=== PATIENT | female | born 1945 | race Hispanic/Latino ===

== ENCOUNTER 2018-02-13 05:07 | Emergency (ER) | payer OTHER ==
[2018-02-13] MEDS ORDERED: MAGNE/ALUM HYDROXD 30 ML UCUP ONE (05:58)
[2018-02-13] MEDS ORDERED: NA CHLORIDE 0.9% 1,000 ML ONE (05:59)
[2018-02-13] MEDS ORDERED: ONDANSETRON 4 MG/2 ML VIAL ONE ×2 (05:59→07:45)
[2018-02-13] MEDS ORDERED: MORPHINE 4 MG/ML SYR ONE (05:59)
[2018-02-13] MEDS ORDERED: LIDOCAINE VISCOUS 2% SOLN 15 ML UDC ONE (05:59)
[2018-02-13] MEDS ORDERED: FAMOTIDINE 20 MG/2 ML VIAL IV ONE (06:00)
[2018-02-13 06:13] LABS: Absolute Lymphocytes (CBC) 0.6 K/uL (0.7-4.9); Absolute Neutrophil 8.3 K/uL (1.8-8.0); Basophils % 0.3 % (0-1.3); Eosinophils % 0.7 % (0-4.4); Hematocrit 35.7 % (36.0-45.0); Lymphocytes % 6.7 % (15.3-44.8); MCH 29.2 pg (27.0-35.0); MCV 84.4 fL (80-100); Monocytes % 0.4 % (3.3-12.3); RBC Red Blood Cell Count 4.23 M/uL (3.86-4.86)
[2018-02-13 06:18] LABS: Albumin 3.6 g/dL (3.4-5.0); Bilirubin Direct 0.1 mg/dL (0-0.2); Bilirubin Total 0.3 mg/dL (0.2-1.0); Potassium 3.6 mmol/L (3.5-5.1); Protein, Total 7.2 g/dL (6.4-8.2)
[2018-02-13] MEDS ORDERED: NA CHLORIDE 0.9% 50 ML IV ONE (06:22)
[2018-02-13] MEDS ORDERED: METRONIDAZOLE 500mg IVPB 500 MG/100 ML BAG IV ONE (06:22)
[2018-02-13] MEDS ORDERED: CEFTRIAXONE 1000 MG/VIAL ONE (06:22)
[2018-02-13 07:38] LABS: Blood Morphology Comment NOT SEEN (NOT SEEN); Platelet Estimate ADEQ
--- NOTE | 2018-02-13 08:40 | EDPHYS ---
Physician Documentation [facility] Name: Herlinda Benitez Age: 72 yrs Sex: Female : 1945 Arrival Date: 02/13/2018 Time: 05:10 Bed 16 Private MD: Rita García R ED Physician Jeanmarie Oakes HPI: 02/13 05:54 This 72 yrs old Female presents to ER via Unassigned with complaints of ma2 Vomiting/Diarrhea. 05:54 The patient presents to the emergency department with vomiting, diarrhea, abdominal ma2 pain. Onset: The symptoms/episode began/occurred suddenly, 3 hour(s) ago. The symptoms are alleviated by. Associated signs and symptoms: Pertinent positives: abdominal pain. Severity of symptoms: At their worst the symptoms were moderate in the emergency department the symptoms are unchanged. The patient has not experienced similar symptoms in the past. Historical: - Allergies: 05:13 PENICILLINS; cc3 - Home Meds: 05:13 oxybutin 5mg once a day [Active]; losartan 50 mg oral tab 1 tab once daily [Active]; cc3 pravastatin 40 mg oral tab 1 tab once daily [Active]; amlodipine 5 mg tab 1 tab once daily [Active]; metformin 500 mg Oral tab 1 tab 2 times per day [Active]; citalopram 20 mg tab 1 tab once daily [Active]; Insulin: Novolin 70/30 18 units AM and 15 units PM Sub-Q [Active]; - PMHx: 05:13 Diabetes - IDDM; Hyperlipidemia; Hypertension; cc3 - PSHx: 05:13 Cholecystectomy; Ear Tubes; cc3 - Immunization history:: Adult Immunizations not up to date. - Social history:: Patient uses Patient/guardian denies using alcohol, street drugs, The patient lives with family, Smoking status: Patient/guardian denies using tobacco, the patient reports quitting approximately 15 years ago. - Family history:: not pertinent. - Ebola Screening: : No symptoms or risks identified at this time. - Hospitalizations: : No recent hospitalization is reported. ROS: 05:54 Constitutional: Negative for fever, chills, and weight loss, Cardiovascular: Negative ma2 for chest pain, palpitations, and edema, Respiratory: Negative for shortness of breath, cough, wheezing, and pleuritic chest pain. 05:54 Abdomen/GI: Positive for nausea, vomiting, and diarrhea, Negative for constipation, abdominal distension, black/tarry stool, bowel incontinence. 05:54 All other systems are negative. Exam: 05:54 Constitutional: This is a well developed, well nourished patient who is awake, alert, ma2 and in no acute distress. Chest/axilla: Normal chest wall appearance and motion. Nontender with no deformity. No lesions are appreciated. Cardiovascular: Regular rate and rhythm with a normal S1 and S2. No gallops, murmurs, or rubs. Normal PMI, no JVD. No pulse deficits. Respiratory: Lungs have equal breath sounds bilaterally, clear to auscultation and percussion. No rales, rhonchi or wheezes noted. No increased work of breathing, no retractions or nasal flaring. MS/ Extremity: Pulses equal, no cyanosis. Neurovascular intact. Full, normal range of motion. Neuro: Awake and alert, GCS 15, oriented to person, place, time, and situation. Cranial nerves II-XII grossly intact. Motor strength 5/5 in all extremities. Sensory grossly intact. Cerebellar exam normal. Normal gait. 05:54 Abdomen/GI: Palpation: moderate abdominal tenderness, in the epigastric area and right upper quadrant, rebound tenderness, voluntary guarding, is not appreciated, involuntary guarding, is not appreciated. 08:52 Abdomen/GI: Inspection: distension, Bowel sounds: normal, Rectal exam: is unremarkable, renetta rectal tone normal, Stool: guaiac negative, hemorrhoid(s), are not appreciated, mass, is not appreciated, swelling, is not appreciated, tenderness, is not appreciated. Vital Signs: 05:13 BP 138 / 62; Pulse 68; Resp 19 S; Temp 97.9(O); Pulse Ox 97% on R/A; Weight 84.82 kg cc3 (R); Height 5 ft. 4 in. (162.56 cm) (R); 06:15 BP 171 / 80; Pulse 103; Resp 20 S; Pulse Ox 95% on R/A; cc3 07:31 BP 176 / 61; Pulse 97; Resp 16; Pulse Ox 92% on 3 lpm NC; Pain 0/10; em 08:50 BP 168 / 79; Pulse 90; Resp 16; Pulse Ox 99% on R/A; Pain 0/10; em 14:55 BP 124 / 59; Pulse 76; Resp 18; Temp 97.9(O); Pulse Ox 99% on R/A; Pain 1/10; em 05:13 Body Mass Index 32.10 (84.82 kg, 162.56 cm) cc3 MDM: 05:47 Patient medically screened. mi2 05:54 Differential diagnosis: gastritis, cholecystitis, pancreatitis, appendicitis, ma2 diverticulitis, viral gastroenteritis. 08:31 Data reviewed: vital signs, nurses notes, lab test result(s), EKG, radiologic studies, [facility] CT scan, plain films. 02/13 05:39 Order name: Basic Metabolic Panel; Complete Time: 06:33 ms 02/13 05:39 Order name: CBC with Diff; Complete Time: 08:29 ms 02/13 05:39 Order name: Creatinine for Radiology; Complete Time: 06:33 ms 02/13 05:39 Order name: Hepatic Function; Complete Time: 06:33 ms 02/13 05:39 Order name: Lipase; Complete Time: 06:33 ms 02/13 06:16 Order name: Manual Differential; Complete Time: 08:29 EDMS 02/13 05:47 Order name: CT Abd/Pelvis - W/Contrast; Complete Time: 13:38 ma2 02/13 11:10 Order name: Urine Culture [facility] 02/13 11:12 Order name: Urine Dipstick--Ancillary (enter results) 02/13 11:22 Order name: Urine Dipstick-Ancillary; Complete Time: 13:35 EDMS 02/13 14:49 Order name: Glucose, Ancillary Testing [facility] 02/13 14:49 Order name: Glucose, Ancillary Testing [facility] 02/13 05:39 Order name: IV Saline Lock; Complete Time: 05:52 ms 02/13 05:39 Order name: Labs collected and sent; Complete Time: 05:52 ms 02/13 05:39 Order name: Urine Dipstick-Ancillary (obtain specimen); Complete Time: 11:29 ms 02/13 08:52 Order name: Arellano; Complete Time: 09:34 [facility] Administered Medications: 05:45 Drug: NS 0.9% 1000 ml Route: IV; Rate: 1 bolus; Site: right antecubital; cc3 06:30 Follow up: Response: No adverse reaction; IV Status: Completed infusion; IV Intake: cc3 1000ml 05:46 Drug: Zofran 4 mg Route: IVP; Site: right antecubital; cc3 06:15 Follow up: Response: No adverse reaction; Nausea is decreased cc3 05:50 Drug: Pepcid 20 mg Route: IVP; Site: right antecubital; cc3 06:15 Follow up: Response: No adverse reaction; Pain is decreased cc3 05:54 Drug: morphine 4 mg Route: IVP; Site: right antecubital; cc3 06:15 Follow up: Response: No adverse reaction; Pain is decreased cc3 06:05 Drug: GI Cocktail without - (Maalox Suspension 30 ml, Lidocaine Liquid 2 % 15 cc3 ml) Route: PO; 06:15 Follow up: Response: No adverse reaction cc3 06:15 Drug: Flagyl 500 mg Volume: 100 ml; Route: IVPB; Rate: 200 ml/hr; Infused Over: 30 cc3 mins; Site: right antecubital; 08:13 Follow up: Response: No adverse reaction; IV Status: Completed infusion; IV Intake: em 200ml 07:32 Drug: Rocephin 1 grams Route: IV; Rate: calculated rate; Site: right antecubital; iw 08:14 Follow up: Response: No adverse reaction; IV Status: Completed infusion; IV Intake: 10mlem 07:59 Drug: Zofran 4 mg Route: IVP; Site: right antecubital; em 08:13 Follow up: Response: No adverse reaction; Nausea is decreased em 11:28 Drug: levofloxacin 500 mg Volume: 100 ml; Route: IVPB; Infused Over: 60 mins; Site: em right antecubital; 13:04 Follow up: IV Status: Completed infusion; IV Intake: 100ml em Point of Care Testing: Blood Glucose: 05:34 Blood Glucose: 226 mg/dL; cc3 14:49 Blood Glucose: 170 mg/dL; mt Ranges: Critical Glucose Levels:Adult <50 mg/dl or >400 mg/dl <40 mg/dl or >180 mg/dl Disposition: 02/13/18 15:12 Transfer ordered to [facility]. Diagnosis are Vomiting, Diarrhea, unspecified, Type 1 diabetes mellitus, Hydronephrosis with ureteral stricture, not elsewhere classified, Abdominal tenderness. - Reason for transfer: Higher level of care. - Accepting physician is dr anuj copeland. - Condition is Fair. - Problem is new. - Symptoms have improved. Signatures: Dispatcher [employer] Jeanmarie Wu MD MD cha Munoz, Edgar, SERVICE DELIVERY MANAGER SERVICE DELIVERY MANAGER Jennifer Ruiz, Adelaida Bruce RN, [email or web address], MD DAKOTA Marshall ma2 Corinna Garzon Charlene 3 Corrections: (The following items were deleted from the chart) 08:40 08:39 Hospitalization Ordered by Rebeca Sotelo MD for Observation. Preliminary renetta diagnosis is Vomiting; Diarrhea, unspecified; Abdominal tenderness; Hydronephrosis with ureteral stricture, not elsewhere classified. Bed requested for Telemetry/MedSurg (observation). Status is Observation. Condition is Fair. Problem is new. Symptoms have improved. UTI on Admission? No. renetta 08:41 08:40 02/13/2018 08:39 Hospitalization Ordered by Rebeca Sotelo MD for Observation. renetta Preliminary diagnosis is Vomiting; Diarrhea, unspecified; Abdominal tenderness; Hydronephrosis with ureteral stricture, not elsewhere classified; Bandemia. Bed requested for Telemetry/MedSurg (observation). Status is Observation. Condition is Fair. Problem is new. Symptoms have improved. UTI on Admission? No. renetta 10:20 08:41 02/13/2018 08:39 Hospitalization Ordered by Rebeca Sotelo MD for Observation. eb Preliminary diagnosis is Vomiting; Diarrhea, unspecified; Abdominal tenderness; Hydronephrosis with ureteral stricture, not elsewhere classified; Bandemia; Type 1 diabetes mellitus; Obesity, unspecified. Bed requested for Telemetry/MedSurg (observation). Status is Observation. Condition is Fair. Problem is new. Symptoms have improved. UTI on Admission? No. renetta 11:08 10:20 02/13/2018 08:39 Hospitalization Ordered by Rebeca Sotelo MD for Observation. renetta Preliminary diagnosis is Vomiting; Diarrhea, unspecified; Abdominal tenderness; Hydronephrosis with ureteral stricture, not elsewhere classified; Bandemia; Type 1 diabetes mellitus; Obesity, unspecified. Bed requested for [facility] ER HOLD. Status is Observation. Condition is Fair. Problem is new. Symptoms have improved. UTI on Admission? No. eb 15:09 11:08 02/13/2018 08:39 Hospitalization Ordered by Rebeca Sotelo MD for Observation. [facility] Preliminary diagnosis is Vomiting; Diarrhea, unspecified; Abdominal tenderness; Hydronephrosis with ureteral stricture, not elsewhere classified; Bandemia; Type 1 diabetes mellitus; Obesity, unspecified; Cystitis. Bed requested for [facility] ER HOLD. Status is Observation. Condition is Fair. Problem is new. Symptoms have improved. UTI on Admission? Yes. [facility] 15:46 15:12 02/13/2018 15:12 Transfer ordered to [facility]. Diagnosis is em Vomiting; Diarrhea, unspecified; Type 1 diabetes mellitus; Hydronephrosis with ureteral stricture, not elsewhere classified; Abdominal tenderness. Reason for transfer: Higher level of care. Accepting physician is dr anuj copeland. Condition is Fair. Problem is new. Symptoms have improved. [facility]
--- NOTE | 2018-02-13 08:40 | ER ---
Nurse's Notes [facility] Name: Herlinda Benitez Age: 72 yrs Sex: Female : 1945 Arrival Date: 02/13/2018 Time: 05:10 Bed 16 Private MD: Rita García R Diagnosis: Vomiting;Diarrhea, unspecified;Type 1 diabetes mellitus;Hydronephrosis with ureteral stricture, not elsewhere classified;Abdominal tenderness Presentation: 02/13 05:13 Presenting complaint: Patient states: diarrhea 3-4 times and vomiting since last night. cc3 05:13 Method Of Arrival: Wheelchair cc3 05:13 Transition of care: patient was not received from another setting of care. Onset of cc3 symptoms was February 12, 2018. Risk Assessment: Do you want to hurt yourself or someone else? Patient reports no desire to harm self or others. Initial Sepsis Screen: Does the patient meet any 2 criteria? No. Patient's initial sepsis screen is negative. Does the patient have a suspected source of infection? No. Patient's initial sepsis screen is negative. Care prior to arrival: None. 05:13 Acuity: LOLIS 3 cc3 Triage Assessment: 05:13 General: Appears distressed, uncomfortable, Behavior is cooperative, appropriate for cc3 age, anxious. Pain: Complains of pain in right upper quadrant and epigastric area. EENT: No signs and/or symptoms were reported regarding the EENT system. Neuro: Level of Consciousness is awake, alert, obeys commands, Oriented to person, place, time, situation, Appropriate for age. Cardiovascular: Denies chest pain. Respiratory: Airway is patent Respiratory effort is even, unlabored, Respiratory pattern is regular, symmetrical. GI: Reports upper abdominal pain, diarrhea, epigastric pain, nausea, vomiting, since last night. : No signs and/or symptoms were reported regarding the genitourinary system. Derm: No signs and/or symptoms reported regarding the dermatologic system. Musculoskeletal: Circulation, motion, and sensation intact. Range of motion: intact in all extremities. Historical: - Allergies: 05:13 PENICILLINS; cc3 - Home Meds: 05:13 oxybutin 5mg once a day [Active]; losartan 50 mg oral tab 1 tab once daily [Active]; cc3 pravastatin 40 mg oral tab 1 tab once daily [Active]; amlodipine 5 mg tab 1 tab once daily [Active]; metformin 500 mg Oral tab 1 tab 2 times per day [Active]; citalopram 20 mg tab 1 tab once daily [Active]; Insulin: Novolin 70/30 18 units AM and 15 units PM Sub-Q [Active]; - PMHx: 05:13 Diabetes - IDDM; Hyperlipidemia; Hypertension; cc3 - PSHx: 05:13 Cholecystectomy; Ear Tubes; cc3 - Immunization history:: Adult Immunizations not up to date. - Social history:: Patient uses Patient/guardian denies using alcohol, street drugs, The patient lives with family, Smoking status: Patient/guardian denies using tobacco, the patient reports quitting approximately 15 years ago. - Family history:: not pertinent. - Ebola Screening: : No symptoms or risks identified at this time. - Hospitalizations: : No recent hospitalization is reported. Screenin:13 Abuse screen: Denies threats or abuse. Denies injuries from another. Nutritional cc3 screening: No deficits noted. Tuberculosis screening: No symptoms or risk factors identified. Fall Risk Ambulatory Aid- None/Bed Rest/Nurse Assist (0 pts). Gait- Normal/Bed Rest/Wheelchair (0 pts) Mental Status- Oriented to own ability (0 pts). Assessment: 07:00 Reassessment: Patient still in CT scan department, handed over to morning shift for cc3 continuity of care. 07:04 General: Appears in no apparent distress. comfortable, Behavior is calm, cooperative. em Pain: Denies pain. Cardiovascular: Capillary refill < 3 seconds Patient's skin is warm and dry. Respiratory: Airway is patent Respiratory effort is even, unlabored, Respiratory pattern is regular, symmetrical. GI: Abdomen is round non-distended, Abd is soft and non tender X 4 quads. Reports diarrhea, nausea, Patient currently denies nausea, vomiting. Derm: Skin is intact, Skin is pink, warm \T\ dry. Musculoskeletal: Range of motion: intact in all extremities. 07:30 Reassessment: Patient appears in no apparent distress at this time. Patient and/or em family updated on plan of care and expected duration. Pain level reassessed. Patient is alert, oriented x 3, equal unlabored respirations, skin warm/dry/pink. resting comfortably with family at bedside Patient denies pain at this time. Patient states symptoms have improved. 07:55 Reassessment: reports nausea and belching, provider notified, new medication orders em received. 08:50 Reassessment: Patient appears in no apparent distress at this time. Patient and/or em family updated on plan of care and expected duration. Pain level reassessed. Patient is alert, oriented x 3, equal unlabored respirations, skin warm/dry/pink. Patient denies pain at this time. Patient states feeling better. 09:15 Reassessment: see [facility] for further charting. em 14:55 Reassessment: report given to HEIDY Kapoor at [facility], pending EMS transportation. em 15:45 Reassessment: Patient appears in no apparent distress at this time. Patient and/or em family updated on plan of care and expected duration. Pain level reassessed. Patient is alert, oriented x 3, equal unlabored respirations, skin warm/dry/pink. report given to EMS. 16:00 Reassessment: Patient appears in no apparent distress at this time. I agree with above iw assessment by Carrillo Tovar LVN. Vital Signs: 05:13 BP 138 / 62; Pulse 68; Resp 19 S; Temp 97.9(O); Pulse Ox 97% on R/A; Weight 84.82 kg cc3 (R); Height 5 ft. 4 in. (162.56 cm) (R); 06:15 BP 171 / 80; Pulse 103; Resp 20 S; Pulse Ox 95% on R/A; cc3 07:31 BP 176 / 61; Pulse 97; Resp 16; Pulse Ox 92% on 3 lpm NC; Pain 0/10; em 08:50 BP 168 / 79; Pulse 90; Resp 16; Pulse Ox 99% on R/A; Pain 0/10; em 14:55 BP 124 / 59; Pulse 76; Resp 18; Temp 97.9(O); Pulse Ox 99% on R/A; Pain 1/10; em 05:13 Body Mass Index 32.10 (84.82 kg, 162.56 cm) [facility] ED Course: 05:10 Patient arrived in ED. am2 05:11 Paradise Beckwith is Primary Nurse. cc3 05:11 Rita García MD is Private Physician. am2 05:13 Arm band placed on left wrist. cc3 05:13 Patient has correct armband on for positive identification. Bed in low position. Call cc3 light in reach. Side rails up X 1. industrial locomotive operator on. Pulse ox on. NIBP on. 05:40 Inserted saline lock: 20 gauge in right antecubital area, using aseptic technique. cc3 Blood collected. 05:45 Joanna Pinto MD is Attending Physician. ma2 06:25 Triage completed. cc3 06:[address] via stretcher. kw1 06:55 CT completed. Patient tolerated procedure well. Patient moved back from CT. kw1 06:55 CT Abd/Pelvis - W/Contrast In Process Unspecified. EDMS 07:00 Report given to GEOFF Vizcaino. cc3 07:15 Carrillo Tovar LVN is Primary Nurse. em 07:18 Attending Physician role handed off by Joanna Pinto MD renetta 07:18 Jeanmarie Oakes MD is Attending Physician. renetta 08:34 Rebeca Sotelo MD is Hospitalizing Provider. renetta 09:22 Arellano cath inserted, using sterile technique, 16 Fr., by al, balloon inflated, to iw gravity drainage, returned cloudy urine. Patient tolerated well. 15:44 No provider procedures requiring assistance completed. Patient transferred, IV remains em in place. Administered Medications: 05:45 Drug: NS 0.9% 1000 ml Route: IV; Rate: 1 bolus; Site: right antecubital; cc3 06:30 Follow up: Response: No adverse reaction; IV Status: Completed infusion; IV Intake: cc3 1000ml 05:46 Drug: Zofran 4 mg Route: IVP; Site: right antecubital; cc3 06:15 Follow up: Response: No adverse reaction; Nausea is decreased cc3 05:50 Drug: Pepcid 20 mg Route: IVP; Site: right antecubital; cc3 06:15 Follow up: Response: No adverse reaction; Pain is decreased cc3 05:54 Drug: morphine 4 mg Route: IVP; Site: right antecubital; cc3 06:15 Follow up: Response: No adverse reaction; Pain is decreased cc3 06:05 Drug: GI Cocktail without - (Maalox Suspension 30 ml, Lidocaine Liquid 2 % 15 cc3 ml) Route: PO; 06:15 Follow up: Response: No adverse reaction cc3 06:15 Drug: Flagyl 500 mg Volume: 100 ml; Route: IVPB; Rate: 200 ml/hr; Infused Over: 30 cc3 mins; Site: right antecubital; 08:13 Follow up: Response: No adverse reaction; IV Status: Completed infusion; IV Intake: em 200ml 07:32 Drug: Rocephin 1 grams Route: IV; Rate: calculated rate; Site: right antecubital; iw 08:14 Follow up: Response: No adverse reaction; IV Status: Completed infusion; IV Intake: 10mlem 07:59 Drug: Zofran 4 mg Route: IVP; Site: right antecubital; em 08:13 Follow up: Response: No adverse reaction; Nausea is decreased em 11:28 Drug: levofloxacin 500 mg Volume: 100 ml; Route: IVPB; Infused Over: 60 mins; Site: em right antecubital; 13:04 Follow up: IV Status: Completed infusion; IV Intake: 100ml em Point of Care Testing: Blood Glucose: 05:34 Blood Glucose: 226 mg/dL; cc3 14:49 Blood Glucose: 170 mg/dL; mt Ranges: Intake: 06:30 IV: 1000ml; Total: 1000ml. cc3 08:13 IV: 200ml; Total: 1200ml. em 08:14 IV: 10ml; Total: 1210ml. em 13:04 IV: 100ml; Total: 1310ml. em Outcome: 08:39 Decision to Hospitalize by Provider. renetta 15:12 ER care complete, transfer ordered by . [facility] 15:44 Transferred by ground EMS to [facility], Transfer form completed. em X-rays sent w/ patient. 15:44 Condition: good 15:44 Instructed on the need for transfer, Demonstrated understanding of instructions. 15:46 Patient left the ED. em Signatures: Dispatcher [employer] Jeanmarie Wu MD MD cha Munoz, Edgar, COMMUNITY ASSISTANT COMMUNITY ASSISTANT em Jennifer Junior, HEIDY RN Jessa Plata Moriah tn Narda Dawn kw1 Joanna Pinto MD MD ma2 Cordel, Charlene cc3
[2018-02-13 11:22] LABS: Urine Blood 3+ (NEG); Urine Glucose NEGATIVE (NEG); Urine Protein 2+ (NEG)
[2018-02-13] MEDS ORDERED: Levofloxacin500mg IV 500 MG/100 ML BAG IV ONE (11:24)
[2018-02-13] MEDS ORDERED: PNEUMOCOCCAL VACCINE 0.5 ML IMVAC ONE (13:00)
--- NOTE | 2018-02-13 13:20 | P.CNS ---
Date of Consult: 02/13/18 Reason for Consult: Admission to the medical-surgical floor Primary Care Provider: Dr vivar Chief Complaint: Abdominal pain History of Present Illness: This is a 72-year-old female with significant past medical history presented to the ED complaining of having some abdominal pain diarrhea nausea and vomiting. Abdominal pain diarrhea has been going on for about 2-3 days. Patient's nausea vomiting started last night and has gotten progressively worse. Patient thus decided to come to the ER for further workup. Patient stated she also had low- grade fever of 100.6 at the house last night. It is also noted having some chills. Patient did not have any similar symptoms in the past. In the ER patient had lab work and imaging done which was consistent with dehydration along with abdominal CT scan that was consistent with mild right- sided hydronephrosis with right nephrolithiasis and right perinephric fluid. Medicine team was thus consulted for admission for further care. Allergies Penicillins Allergy (Unknown, Verified 02/13/18 10:24) Hives - Social History Alcohol use: No CD- Drugs: No Place of Residence: Home Review of Systems 10-point ROS is otherwise unremarkable Physical Examination Temp Pulse Resp BP Pulse Ox 98.7 F 78 18 120/56 L 95 02/13/18 12:00 02/13/18 12:00 02/13/18 12:00 02/13/18 12:00 02/13/18 12:00 General: Alert, In no apparent distress HEENT: Atraumatic, PERRLA, Mucous membr. moist/pink, EOMI, Sclerae nonicteric Neck: Supple, 2+ carotid pulse no bruit, No LAD, Without JVD or thyroid abnormality Respiratory: Clear to auscultation bilaterally, Normal air movement Cardiovascular: Regular rate/rhythm, Normal S1 S2 Gastrointestinal: Normal bowel sounds, Tenderness Musculoskeletal: No tenderness Integumentary: No rashes Neurological: Normal gait, Normal speech, Normal tone, Normal affect Lymphatics: No axilla or inguinal lymphadenopathy Laboratory Data (last 24 hrs) 02/13/18 05:40: Creatinine 1.30 02/13/18 05:40: WBC 9.0, Hgb 12.3, Hct 35.7 L, Plt Count 310 02/13/18 05:40: Sodium 136, Potassium 3.6, BUN 22 H, Creatinine 1.30, Glucose 216 H, Total Bilirubin 0.3, AST 10 L, ALT 16, Alkaline Phosphatase 122 H, Lipase 59 L - Problems (1) Abdominal pain Current Visit: Yes Status: Acute Qualifiers: Abdominal location: generalized Qualified Code(s): R10.84 - Generalized abdominal pain (2) Hydronephrosis Current Visit: Yes Status: Acute Qualifiers: Hydronephrosis type: with renal calculous obstruction Qualified Code(s): N13.2 - Hydronephrosis with renal and ureteral calculous obstruction (3) Nephrolithiasis Current Visit: Yes Status: Acute (4) Perinephric fluid collection Current Visit: Yes Status: Acute Conclusions/Impression: 72-year-old female significant past medical history with abdominal pain nausea and vomiting most likely secondary to right-sided moderate hydronephrosis with right nephrolithiasis and right perinephric fluid. Patient's PCP was contacted from the ER 0 noted that patient's abdominal CT has been changes with hydronephrosis this is not a chronic condition for the patient. Patient at that time was educated about the abdominal CT findings and the need for urology the patient was to have another fever here in the hospital. Overall was consulted by the medicine team here who agreed with the plan of transfer the patient to the medical center due to the extensive nature of her abdominal CT scan imaging results. Due to lack of urology coverage here in the hospital it was decided that patient to be transferred to Medical Center. The ER physician was notified of the decision and patient is to be transferred from the ER to the [facility] for urology coverage.
--- NOTE | 2018-02-13 13:34 | RAD REPORT ---
EXAM DESCRIPTION: CTAbdomen Pelvis W Contrast - 02/13/2018 6:55 am CLINICAL HISTORY: Abdominal pain. ABD PAIN COMPARISON: CT ABD PELVIS W CONTRAST dated 03/15/2008 TECHNIQUE: Biphasic CT imaging of the abdomen and pelvis was performed with 100 ml non-ionic IV cont rast. All CT scans are performed using dose optimization technique as appropriate and may include automated exposure control or mA/KV adjustment according to patient size. FINDINGS: The lung bases are clear.Small hiatal hernia is present. Fatty liver is present with cholecystectomy clips. Moderate intrahepatic biliary dilatation is seen a nd dilatation of the common bile duct. There is irregular dilatation of the pancreatic duct seen with multiple dystrophic calcifications. The spleen, adrenal glands and left kidney are normal. Small cys ts are present cortex left kidney. Moderate right-sided hydronephrosis is present several right-sided renal calculi are present. Distention of the urinary bladder is seen with a large amount of air pres ent. Subtle increased density seen in the distal right ureter. No bowel obstruction, free air, free fluid or abscess. The appendix is normal. No evidence of signi ficant lymphadenopathy. No suspicious bony findings. IMPRESSION: Urinary bladder is distended and contains air. Cystitis is a possibility. Soft tissue density is seen in the distal right ureter with mild right hydronephrosis present, which may be related to debris or mass. Cystoscopy is suggested for further evaluation. Several right renal stones are present with perinephric fat stranding on the right noted, moderate. Moderate intrahepatic and extrahepatic biliary tree dilatation is seen. Dilatation irregularity of th e pancreatic duct is seen dystrophic calcifications present throughout the pancreas. This is felt to likely be related to chronic pancreatitis, however MRCP followup assessment would be useful.
== END 2018-02-13 15:46 | disposition short-term general hospital (02) ==
LOC: ER 05:07 → UNDOADMOB 08:47 → ERHOLD 08:47
DX: N13.1 Hydronephrosis with ureteral stricture, not elsewhere classified (principal); R19.7 Diarrhea, unspecified; R10.819 Abdominal tenderness, unspecified site; E10.9 Type 1 diabetes mellitus without complications; I10 Essential (primary) hypertension; E78.5 Hyperlipidemia, unspecified; Z79.4 Long term (current) use of insulin; Z88.0 Allergy status to penicillin
CPT/HCPCS: 36415; 51702; 74177; 80048; 80076; 81003; 82962 ×2; 83690; 85025; 87077; 87086; 87088; 87186; 96365; 96366; 96367; 96375; 99285; J2405 ×2; J7030; Q9967

== ENCOUNTER 2018-10-07 21:35 | Emergency (ER) | payer OTHER ==
--- OUTSIDE RECORDS SUMMARY | 2018-10-07 21:39 | XMS REPORT | Clinical Summary ---
:1945 Author Organization [facility] Address [address] [place] [address] Care Team Providers Name Role Phone Pcp, No Primary Care Provider Unavailable Allergies Active Allergy Reactions Severity Noted Date Comments Penicillins Hives 02/13/2018 Medications Medication Sig Dispensed Refills Start Date End Date Status oxybutynin Take 5 mg by mouth 0 Active (DITROPAN) 5 MG daily. tablet losartan (COZAAR) Take 50 mg by mouth 0 Active 50 MG tablet daily. pravastatin Take 40 mg by mouth 0 Active (PRAVACHOL) 40 MG daily. tablet amLODIPine Take 5 mg by mouth 0 Active (NORVASC) 10 MG daily. tablet metFORMIN Take 500 mg by 0 Active (GLUCOPHAGE) 500 mouth 2 (two) times MG tablet daily with breakfast and dinner. insulin 70/30, Inject 18 Units 0 Active insulin subcutaneously NPH-insulin every morning. regular, (HUMULIN 70/30) 100 unit/mL (70-30) injection insulin 70/30, Inject 15 Units 0 Active insulin subcutaneously NPH-insulin daily with dinner. regular, (HUMULIN 70/30) 100 unit/mL (70-30) injection citalopram Take 20 mg by mouth 0 Active (CELEXA) 20 MG daily. tablet levoFLOXacin Take 1 tablet (750 3 tablet 0 02/18/2018 02/19/20 Discontinued (LEVAQUIN) 750 MG mg total) by mouth 18 tablet daily for 10 days. levoFLOXacin Take 1 tablet (500 3 tablet 0 02/18/2018 02/22/20 (LEVAQUIN) 500 MG mg total) by mouth 18 tablet daily for 3 days. Active Problems Problem Noted Date Pyelonephritis 02/13/2018 Hydronephrosis of right kidney 02/13/2018 Dilation of biliary tract 02/13/2018 Encounters Date Type Specialty Care Team Description 02/18/2018 Anesthesia Event Sofie Cardenas MD 02/18/2018 Surgery Link, Yunior CYSTOSCOPY,INSERTION MD Osvaldo URETERAL STENTS 02/13/2018 - Hospital Encounter General Internal Steven, Dilation of biliary tract (Primary Dx); 02/19/2018 Medicine MD Juan Carlos Hydronephrosis of right kidney; Changela, Pyelonephritis; Blanka Pérez MD Urinary tract infection without hematuria, site unspecified; Ani Hutchinson MD Idiopathic chronic pancreatitis (HCC); Pancreatic calcification; Pancreatic duct stones; Pancreatic cyst after 10/06/2017 Social History Tobacco Use Types Packs/Day Years Used Date Former Smoker Smokeless Tobacco: Never Used Comments: quit 2002 Alcohol Use Drinks/Week oz/Week Comments No Alcohol Habits Answer Date Recorded How often do you have a drink containing alcohol? Never 02/13/2018 How many drinks containing alcohol do you have on a typical Not asked day when you are drinking? How often do you have six or more drinks on one occasion? Not asked Sex Assigned at Date Recorded Not on file Job Start Date Occupation Industry Not on file Not on file Not on file Travel History Travel Start Travel End No recent travel history available. Last Filed Vital Signs Vital Sign Reading Time Taken Blood Pressure 152/63 02/19/2018 7:41 AM SENIOR MECHANICAL DEVELOPMENT ENGINEER Pulse 71 02/19/2018 7:41 AM SENIOR MECHANICAL DEVELOPMENT ENGINEER Temperature 36.1 C (97 F) 02/19/2018 7:41 AM SENIOR MECHANICAL DEVELOPMENT ENGINEER Respiratory Rate 17 02/19/2018 7:41 AM SENIOR MECHANICAL DEVELOPMENT ENGINEER Oxygen Saturation 96% 02/19/2018 7:41 AM SENIOR MECHANICAL DEVELOPMENT ENGINEER Inhaled Oxygen Concentration - - Weight 87.6 kg (193 lb 3.2 oz) 02/13/2018 5:07 PM SENIOR MECHANICAL DEVELOPMENT ENGINEER Height 164.6 cm (5' 4.8") 02/13/2018 5:07 PM SENIOR MECHANICAL DEVELOPMENT ENGINEER Body Mass Index 32.35 02/13/2018 5:07 PM SENIOR MECHANICAL DEVELOPMENT ENGINEER Plan of Treatment Not on file Procedures Procedure Name Priority Date/Time Associated Comments Diagnosis POCT-GLUCOSE METER Routine 02/19/2018 9:41 Results for this AM SENIOR MECHANICAL DEVELOPMENT ENGINEER procedure are in the results section. POCT-GLUCOSE METER Routine 02/19/2018 7:41 Results for this AM SENIOR MECHANICAL DEVELOPMENT ENGINEER procedure are in the results section. POCT-GLUCOSE METER Routine 02/18/2018 8:58 Results for this PM SENIOR MECHANICAL DEVELOPMENT ENGINEER procedure are in the results section. POCT-GLUCOSE METER Routine 02/18/2018 4:40 Results for this PM SENIOR MECHANICAL DEVELOPMENT ENGINEER procedure are in the results section. POCT-GLUCOSE METER Routine 02/18/2018 2:50 Results for this PM SENIOR MECHANICAL DEVELOPMENT ENGINEER procedure are in the results section. FL SHINGLE SHEARING MACHINE OPERATOR IN OR Routine 02/18/2018 2:23 Results for this 30 MINUTE PM SENIOR MECHANICAL DEVELOPMENT ENGINEER procedure are in INCREMENTS the results section. CYTOLOGY REQUEST Routine 02/18/2018 2:09 Results for this PM SENIOR MECHANICAL DEVELOPMENT ENGINEER procedure are in the results section. CYTOLOGY AP Routine 02/18/2018 2:09 Results for this PM SENIOR MECHANICAL DEVELOPMENT ENGINEER procedure are in the results section. CYSTOSCOPY 02/18/2018 12:30 Ureteral mass PM SENIOR MECHANICAL DEVELOPMENT ENGINEER Case Notes 1 HR CYSTOSCOPY,RETROGRADES 02/18/2018 12:30 PM SENIOR MECHANICAL DEVELOPMENT ENGINEER Ureteral mass Case Notes 1 HR CYSTOSCOPY,INSERTION URETERAL STENTS 02/18/2018 12:30 PM SENIOR MECHANICAL DEVELOPMENT ENGINEER Ureteral mass Case Notes 1 HR POCT-GLUCOSE METER Routine 02/18/2018 12:18 PM SENIOR MECHANICAL DEVELOPMENT ENGINEER IGG SUBCLASS-4 ONLY Routine 02/18/2018 6:00 AM SENIOR MECHANICAL DEVELOPMENT ENGINEER POCT-GLUCOSE METER Routine 02/17/2018 9:33 PM SENIOR MECHANICAL DEVELOPMENT ENGINEER PANCREATIC ELASTASE, FECAL Routine 02/17/2018 9:24 PM SENIOR MECHANICAL DEVELOPMENT ENGINEER POCT-GLUCOSE METER Routine 02/17/2018 4:21 PM SENIOR MECHANICAL DEVELOPMENT ENGINEER POCT-GLUCOSE METER Routine 02/17/2018 11:37 AM SENIOR MECHANICAL DEVELOPMENT ENGINEER POCT-GLUCOSE METER Routine 02/17/2018 8:12 AM SENIOR MECHANICAL DEVELOPMENT ENGINEER POCT-GLUCOSE METER Routine 02/16/2018 9:05 PM SENIOR MECHANICAL DEVELOPMENT ENGINEER POCT-GLUCOSE METER Routine 02/16/2018 5:15 PM SENIOR MECHANICAL DEVELOPMENT ENGINEER POCT-GLUCOSE METER Routine 02/16/2018 12:31 PM SENIOR MECHANICAL DEVELOPMENT ENGINEER POCT-GLUCOSE METER Routine 02/16/2018 9:48 AM SENIOR MECHANICAL DEVELOPMENT ENGINEER CT ABDOMEN & PELVIS - Routine 02/16/2018 6:36 AM SENIOR MECHANICAL DEVELOPMENT ENGINEER Results for this HEMATURIA EVALUATION procedure are in the WITHOUT/WITH IV CONTRAST results section. CBC W/PLT COUNT & AUTO Routine 02/16/2018 3:14 AM SENIOR MECHANICAL DEVELOPMENT ENGINEER Results for this DIFFERENTIAL procedure are in the results section. CBC W/PLT COUNT & AUTO Routine 02/16/2018 3:14 AM SENIOR MECHANICAL DEVELOPMENT ENGINEER Results for this DIFFERENTIAL procedure are in the results section. HEPATIC FUNCTION PANEL Routine 02/16/2018 3:14 AM SENIOR MECHANICAL DEVELOPMENT ENGINEER BASIC METABOLIC PANEL (7) Routine 02/16/2018 3:14 AM SENIOR MECHANICAL DEVELOPMENT ENGINEER POCT-GLUCOSE METER Routine 02/15/2018 9:05 PM SENIOR MECHANICAL DEVELOPMENT ENGINEER POCT-GLUCOSE METER Routine 02/15/2018 4:43 PM SENIOR MECHANICAL DEVELOPMENT ENGINEER POCT-GLUCOSE METER Routine 02/15/2018 12:49 PM SENIOR MECHANICAL DEVELOPMENT ENGINEER POCT-GLUCOSE METER Routine 02/15/2018 10:30 AM SENIOR MECHANICAL DEVELOPMENT ENGINEER POCT-GLUCOSE METER Routine 02/15/2018 6:01 AM SENIOR MECHANICAL DEVELOPMENT ENGINEER CBC W/PLT COUNT & AUTO Routine 02/15/2018 4:49 AM SENIOR MECHANICAL DEVELOPMENT ENGINEER Results for this DIFFERENTIAL procedure are in the results section. CBC W/PLT COUNT & AUTO Routine 02/15/2018 4:49 AM SENIOR MECHANICAL DEVELOPMENT ENGINEER Results for this DIFFERENTIAL procedure are in the results section. HEPATIC FUNCTION PANEL Routine 02/15/2018 4:49 AM SENIOR MECHANICAL DEVELOPMENT ENGINEER BASIC METABOLIC PANEL (7) Routine 02/15/2018 4:49 AM SENIOR MECHANICAL DEVELOPMENT ENGINEER URINALYSIS W/ REFLEX URINE Routine 02/14/2018 9:20 PM SENIOR MECHANICAL DEVELOPMENT ENGINEER Results for this CULTURE procedure are in the results section. URINE CULTURE Routine 02/14/2018 9:20 PM SENIOR MECHANICAL DEVELOPMENT ENGINEER POCT-GLUCOSE METER Routine 02/14/2018 9:01 PM SENIOR MECHANICAL DEVELOPMENT ENGINEER POCT-GLUCOSE METER Routine 02/14/2018 5:24 PM SENIOR MECHANICAL DEVELOPMENT ENGINEER POCT-GLUCOSE METER Routine 02/14/2018 12:29 PM SENIOR MECHANICAL DEVELOPMENT ENGINEER MR ABDOMEN WO CONTRAST MRCP Routine 02/14/2018 11:50 AM SENIOR MECHANICAL DEVELOPMENT ENGINEER US ABDOMEN LIMITED Routine 02/14/2018 8:36 AM SENIOR MECHANICAL DEVELOPMENT ENGINEER CBC W/PLT COUNT & AUTO Routine 02/14/2018 5:44 AM SENIOR MECHANICAL DEVELOPMENT ENGINEER Results for this DIFFERENTIAL procedure are in the results section. CBC W/PLT COUNT & AUTO Routine 02/14/2018 5:44 AM SENIOR MECHANICAL DEVELOPMENT ENGINEER Results for this DIFFERENTIAL procedure are in the results section. HEPATIC FUNCTION PANEL Routine 02/14/2018 5:44 AM SENIOR MECHANICAL DEVELOPMENT ENGINEER BASIC METABOLIC PANEL (7) Routine 02/14/2018 5:44 AM SENIOR MECHANICAL DEVELOPMENT ENGINEER POCT-GLUCOSE METER Routine 02/13/2018 9:10 PM SENIOR MECHANICAL DEVELOPMENT ENGINEER POCT-GLUCOSE METER Routine 02/13/2018 6:09 PM SENIOR MECHANICAL DEVELOPMENT ENGINEER URINE CULTURE Routine 02/13/2018 6:07 PM SENIOR MECHANICAL DEVELOPMENT ENGINEER (CELLAVISION MANUAL DIFF) STAT 02/13/2018 6:06 PM SENIOR MECHANICAL DEVELOPMENT ENGINEER CBC W/PLT COUNT & AUTO STAT 02/13/2018 6:06 PM SENIOR MECHANICAL DEVELOPMENT ENGINEER Results for this DIFFERENTIAL procedure are in the results section. COMPREHENSIVE METABOLIC STAT 02/13/2018 6:06 PM SENIOR MECHANICAL DEVELOPMENT ENGINEER Results for this PANEL procedure are in the results section. PROTHROMBIN TIME/INR STAT 02/13/2018 6:06 PM SENIOR MECHANICAL DEVELOPMENT ENGINEER CBC W/PLT COUNT & AUTO STAT 02/13/2018 6:06 PM SENIOR MECHANICAL DEVELOPMENT ENGINEER Results for this DIFFERENTIAL procedure are in the results section. after 10/06/2017 Results POC-Glucose meter (02/19/2018 9:41 AM SENIOR MECHANICAL DEVELOPMENT ENGINEER)Only the most recent of24 resultswithin the time period is included. POC-Glucose Meter 185 (H)Comment: TESTED AT 70 - 110 mg/dL [facility] [address] [facility] [id number] Specimen Blood Performing Organization Address City/State/Zipcode Phone Number [address] [address] CENTER FL grading machine feeder in or 30 minute increments (02/18/2018 2:23 PM SENIOR MECHANICAL DEVELOPMENT ENGINEER) Specimen Narrative Performed At FINAL REPORT [facility] Fluoroscopy 22 views intraoperative 02/18/2018 2:08 PM CLINICAL HISTORY: Instrument localization COMPARISON: None available IMPRESSION: Please correlate imaging report findings with the procedure note prepared by Dr. Pressley, as an intra-procedure imaging consultation was not requested. Reported fluoroscopy time: 0.42 minutes. Signed: Cecilio Franco MD Report Verified Date/Time:02/18/2018 14:37:24 Reading Location: [facility] Radiology Reading Room Procedure Note Interface, External Ris In - 02/18/2018 2:39 PM SENIOR MECHANICAL DEVELOPMENT ENGINEER FINAL REPORT Fluoroscopy 22 views intraoperative 02/18/2018 2:08 PM CLINICAL HISTORY: Instrument localization COMPARISON: None available IMPRESSION: Please correlate imaging report findings with the procedure note prepared by Dr. Pressley, as an intra-procedure imaging consultation was not requested. Reported fluoroscopy time: 0.42 minutes. Signed: Cecilio Franco MD Report Verified Date/Time: 02/18/2018 14:37:24 Reading Location: [facility] Radiology Reading Room Performing Organization Address City/[facility]/Zipcode Phone Number GE RIS CYTOLOGY REQUEST (02/18/2018 2:09 PM SENIOR MECHANICAL DEVELOPMENT ENGINEER) Cytology See Separate Report [facility] Specimen Washings Performing Organization Address City/[facility]/Zipcode Phone Number [facility] [address] [place] [id number] CENTER Cytology (02/18/2018 2:09 PM SENIOR MECHANICAL DEVELOPMENT ENGINEER) Case Report Medical Cytology Report Case: [id number] [facility] Authorizing Provider:Yunior Pressley MD Collected: 02/18/2018 1409 [facility] Ordering Location: [address] Received: 02/21/2018 0916 Service Pathologist: Merced Mancilla MD Specimen:Urinary Bladder DIAGNOSIS URINARY BLADDER WASHING (CYTOSPINS): [facility] - NEGATIVE FOR HIGH GRADE UROTHELIAL DYSPLASIA OR MALIGNANCY [facility] Signing Pathologist Direct Phone Line: [phone] CPT Code(s) 31811 [facility] CLINICAL DATA Ureteral mass [facility] SPECIMEN SOURCE URINARY BLADDER WASHING [facility] GROSS DESCRIPTION 100 mls yellow; 4 cytospins [facility] Collected: [id number] [facility] Received: [id number] STATEMENT OF ADEQUACY Satisfactory [facility] Gross assessment was [facility] performed at [place], Department of [facility] Pathology, [address] [place] [address], Technical component was [facility] performed at [place], Department of [facility] Pathology, [address] [place] [address], Professional component was [facility] performed at [place], Department of [facility] Pathology, [address] [place] [address], Specimen Washings Narrative Performed At Performing Organization Address City/[facility] Phone Number [address] [phone] CENTER IGG SUBCLASS-4 ONLY (02/18/2018 6:00 AM SENIOR MECHANICAL DEVELOPMENT ENGINEER) Igg 4 51.9 4 - 86 mg/dL [facility] Specimen Blood Narrative Performed At Performing Lab [facility] [employer] [address] [address] Randi Ying MD, PhD, NOREEN Performing Organization Address City/State/Zipcode Phone Number [facility] [place] [address] INCORPORATED [facility] Pancreatic elastase, fecal (02/17/2018 9:24 PM SENIOR MECHANICAL DEVELOPMENT ENGINEER) Pancreatic Elastase-1 <15 (L) mcg/g [facility] Comment: INCORPORATED Adult and Pediatric Reference Ranges for Pancreatic Elastase-1: Normal:>200 mcg/g Moderate Pancreatic Insufficiency: 100-200 mcg/g Severe Pancreatic Insufficiency:<100 mcg/g Elastase-1 (E-1) assay results are expressed in mcg/g, which represent mcg E1/g feces. It is not necessary to interrupt enzyme substitution therapy. Specimen Stool Narrative Performed At Performing Lab [facility] [place] [address] [place] [address] Randi Ying MD, PhD, NOREEN Performing Organization Address City/State/Zipcode Phone Number [facility] [place] [address] [id number] [facility] CT abdomen & pelvis - hematuria evaluation without/with iv contrast (2017 6:36 AM SENIOR MECHANICAL DEVELOPMENT ENGINEER) Specimen Narrative Performed At FINAL REPORT [employer] HISTORY : hematuria, question of ureteral mass on outside single phase CT without delayed cuts. Need urogram reconstructions please. Technique: Initially, noncontrast images of the abdomen and pelvis were obtained. This was followed by multiple axial images of the abdomen and pelvis with the administration of IV contrast only from the lung bases to the pubic symphysis. Delayed images were also obtained. This exam was performed according to our departmental dose optimization program which includes automated exposure control, adjustment of the mA and/or kV according to patient size and/or use of iterative reconstructive technique. COMPARISON : No prior CT is available for comparison. However, an MRI dated 02/14/2018 is available for comparison. COMMENT : There is a trace right-sided pleural effusion. There is atherosclerotic vascular disease. The patient is status post cholecystectomy. There is some biliary tract prominence with the common bile duct measuring up to 1.4 cm in diameter. The biliary tract prominence could be secondary to the patient's age as well as history of cholecystectomy. However, there are some calcifications identified along the course of the distal common bile duct. While these calcifications could be a component of calcifications from chronic pancreatitis, distal common bile duct stones cannot be excluded. Please refer to the MRCP of 02/14/2018 for further information. There is some hypodensity identified along the falciform ligament that most likely represents some focal fatty infiltration. In addition, in the inferior aspect of the right hepatic lobe, there is an indeterminate 1.7 cm hypodense focus of unclear etiology/significance. Further evaluation with an MRI, liver mass protocol, is advised. The visualized spleen, adrenal glands, pancreas, stomach and duodenum are within normal limits. There are several right renal stones. The largest renal stone is seen in the lower pole measuring up to 0.4 cm. There are some areas of bilateral renal cortical atrophy. There is limited opacification of the ureters on the delayed images, particularly of the distal most portion of the right ureter as well as the left proximal ureter. While no definitive ureteral lesions are seen, if there continues be a clinical concern for a ureteral process/lesion, findings can be best assessed with a retrograde ureterogram. There is some pancreatic ductal dilatation with extensive pancreatic calcifications. The findings are most likely a sequela of chronic pancreatitis. There is no abdominal, retroperitoneal or pelvic lymphadenopathy. Multilevel degenerative disc changes of the visualized thoracolumbar spine are seen. There is no free fluid or free air in the abdomen or pelvis. No findings of any bowel obstruction. The small bowel is within normal limits. There is colonic diverticulosis. There are no CT findings to suggest diverticulitis, however. The appendix is visualized. There are no CT findings to suggest appendicitis. The uterus is atrophic. There are several bilateral ovarian cysts/cystic lesions. The largest is seen in the right ovary measuring up to 2.5 x 2.9 cm. In a postmenopausal female, these should be further assessed and followed up with a pelvic ultrasound. There is some nonspecific mild diffuse wall thickening of the bladder that could be related to underdistention. A degree of cystitis or other infiltrative process, however, cannot be excluded. Impression: 1. Diffuse intrahepatic and extrahepatic biliary ductal dilatation. Please refer to the MRCP of 02/14/2018 for further information. The patient is status post cholecystectomy. 2. Atrophic pancreas with several pancreatic calcifications. The findings are likely a sequela of chronic pancreatitis. Please refer to the MRCP for description of a suspected pancreatic intraductal calcifications/calculus. 3. Several right-sided renal stones. No ureteral stones are seen. There is no hydronephrosis/hydroureter. 4. Indeterminate hypodense/hypoenhancing focus in the inferior right hepatic lobe. Findings can be best assessed with an MRI, liver mass protocol. 5. Colonic diverticulosis without CT findings of diverticulitis. 6. Bilateral ovarian cysts/cystic lesions. In a postmenopausal female, correlation with a pelvic ultrasound is advised. 7. Nonspecific mild diffuse bladder wall thickening. Signed: Chad Malagon MD Report Verified Date/Time:02/16/2018 08:19:51 Reading Location: [facility] Diagnostic Imaging Reading Room - [place] [id number] Procedure Note Interface, External Ris In - 02/16/2018 8:22 AM SENIOR MECHANICAL DEVELOPMENT ENGINEER FINAL REPORT HISTORY : hematuria, question of ureteral mass on outside single phase CT without delayed cuts. Need urogram reconstructions please. Technique: Initially, noncontrast images of the abdomen and pelvis were obtained. This was followed by multiple axial images of the abdomen and pelvis with the administration of IV contrast only from the lung bases to the pubic symphysis. Delayed images were also obtained. This exam was performed according to our departmental dose optimization program which includes automated exposure control, adjustment of the mA and/or kV according to patient size and/or use of iterative reconstructive technique. COMPARISON : No prior CT is available for comparison. However, an MRI dated 02/14/2018 is available for comparison. COMMENT : There is a trace right-sided pleural effusion. There is atherosclerotic vascular disease. The patient is status post cholecystectomy. There is some biliary tract prominence with the common bile duct measuring up to 1.4 cm in diameter. The biliary tract prominence could be secondary to the patient's age as well as history of cholecystectomy. However, there are some calcifications identified along the course of the distal common bile duct. While these calcifications could be a component of calcifications from chronic pancreatitis, distal common bile duct stones cannot be excluded. Please refer to the MRCP of 02/14/2018 for further information. There is some hypodensity identified along the falciform ligament that most likely represents some focal fatty infiltration. In addition, in the inferior aspect of the right hepatic lobe, there is an indeterminate 1.7 cm hypodense focus of unclear etiology/significance. Further evaluation with an MRI, liver mass protocol, is advised. The visualized spleen, adrenal glands, pancreas, stomach and duodenum are within normal limits. There are several right renal stones. The largest renal stone is seen in the lower pole measuring up to 0.4 cm. There are some areas of bilateral renal cortical atrophy. There is limited opacification of the ureters on the delayed images, particularly of the distal most portion of the right ureter as well as the left proximal ureter. While no definitive ureteral lesions are seen, if there continues be a clinical concern for a ureteral process/lesion, findings can be best assessed with a retrograde ureterogram. There is some pancreatic ductal dilatation with extensive pancreatic calcifications. The findings are most likely a sequela of chronic pancreatitis. There is no abdominal, retroperitoneal or pelvic lymphadenopathy. Multilevel degenerative disc changes of the visualized thoracolumbar spine are seen. There is no free fluid or free air in the abdomen or pelvis. No findings of any bowel obstruction. The small bowel is within normal limits. There is colonic diverticulosis. There are no CT findings to suggest diverticulitis, however. The appendix is visualized. There are no CT findings to suggest appendicitis. The uterus is atrophic. There are several bilateral ovarian cysts/cystic lesions. The largest is seen in the right ovary measuring up to 2.5 x 2.9 cm. In a postmenopausal female, these should be further assessed and followed up with a pelvic ultrasound. There is some nonspecific mild diffuse wall thickening of the bladder that could be related to underdistention. A degree of cystitis or other infiltrative process, however, cannot be excluded. Impression: 1. Diffuse intrahepatic and extrahepatic biliary ductal dilatation. Please refer to the MRCP of 02/14/2018 for further information. The patient is status post cholecystectomy. 2. Atrophic pancreas with several pancreatic calcifications. The findings are likely a sequela of chronic pancreatitis. Please refer to the MRCP for description of a suspected pancreatic intraductal calcifications/calculus. 3. Several right-sided renal stones. No ureteral stones are seen. There is no hydronephrosis/hydroureter. 4. Indeterminate hypodense/hypoenhancing focus in the inferior right hepatic lobe. Findings can be best assessed with an MRI, liver mass protocol. 5. Colonic diverticulosis without CT findings of diverticulitis. 6. Bilateral ovarian cysts/cystic lesions. In a postmenopausal female, correlation with a pelvic ultrasound is advised. 7. Nonspecific mild diffuse bladder wall thickening. Signed: Chad Malagon MD Report Verified Date/Time: 02/16/2018 08:19:51 Reading Location: [facility] Diagnostic Imaging Reading Room - [place] [address] Performing Organization Address City/State/Zipcode Phone Number GE RIS CBC with platelet count + automated diff (02/16/2018 3:14 AM SENIOR MECHANICAL DEVELOPMENT ENGINEER)Only the most recent of4 resultswithin the time period is included. WBC 7.2 3.5 - 10.5 K/L [facility] RBC 3.65 (L) 3.93 - 5.22 M/L [facility] Hemoglobin 10.0 (L) 11.2 - 15.7 GM/DL [facility] Hematocrit 32.4 (L) 34.1 - 44.9 % [facility] MCV 88.8 79.4 - 94.8 fL [facility] MCH 27.4 25.6 - 32.2 pg [facility] MCHC 30.9 (L) 32.2 - 35.5 GM/DL [facility] RDW 13.0 11.7 - 14.4 % [facility] Platelets 266 150 - 450 K/CU MM [facility] MPV 9.5 9.4 - 12.3 fL [facility] nRBC 0 0 - 0 /100 WBC [facility] % Neutros 66 % [facility] % Lymphs 21 % [facility] % Monos 9 % [facility] % Eos 4 % [facility] % Baso 0 % [facility] # Neutros 4.75 1.56 - 6.13 K/L [facility] # Lymphs 1.54 1.18 - 3.74 K/L [facility] # Monos 0.62 (H) 0.24 - 0.36 K/L [facility] # Eos 0.27 0.04 - 0.36 K/L [facility] # Baso 0.03 0.01 - 0.08 K/L [facility] Immature Granulocytes-Relative 0 0 - 1 % [facility] Specimen Blood Performing Organization Address City/[facility]/Zipcode Phone Number [facility] [address] [place] [address] CENTER Hepatic function panel (02/16/2018 3:14 AM SENIOR MECHANICAL DEVELOPMENT ENGINEER)Only the most recent of3 resultswithin the time period is included. Protein, Total 6.7 6.0 - 8.3 gm/dL [facility] Albumin 3.5 3.5 - 5.0 g/dL [facility] Total Bilirubin 0.3 0.2 - 1.2 mg/dL [facility] Bilirubin, Direct 0.1 0.1 - 0.5 mg/dL [facility] Alkaline Phosphatase 70 40 - 150 U/L [facility] AST 16 5 - 34 U/L [facility] ALT 10 6 - 55 U/L [facility] Specimen Blood Performing Organization Address City/State/Zipcode Phone Number [address] [address] [phone] CENTER Basic metabolic panel (02/16/2018 3:14 AM SENIOR MECHANICAL DEVELOPMENT ENGINEER)Only the most recent of3 resultswithin the time period is included. Sodium 140 136 - 145 meq/L [facility] Potassium 3.9 3.5 - 5.1 meq/L [facility] Chloride 108 (H) 98 - 107 meq/L [facility] CO2 25 22 - 29 meq/L [facility] BUN 14 7 - 21 mg/dL [facility] Creatinine 0.98 0.57 - 1.25 mg/dL [facility] Glucose 121 (H) 70 - 105 mg/dL [facility] Calcium 8.8 8.4 - 10.2 mg/dL [facility] EGFR 56Comment: ESTIMATED GFR IS mL/min/1.73 sq m [facility] NOT ACCURATE [facility] CLEARANCE IN PREDICTING GLOMERULAR FILTRATION RATE. ESTIMATED GFR IS NOT APPLICABLE FOR DIALYSIS PATIENTS. Specimen Blood Performing Organization Address [facility] Centercode Phone Number [address] [address] CENTER Urinalysis w/Microscopic + Reflex to Culture (02/14/2018 9:20 PM SENIOR MECHANICAL DEVELOPMENT ENGINEER) Color, UA Light Yellow [facility] Clarity, UA Clear [facility] Specific Amberson, UA 1.005 1.001 - 1.035 [facility] pH, UA 6.0 5.0 - 8.0 [facility] Protein, UA 20 mg/dL (A) Negative [facility] Glucose, UA Negative Negative [facility] Ketones, UA Negative Negative [facility] Bilirubin, UA Negative Negative [facility] Blood, UA Trace (A) Negative [facility] Nitrite, UA Negative Negative [facility] Leukocytes, UA Large (A) Negative [facility] Urobilinogen, UA 0.2 0.2 - 1.0 mg/dL [facility] RBC, UA <1 /HPF [facility] WBC, UA 22 /HPF [facility] Squam Epithel, UA 2 /HPF [facility] Specimen Source [facility] Specimen Urine Performing Organization Address City/[facility]/Zipcode Phone Number [facility] [address] [place] [id number] JUANA DIAZ Urine culture (02/14/2018 9:20 PM SENIOR MECHANICAL DEVELOPMENT ENGINEER)Only the most recent of2 resultswithin the time period is included. Result <10,000 col/mL skin dominic [facility] Specimen Urine Performing Organization Address City/State/Zipcode Phone Number [facility] [address] [place] [address] JUANA DIAZ MR abdomen without IV contrast MRCP (02/14/2018 11:50 AM SENIOR MECHANICAL DEVELOPMENT ENGINEER) Specimen Narrative Performed At FINAL REPORT [facility] TECHNIQUE: MRI of the abdomen and MRCP WITHOUT intravenous contrast. 3-D volume reconstructions were obtained to evaluate the biliary ductal system. INDICATION: 32-year-old woman with biliary ductal dilatation. COMPARISON: Abdomen ultrasound from earlier same date. FINDINGS: ABSENCE OF INTRAVENOUS CONTRAST DECREASES SENSITIVITY FOR DETECTION OF FOCAL LESIONS AND VASCULAR PATHOLOGY. EVALUATION IS SUBOPTIMAL SECONDARY TO MOTION ARTIFACT ON THIN SLICE MRCP IMAGES. LOWER THORAX: Trace bilateral pleural effusions. Otherwise, unremarkable. LIVER: No hepatic signal abnormality. 1.6 x 1.6 cm T2 hyperintense lesion in the left hepatic lobe. BILIARY: Prior cholecystectomy. The common bile duct is prominent up to 1.6 cm in diameter with mild-moderate bilateral intrahepatic biliary ductal prominence. The common bile duct tapers to normal caliber distally without definite filling defect. SPLEEN: No splenomegaly. PANCREAS: The pancreatic duct is dilated up to 0.8 cm in diameter with a suspected 0.8 x 0.9 cm T2 hypointense filling defect in the region of the pancreatic head. 1 x 1.6 cm T2 hyperintensity in the region of the pancreatic head adjacent to the distal common bile duct and duodenum with internal linear septations/debris. Pancreatic parenchyma is atrophied. ADRENALS: No adrenal nodules. KIDNEYS/URETERS: No hydronephrosis or solid mass lesions. Bilateral perinephric stranding, right greater than left. PERITONEUM/RETROPERITONEUM: No free fluid. LYMPH NODES: No lymphadenopathy. VESSELS: Unremarkable. GI TRACT: No distention or wall thickening. BONES AND SOFT TISSUES: Unremarkable. IMPRESSION: Diffuse intrahepatic and extrahepatic biliary ductal prominence without definite filling defect, probable postcholecystectomy reservoir effect. Pancreatic ductal dilatation with suspected intraductal calcification/calculus in the pancreatic head. 1.6 cm complex cystic structure in the region of the pancreatic head adjacent to the distal common bile duct and duodenum. Differential considerations include cystic pancreatic lesion and duodenal diverticulum. Lesion in the left hepatic lobe, incompletely characterized on this noncontrast MRI. Bilateral perinephric stranding, right greater than left. RECOMMENDATIONS: If indicated, ERCP may be obtained for further evaluation of pancreatic and biliary findings. The medical record indicates that there was a recent CT performed; the complex cystic lesion in the pancreatic head as well as the left liver lesion may be correlated with this recent CT. If indicated, these lesions may be further evaluated with abdomen MRI or CT with and without intravenous contrast. Signed: Glo Figueroa MD Report Verified Date/Time:02/14/2018 13:24:48 Reading Location: [address] Radiology Reading Room Procedure Note Interface, External Ris In - 02/14/2018 1:27 PM SENIOR MECHANICAL DEVELOPMENT ENGINEER FINAL REPORT TECHNIQUE: MRI of the abdomen and MRCP WITHOUT intravenous contrast. 3-D volume reconstructions were obtained to evaluate the biliary ductal system. INDICATION: 32-year-old woman with biliary ductal dilatation. COMPARISON: Abdomen ultrasound from earlier same date. FINDINGS: ABSENCE OF INTRAVENOUS CONTRAST DECREASES SENSITIVITY FOR DETECTION OF FOCAL LESIONS AND VASCULAR PATHOLOGY. EVALUATION IS SUBOPTIMAL SECONDARY TO MOTION ARTIFACT ON THIN SLICE MRCP IMAGES. LOWER THORAX: Trace bilateral pleural effusions. Otherwise, unremarkable. LIVER: No hepatic signal abnormality. 1.6 x 1.6 cm T2 hyperintense lesion in the left hepatic lobe. BILIARY: Prior cholecystectomy. The common bile duct is prominent up to 1.6 cm in diameter with mild-moderate bilateral intrahepatic biliary ductal prominence. The common bile duct tapers to normal caliber distally without definite filling defect. SPLEEN: No splenomegaly. PANCREAS: The pancreatic duct is dilated up to 0.8 cm in diameter with a suspected 0.8 x 0.9 cm T2 hypointense filling defect in the region of the pancreatic head. 1 x 1.6 cm T2 hyperintensity in the region of the pancreatic head adjacent to the distal common bile duct and duodenum with internal linear septations/debris. Pancreatic parenchyma is atrophied. ADRENALS: No adrenal nodules. KIDNEYS/URETERS: No hydronephrosis or solid mass lesions. Bilateral perinephric stranding, right greater than left. PERITONEUM/RETROPERITONEUM: No free fluid. LYMPH NODES: No lymphadenopathy. VESSELS: Unremarkable. GI TRACT: No distention or wall thickening. BONES AND SOFT TISSUES: Unremarkable. IMPRESSION: Diffuse intrahepatic and extrahepatic biliary ductal prominence without definite filling defect, probable postcholecystectomy reservoir effect. Pancreatic ductal dilatation with suspected intraductal calcification/calculus in the pancreatic head. 1.6 cm complex cystic structure in the region of the pancreatic head adjacent to the distal common bile duct and duodenum. Differential considerations include cystic pancreatic lesion and duodenal diverticulum. Lesion in the left hepatic lobe, incompletely characterized on this noncontrast MRI. Bilateral perinephric stranding, right greater than left. RECOMMENDATIONS: If indicated, ERCP may be obtained for further evaluation of pancreatic and biliary findings. The medical record indicates that there was a recent CT performed; the complex cystic lesion in the pancreatic head as well as the left liver lesion may be correlated with this recent CT. If indicated, these lesions may be further evaluated with abdomen MRI or CT with and without intravenous contrast. Signed: Glo Figueroa MD Report Verified Date/Time: 02/14/2018 13:24:48 Reading Location: [address] Radiology Reading Room Performing Organization Address City/State/Zipcode Phone Number [facility] US abdomen limited (02/14/2018 8:36 AM SENIOR MECHANICAL DEVELOPMENT ENGINEER) Specimen Narrative Performed At FINAL REPORT [facility] History: Biliary ductal dilatation. Patient reportedly has a history of cholecystectomy. FINDINGS: No comparisons are available. Real-time sonographic examination of the right upper quadrant of the abdomen reveals a very mildly enlarged liver measuring up to 16.7 cm in length. Hepatic echotexture is moderately and diffusely increased, likely representing diffuse fatty infiltration. There are no sonographically detectable masses or other focal intrahepatic abdomen about is identified. A small part of the liver, however, is partially obscured by overlying bowel gas. The gallbladder is absent, consistent with patient's history of cholecystectomy. The common bile duct measures up to 10 mm in diameter. There are no visible intraductal stones or evidence for intrahepatic biliary ductal dilatation. The portal vein measures 11 mm in diameter and appears patent by Limited color Doppler examination. The right kidney is relatively small measuring up to 8.0 cm in length by 6.3 cm in greatest transverse diameter. There are no sonographically detectable masses, cysts, stones or evidence for obstruction. Renal cortical thickness measures 13 mm. The pancreas is unremarkable where visible but partially obscured by overlying bowel gas. Aorta and IVC are unremarkable. No ascites or abdominal fluid collections. IMPRESSION: 1. Mild hepatomegaly and probable diffuse fatty infiltration of the liver. No focal masses or abnormalities are identified. 2. Moderately dilated common bile duct for the patient's stated age, likely related to the patient's history of cholecystectomy. No intraductal stones or evidence for intrahepatic biliary ductal dilatation. 3. Incomplete evaluation of the pancreas secondary to bowel gas. Signed: Chavo Guerrier MD Report Verified Date/Time:02/14/2018 09:18:08 Reading Location: [address] Ultrasound Reading Room Procedure Note Interface, External Ris In - 02/14/2018 9:20 AM SENIOR MECHANICAL DEVELOPMENT ENGINEER FINAL REPORT History: Biliary ductal dilatation. Patient reportedly has a history of cholecystectomy. FINDINGS: No comparisons are available. Real-time sonographic examination of the right upper quadrant of the abdomen reveals a very mildly enlarged liver measuring up to 16.7 cm in length. Hepatic echotexture is moderately and diffusely increased, likely representing diffuse fatty infiltration. There are no sonographically detectable masses or other focal intrahepatic abdomen about is identified. A small part of the liver, however, is partially obscured by overlying bowel gas. The gallbladder is absent, consistent with patient's history of cholecystectomy. The common bile duct measures up to 10 mm in diameter. There are no visible intraductal stones or evidence for intrahepatic biliary ductal dilatation. The portal vein measures 11 mm in diameter and appears patent by Limited color Doppler examination. The right kidney is relatively small measuring up to 8.0 cm in length by 6.3 cm in greatest transverse diameter. There are no sonographically detectable masses, cysts, stones or evidence for obstruction. Renal cortical thickness measures 13 mm. The pancreas is unremarkable where visible but partially obscured by overlying bowel gas. Aorta and IVC are unremarkable. No ascites or abdominal fluid collections. IMPRESSION: 1. Mild hepatomegaly and probable diffuse fatty infiltration of the liver. No focal masses or abnormalities are identified. 2. Moderately dilated common bile duct for the patient's stated age, likely related to the patient's history of cholecystectomy. No intraductal stones or evidence for intrahepatic biliary ductal dilatation. 3. Incomplete evaluation of the pancreas secondary to bowel gas. Signed: Chavo Guerrier MD Report Verified Date/Time: 02/14/2018 09:18:08 Reading Location: [facility] B1 [id number] Ultrasound Reading Room Performing Organization Address City/State/Zipcode Phone Number GE RIS Manual Differential (02/13/2018 6:06 PM SENIOR MECHANICAL DEVELOPMENT ENGINEER) % Neutros 79 % [facility] % Lymphs 2 % [facility] % Monos 6 % [facility] % Metamyelo 1 (H) 0 - 0 % [facility] % Bands 12 (H) 0 - 10 % [facility] # Neutros 18.96 (H) 1.56 - 6.13 K/ul [facility] # Lymphs 0.48 (L) 1.18 - 3.74 K/ul [facility] # Monos 1.44 (H) 0.24 - 0.36 K/uL [facility] # Metamyelo 0.24 (H) 0.00 - 0.00 K/uL [facility] # Bands 2.88 (H) 0.00 - 0.80 K/uL [facility] Total Counted 100 [facility] WBC Morphology Normal [facility] Platelet Morphology Normal [facility] Anisocytosis 1+ few [facility] Microcytes 1+ few [facility] Artifact Present [facility] Platelet Conc Adequate [facility] Specimen Blood Narrative Performed At Received comment: [facility] User comments: Slide comments: Performing Organization Address City/[facility] Cent[facility]ode Phone Number [facility] [address], [place] [phone] JUANA DIAZ Prothrombin time/INR (02/13/2018 6:06 PM SENIOR MECHANICAL DEVELOPMENT ENGINEER) Protime 15.1 (H) 11.7 - 14.7 seconds [facility] INR 1.2 <=5.9 [facility] Specimen Blood Narrative Performed At RECOMMENDED COUMADIN/WARFARIN INR THERAPY [facility] RANGES STANDARD DOSE: 2.0 - 3.0 Includes: PROPHYLAXIS for venous thrombosis, systemic embolization; TREATMENT for venous thrombosis and/or pulmonary embolus. HIGH RISK: Target INR is 2.5-3.5 for patients with mechanical heart valves. Performing Organization Address City/State/Zipcode Phone Number [address] [address] [phone] JUANA DIAZ Comprehensive metabolic panel (02/13/2018 6:06 PM SENIOR MECHANICAL DEVELOPMENT ENGINEER) Protein, Total 6.4 6.0 - 8.3 gm/dL [facility] Albumin 3.6 3.5 - 5.0 g/dL [facility] Alkaline Phosphatase 73 40 - 150 U/L [facility] Total Bilirubin 0.4 0.2 - 1.2 mg/dL [facility] Sodium 138 136 - 145 meq/L [facility] Potassium 4.1 3.5 - 5.1 meq/L [facility] Chloride 102 98 - 107 meq/L [facility] CO2 25 22 - 29 meq/L [facility] BUN 21 7 - 21 mg/dL [facility] Creatinine 1.31 (H) 0.57 - 1.25 mg/dL [facility] Glucose 190 (H) 70 - 105 mg/dL [facility] Calcium 9.1 8.4 - 10.2 mg/dL [facility] AST 19 5 - 34 U/L [facility] ALT 14 6 - 55 U/L [facility] EGFR 40Comment: ESTIMATED GFR mL/min/1.73 sq m [facility] IS NOT ACCURATE [facility] CREATININE CLEARANCE IN PREDICTING GLOMERULAR FILTRATION RATE. ESTIMATED GFR IS NOT APPLICABLE FOR DIALYSIS PATIENTS. Specimen Blood Performing Organization Address City/State/Zipcode Phone Number [facility] [address] [place] [address] [phone] CENTER after 10/06/2017 Insurance Payer Benefit Plan / Subscriber ID Type Phone Address Group [employer] - MEDICARE [employer] MEDICARE HMO xxxxxxxx [phone] [address] [place] [address] (Home) [place] [address] Advance Directives For more information, please contact:[address] [phone] Code Status Date Activated Date Inactivated Comments Full Code 02/13/2018 7:59 PM This code status was determined by: Patient
--- OUTSIDE RECORDS SUMMARY | 2018-10-07 21:40 | XMS REPORT ---
:1945 [facility] Address [facility] Tao [address] [place] [address] Care Team Providers Name Role Phone FELICIANO VALENCIA Unavailable Unavailable Problems This patient has no known problems. Allergies, Adverse Reactions, Alerts This patient has no known allergies or adverse reactions. Medications This patient has no known medications. Results Test Description Test Time Test Comments Text Results Atomic Results Result Comments CYTOLOGY 2018-02-21 13:43:00 Medical Cytology Report Case: [id number] Authorizing Provider: Yunior Pressley MD Collected: 02/18/2018 1409 Ordering Location: [address] Received: 02/21/2018 0916 Service Pathologist: Merced Mancilla MD Specimen: Urinary Bladder URINARY BLADDER WASHING (CYTOSPINS): - NEGATIVE FOR HIGH GRADE UROTHELIAL DYSPLASIA OR MALIGNANCY Signing Pathologist Direct Phone Line: [phone] signed by Merced Mancilla MD on 02/21/2018 at 1:43 [id number] massURINARY BLADDER BLAMZOU165 mls yellow; 4 cytospinsCollected: [id number]: [id number], [facility] of [facility]ology, [address] [place] [address], [facility], [address] [place] [address], [facility], Department of [facility]ology, [address] [place] [address], CYTOLOGY REQUEST 2018-02-21 11:01:00 Test Item Value Reference Range Comments CYTOLOGY RESULT POINTER (MAUREEN) (test tjmw=6020) See Separate Report POCT-GLUCOSE [id number] 11:24:00 Test Item Value Reference Range Comments POC-GLUCOSE METER (BEAKER) 185 mg/dL 70-110 TESTED AT [address] (test dfzl=0169) [facility] [address] POCT-GLUCOSE [id number] 09:43:00 Test Item Value Reference Range Comments POC-GLUCOSE METER (BEAKER) 185 mg/dL 70-110 TESTED AT [address] (test obxu=7259) [facility] [address] POCT-GLUCOSE [id number] 21:15:00 Test Item Value Reference Range Comments POC-GLUCOSE METER (BEAKER) 291 mg/dL 70-110 TESTED AT [address] (test nuok=6011) [place] [id number] POCT-GLUCOSE [id number] 16:53:00 Test Item Value Reference Range Comments POC-GLUCOSE METER (BEAKER) 178 mg/dL 70-110 TESTED AT [address] (test ibih=0045) [place] [id number] POCT-GLUCOSE [id number] 14:52:00 Test Item Value Reference Range Comments POC-GLUCOSE METER (BEAKER) 183 mg/dL 70-110 TESTED AT [address] (test rfsh=5854) [facility] [address] [place], [employer]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 Pressley, as an intra- procedure imaging consultation was not requested. Reported fluoroscopy time: 0.42 minutes. Signed: Cecilio Ordoñez VerifiedDate/Time: 02/18/2018 14 :37:24 Reading Location: [facility] Radiology Reading Room POCT-GLUCOSE [id number] 12:21:00 Test Item Value Reference Range Comments POC-GLUCOSE METER (BEAKER) 222 mg/dL 70-110 TESTED AT [address] (test vuxt=5096) [facility] [address] POCT-GLUCOSE [id number] 21:40:00 Test Item Value Reference Range Comments POC-GLUCOSE METER (BEAKER) 299 mg/dL 70-110 TESTED AT [address] (test kdsd=9383) [facility] [address] POCT-GLUCOSE [id number] 16:24:00 Test Item Value Reference Range Comments POC-GLUCOSE METER (BEAKER) 132 mg/dL 70-110 TESTED AT [address] (test mjnh=3686) [facility] [address] POCT-GLUCOSE [id number] 12:25:00 Test Item Value Reference Range Comments POC-GLUCOSE METER (BEAKER) 298 mg/dL 70-110 TESTED AT [address] (test yfwm=1790) [facility] [address] POCT-GLUCOSE [id number] 08:32:00 Test Item Value Reference Range Comments POC-GLUCOSE METER (BEAKER) 190 mg/dL 70-110 TESTED AT [address] (test idpa=7348) [place] [id number] POCT-GLUCOSE [id number] 21:08:00 Test Item Value Reference Range Comments POC-GLUCOSE METER (BEAKER) 230 mg/dL 70-110 TESTED AT [address] (test smpw=8096) [place] [id number] POCT-GLUCOSE [id number] 17:30:00 Test Item Value Reference Range Comments POC-GLUCOSE METER (BEAKER) 126 mg/dL 70-110 TESTED AT [address] (test xsig=5109) [facility] [address] POCT-GLUCOSE [id number] 12:43:00 Test Item Value Reference Range Comments POC-GLUCOSE METER (BEAKER) 138 mg/dL 70-110 TESTED AT [address] (test kxub=1706) [facility] [address] POCT-GLUCOSE [id number] 09:50:00 Test Item Value Reference Range Comments POC-GLUCOSE METER (BEAKER) 227 mg/dL 70-110 TESTED AT [address] (test oajg=3398) [place] [id number] CT, ABDOMEN - PELVIS, HEMATURIA EVAL, WITHOUT / WITH IV [id number] 08:19 :00Reason for exam:->hematuria, question of ureteral mass on outside single phase CT without delayedcuts.Reason for exam:->Need urogram reconstructions please.FINAL REPORT HISTORY : hematuria, question of ureteral mass on outside single phase CT without delayed cuts.Need urogram reconstructions please. Technique: Initially, noncontrast images [...] is available for comparison. COMMENT : There amy trace right-sided pleural effusion. There is atherosclerotic vascular disease. The patient is status post cholecystectomy. There is some biliary tract prominence with the common bile duct measuring up to 1.4 cm in diameter. The biliary tract prominence could be secondary to the patient's age as wellas history of cholecystectomy. However, there are some calcifications identified along the course ofthe distal common bile duct. While these calcifications could be a component of calcifications from chronic pancreatitis, distal common bile duct stones cannot be excluded. Please refer to the MRCP of 02/14/2018 for further information. There is some hypodensity identified along the falciform ligamentthat most likely represents some focal fatty infiltration. In addition, in the inferior aspect of the right hepatic lobe, there is an indeterminate 1.7 cm hypodense focus of unclear etiology/significance. Further evaluation with an MRI, liver mass protocol, is advised. The visualized spleen, adrenal glands, pancreas, stomach and duodenum are within normal limits. There are several right renal stones.The largest renal stone is seen in the [...] with several pancreatic calcifications. The findings are likelya sequela of chronic pancreatitis. Please refer to the MRCP for description of a suspected pancreatic intraductal calcifications/calculus. 3. Several right-sided renal stones. No ureteral stones are seen. There is no hydronephrosis/hydroureter. 4. Indeterminate hypodense/hypoenhancing focus in the inferior right hepatic lobe. Findings can be best assessed with an MRI, liver mass protocol. 5. Colonic diverticulosis without CT findings of diverticulitis. 6. Bilateral ovarian cysts /cystic lesions. In apostmenopausal female, correlation with a pelvic ultrasound is advised. 7. Nonspecific mild diffuse bladder wall thickening. Signed: Chad Malagon MDReport Verified Date/Time: 02/16/2018 08:19:51 Reading Location: [facility] Diagnostic Imaging Reading Room - [place] [address] HEPATIC FUNCTION [id number] 04:01:00 Test Item Value Reference Range Comments TOTAL PROTEIN (BEAKER) (test jxgx=399) 6.7 gm/dL 6.0-8.3 ALBUMIN (BEAKER) (test zrgs=3612) 3.5 g/dL 3.5-5.0 BILIRUBIN TOTAL (BEAKER) (test znxh=964) 0.3 mg/dL 0.2-1.2 BILIRUBIN DIRECT (BEAKER) (test obwl=083) 0.1 mg/dL 0.1-0.5 ALKALINE PHOSPHATASE (BEAKER) (test phhn=533) 70 U/L 40-150 AST (SGOT) (BEAKER) (test dsgg=333) 16 U/L 5-34 ALT (SGPT) (BEAKER) (test rdho=205) 10 U/L 6-55 BASIC METABOLIC [id number] 04:01:00 Test Item Value Reference Range Comments SODIUM (BEAKER) (test 140 meq/L 136-145 phzf=378) POTASSIUM (BEAKER) (test 3.9 meq/L 3.5-5.1 yevy=923) CHLORIDE (BEAKER) (test 108 meq/L 98-107 orct=011) CO2 (BEAKER) (test 25 meq/L 22-29 lqos=453) BLOOD UREA NITROGEN 14 mg/dL 7-21 (BEAKER) (test kxtu=084) CREATININE (BEAKER) (test 0.98 mg/dL 0.57-1.25 dkfb=989) GLUCOSE RANDOM (BEAKER) 121 mg/dL 70-105 (test arwv=492) CALCIUM (BEAKER) (test 8.8 mg/dL 8.4-10.2 xjkw=103) EGFR (BEAKER) (test 56 mL/min/1.73 sq m ESTIMATED GFR IS NOT xkhe=5587) ACCURATE CREATININE CLEARANCE IN PREDICTING GLOMERULAR FILTRATION RATE. ESTIMATED GFR IS NOT APPLICABLE FOR DIALYSIS PATIENTS. CBC W/PLT COUNT & AUTO [id number] 03:33:00 Test Item Value Reference Range Comments WHITE BLOOD CELL COUNT (BEAKER) (test wjiu=572) 7.2 K/ L 3.5-10.5 RED BLOOD CELL COUNT (BEAKER) (test vnkn=790) 3.65 M/ L 3.93-5.22 HEMOGLOBIN (BEAKER) (test iicm=778) 10.0 GM/DL 11.2-15.7 HEMATOCRIT (BEAKER) (test zjve=993) 32.4 % 34.1-44.9 MEAN CORPUSCULAR VOLUME (BEAKER) (test zdne=822) 88.8 fL 79.4-94.8 MEAN CORPUSCULAR HEMOGLOBIN (BEAKER) (test 27.4 pg 25.6-32.2 crjb=481) MEAN CORPUSCULAR HEMOGLOBIN CONC (BEAKER) (test 30.9 GM/DL 32.2-35.5 sigh=368) RED CELL DISTRIBUTION WIDTH (BEAKER) (test 13.0 % 11.7-14.4 jwkx=484) PLATELET COUNT (BEAKER) (test twpi=214) 266 K/CU MM 150-450 MEAN PLATELET VOLUME (BEAKER) (test cggf=674) 9.5 fL 9.4-12.3 NUCLEATED RED BLOOD CELLS (BEAKER) (test 0 /100 WBC 0-0 qjnr=957) NEUTROPHILS RELATIVE PERCENT (BEAKER) (test 66 % gzms=712) LYMPHOCYTES RELATIVE PERCENT (BEAKER) (test 21 % thbm=192) MONOCYTES RELATIVE PERCENT (BEAKER) (test 9 % jysg=142) EOSINOPHILS RELATIVE PERCENT (BEAKER) (test 4 % gmke=946) BASOPHILS RELATIVE PERCENT (BEAKER) (test 0 % zyef=406) NEUTROPHILS ABSOLUTE COUNT (BEAKER) (test 4.75 K/ L 1.56-6.13 mpcu=735) LYMPHOCYTES ABSOLUTE COUNT (BEAKER) (test 1.54 K/ L 1.18-3.74 rgat=810) MONOCYTES ABSOLUTE COUNT (BEAKER) (test 0.62 K/ L 0.24-0.36 xgqp=648) EOSINOPHILS ABSOLUTE COUNT (BEAKER) (test 0.27 K/ L 0.04-0.36 axhd=802) BASOPHILS ABSOLUTE COUNT (BEAKER) (test 0.03 K/ L 0.01-0.08 jniq=735) IMMATURE GRANULOCYTES-RELATIVE PERCENT (BEAKER) 0 % 0-1 (test mbvx=7646) POCT-GLUCOSE [id number] 21:19:00 Test Item Value Reference Range Comments POC-GLUCOSE METER (BEAKER) 199 mg/dL 70-110 TESTED AT [address] (test vmjw=1549) [facility] [address] POCT-GLUCOSE [id number] 16:50:00 Test Item Value Reference Range Comments POC-GLUCOSE METER (BEAKER) 215 mg/dL 70-110 TESTED AT [address] (test kacp=8617) [place] [id number] POCT-GLUCOSE [id number] 12:56:00 Test Item Value Reference Range Comments POC-GLUCOSE METER (BEAKER) 265 mg/dL 70-110 TESTED AT [address] (test gfcs=2754) [place] [id number] POCT-GLUCOSE [id number] 10:32:00 Test Item Value Reference Range Comments POC-GLUCOSE METER (BEAKER) 210 mg/dL 70-110 TESTED AT [address] (test arhs=9763) [place] [address] URINE [id number] 09:42:00 Test Item Value Reference Range Comments CULTURE (BEAKER) (test jpnu=7410) No growth POCT-GLUCOSE [id number] 06:04:00 Test Item Value Reference Range Comments POC-GLUCOSE METER (BEAKER) 189 mg/dL 70-110 TESTED AT [address] (test ibir=1548) [place] [id number] HEPATIC FUNCTION [id number] 05:34:00 Test Item Value Reference Range Comments TOTAL PROTEIN (BEAKER) (test koed=812) 6.2 gm/dL 6.0-8.3 ALBUMIN (BEAKER) (test hxop=4229) 3.3 g/dL 3.5-5.0 BILIRUBIN TOTAL (BEAKER) (test jhpe=683) 0.3 mg/dL 0.2-1.2 BILIRUBIN DIRECT (BEAKER) (test uqzm=150) 0.2 mg/dL 0.1-0.5 ALKALINE PHOSPHATASE (BEAKER) (test elio=151) 74 U/L 40-150 AST (SGOT) (BEAKER) (test hafj=514) 15 U/L 5-34 ALT (SGPT) (BEAKER) (test wyrn=842) 11 U/L 6-55 BASIC METABOLIC [id number] 05:34:00 Test Item Value Reference Range Comments SODIUM (BEAKER) (test 137 meq/L 136-145 saph=347) POTASSIUM (BEAKER) (test 4.1 meq/L 3.5-5.1 ifav=093) CHLORIDE (BEAKER) (test 107 meq/L 98-107 oigh=081) CO2 (BEAKER) (test 23 meq/L 22-29 bnke=009) BLOOD UREA NITROGEN 20 mg/dL 7-21 (BEAKER) (test raid=294) CREATININE (BEAKER) (test 1.05 mg/dL 0.57-1.25 htme=471) GLUCOSE RANDOM (BEAKER) 183 mg/dL 70-105 (test gssx=737) CALCIUM (BEAKER) (test 8.7 mg/dL 8.4-10.2 pshg=287) EGFR (BEAKER) (test 51 mL/min/1.73 sq m ESTIMATED GFR IS NOT jksu=2311) ACCURATE CREATININE CLEARANCE IN PREDICTING GLOMERULAR FILTRATION RATE. ESTIMATED GFR IS NOT APPLICABLE FOR DIALYSIS PATIENTS. CBC W/PLT COUNT & AUTO [id number] 05:24:00 Test Item Value Reference Range Comments WHITE BLOOD CELL COUNT (BEAKER) (test lrvx=828) 11.3 K/ L 3.5-10.5 RED BLOOD CELL COUNT (BEAKER) (test noxp=940) 3.58 M/ L 3.93-5.22 HEMOGLOBIN (BEAKER) (test qrjp=635) 10.0 GM/DL 11.2-15.7 HEMATOCRIT (BEAKER) (test hlef=638) 32.1 % 34.1-44.9 MEAN CORPUSCULAR VOLUME (BEAKER) (test bpxw=942) 89.7 fL 79.4-94.8 MEAN CORPUSCULAR HEMOGLOBIN (BEAKER) (test 27.9 pg 25.6-32.2 mahp=318) MEAN CORPUSCULAR HEMOGLOBIN CONC (BEAKER) (test 31.2 GM/DL 32.2-35.5 ozkb=627) RED CELL DISTRIBUTION WIDTH (BEAKER) (test 13.0 % 11.7-14.4 facs=664) PLATELET COUNT (BEAKER) (test ovey=978) 235 K/CU MM 150-450 MEAN PLATELET VOLUME (BEAKER) (test jxvt=488) 9.7 fL 9.4-12.3 NUCLEATED RED BLOOD CELLS (BEAKER) (test 0 /100 WBC 0-0 frex=728) NEUTROPHILS RELATIVE PERCENT (BEAKER) (test 81 % qyje=692) LYMPHOCYTES RELATIVE PERCENT (BEAKER) (test 10 % army=656) MONOCYTES RELATIVE PERCENT (BEAKER) (test 6 % unpe=219) EOSINOPHILS RELATIVE PERCENT (BEAKER) (test 2 % hmzm=079) BASOPHILS RELATIVE PERCENT (BEAKER) (test 0 % rpou=832) NEUTROPHILS ABSOLUTE COUNT (BEAKER) (test 9.15 K/ L 1.56-6.13 zdtm=744) LYMPHOCYTES ABSOLUTE COUNT (BEAKER) (test 1.18 K/ L 1.18-3.74 pqbh=212) MONOCYTES ABSOLUTE COUNT (BEAKER) (test 0.67 K/ L 0.24-0.36 vkis=039) EOSINOPHILS ABSOLUTE COUNT (BEAKER) (test 0.24 K/ L 0.04-0.36 pjru=846) BASOPHILS ABSOLUTE COUNT (BEAKER) (test 0.03 K/ L 0.01-0.08 elyp=240) IMMATURE GRANULOCYTES-RELATIVE PERCENT (BEAKER) 1 % 0-1 (test yyze=6571) URINALYSIS W/ REFLEX URINE [id number] 21:41:00 Test Item Value Reference Range Comments COLOR (BEAKER) (test eiol=548) Light Yellow CLARITY (BEAKER) (test debs=020) Clear SPECIFIC GRAVITY UA (BEAKER) (test zwdm=511) 1.005 1.001-1.035 PH UA (BEAKER) (test lgax=568) 6.0 5.0-8.0 PROTEIN UA (BEAKER) (test dmpn=772) 20 mg/dL Negative GLUCOSE UA (BEAKER) (test yikl=720) Negative Negative KETONES UA (BEAKER) (test haaf=782) Negative Negative BILIRUBIN UA (BEAKER) (test agbt=646) Negative Negative BLOOD UA (BEAKER) (test ohjl=211) Trace Negative NITRITE UA (BEAKER) (test rrtx=859) Negative Negative LEUKOCYTE ESTERASE UA (BEAKER) (test hjkt=007) Large Negative UROBILINOGEN UA (BEAKER) (test efvo=719) 0.2 mg/dL 0.2-1.0 RBC UA (BEAKER) (test ucvo=600) < /HPF WBC UA (BEAKER) (test evrs=895) 22 /HPF SQUAMOUS EPITHELIAL (BEAKER) (test vtih=883) 2 /HPF SOURCE(BEAKER) (test qxlg=7237) POCT-GLUCOSE [id number] 21:07:00 Test Item Value Reference Range Comments POC-GLUCOSE METER (BEAKER) 213 mg/dL 70-110 TESTED AT [facility] [address] [facility] (test clfn=5189) [facility] [address] POCT-GLUCOSE [id number] 17:39:00 Test Item Value Reference Range Comments POC-GLUCOSE METER (MAUREEN) 267 mg/dL 70-110 TESTED AT [facility] [address] (test qkkb=0771) [facility] [address] MR, ABDOMEN, [id number] 13:24:00FINAL REPORT TECHNIQUE: MRI of the abdomen and MRCP WITHOUT intravenous contrast. 3-D volume reconstructions were obtained to evaluate the biliary ductal system. INDICATION : 32-year-old woman with biliary ductal dilatation. COMPARISON: Abdomen ultrasound from earlier same date.FINDINGS: ABSENCE OF INTRAVENOUS CONTRAST DECREASES SENSITIVITY FOR [...] duct tapers to normal caliber distally without definitefilling defect.SPLEEN: No splenomegaly.PANCREAS: The pancreatic duct is dilated up to 0.8 cm in diameter with a suspected 0.8 x 0.9 cm T2 hypointense filling defect in the region of the pancreatic head. 1 x 1.6 cm T2 hyperintensity in the region of the pancreatic head adjacent to the distal common bile duct and duodenum with internal linear septations/debris. Pancreatic parenchyma is atrophied. ADRENALS : No adrenal nodules.KIDNEYS/URETERS: No hydronephrosis or solid mass lesions. Bilateral perinephric stranding, right greater than left. PERITONEUM/ RETROPERITONEUM: No free fluid.LYMPH NODES: No lymphadenopathy.VESSELS: Unremarkable. GI TRACT: No distention or wall thickening. BONES AND SOFT TISSUES : Unremarkable. IMPRESSION:Diffuse intrahepatic and extrahepatic biliary ductal prominence without [...] Bilateral perinephric stranding, right greater than left. RECOMMENDATIONS:If indicated, ERCP may be obtained for further [...] and without intravenous contrast. Signed: Glo Figueroa MDReport Verified Date/Time: 02/14/2018 13:24:48 Reading Location: [address] Radiology Reading Room POCT-GLUCOSE [id number] 12:38:00 Test Item Value Reference Range Comments POC-GLUCOSE METER (BEAKER) 198 mg/dL 70-110 TESTED AT [address] (test dhfm=8648) [facility] [address] U/S, ABDOMINAL, [id number] 09:18:00Abdomen limited area? Add comment if clarification is needed.->Right upper quadrantReason for exam:->evalaute intra and extra hepatic biliary ductal dilationFINAL REPORT History: Biliary ductal dilatation. Patient reportedly has a history of cholecystectomy. FINDINGS: No comparisons are available. Real-time sonographic examination ofthe right upper quadrant of the abdomen reveals a very mildly enlarged liver measuring up to 16.7 cmin length. Hepatic echotexture is moderately and diffusely increased, likely representing diffuse fatty infiltration. There are no sonographically detectable masses or other focal intrahepatic abdomen about is identified. A small part of the liver, however, is partially obscured by overlying bowel gas. The gallbladder is absent , consistent with patient's history of cholecystectomy. The [...] for intrahepatic biliary ductal dilatation. 3. Incomplete evaluationof the pancreas secondary to bowel gas. Signed: Chavo Bell MDReport Verified Date/Time: 02/14/2018 09:18:08 Reading Location: [address] Ultrasound Reading Room HEPATIC FUNCTION [id number] 06:23:00 Test Item Value Reference Range Comments TOTAL PROTEIN (BEAKER) (test kjcm=771) 5.9 gm/dL 6.0-8.3 ALBUMIN (BEAKER) (test zogf=6619) 3.3 g/dL 3.5-5.0 BILIRUBIN TOTAL (BEAKER) (test rjax=836) 0.4 mg/dL 0.2-1.2 BILIRUBIN DIRECT (BEAKER) (test yrba=267) 0.2 mg/dL 0.1-0.5 ALKALINE PHOSPHATASE (BEAKER) (test yrqx=633) 67 U/L 40-150 AST (SGOT) (BEAKER) (test kozf=351) 17 U/L 5-34 ALT (SGPT) (BEAKER) (test cmmt=396) 14 U/L 6-55 BASIC METABOLIC [id number] 06:23:00 Test Item Value Reference Range Comments SODIUM (BEAKER) (test 138 meq/L 136-145 ffgj=115) POTASSIUM (BEAKER) (test 3.5 meq/L 3.5-5.1 lgmc=084) CHLORIDE (BEAKER) (test 105 meq/L 98-107 zeoe=978) CO2 (BEAKER) (test 27 meq/L 22-29 xboc=731) BLOOD UREA NITROGEN 22 mg/dL 7-21 (BEAKER) (test fmmb=289) CREATININE (BEAKER) (test 1.15 mg/dL 0.57-1.25 qjcd=912) GLUCOSE RANDOM (BEAKER) 139 mg/dL 70-105 (test xrtu=882) CALCIUM (BEAKER) (test 8.7 mg/dL 8.4-10.2 jhqj=348) EGFR (BEAKER) (test 46 mL/min/1.73 sq m ESTIMATED GFR IS NOT sung=1057) ACCURATE CREATININE CLEARANCE IN PREDICTING GLOMERULAR FILTRATION RATE. ESTIMATED GFR IS NOT APPLICABLE FOR DIALYSIS PATIENTS. CBC W/PLT COUNT & AUTO [id number] 06:04:00 Test Item Value Reference Range Comments WHITE BLOOD CELL COUNT (BEAKER) (test siig=689) 15.8 K/ L 3.5-10.5 RED BLOOD CELL COUNT (BEAKER) (test laip=778) 3.72 M/ L 3.93-5.22 HEMOGLOBIN (BEAKER) (test ikfi=330) 10.5 GM/DL 11.2-15.7 HEMATOCRIT (BEAKER) (test rlil=475) 32.7 % 34.1-44.9 MEAN CORPUSCULAR VOLUME (BEAKER) (test ysda=893) 87.9 fL 79.4-94.8 MEAN CORPUSCULAR HEMOGLOBIN (BEAKER) (test 28.2 pg 25.6-32.2 ijda=329) MEAN CORPUSCULAR HEMOGLOBIN CONC (BEAKER) (test 32.1 GM/DL 32.2-35.5 afqc=640) RED CELL DISTRIBUTION WIDTH (BEAKER) (test 13.2 % 11.7-14.4 mylg=817) PLATELET COUNT (BEAKER) (test gyhp=696) 245 K/CU MM 150-450 MEAN PLATELET VOLUME (BEAKER) (test wxwb=076) 9.6 fL 9.4-12.3 NUCLEATED RED BLOOD CELLS (BEAKER) (test 0 /100 WBC 0-0 lzyj=074) NEUTROPHILS RELATIVE PERCENT (BEAKER) (test 85 % ojod=940) LYMPHOCYTES RELATIVE PERCENT (BEAKER) (test 8 % pbao=851) MONOCYTES RELATIVE PERCENT (BEAKER) (test 6 % cmpu=523) EOSINOPHILS RELATIVE PERCENT (BEAKER) (test 1 % thpb=650) BASOPHILS RELATIVE PERCENT (BEAKER) (test 0 % gjrd=851) NEUTROPHILS ABSOLUTE COUNT (BEAKER) (test 13.38 K/ L 1.56-6.13 yywr=658) LYMPHOCYTES ABSOLUTE COUNT (BEAKER) (test 1.20 K/ L 1.18-3.74 hjjg=017) MONOCYTES ABSOLUTE COUNT (BEAKER) (test 0.94 K/ L 0.24-0.36 mbzh=154) EOSINOPHILS ABSOLUTE COUNT (BEAKER) (test 0.15 K/ L 0.04-0.36 ofxc=081) BASOPHILS ABSOLUTE COUNT (BEAKER) (test 0.04 K/ L 0.01-0.08 nqsx=920) IMMATURE GRANULOCYTES-RELATIVE PERCENT (BEAKER) 1 % 0-1 (test ocog=4802) POCT-GLUCOSE [id number] 21:16:00 Test Item Value Reference Range Comments POC-GLUCOSE METER (BEAKER) 224 mg/dL 70-110 TESTED AT [facility] [address] [facility] (test nstm=0999) [facility] [address] COMPREHENSIVE METABOLIC [id number] 18:56:00 Test Item Value Reference Range Comments TOTAL PROTEIN (BEAKER) 6.4 gm/dL 6.0-8.3 (test cype=254) ALBUMIN (BEAKER) (test 3.6 g/dL 3.5-5.0 wiml=4263) ALKALINE PHOSPHATASE 73 U/L 40-150 (BEAKER) (test skgq=231) BILIRUBIN TOTAL (BEAKER) 0.4 mg/dL 0.2-1.2 (test cjpn=192) SODIUM (BEAKER) (test 138 meq/L 136-145 fmxw=964) POTASSIUM (BEAKER) (test 4.1 meq/L 3.5-5.1 fjoc=889) CHLORIDE (BEAKER) (test 102 meq/L 98-107 ivgl=315) CO2 (BEAKER) (test 25 meq/L 22-29 nmfq=068) BLOOD UREA NITROGEN 21 mg/dL 7-21 (BEAKER) (test jxzf=946) CREATININE (BEAKER) (test 1.31 mg/dL 0.57-1.25 uowp=174) GLUCOSE RANDOM (BEAKER) 190 mg/dL 70-105 (test jtat=379) CALCIUM (BEAKER) (test 9.1 mg/dL 8.4-10.2 llyj=491) AST (SGOT) (BEAKER) (test 19 U/L 5-34 wuhd=926) ALT (SGPT) (BEAKER) (test 14 U/L 6-55 pgxl=927) EGFR (BEAKER) (test 40 mL/min/1.73 sq m ESTIMATED GFR IS NOT jnte=7467) ACCURATE CREATININE CLEARANCE IN PREDICTING GLOMERULAR FILTRATION RATE. ESTIMATED GFR IS NOT APPLICABLE FOR DIALYSIS PATIENTS. CBC W/PLT COUNT & AUTO [id number] 18:48:00 Test Item Value Reference Range Comments WHITE BLOOD CELL COUNT (BEAKER) (test kfew=106) 24.0 K/ L 3.5-10.5 RED BLOOD CELL COUNT (BEAKER) (test eyib=217) 3.89 M/ L 3.93-5.22 HEMOGLOBIN (BEAKER) (test rqvy=583) 10.9 GM/DL 11.2-15.7 HEMATOCRIT (BEAKER) (test tsxw=499) 33.7 % 34.1-44.9 MEAN CORPUSCULAR VOLUME (BEAKER) (test uiii=971) 86.6 fL 79.4-94.8 MEAN CORPUSCULAR HEMOGLOBIN (BEAKER) (test 28.0 pg 25.6-32.2 eaum=508) MEAN CORPUSCULAR HEMOGLOBIN CONC (BEAKER) (test 32.3 GM/DL 32.2-35.5 txjq=854) RED CELL DISTRIBUTION WIDTH (BEAKER) (test 13.2 % 11.7-14.4 fiwz=383) PLATELET COUNT (BEAKER) (test gxxx=589) 265 K/CU MM 150-450 MEAN PLATELET VOLUME (BEAKER) (test uani=724) 9.4 fL 9.4-12.3 NUCLEATED RED BLOOD CELLS (BEAKER) (test 0 /100 WBC 0-0 xocn=674) (CELLAVISION MANUAL DIFF)[id number] 18:48:00 Test Item Value Reference Range Comments NEUTROPHILS - REL (CELLAVISION)(BEAKER) (test 79 % knpf=0445) LYMPHOCYTES - REL (CELLAVISION)(BEAKER) (test 2 % qeny=5856) MONOCYTES - REL (CELLAVISION)(BEAKER) (test 6 % ocnk=5209) METAMYELOCYTES - REL (CELLAVISION)(BEAKER) (test 1 % 0-0 fjbk=9494) BANDS - REL (CELLAVISION)(BEAKER) (test 12 % 0-10 vcla=9232) NEUTROPHILS - ABS (CELLAVISION)(BEAKER) (test 18.96 K/ul 1.56-6.13 otnx=9280) LYMPHOCYTES - ABS (CELLAVISION)(BEAKER) (test 0.48 K/ul 1.18-3.74 yjdh=6458) MONOCYTES - ABS (CELLAVISION)(BEAKER) (test 1.44 K/uL 0.24-0.36 pnms=0655) METAMYELOCYTES - ABS (CELLAVISION)(BEAKER) (test 0.24 K/uL 0.00-0.00 npdx=9704) BANDS - ABS (CELLAVISION)(BEAKER) (test 2.88 K/uL 0.00-0.80 ctov=6706) TOTAL COUNTED (BEAKER) (test vhpj=7073) 100 WBC MORPHOLOGY (BEAKER) (test xzrm=960) Normal PLT MORPHOLOGY (BEAKER) (test zzme=149) Normal ANISOCYTOSIS (BEAKER) (test aokw=664) 1+ few MICROCYTES (BEAKER) (test jztu=107) 1+ few ARTIFACT (CELLAVISION)(BEAKER) (test gzby=7586) Present PLATELET CONCENTRATION (CELLAVISION)(BEAKER) Adequate (test zncb=0662) Received comment: User comments: Slide comments:POCT-GLUCOSE [id number] 18: 32:00 Test Item Value Reference Range Comments POC-GLUCOSE METER (BEAKER) 205 mg/dL 70-110 TESTED AT [facility] [address] [facility] (test guua=[id number]) [facility] [id number] PROTHROMBIN TIME/[id number] 18:26:00 Test Item Value Reference Range Comments PROTIME (BEAKER) (test uweq=488) 15.1 seconds 11.7-14.7 INR (BEAKER) (test xdkm=688) 1.2 <=5.9 RECOMMENDED COUMADIN/WARFARIN INR THERAPY RANGESSTANDARD DOSE: 2.0 - 3.0 Includes: PROPHYLAXIS forvenous thrombosis, systemic embolization; TREATMENT for venous thrombosis and/or pulmonary embolus.HIGH RISK: Target INR is 2.5-3.5 for patients with mechanical heart valves.
--- NOTE | 2018-10-07 23:45 | EDPHYS ---
Physician Documentation [facility] Name: Herlinda Benitez Age: 72 yrs Sex: Female : 1945 Arrival Date: 10/07/2018 Time: 21:36 Bed 13 Private MD: ED Physician Lobito Huynh HPI: 10/08 02:28 This 72 yrs old Female presents to ER via Ambulatory with complaints of kdr Vaginal Pain. 02:28 The patient presents with The patient had a Fuller placed earlier today and states that kdr as soon as she had the Fuller inserted, she began to have discomfort. The discomfort has persisted and is particularly severe when sitting. She has no other associated s/s. It is draining what appears to be normal urine. Onset: The symptoms/episode began/occurred suddenly, this morning, today. Modifying factors: The symptoms are alleviated by remaining still, the symptoms are aggravated by Sitting up. Associated signs and symptoms: The patient has no apparent associated signs or symptoms. Severity of symptoms: At their worst the symptoms were moderate, severe, just prior to arrival, in the emergency department the symptoms are unchanged. The patient has not experienced similar symptoms in the past. The patient has been recently seen by a physician: Dr. Garcia. 02:32 The patient has been recently seen by a physician: Dr. epsinosa Historical: - Allergies: 10/07 22:11 PENICILLINS; aj1 - Home Meds: 22:11 Tresiba FlexTouch U-100 100 unit/mL (3 mL) subcutaneous inpn 28 units every evening aj1 [Active]; Levofloxacin Oral once daily [Active]; citalopram 20 mg tab 1 tab once daily [Active]; metformin 500 mg Oral tab 1 tab 2 times per day [Active]; oxybutin 5mg once a day [Active]; pravastatin 40 mg Oral tab 1 tab once daily [Active]; amlodipine 5 mg tab 1 tab once daily [Active]; Vitamin D3 oral oral [Active]; losartan 50 mg Oral tab 1 tab once daily [Active]; - PMHx: 22:11 Diabetes - IDDM; Hyperlipidemia; Hypertension; GERD; aj1 - Immunization history:: Flu vaccine is not up to date. - Social history:: Smoking status: Patient/guardian denies using tobacco. - Ebola Screening: : Patient denies travel to an Ebola-affected area in the 21 days before illness onset. ROS: 10/08 02:32 Positive for pelvic pain, Negative for flank pain, burning with urination, kdr difficulty urinating, bladder incontinence, foul smelling urine, vaginal bleeding, vaginal discharge, vaginal itching, menstrual abnormality, missed period. Constitutional: Negative for fever, chills, and weight loss, Eyes: Negative for injury, pain, redness, and discharge, Neck: Negative for injury, pain, and swelling, Cardiovascular: Negative for chest pain, palpitations, and edema, Respiratory: Negative for shortness of breath, cough, wheezing, and pleuritic chest pain, Abdomen/GI: Negative for abdominal pain, nausea, vomiting, diarrhea, and constipation, Back: Negative for injury and pain, MS/Extremity: Negative for injury and deformity, Skin: Negative for injury, rash, and discoloration. Exam: 02:33 Constitutional: This is a well developed, well nourished patient who is awake, alert, kdr and in no acute distress. Head/Face: Normocephalic, atraumatic. 02:33 Abdomen/GI: Inspection: Bowel sounds: Palpation: Vital Signs: 10/07 22:11 BP 174 / 67; Pulse 72; Resp 18; Temp 97.2; Pulse Ox 98% on R/A; Weight 85.73 kg (R); aj1 Height 5 ft. 4 in. (162.56 cm) (R); Pain 8/10; 23:55 BP 153 / 71; Pulse 75; Resp 18; Temp 97.5; Pulse Ox 97% on R/A; Pain 2/10; aa1 22:11 Body Mass Index 32.44 (85.73 kg, 162.56 cm) aj1 MDM: 23:44 Patient medically screened. kdr 10/08 02:33 Data reviewed: vital signs, nurses notes. ED course: The patient felt much better when kdr the Fuller had been exchanged. She flet she needed no further evaluation and treatement. 10/07 22:50 Order name: Dian. Order: Change fuller; Complete Time: 23:16 kdr Administered Medications: 10/07 23:55 Drug: Tylenol #3 (300 mg-30 mg) 1 tablet Route: PO; aa1 10/08 00:02 Follow up: Response: No adverse reaction; Medication administered at discharge. aa1 Disposition: 10/07/18 23:44 Discharged to Home. Impression: Fuller insertion discomfort . - Condition is Stable. - Discharge Instructions: Fuller Catheter Care, Adult, [id number]. - Prescriptions for Tylenol- Codeine #3 300-30 mg Oral Tablet - take 1 tablet by ORAL route every 6 hours As needed; 15 tablet. - Medication Reconciliation Form, Thank You Letter, Prescription Opioid Use form. - Follow up: Private Physician; When: 2 - 3 days; Reason: If symptoms return, Further diagnostic work-up, Recheck today's complaints, Continuance of care, Re-evaluation by your physician. Follow up: Alisha Garcia MD; When: 2 - 3 days; Reason: If symptoms return, Further diagnostic work-up, Recheck today's complaints, Continuance of care, Re-evaluation by your physician. - Problem is new. - Symptoms have improved. Signatures: Crissy Padron RN RN aj1 Xenia Russo RN RN aa1 Lobito Huynh MD MD kdr Corrections: (The following items were deleted from the chart) 00:18 10/07 23:44 10/07/2018 23:44 Discharged to Home. Impression: Fuller insertion discomfort aa1 . Condition is Stable. Forms are Medication Reconciliation Form, Thank You Letter, Antibiotic Education, Prescription Opioid Use. Follow up: Private Physician; When: 2 - 3 days; Reason: If symptoms return, Further diagnostic work-up, Recheck today's complaints, Continuance of care, Re-evaluation by your physician. Follow up: Alisha Garcia; When: 2 - 3 days; Reason: If symptoms return, Further diagnostic work-up, Recheck today's complaints, Continuance of care, Re-evaluation by your physician. Problem is new. Symptoms have improved. kdr 10/08 02:33 02:28 The patient has been recently seen by a physician: Dr. augustine kdr kdr
--- NOTE | 2018-10-07 23:45 | ER ---
Nurse's Notes [facility] Name: Herlinda Benitez Age: 72 yrs Sex: Female : 1945 Arrival Date: 10/07/2018 Time: 21:36 Bed 13 Private MD: Diagnosis: Fuller insertion discomfort Presentation: 10/07 22:06 Presenting complaint: Child states: "She went to Dr. Garcia because she has a aj1 prolapsed bladder so they put in a catheter that they were going to leave in until Wednesday, she can't sit down or get comfortable because of the pain we called Dr. Garcia and she told us to take here to make sure its in place". Transition of care: patient was not received from another setting of care. Onset of symptoms was October 07, 2018. Risk Assessment: Do you want to hurt yourself or someone else? Patient reports no desire to harm self or others. Initial Sepsis Screen: Does the patient meet any 2 criteria? No. Patient's initial sepsis screen is negative. Does the patient have a suspected source of infection? Yes: Dysuria/Frequency/Urgency/UTI. Care prior to arrival: None. 22:06 Method Of Arrival: Ambulatory aj1 22:06 Acuity: LOLIS 3 aj1 Triage Assessment: 22:11 General: Appears in no apparent distress. uncomfortable, Behavior is calm, cooperative, aj1 appropriate for age. Pain: Complains of pain in meatus Pain currently is 8 out of 10 on a pain scale. Neuro: Level of Consciousness is awake, alert, obeys commands. Cardiovascular: Patient's skin is warm and dry. Respiratory: Airway is patent Respiratory effort is even, unlabored, Respiratory pattern is regular, symmetrical. Historical: - Allergies: 22:11 PENICILLINS; aj1 - Home Meds: 22:11 Tresiba FlexTouch U-100 100 unit/mL (3 mL) subcutaneous inpn 28 units every evening aj1 [Active]; Levofloxacin Oral once daily [Active]; citalopram 20 mg tab 1 tab once daily [Active]; metformin 500 mg Oral tab 1 tab 2 times per day [Active]; oxybutin 5mg once a day [Active]; pravastatin 40 mg Oral tab 1 tab once daily [Active]; amlodipine 5 mg tab 1 tab once daily [Active]; Vitamin D3 oral oral [Active]; losartan 50 mg Oral tab 1 tab once daily [Active]; - PMHx: 22:11 Diabetes - IDDM; Hyperlipidemia; Hypertension; GERD; aj1 - Immunization history:: Flu vaccine is not up to date. - Social history:: Smoking status: Patient/guardian denies using tobacco. - Ebola Screening: : Patient denies travel to an Ebola-affected area in the 21 days before illness onset. Assessment: 22:30 General: Appears uncomfortable, Behavior is calm, cooperative. Pain: Complains of pain tr5 in groin. Neuro: Level of Consciousness is awake, alert, obeys commands, Oriented to person, place, time, Survey And Mapping Technician are equal bilaterally Moves all extremities. Cardiovascular: Heart tones present Bruits absent Capillary refill < 3 seconds Pulses are all present. Edema is absent. Respiratory: Airway is patent Trachea midline Respiratory effort is even, unlabored, Respiratory pattern is regular, symmetrical, Breath sounds are clear. GI: No signs and/or symptoms were reported involving the gastrointestinal system. : Fuller in place Urine is clear, Parent/caregiver report the patient having pain since after leaving Dr. veliz's office today. 23:55 Reassessment: Patient appears in no apparent distress at this time. Patient is alert, aa1 oriented x 3, equal unlabored respirations, skin warm/dry/pink. Discussed d/c \\T\\ f/u instructions with pt; denies questions or concerns at this time. Ambulatory to lobby with steady gait. Patient states feeling better. Vital Signs: 22:11 BP 174 / 67; Pulse 72; Resp 18; Temp 97.2; Pulse Ox 98% on R/A; Weight 85.73 kg (R); aj1 Height 5 ft. 4 in. (162.56 cm) (R); Pain 8/10; 23:55 BP 153 / 71; Pulse 75; Resp 18; Temp 97.5; Pulse Ox 97% on R/A; Pain 2/10; aa1 22:11 Body Mass Index 32.44 (85.73 kg, 162.56 cm) aj1 ED Course: 21:36 Patient arrived in ED. rg4 22:08 Triage completed. aj1 22:11 Arm band placed on Patient placed in waiting room, Patient notified of wait time. aj1 22:25 Himanshu Resendiz, RN is Primary Nurse. tr5 22:27 Lobito Huynh MD is Attending Physician. kdr 23:10 Fuller cath inserted, using sterile technique, 16 Fr., by me, balloon inflated, to aa1 gravity drainage, other Existing fuller catheter removed and new catheter inserted at this time. 23:43 Alisha Garcia MD is Referral Physician. kdr 23:55 No provider procedures requiring assistance completed. Patient did not have IV access aa1 during this emergency room visit. Administered Medications: 23:55 Drug: Tylenol #3 (300 mg-30 mg) 1 tablet Route: PO; aa1 10/08 00:02 Follow up: Response: No adverse reaction; Medication administered at discharge. aa1 Outcome: 10/07 23:44 Discharge ordered by . kdr 10/08 00:05 Discharged to home ambulatory, with family. aa1 Condition: good Discharge instructions given to patient, family, Instructed on discharge instructions, follow up and referral plans. medication usage, Demonstrated understanding of instructions, follow-up care, medications, Prescriptions given X 1. 00:10 Patient left the ED. aa1 Signatures: Crissy Padron RN RN aj1 Xenia Russo RN RN aa1 Lobito Huynh MD MD kdr Garcia, Rubi 4 Himanshu Resendiz, RN RN tr5 Corrections: (The following items were deleted from the chart) 00:23 00:18 Patient left the ED. aa1 aa1
[2018-10-08] MEDS ORDERED: CODEINE 30MG/APAP 300MG TAB ONE (00:03)
== END 2018-10-08 00:18 | disposition home or self-care (01) ==
LOC: ER 21:35
DX: T83.84XA Pain due to genitourinary prosthetic devices, implants and grafts, initial encounter (principal); I10 Essential (primary) hypertension; E78.5 Hyperlipidemia, unspecified; E11.9 Type 2 diabetes mellitus without complications; Z79.4 Long term (current) use of insulin
CPT/HCPCS: 51702; 99284

== ENCOUNTER 2022-05-13 17:54 | Inpatient (IN) | payer OTHER ==
--- OUTSIDE RECORDS SUMMARY | 2022-05-13 17:58 | XMS REPORT | Continuity of Care Document ---
:1945 Author Organization [facility] t Address [address] [place] [address] Care Team Providers Name Role Phone No, Pcp [facility] Primary Care Physician Unavailable FELICIANO VALENCIA Attending Clinician Unavailable FELICIANO VALENCIA Admitting Clinician Unavailable Problems Condition Condition Condition Status Onset Resolution Last Treating Co mments Source Name Details Category Date Date Treatment Clinician Date Pyelonephr Pyelonephr Disease Active 2017-[address] [facility] Hydronephr Hydronephr Disease Active 2017-[address] osis of osis of 1[facility]25 [facility] right right 00:00[facility] Medical kidney kidney 00 Center Dilation Dilation Disease [facility] 2017[facility]25 [facility] tract tract 00:00: Medical 00 Center Allergies, Adverse Reactions, Alerts Allergy Allergy Status Severity Reaction(s) Onset Inactive Treating Comm ents Source Name Type Date Date Clinician Penicill Propensi Active Hives 2017-[address] [facility] [facility] ty to 1-25 [facility] adverse 00:00: Medical reaction 00 Center s Social History Social Habit Start Date Stop Date Quantity Comments Source History SDOH [facility] Alcohol Std Drinks Medica l Center History SDOH [facility] Alcohol Binge Medical Di ter History SDOH [facility] Alcohol Comment Medical C enter Alcohol intake 2018-02-18 2018-02-[address] Dil[facility] es 00:00:00 00:00:00 non-drinker of Medical Ce nter alcohol (finding) History SDOH 2018-02-14 2018-02-[address] [facility] Alcohol Frequency 00:00:00 00:00:00 [facility] Tobacco Comment 2018-02-13 2018-02-[address] [facility] 00:00:00 00:00:00 [facility] Tobacco use and 2018-02-13 2018-02-[address] [facility] [address] [facility] exposure 00:00:00 00:00:00 [facility] Sex Assigned At [address] [facility] [place] 00:00:00 00:00:00 [facility] Smoking Status Start Date Stop Date Source Former smoker 2018-02-13 00:00:00 2018-02-13 00:00:00 [facility] Medications Ordered Filled Start Stop Current Ordering Indication Dosage Frequency Signature Comments Components Source Medication Medication Date Date Medication? Clinician (SIG) Name Name oxybutynin 2017-03 Yes 5mg QD Take [address] (DITROPAN) 2-01 by mouth [facility] 5 MG tablet 15:01: daily. Medi мария 54 Center losartan 2017-03 Yes 50mg QD Take [address] (COZAAR) 50 2-01 by mouth Luke s MG tablet 15:01: daily. Medica l [address] [place] [address] pravastatin 2017-03 Yes 40mg QD Take [address] (PRAVACHOL) 2-01 by mouth Luke s 40 MG 15:01: daily. Medical tablet [address] [place] [address] amLODIPine 2017-03 Yes 5mg QD Take [address] (NORVASC) 2-01 by mouth [facility] 10 MG 15:01: daily. Medical tablet [address] [place] [address] metFORMIN 2017-03 Yes 500mg Take [address] [facility] (GLUCOPHAGE 2-01 mg by [facility] ) 500 MG 15:01: mouth 2 Medica l tablet 54 (two) Center times daily with breakfast and dinner. insulin 2017-03 Yes 18U QD Inject 18 [facility] 70/30, 2-01 Units [facility] usly every Ce nter regular, morning. (HUMULIN 70/30) 100 unit/mL (70-30) injection insulin 2017-03 Yes 15U Inject 15 [facility] 70/30, 2-01 [facility] Ce nter regular, with (HUMULIN dinner. 70/30) 100 unit/mL (70-30) injection citalopram 2017-03 Yes 20mg QD Take [address] (CELEXA) 20 2-01 by mouth Luke s MG tablet 15:01: daily. Medica [address] Procedures This patient has no known procedures. Results Test Description Test Time Test Comments Results Result Comments Source CYTOLOGY 2018-02-21 Medical Cytology 13:43:00 Report Case: [id number] Authorizing Provider: Yunior Pressley MD Collected: 02/18/2018 1409 Ordering Location: [address] Received: 02/21/2018 0916 Service Pathologist: Merced Mancilla MD Specimen: Urinary Bladder URINARY BLADDER WASHING (CYTOSPINS): - NEGATIVE FOR HIGH GRADE UROTHELIAL DYSPLASIA OR MALIGNANCY Signing Pathologist Direct Phone Line: [phone] nically signed by Merced Mancilla MD on 02/21/2018 at 1:43 [id number] massURINARY BLADDER PLIFSVU152 mls yellow; 4 cytospinsCollected: [id number]: [id number] [facility], Department of Pathology, [address] [place] [phone], [facility] of [facility], [address] [place] [phone], [facility], [facility] of [facility]ology, [address] [place] [address], CYTOLOGY REQUEST 2018-02-21 11:01:00 Test Item Value Reference Range Interpretation Comme nts CYTOLOGY RESULT POINTER (BEAKER) (test code = 2629) See Separate Re port POCT-GLUCOSE [id number] 11:24:00 Test Item Value Reference Range Interpretation Comments POC-GLUCOSE METER 185 mg/dL 70-110 H TESTED AT [place] [address] ([facility]) (test code = [facility] 1538) [id number] POCT-GLUCOSE [id number] 09:43:00 Test Item Value Reference Range Interpretation Comments POC-GLUCOSE METER 185 mg/dL 70-110 H TESTED AT [place] [address] ([facility]) (test code = [place] 1538) [id number] POCT-GLUCOSE [id number] 21:15:00 Test Item Value Reference Range Interpretation Comments POC-GLUCOSE METER 291 mg/dL 70-110 H TESTED AT [place] [address] ([facility]) (test code = [place] 1538) [address] POCT-GLUCOSE [id number] 16:53:00 Test Item Value Reference Range Interpretation Comments POC-GLUCOSE METER 178 mg/dL 70-110 H TESTED AT [place] [address] ([facility]) (test code = [place] 1538) [address] POCT-GLUCOSE [id number] 14:52:00 Test Item Value Reference Range Interpretation Comments POC-GLUCOSE METER 183 mg/dL 70-110 H TESTED AT [place] [address] ([facility]) (test code = [place] 1538) [address] [place], TRIMMER SORTER IN OR/30 MINUTE [id number] 14:37:00Reason for exam:- >CYSTO WITH STENT PLACEMENTFINAL REPORT Fluoroscopy 22 views intraoperative 02/18/2018 2:08 PM CLINICAL HISTORY: Instrument localization COMPARISON: None available IMPRESSION: Please correlate imaging reportfindings with the procedure note prepared by Dr. Pressley, as an intra- procedure imaging consultation was not requested. Reported fluoroscopy time: 0.42 minutes. Signed: Cecilio Franco Verified Date/Time: 02/18/2018 14:37:24 Reading Location: [facility] Radiology Reading Room POCT-GLUCOSE METER 2018-02-18 12:21:00 Test Item Value Reference Range Interpretation Comments POC-GLUCOSE METER 222 mg/dL 70-110 H TESTED AT [place] [address] ([facility]) (test code = [place] 1538) [id number] POCT-GLUCOSE [id number] 21:40:00 Test Item Value Reference Range Interpretation Comments POC-GLUCOSE METER 299 mg/dL 70-110 H TESTED AT [place] [address] ([facility]) (test code = [place] 1538) [id number] POCT-GLUCOSE [id number] 16:24:00 Test Item Value Reference Range Interpretation Comments POC-GLUCOSE METER 132 mg/dL 70-110 H TESTED AT [place] [address] ([facility]) (test code = [place] 1538) [id number] POCT-GLUCOSE [id number] 12:25:00 Test Item Value Reference Range Interpretation Comments POC-GLUCOSE METER 298 mg/dL 70-110 H TESTED AT [place] [address] ([facility]) (test code = [place] 1538) [id number] POCT-GLUCOSE [id number] 08:32:00 Test Item Value Reference Range Interpretation Comments POC-GLUCOSE METER 190 mg/dL 70-110 H TESTED AT [place] [address] ([facility]) (test code = [facility] 1538) [id number] POCT-GLUCOSE [id number] 21:08:00 Test Item Value Reference Range Interpretation Comments POC-GLUCOSE METER 230 mg/dL 70-110 H TESTED AT [place] [address] ([facility]) (test code = [facility] 1538) [address] POCT-GLUCOSE [id number] 17:30:00 Test Item Value Reference Range Interpretation Comments POC-GLUCOSE METER 126 mg/dL 70-110 H TESTED AT [place] [address] ([facility]) (test code = [facility] 1538) [address] POCT-GLUCOSE [id number] 12:43:00 Test Item Value Reference Range Interpretation Comments POC-GLUCOSE METER 138 mg/dL 70-110 H TESTED AT [place] [address] ([facility]) (test code = [facility] 1538) [address] POCT-GLUCOSE [id number] 09:50:00 Test Item Value Reference Range Interpretation Comments POC-GLUCOSE METER 227 mg/dL 70-110 H TESTED AT [place] [address] ([facility]) (test code = [facility] 1538) [address] CT, ABDOMEN - PELVIS, HEMATURIA EVAL, WITHOUT / WITH IV [id number] 08:19:00Reason for exam:->hematuria, question of ureteral mass on [...] secondary to the patient's age as well ashistory of cholecystectomy. However, there are some calcifications [...] indeterminate 1.7 cm hypodense focus of unclear etiology/significance.Further evaluation with an MRI, liver mass protocol, [...] be a clinical concern for a ureteral proces s/lesion, findings can be best assessed with a [...] findings to suggest appendicitis. The uterus is atrophic.There are several bilateral ovarian cysts/cystic lesions. The [...] 4. Indeterminate hypodense/hypoenhancing focus in the inferior righthepatic lobe. Findings can be best assessed with an MRI, liver mass protocol. 5. Colonic diverticulosis without CT findings of diverticulitis. 6. Bilateral ovarian cysts/cystic lesions. In a postmenopausal female, correlation with a pelvic ultrasound is advised. 7. Nonspecific mild diffuse bladder wall thickening. Signed: Chad Malagon MDReport Verified Date/Time: 02/16/2018 08:19:51 Reading Location:[facility] Diagnostic Imaging Reading Room - [place] [address] HEPATIC FUNCTION [id number] 04:01:00 Test Item Value Reference Range Interpretation Comments TOTAL PROTEIN (BEAKER) (test code = 6.7 gm/dL 6.0-8.3 770) ALBUMIN (BEAKER) (test code = 1145) 3.5 g/dL 3.5-5.0 BILIRUBIN TOTAL (BEAKER) (test code 0.3 mg/dL 0.2-1.2 = 377) BILIRUBIN DIRECT (BEAKER) (test 0.1 mg/dL 0.1-0.5 code = 706) ALKALINE PHOSPHATASE (BEAKER) (test 70 U/L 40-150 code = 346) AST (SGOT) (BEAKER) (test code = 16 U/L 5-34 353) ALT (SGPT) (BEAKER) (test code = 10 U/L 6-55 347) BASIC METABOLIC [id number] 04:01:00 Test Item Value Reference Range Interpretation Comments SODIUM (BEAKER) 140 meq/L 136-145 (test code = 381) POTASSIUM (BEAKER) 3.9 meq/L 3.5-5.1 (test code = 379) CHLORIDE (BEAKER) 108 meq/L 98-107 H (test code = 382) CO2 (BEAKER) (test 25 meq/L 22-29 code = 355) BLOOD UREA NITROGEN 14 mg/dL 7-21 (BEAKER) (test code = 354) CREATININE (BEAKER) 0.98 mg/dL 0.57-1.25 (test code = 358) GLUCOSE RANDOM 121 mg/dL 70-105 H (BEAKER) (test code = 652) CALCIUM (BEAKER) 8.8 mg/dL 8.4-10.2 (test code = 697) EGFR (BEAKER) (test 56 mL/min/1.73 ESTIMA SERENITY GFR IS code = 1092) sq m NOT ACCURATE CREATININE CLEARANCE IN PREDICTING GLOMERULAR FILTRATION RATE . ESTIMATED GFR I S NOT APPLICABLE FOR DIALYSIS PATIEN TS. CBC W/PLT COUNT & AUTO [id number] 03:33:00 Test Item Value Reference Range Interpretation Comments WHITE BLOOD CELL COUNT (BEAKER) 7.2 K/ L 3.5-10.5 (test code = 775) RED BLOOD CELL COUNT (BEAKER) 3.65 M/ L 3.93-5.22 L (test code = 761) HEMOGLOBIN (BEAKER) (test code = 10.0 GM/DL 11.2-15.7 L 410) HEMATOCRIT (BEAKER) (test code = 32.4 % 34.1-44.9 L 411) MEAN CORPUSCULAR VOLUME (BEAKER) 88.8 fL 79.4-94.8 (test code = 753) MEAN CORPUSCULAR HEMOGLOBIN 27.4 pg 25.6-32.2 (BEAKER) (test code = 751) MEAN CORPUSCULAR HEMOGLOBIN CONC 30.9 GM/DL 32.2-35.5 L (BEAKER) (test code = 752) RED CELL DISTRIBUTION WIDTH 13.0 % 11.7-14.4 (BEAKER) (test code = 412) PLATELET COUNT (BEAKER) (test 266 K/CU MM 150-450 code = 756) MEAN PLATELET VOLUME (BEAKER) 9.5 fL 9.4-12.3 (test code = 754) NUCLEATED RED BLOOD CELLS 0 /100 WBC 0-0 (BEAKER) (test code = 413) NEUTROPHILS RELATIVE PERCENT 66 % (BEAKER) (test code = 429) LYMPHOCYTES RELATIVE PERCENT 21 % (BEAKER) (test code = 430) MONOCYTES RELATIVE PERCENT 9 % (BEAKER) (test code = 431) EOSINOPHILS RELATIVE PERCENT 4 % (BEAKER) (test code = 432) BASOPHILS RELATIVE PERCENT 0 % (BEAKER) (test code = 437) NEUTROPHILS ABSOLUTE COUNT 4.75 K/ L 1.56-6.13 (BEAKER) (test code = 670) LYMPHOCYTES ABSOLUTE COUNT 1.54 K/ L 1.18-3.74 (BEAKER) (test code = 414) MONOCYTES ABSOLUTE COUNT (BEAKER) 0.62 K/ L 0.24-0.36 H (test code = 415) EOSINOPHILS ABSOLUTE COUNT 0.27 K/ L 0.04-0.36 (BEAKER) (test code = 416) BASOPHILS ABSOLUTE COUNT (BEAKER) 0.03 K/ L 0.01-0.08 (test code = 417) IMMATURE GRANULOCYTES-RELATIVE 0 % 0-1 PERCENT (BEAKER) (test code = 2801) POCT-GLUCOSE [id number] 21:19:00 Test Item Value Reference Range Interpretation Comments POC-GLUCOSE METER 199 mg/dL 70-110 H TESTED AT [place] [address] ([facility]) (test code = [facility] 1538) [id number] POCT-GLUCOSE [id number] 16:50:00 Test Item Value Reference Range Interpretation Comments POC-GLUCOSE METER 215 mg/dL 70-110 H TESTED AT [place] [address] ([facility]) (test code = [facility] 1538) [address] POCT-GLUCOSE [id number] 12:56:00 Test Item Value Reference Range Interpretation Comments POC-GLUCOSE METER 265 mg/dL 70-110 H TESTED AT [place] [address] (BEAKER) (test code = [place] 1538) [address] POCT-GLUCOSE [id number] 10:32:00 Test Item Value Reference Range Interpretation Comments POC-GLUCOSE METER 210 mg/dL 70-110 H TESTED AT [place] [address] (BEAKER) (test code = [place] 1538) [id number] URINE [id number] 09:42:00 Test Item Value Reference Range Interpretation Comments CULTURE (BEAKER) (test code = 1095) No growth POCT-GLUCOSE [id number] 06:04:00 Test Item Value Reference Range Interpretation Comments POC-GLUCOSE METER 189 mg/dL 70-110 H TESTED AT [place] [address] (BEAKER) (test code = [facility] 1538) [id number] HEPATIC FUNCTION [id number] 05:34:00 Test Item Value Reference Range Interpretation Comments TOTAL PROTEIN (BEAKER) (test code = 6.2 gm/dL 6.0-8.3 770) ALBUMIN (BEAKER) (test code = 1145) 3.3 g/dL 3.5-5.0 L BILIRUBIN TOTAL (BEAKER) (test code 0.3 mg/dL 0.2-1.2 = 377) BILIRUBIN DIRECT (BEAKER) (test 0.2 mg/dL 0.1-0.5 code = 706) ALKALINE PHOSPHATASE (BEAKER) (test 74 U/L 40-150 code = 346) AST (SGOT) (BEAKER) (test code = 15 U/L 5-34 353) ALT (SGPT) (BEAKER) (test code = 11 U/L 6-55 347) BASIC METABOLIC [id number] 05:34:00 Test Item Value Reference Range Interpretation Comments SODIUM (BEAKER) 137 meq/L 136-145 (test code = 381) POTASSIUM (BEAKER) 4.1 meq/L 3.5-5.1 (test code = 379) CHLORIDE (BEAKER) 107 meq/L 98-107 (test code = 382) CO2 (BEAKER) (test 23 meq/L 22-29 code = 355) BLOOD UREA NITROGEN 20 mg/dL 7-21 (BEAKER) (test code = 354) CREATININE (BEAKER) 1.05 mg/dL 0.57-1.25 (test code = 358) GLUCOSE RANDOM 183 mg/dL 70-105 H (BEAKER) (test code = 652) CALCIUM (BEAKER) 8.7 mg/dL 8.4-10.2 (test code = 697) EGFR (BEAKER) (test 51 mL/min/1.73 ESTIMA SERENITY GFR IS code = 1092) sq m NOT ACCURATE CREATININE CLEARANCE IN PREDICTING GLOMERULAR FILTRATION RATE . ESTIMATED GFR I S NOT APPLICABLE FOR DIALYSIS PATIEN TS. CBC W/PLT COUNT & AUTO [id number] 05:24:00 Test Item Value Reference Range Interpretation Comments WHITE BLOOD CELL COUNT (BEAKER) 11.3 K/ L 3.5-10.5 H (test code = 775) RED BLOOD CELL COUNT (BEAKER) 3.58 M/ L 3.93-5.22 L (test code = 761) HEMOGLOBIN (BEAKER) (test code = 10.0 GM/DL 11.2-15.7 L 410) HEMATOCRIT (BEAKER) (test code = 32.1 % 34.1-44.9 L 411) MEAN CORPUSCULAR VOLUME (BEAKER) 89.7 fL 79.4-94.8 (test code = 753) MEAN CORPUSCULAR HEMOGLOBIN 27.9 pg 25.6-32.2 (BEAKER) (test code = 751) MEAN CORPUSCULAR HEMOGLOBIN CONC 31.2 GM/DL 32.2-35.5 L (BEAKER) (test code = 752) RED CELL DISTRIBUTION WIDTH 13.0 % 11.7-14.4 (BEAKER) (test code = 412) PLATELET COUNT (BEAKER) (test 235 K/CU MM 150-450 code = 756) MEAN PLATELET VOLUME (BEAKER) 9.7 fL 9.4-12.3 (test code = 754) NUCLEATED RED BLOOD CELLS 0 /100 WBC 0-0 (BEAKER) (test code = 413) NEUTROPHILS RELATIVE PERCENT 81 % (BEAKER) (test code = 429) LYMPHOCYTES RELATIVE PERCENT 10 % (BEAKER) (test code = 430) MONOCYTES RELATIVE PERCENT 6 % (BEAKER) (test code = 431) EOSINOPHILS RELATIVE PERCENT 2 % (BEAKER) (test code = 432) BASOPHILS RELATIVE PERCENT 0 % (BEAKER) (test code = 437) NEUTROPHILS ABSOLUTE COUNT 9.15 K/ L 1.56-6.13 H (BEAKER) (test code = 670) LYMPHOCYTES ABSOLUTE COUNT 1.18 K/ L 1.18-3.74 (BEAKER) (test code = 414) MONOCYTES ABSOLUTE COUNT (BEAKER) 0.67 K/ L 0.24-0.36 H (test code = 415) EOSINOPHILS ABSOLUTE COUNT 0.24 K/ L 0.04-0.36 (BEAKER) (test code = 416) BASOPHILS ABSOLUTE COUNT (BEAKER) 0.03 K/ L 0.01-0.08 (test code = 417) IMMATURE GRANULOCYTES-RELATIVE 1 % 0-1 PERCENT (BEAKER) (test code = 2801) URINALYSIS W/ REFLEX URINE [id number] 21:41:00 Test Item Value Reference Range Interpretation Comments COLOR (BEAKER) (test code = 470) Light Yellow CLARITY (BEAKER) (test code = Clear 469) SPECIFIC GRAVITY UA (BEAKER) 1.005 1.001-1.035 (test code = 468) PH UA (BEAKER) (test code = 467) 6.0 5.0-8.0 PROTEIN UA (BEAKER) (test code = 20 mg/dL Negative A 464) GLUCOSE UA (BEAKER) (test code = Negative Negative 365) KETONES UA (BEAKER) (test code = Negative Negative 371) BILIRUBIN UA (BEAKER) (test code Negative Negative = 462) BLOOD UA (BEAKER) (test code = Trace Negative A 461) NITRITE UA (BEAKER) (test code = Negative Negative 465) LEUKOCYTE ESTERASE UA (BEAKER) Large Negative A (test code = 466) UROBILINOGEN UA (BEAKER) (test 0.2 mg/dL 0.2-1.0 code = 463) RBC UA (BEAKER) (test code = < /HPF 519) WBC UA (BEAKER) (test code = 22 /HPF 520) SQUAMOUS EPITHELIAL (BEAKER) 2 /HPF (test code = 516) SOURCE(BEAKER) (test code = 7438) POCT-GLUCOSE [id number] 21:07:00 Test Item Value Reference Range Interpretation Comments POC-GLUCOSE METER 213 mg/dL 70-110 H TESTED AT [facility] 6720 (BEAKER) (test code = [place] 1538) [id number] POCT-GLUCOSE [id number] 17:39:00 Test Item Value Reference Range Interpretation Comments POC-GLUCOSE METER 267 mg/dL 70-110 H TESTED AT [facility] 6720 (MAUREEN) (test code = [place] 1538) [id number] MR, ABDOMEN, [id number] 13:24:00FINAL REPORT TECHNIQUE: MRI of the abdomen [...] to normal caliber distally without definite filling defect.SPLEEN: No splenomegaly.PANCREAS: The pancreatic duct is dilated up to 0.8 cm in diameter with a suspected 0.8 x 0.9 cm T2 hypointense filling defect in the region of the pancreatic head. 1x 1.6 cm T2 hyperintensity in the region of the pancreatic head adjacent to the distal common bile duct and duodenum with internal linear septations/debris. Pancreatic parenchyma is atrophied. ADRENALS: No adrenal nodules.KIDNEYS/URETERS: No hydronephrosis or solid mass lesions. Bilateral perinephric stranding, right greater than left. PERITONEUM/RETROPERITONEUM: No free fluid.LYMPH NODES: No lymphade nopathy.VESSELS: Unremarkable. GI TRACT: No distention or wall thickening. BONES AND SOFT TISSUES: Unremarkable. IMPRESSION:Diffuse intrahepatic and extrahepatic biliary ductal prominence without definite filling defect, probable postcholecystectomy reservoir effect. Pancreatic ductal dilatation with s uspected intraductal calcification/calculus in the pancreatic head. 1.6 [...] MDReport Verified Date/Time: 02/14/2018 13:24:48 Reading Location: [address] Radiology Reading Room POCT-GLUCOSE [id number] 12:38:00 Test Item Value Reference Range Interpretation Comments POC-GLUCOSE METER 198 mg/dL 70-110 H TESTED AT [facility] 67 ([facility]) (test code = [place] 1538) [id number] U/S, ABDOMINAL, [id number] 09:18:00Abdomen limited area? Add comment if clarification [...] patient's history of cholecystectomy. The common bile ductmeasures up to 10 mm in diameter. There are no visible intraductal stones or evidence for intrahepatic biliary ductal dilatation. The portal vein measures 11 mm in diameter and appears patent by Limited color Doppler examination. The right kidney is relatively small measuring up to 8.0 cm in length by6.3 cm in greatest transverse diameter. There are [...] secondary to bowel gas. Signed: Chavo Guerrier MDReport Verified Date/Time: 02/14/2018 0 9:18:08 Reading Location: [facility] [id number] Ultrasound Reading Room HEPATIC FUNCTION PANEL 2018-02-14 06:23:00 Test Item Value Reference Range Interpretation Comments TOTAL PROTEIN (BEAKER) (test code = 5.9 gm/dL 6.0-8.3 L 770) ALBUMIN (BEAKER) (test code = 1145) 3.3 g/dL 3.5-5.0 L BILIRUBIN TOTAL (BEAKER) (test code 0.4 mg/dL 0.2-1.2 = 377) BILIRUBIN DIRECT (BEAKER) (test 0.2 mg/dL 0.1-0.5 code = 706) ALKALINE PHOSPHATASE (BEAKER) (test 67 U/L 40-150 code = 346) AST (SGOT) (BEAKER) (test code = 17 U/L 5-34 353) ALT (SGPT) (BEAKER) (test code = 14 U/L 6-55 347) BASIC METABOLIC [id number] 06:23:00 Test Item Value Reference Range Interpretation Comments SODIUM (BEAKER) 138 meq/L 136-145 (test code = 381) POTASSIUM (BEAKER) 3.5 meq/L 3.5-5.1 (test code = 379) CHLORIDE (BEAKER) 105 meq/L 98-107 (test code = 382) CO2 (BEAKER) (test 27 meq/L 22-29 code = 355) BLOOD UREA NITROGEN 22 mg/dL 7-21 H (BEAKER) (test code = 354) CREATININE (BEAKER) 1.15 mg/dL 0.57-1.25 (test code = 358) GLUCOSE RANDOM 139 mg/dL 70-105 H (BEAKER) (test code = 652) CALCIUM (BEAKER) 8.7 mg/dL 8.4-10.2 (test code = 697) EGFR (BEAKER) (test 46 mL/min/1.73 ESTIMA SERENITY GFR IS code = 1092) sq m NOT ACCURATE CREATININE CLEARANCE IN PREDICTING GLOMERULAR FILTRATION RATE . ESTIMATED GFR I S NOT APPLICABLE FOR DIALYSIS PATIEN TS. CBC W/PLT COUNT & AUTO [id number] 06:04:00 Test Item Value Reference Range Interpretation Comments WHITE BLOOD CELL COUNT (BEAKER) 15.8 K/ L 3.5-10.5 H (test code = 775) RED BLOOD CELL COUNT (BEAKER) 3.72 M/ L 3.93-5.22 L (test code = 761) HEMOGLOBIN (BEAKER) (test code = 10.5 GM/DL 11.2-15.7 L 410) HEMATOCRIT (BEAKER) (test code = 32.7 % 34.1-44.9 L 411) MEAN CORPUSCULAR VOLUME (BEAKER) 87.9 fL 79.4-94.8 (test code = 753) MEAN CORPUSCULAR HEMOGLOBIN 28.2 pg 25.6-32.2 (BEAKER) (test code = 751) MEAN CORPUSCULAR HEMOGLOBIN CONC 32.1 GM/DL 32.2-35.5 L (BEAKER) (test code = 752) RED CELL DISTRIBUTION WIDTH 13.2 % 11.7-14.4 (BEAKER) (test code = 412) PLATELET COUNT (BEAKER) (test 245 K/CU MM 150-450 code = 756) MEAN PLATELET VOLUME (BEAKER) 9.6 fL 9.4-12.3 (test code = 754) NUCLEATED RED BLOOD CELLS 0 /100 WBC 0-0 (BEAKER) (test code = 413) NEUTROPHILS RELATIVE PERCENT 85 % (BEAKER) (test code = 429) LYMPHOCYTES RELATIVE PERCENT 8 % (BEAKER) (test code = 430) MONOCYTES RELATIVE PERCENT 6 % (BEAKER) (test code = 431) EOSINOPHILS RELATIVE PERCENT 1 % (BEAKER) (test code = 432) BASOPHILS RELATIVE PERCENT 0 % (BEAKER) (test code = 437) NEUTROPHILS ABSOLUTE COUNT 13.38 K/ L 1.56-6.13 H (BEAKER) (test code = 670) LYMPHOCYTES ABSOLUTE COUNT 1.20 K/ L 1.18-3.74 (BEAKER) (test code = 414) MONOCYTES ABSOLUTE COUNT (BEAKER) 0.94 K/ L 0.24-0.36 H (test code = 415) EOSINOPHILS ABSOLUTE COUNT 0.15 K/ L 0.04-0.36 (BEAKER) (test code = 416) BASOPHILS ABSOLUTE COUNT (BEAKER) 0.04 K/ L 0.01-0.08 (test code = 417) IMMATURE GRANULOCYTES-RELATIVE 1 % 0-1 PERCENT (BEAKER) (test code = 2801) POCT-GLUCOSE [id number] 21:16:00 Test Item Value Reference Range Interpretation Comments POC-GLUCOSE METER 224 mg/dL 70-110 H TESTED AT [facility] 6720 (BEAKER) (test code = [place] 1538) [address] COMPREHENSIVE METABOLIC [id number] 18:56:00 Test Item Value Reference Range Interpretation Comments TOTAL PROTEIN 6.4 gm/dL 6.0-8.3 (BEAKER) (test code = 770) ALBUMIN (BEAKER) 3.6 g/dL 3.5-5.0 (test code = 1145) ALKALINE PHOSPHATASE 73 U/L 40-150 (BEAKER) (test code = 346) BILIRUBIN TOTAL 0.4 mg/dL 0.2-1.2 (BEAKER) (test code = 377) SODIUM (BEAKER) (test 138 meq/L 136-145 code = 381) POTASSIUM (BEAKER) 4.1 meq/L 3.5-5.1 (test code = 379) CHLORIDE (BEAKER) 102 meq/L 98-107 (test code = 382) CO2 (BEAKER) (test 25 meq/L 22-29 code = 355) BLOOD UREA NITROGEN 21 mg/dL 7-21 (BEAKER) (test code = 354) CREATININE (BEAKER) 1.31 mg/dL 0.57-1.25 H (test code = 358) GLUCOSE RANDOM 190 mg/dL 70-105 H (BEAKER) (test code = 652) CALCIUM (BEAKER) 9.1 mg/dL 8.4-10.2 (test code = 697) AST (SGOT) (BEAKER) 19 U/L 5-34 (test code = 353) ALT (SGPT) (BEAKER) 14 U/L 6-55 (test code = 347) EGFR (BEAKER) (test 40 mL/min/1.73 ESTIMA SERENITY GFR IS code = 1092) sq m NOT ACCURATE CREATININE CLEARANCE IN PREDICTING GLOMERULAR FILTRATION RATE . ESTIMATED GFR I S NOT APPLICABLE FOR DIALYSIS PATIEN TS. CBC W/PLT COUNT & AUTO [id number] 18:48:00 Test Item Value Reference Range Interpretation Comments WHITE BLOOD CELL COUNT (BEAKER) 24.0 K/ L 3.5-10.5 H (test code = 775) RED BLOOD CELL COUNT (BEAKER) 3.89 M/ L 3.93-5.22 L (test code = 761) HEMOGLOBIN (BEAKER) (test code = 10.9 GM/DL 11.2-15.7 L 410) HEMATOCRIT (BEAKER) (test code = 33.7 % 34.1-44.9 L 411) MEAN CORPUSCULAR VOLUME (BEAKER) 86.6 fL 79.4-94.8 (test code = 753) MEAN CORPUSCULAR HEMOGLOBIN 28.0 pg 25.6-32.2 (BEAKER) (test code = 751) MEAN CORPUSCULAR HEMOGLOBIN CONC 32.3 GM/DL 32.2-35.5 (BEAKER) (test code = 752) RED CELL DISTRIBUTION WIDTH 13.2 % 11.7-14.4 (BEAKER) (test code = 412) PLATELET COUNT (BEAKER) (test 265 K/CU MM 150-450 code = 756) MEAN PLATELET VOLUME (BEAKER) 9.4 fL 9.4-12.3 (test code = 754) NUCLEATED RED BLOOD CELLS 0 /100 WBC 0-0 (BEAKER) (test code = 413) (CELLAVISION MANUAL DIFF)2018-02-13 18:48:00 Test Item Value Reference Range Interpretation Comments NEUTROPHILS - REL 79 % (CELLAVISION)(BEAKER) (test code = 2816) LYMPHOCYTES - REL 2 % (CELLAVISION)(BEAKER) (test code = 2817) MONOCYTES - REL 6 % (CELLAVISION)(BEAKER) (test code = 2818) METAMYELOCYTES - REL 1 % 0-0 H (CELLAVISION)(BEAKER) (test code = 2821) BANDS - REL (CELLAVISION)(BEAKER) 12 % 0-10 H (test code = 2826) NEUTROPHILS - ABS 18.96 K/ul 1.56-6.13 H (CELLAVISION)(BEAKER) (test code = 2830) LYMPHOCYTES - ABS 0.48 K/ul 1.18-3.74 L (CELLAVISION)(BEAKER) (test code = 2831) MONOCYTES - ABS 1.44 K/uL 0.24-0.36 H (CELLAVISION)(BEAKER) (test code = 2832) METAMYELOCYTES - ABS 0.24 K/uL 0.00-0.00 H (CELLAVISION)(BEAKER) (test code = 2836) BANDS - ABS (CELLAVISION)(BEAKER) 2.88 K/uL 0.00-0.80 H (test code = 2840) TOTAL COUNTED (BEAKER) (test code 100 = 1351) WBC MORPHOLOGY (BEAKER) (test code Normal = 487) PLT MORPHOLOGY (BEAKER) (test code Normal = 486) ANISOCYTOSIS (BEAKER) (test code = 1+ few 961) MICROCYTES (BEAKER) (test code = 1+ few 965) ARTIFACT (CELLAVISION)(BEAKER) Present (test code = 3432) PLATELET CONCENTRATION Adequate (CELLAVISION)(BEAKER) (test code = 3438) Received comment: User comments: Slide comments:POCT-GLUCOSE [id number] 18:32:00 Test Item Value Reference Range Interpretation Comments POC-GLUCOSE METER 205 mg/dL 70-110 H TESTED AT [facility] 6720 (BEAKER) (test code = [place] 1538) [address] PROTHROMBIN [id number] 18:26:00 Test Item Value Reference Range Interpretation Comments PROTIME (BEAKER) (test code = 15.1 seconds 11.7-14.7 H 759) INR (BEAKER) (test code = 370) 1.2 <=5.9 RECOMMENDED COUMADIN/WARFARIN INR THERAPY RANGESSTANDARD DOSE: 2.0 - 3.0 Includes: PROPHYLAXIS for venous thrombosis, systemic embolization; TREATMENT for venous thrombosis and/or pulmonary embolus.HIGH RISK: Target INR is 2.5-3.5 for patients with mechanical heart valves.
[2022-05-13 20:02] LABS: Absolute Lymphocytes (CBC) 1.3 K/uL (0.7-4.9); Lymphocytes % 12.4 % (15.3-44.8); MCV 82.6 fL (80-100); RBC Red Blood Cell Count 4.37 M/uL (3.86-4.86)
[2022-05-13] MEDS ORDERED: NA CHLORIDE 0.9% 1,000 ML ONE (20:20)
--- NOTE | 2022-05-13 20:42 | RAD REPORT ---
EXAM DESCRIPTION: Janusz Single View05/13/2022 8:33 pm CLINICAL HISTORY: COUGH COMPARISON: <Comparisons> TECHNIQUE: Portable AP view of the chest. FINDINGS: The lungs are clear. Mild bibasilar atelectasis. No pneumothorax or effusion. The cardiac silhouette is borderline enlarged allowing for the AP magnification. IMPRESSION: No acute cardiopulmonary process.
[2022-05-13 21:02] LABS: Albumin 3.3 g/dL (3.4-5.0); Bilirubin Total 0.4 mg/dL (0.2-1.0); Potassium 3.8 mmol/L (3.5-5.1); Protein, Total 7.8 g/dL (6.4-8.2)
--- NOTE | 2022-05-13 21:20 | ER ---
Nurse's Notes [facility] Name: Herlinda Benitez Age: 76 yrs Sex: Female : 1945 Arrival Date: 05/13/2022 Time: 17:56 Bed 14 Private MD: Kelton Maurer Diagnosis: Acute kidney failure, unspecified;Hypo-osmolality and hyponatremia;Weakness;SARS-associated coronavirus as the cause of diseases classified elsewhere Presentation: 05/13 18:11 Chief complaint: Patient states: nausea since last and saw primary care and [facility] was given zofran but has to take it q6 hours to be okay but just not really getting better. Denies urinary issues, denies constipation. Coronavirus screen: Vaccine status: Patient reports receiving the 2nd dose of the covid vaccine. Client denies travel out of the [place] in the last 14 days. Ebola Screen: Patient negative for fever greater than or equal to 101.5 degrees Fahrenheit, and additional compatible Ebola Virus Disease symptoms Patient denies exposure to infectious person. Patient denies travel to an Ebola-affected area in the 21 days before illness onset. Initial Sepsis Screen: Does the patient meet any 2 criteria? No. Patient's initial sepsis screen is negative. Does the patient have a suspected source of infection? No. Patient's initial sepsis screen is negative. Risk Assessment: Do you want to hurt yourself or someone else? Patient reports no desire to harm self or others. 18:11 Method Of Arrival: Ambulatory [facility] 18:11 Acuity: LOLIS 3 [facility] 20:23 Onset of symptoms is unknown. vc1 Triage Assessment: 18:15 General: Appears uncomfortable, obese, Behavior is calm, cooperative, appropriate for [facility] age. Pain: Denies pain. GI: Reports nausea. Historical: - Allergies: 18:15 PENICILLINS; jh - PMHx: 18:15 Diabetes - IDDM; GERD; Hyperlipidemia; Hypertension; [facility] - Immunization history:: Adult Immunizations up to date. - Social history:: Smoking status: Patient/guardian denies using tobacco, the patient reports quitting approximately 15 years ago. - Family history:: not pertinent. - Hospitalizations: : No recent hospitalization is reported. Screenin:23 [facility] ED Fall Risk Assessment (Adult) History of falling in the last 3 months, vc1 including since admission No falls in past 3 months (0 pts) Confusion or Disorientation No (0 pts) Intoxicated or Sedated No (0 pts) Impaired Gait No (0 pts) Mobility Assist Device Used No (0 pt) Altered Elimination No (0 pt) Score/Fall Risk Level 0 - 2 = Low Risk Oriented to surroundings, Maintained a safe environment, Educated pt \T\ family on fall prevention, incl call for assistance when getting out of bed. Abuse screen: Denies threats or abuse. Nutritional screening: Has had N/V for 3 or more days. Tuberculosis screening: No symptoms or risk factors identified. Assessment: 19:54 Reassessment: Pt arrived in bed from [facility]. vc1 19:54 GI: Abdomen is flat, non-distended, Reports nausea. vc1 22:03 Reassessment: No changes from previously documented assessment. Patient and/or family vc1 updated on plan of care and expected duration. Pain level reassessed. Patient is alert, oriented x 3, equal unlabored respirations, skin warm/dry/pink. 22:54 Reassessment: Patient and/or family updated on plan of care and expected duration. Pain vc1 level reassessed. Patient is alert, oriented x 3, equal unlabored respirations, skin warm/dry/pink. Patient states feeling better. Patient states symptoms have improved. Vital Signs: 18:11 BP 114 / 58; Pulse 73; Resp 16; Temp 98.4; Pulse Ox 99% ; Weight 83.91 kg; Height 5 ft. jh5 4 in. (162.56 cm); Pain 0/10; 20:24 BP 132 / 69; Pulse 68; Resp 12; Pulse Ox 100% ; vc1 20:27 BP 150 / 61; Pulse 70; Resp 12; Temp 96.6(A); Pulse Ox 99% ; Weight 79.38 kg; Height 5 ls5 ft. 7 in. (170.18 cm); 22:03 BP 152 / 64; Pulse 74; Resp 11; Pulse Ox 100% ; vc1 22:53 BP 160 / 61; Pulse 78; Resp 11; Pulse Ox 100% ; vc1 22:59 Temp 97.4(O); vc1 20:27 Body Mass Index 27.41 (79.38 kg, 170.18 cm) ls5 ED Course: 17:56 Patient arrived in ED. am2 17:56 Kelton Maurer DO is Private Physician. am2 18:15 Triage completed. jh5 18:15 Arm band placed on right wrist. jh5 19:01 Gautam Lawrence MD is Attending Physician. rn 19:52 Itzel Soni, RN is Primary Nurse. vc1 20:00 Inserted saline lock: 20 gauge in right antecubital area, using aseptic technique. ls5 Blood collected. 20:23 No provider procedures requiring assistance completed. vc1 20:24 Patient has correct armband on for positive identification. Bed in low position. Call vc1 light in reach. Client placed on continuous cardiac and pulse oximetry monitoring. NIBP monitoring applied. 21:18 Carlitos Ngo is Hospitalizing Provider. rn 22:53 Urine Culture Sent. vc1 22:53 Urine Microscopic Only Sent. vc1 23:02 Patient admitted, IV remains in place. vc1 Administered Medications: 20:36 Drug: NS 0.9% 1000 ml Route: IV; Rate: 1 bolus; Site: right antecubital; vc1 21:41 Follow up: IV Status: Completed infusion; IV Intake: 1000ml vc1 Medication: 20:24 VIS not applicable for this client. vc1 Intake: 21:41 IV: 1000ml; Total: 1000ml. vc1 Outcome: 21:19 Decision to Hospitalize by Provider. rn 23:02 Admitted to Tele accompanied by tech, via wheelchair, room 418, Report called to ellie Dean RN 23:02 Condition: good 23:02 Instructed on the need for admit. 23:14 Patient left the ED. vc1 Signatures: Gautam Lawrence MD MD rn Moreno, Amanda am2 Estefani Marquez RN RN 5 Itzel Soni, HEIDY RN vc1 Stanislaw Fontana 5
--- NOTE | 2022-05-13 21:20 | EDPHYS ---
Physician Documentation [facility] Name: Herlinda Benitez Age: 76 yrs Sex: Female : 1945 Arrival Date: 05/13/2022 Time: 17:56 Bed 14 Private MD: Kelton Maurer ED Physician Gautam Lawrence HPI: 05/13 19:47 This 76 yrs old Female presents to ER via Ambulatory with complaints of rn General Weakness, Decreased Appetite, Nausea. 19:47 The patient presents to the emergency department with nausea. Onset: The rn symptoms/episode began/occurred 2 week(s) ago. Possible causes: COVID. The symptoms are aggravated by nothing. The symptoms are alleviated by prescription meds. Associated signs and symptoms: Pertinent positives: nausea, Pertinent negatives: diarrhea, fever. Severity of symptoms: At their worst the symptoms were moderate in the emergency department the symptoms are unchanged. The patient has not experienced similar symptoms in the past. The patient has been recently seen by a physician:. Daughter reports COVID + 1.5 weeks ago, has been having nausea/weakness/decreased appetite/low energy. No fever. No blood in stool. . Historical: - Allergies: 18:15 PENICILLINS; jh5 - PMHx: 18:15 Diabetes - IDDM; GERD; Hyperlipidemia; Hypertension; jh5 - Immunization history:: Adult Immunizations up to date. - Social history:: Smoking status: Patient/guardian denies using tobacco, the patient reports quitting approximately 15 years ago. - Family history:: not pertinent. - Hospitalizations: : No recent hospitalization is reported. ROS: 19:47 Constitutional: Negative for fever, chills, and weight loss, Cardiovascular: Negative rn for chest pain, palpitations, and edema, Respiratory: Negative for shortness of breath, cough, wheezing, and pleuritic chest pain, Abdomen/GI: + nausea MS/Extremity: Negative for injury and deformity, Skin: Negative for injury, rash, and discoloration, Neuro: Negative for headache, numbness, tingling, and seizure. Exam: 19:47 Constitutional: This is a well developed, well nourished patient who is awake, alert, rn and in no acute distress. Head/Face: Normocephalic, atraumatic. ENT: dry MM Cardiovascular: Regular rate and rhythm. No pulse deficits. Respiratory: No increased work of breathing, no retractions or nasal flaring. Abdomen/GI: soft, non-tender, non-distended Skin: Warm, dry MS/ Extremity: Pulses equal, no cyanosis. Neuro: Awake and alert, GCS 15 Vital Signs: 18:11 BP 114 / 58; Pulse 73; Resp 16; Temp 98.4; Pulse Ox 99% ; Weight 83.91 kg; Height 5 ft. jh5 4 in. (162.56 cm); Pain 0/10; 20:24 BP 132 / 69; Pulse 68; Resp 12; Pulse Ox 100% ; vc1 20:27 BP 150 / 61; Pulse 70; Resp 12; Temp 96.6(A); Pulse Ox 99% ; Weight 79.38 kg; Height 5 ls5 ft. 7 in. (170.18 cm); 22:03 BP 152 / 64; Pulse 74; Resp 11; Pulse Ox 100% ; vc1 22:53 BP 160 / 61; Pulse 78; Resp 11; Pulse Ox 100% ; vc1 22:59 Temp 97.4(O); vc1 20:27 Body Mass Index 27.41 (79.38 kg, 170.18 cm) ls5 MDM: 19:01 Patient medically screened. rn 21:17 Differential diagnosis: viral gastroenteritis, gastroenteritis, acute kidney injury, rn dehydration, electrolyte disorder, COVID, viral syndrome. Data reviewed: vital signs, nurses notes, lab test result(s), and as a result, I will admit patient. Consideration of Admission/Observation Patient was admitted/placed on observation. Escalation of care including admission/observation considered. Management of patient was discussed with the following: Hospitalist: Case and management discussed with hospitalist service. Counseling: I had a detailed discussion with the patient and/or guardian regarding: the historical points, exam findings, and any diagnostic results supporting the discharge/admit diagnosis, lab results, radiology results, the need for further work-up and treatment in the hospital. Response to treatment: the patient's symptoms have mildly improved after treatment, and as a result, I will admit patient. 05/13 19:09 Order name: CBC with Diff rn 05/13 19:09 Order name: CMP rn 05/13 19:09 Order name: Lipase rn 05/13 19:09 Order name: Urine Microscopic Only rn 05/13 19:09 Order name: COVID-19 SARS RT PCR rn 05/13 19:09 Order name: Urine Culture rn 05/13 20:22 Order name: CBC with Automated Diff; Complete Time: 20:47 EDMS 05/13 20:59 Order name: SARS-COV-2 RT PCR; Complete Time: 21:16 EDMS 05/13 21:02 Order name: Comprehensive Metabolic Panel; Complete Time: 21:16 EDMS 05/13 21:02 Order name: Lipase; Complete Time: 21:16 EDMS 05/13 22:02 Order name: Urine Osmolality sb4 05/13 22:02 Order name: Urine Sodium Random sb4 05/13 22:51 Order name: Urinalysis W/Microscopic kl 05/13 22:52 Order name: Urine Dipstick-Ancillary EDMS 05/13 19:09 Order name: CT Abd/Pelvis - IV Contrast Only rn 05/13 19:09 Order name: IV Saline Lock; Complete Time: 19:52 rn 05/13 19:09 Order name: Labs collected and sent; Complete Time: 19:52 rn 05/13 19:09 Order name: Urine Dipstick-Ancillary (obtain specimen); Complete Time: 22:53 rn 05/13 19:09 Order name: XRAY Chest (1 view) rn 05/13 20:43 Order name: RAD; Complete Time: 20:47 EDMS 05/13 21:40 Order name: CT; Complete Time: 22:23 EDMS Administered Medications: 20:36 Drug: NS 0.9% 1000 ml Route: IV; Rate: 1 bolus; Site: right antecubital; vc1 21:41 Follow up: IV Status: Completed infusion; IV Intake: 1000ml vc1 Disposition Summary: 05/13/22 21:19 Hospitalization Ordered Hospitalization Status: Inpatient Admission rn Provider: Carlitos Ngo rn Location: Telemetry/MedSurg (Inpatient) rn Condition: Stable rn Problem: new rn Symptoms: have improved rn Bed/Room Type: Standard rn Room Assignment: 418(05/13/22 22:50) cg Diagnosis - Acute kidney failure, unspecified rn - Hypo-osmolality and hyponatremia rn - Weakness rn - SARS-associated coronavirus as the cause of diseases classified elsewhere rn Forms: - Medication Reconciliation Form rn - SBAR form rn Signatures: Dispatcher [employer] EDGautam Delgado MD MD rn Priyank, Rylee, RN RN cg Estefani Marquez RN RN jh5 Itzel Soni RN RN vc1 Binta Cunningham PA-C PA-C sb4 Corrections: (The following items were deleted from the chart) 22:50 21:19 ethan coto
--- NOTE | 2022-05-13 21:39 | RAD REPORT ---
EXAM DESCRIPTION: CT - Abdomen Pelvis Wo Contrast - 05/13/2022 9:22 pm CLINICAL HISTORY: Nausea/vomiting. Weakness. Decreased appetite COMPARISON: None. TECHNIQUE: Axial CT imaging of the abdomen and pelvis was performed without IV contrast. Multiplanar reformats were generated and reviewed. All CT scans are performed using dose optimization technique as appropriate and may include automated exposure control or mA/KV adjustment according to patient size. FINDINGS: Multifocal patchy ground-glass opacities throughout the included lung bases. The liver, spleen, and adrenal glands show no suspicious findings. Status post cholecystectomy. Gross ly, no evidence of intra or extrahepatic biliary ductal dilation. Atrophic changes of the pancreas with coarse calcifications most abundant in the region of the head. The appearance is stable, and compatible with sequelae of chronic pancreatitis. No hydronephrosis or suspicious renal mass within limits of noncontrast technique. Small right renal calculi versus parenchymal calcifications, not exceeding 4 millimeter, stable. Left extra renal pelvi s. No dilated bowel loops or bowel wall thickening. No free air, free fluid or inflammatory stranding. N o hernia, mass or bulky lymphadenopathy. Bilobed, septated, right adnexal cystic lesion, measuring 8.2 x 6.5 centimeter, increased in size sin ce the prior exam. A left adnexal cystic 4.7 x 3.6 centimeter lesion is also increased in size since the prior study. The urinary bladder is without significant finding. Moderate atherosclerotic calcifications of the aorta. No suspicious bony findings. IMPRESSION: Patchy bibasilar ground-glass opacities, raising concern for an infectious or inflammato ry process such as pneumonia. No other acute findings in the abdomen and pelvis. Enlarging bilateral adnexal cystic lesions, the largest on the right measuring 8.2 centimeter in grea test dimension with internal septations. Given size and postmenopausal state, these deserve additiona l gynecologic consultation, and consideration of dedicated pelvic ultrasound or MRI imaging as clinic ally indicated, to exclude malignant etiologies. Other incidental findings, as above.
--- NOTE | 2022-05-13 22:29 | P.HP ---
Certification for Inpatient Patient admitted to: Inpatient With expected LOS: <2 Midnights Patient will require the following post-hospital care: None Practitioner: I am a practitioner with admitting privileges, knowledge of patient current condition, hospital course, and medical plan of care. Services: Services provided to patient in accordance with Admission requirements found in Title 42 Section 412.3 of the Code of Federal Regulations Patient History Date of Service: 05/13/22 Primary Care Provider: Erasto Reason for admission: Hyponatremia, BRYANNA History of Present Illness: Patient is a 76 year old female with past medical history of hypertension, hyperlipidemia, insulin dependent type 2 diabetes, and GERD who presented to the emergency department with complaints of generalized weakness, nausea, and decreased appetite. Family states that patient initially tested positive for COVID-19 about 1.5 weeks and the symptoms have not resolved. Today her labs are significant for sodium 120, chloride 87, CO2 19, BUN 21, Cr 2.7. CT showed "Patchy bibasilar ground-glass opacities, raising concern for an infectious or inflammatory process such as pneumonia." She was given 1L fluid in the emergency department and reports feeling improvement already. Vital signs have been stable. Patient is admitted for further management. Allergies Penicillins Allergy (Unknown, Verified 02/13/18 10:24) Hives Home medications list reviewed: Yes - Past Medical/Surgical History Diabetic: Yes -: Type 2 Diabetes, Insulin Dependent -: Hypertension -: Hyperlipidemia -: GERD Psychosocial/ Personal History: Patient is . - Family History Family History: Reviewed- Non-Contributory - Social History Smoking Status: Former smoker Alcohol use: No CD- Drugs: No Caffeine use: Yes Place of Residence: Home Review of Systems General: Weakness Gastrointestinal: Nausea Physical Examination - Physical Exam General: Alert, In no apparent distress HEENT: Atraumatic, Other (Dry mucous membranes), EOMI, Sclerae nonicteric Neck: Supple, 2+ carotid pulse no bruit Respiratory: Clear to auscultation bilaterally, Normal air movement Cardiovascular: Regular rate/rhythm, Normal S1 S2 Gastrointestinal: Normal bowel sounds, No tenderness Musculoskeletal: No tenderness Integumentary: No rashes Neurological: Normal speech, Normal affect - Studies Laboratory Data (last 24 hrs) 05/13/22 19:49: Sodium 120 L, Potassium 3.8, BUN 21 H, Creatinine 2.70 H, Glucose 224 H, Total Bilirubin 0.4, AST 9 L, ALT 11 L, Alkaline Phosphatase 111, Lipase 30 L 05/13/22 19:49: WBC 10.20, Hgb 12.7, Hct 36.0, Plt Count 480 H Assessment and Plan - Problems (Diagnosis) (1) Hyponatremia Current Visit: Yes Status: Acute (2) BRYANNA (acute kidney injury) Current Visit: Yes Status: Acute (3) Dehydration Current Visit: Yes Status: Acute (4) Metabolic acidosis Current Visit: Yes Status: Acute (5) Hypertension Current Visit: Yes Status: Chronic Qualifiers: Hypertension type: primary hypertension Qualified Code(s): I10 - Essential (primary) hypertension (6) Hyperlipidemia Current Visit: Yes Status: Chronic Qualifiers: Hyperlipidemia type: unspecified Qualified Code(s): E78.5 - Hyperlipidemia, unspecified (7) COVID-19 Current Visit: Yes Status: Acute (8) Type 2 diabetes mellitus Current Visit: Yes Status: Chronic Qualifiers: Diabetes mellitus change management facilitator insulin use: with [facility] use Diabetes mellitus complication status: with hyperglycemia Qualified Code(s): E11.65 - Type 2 diabetes mellitus with hyperglycemia; Z79.4 - residential (current) use of insulin - Plan Patient is admitted for further management of hyponatremia. Hypovolemic hyponatremia secondary to decreased PO intake causing BRYANNA, weakness, and metabolic acidosis. Continue NS at 75 cc/hr. BMPs every 4 hours. Nephrology consulted. Check serum osmolality, urine osmolality, and urine sodium. Patient has been covid+ for 1.[address] showing questionable pneumonia. Patient without any hypoxia, cough, or SOB. ACHS accu checks with mild sliding scale and diabetic diet. Physical therapy consult. Encourage PO intake. Monitor and replete electrolytes per protocol. Reconcile and continue home medications. Of note, patient's abdomen/pelvis CT showed "Enlarging bilateral adnexal cystic lesions, the largest on the right measuring 8.2 centimeter in greatest dimension with internal septations. Given size and postmenopausal state, these deserve additional gynecologic consultation, and consideration of dedicated pelvic ultrasound or MRI imaging as clinically indicated, to exclude malignant etiologies." which will need to be followed up on following discharge. Discharge Plan: Home Plan to discharge in: 48 Hours - Advance Directives Does patient have a Living Will: No Does patient have a Durable POA for Healthcare: No - Code Status/Comfort Care Code Status Assessed: Yes Code Status: Full Code Physician Review: Patient Assessed, Agree with Above Assessment and Plan Critical Care: No Time Spent Managing Pts Care (In Minutes): 50
[2022-05-13 22:52] LABS: Urine Blood 2+ (Negative); Urine Glucose Negative (Negative); Urine Protein 2+ (Negative); Urine pH 5.5 (5.0-7.0)
[2022-05-13 23:19] LABS: Specific Gravity < 1.005 (1.005-1.030); Urine Bacteria 20-50 /HPF (<20); Urine Bilirubin NEGATIVE (Negative); Urine Blood 3+ (Negative); Urine Clarity Extremely Turbid (Clear); Urine Color Light-Orange (Yellow); Urine Glucose NEGATIVE (Negative); Urine Protein 2+ (Negative); Urine RBC >50 /HPF (None Seen); Urine Urobilinogen Normal (Normal); Urine pH 5.5 (5.0-7.0)
[2022-05-13] MEDS ORDERED: ONDANSETRON 4 MG/2 ML VIAL IV PRN (23:24)
[2022-05-13] MEDS: NA CHLORIDE 0.9% 1,000 ML IV SCH (23:34)
[2022-05-14 00:06] VITALS: BMI 29.6
[2022-05-14] MEDS: ACETAMINOPHEN 500 MG TAB PO PRN ×2 (01:15→11:21)
[2022-05-14 01:28] LABS: Potassium 3.5 mmol/L (3.5-5.1)
[2022-05-14 04:19] LABS: Absolute Lymphocytes (CBC) 0.9 K/uL (0.7-4.9); Hematocrit 28.8 % (36.0-45.0); Lymphocytes % 13.2 % (15.3-44.8); MCV 81.6 fL (80-100); RBC Red Blood Cell Count 3.53 M/uL (3.86-4.86)
[2022-05-14 04:42] LABS: Magnesium 1.5 mg/dL (1.6-2.4); Phosphorus 2.1 mg/dL (2.5-4.9); Potassium 3.2 mmol/L (3.5-5.1); Thyroid Stimulating Hormone 1.81 uIU/mL (0.358-3.740)
[2022-05-14] MEDS: CEFTRIAXONE 1,000 MG in NA CHLORIDE 0.9% 50 ML IVPB SCH (04:54)
[2022-05-14] MEDS: POTASS/SODIUM PHOSPHATE 1 PKT POWD.PACK PO SCH ×2 (06:04→08:51)
[2022-05-14] MEDS ORDERED: Magnesium Sulfate 2gm IVPB 2 G/50 ML BAG IV ONE (07:00)
[2022-05-14] MEDS: INSULIN -REGULAR HUMAN 50 UNIT/0.5 ML ML SQ SCH ×4 (07:30→22:02)
[2022-05-14] MEDS ORDERED: INFLUENZA VACCINE (for 6+ mo) 0.5 ML DOSE IMVAC ONE (08:00)
[2022-05-14 08:36] LABS: Potassium 3.4 mmol/L (3.5-5.1)
[2022-05-14] MEDS ORDERED: POTASSIUM CL SA 10 MEQ TAB PO ONE (09:00)
--- NOTE | 2022-05-14 10:20 | P.CNS ---
Date of Consult: 05/14/22 Reason for Consult: Hyponatremia Requesting Physician: arelis wolff Primary Care Provider: Dr. Maurer Chief Complaint: Hyponatremia, BRYANNA History of Present Illness: Patient is a 76 year old female with past medical history of hypertension, hyperlipidemia, insulin dependent type 2 diabetes, and GERD who presented to the emergency department with complaints of generalized weakness, nausea, and decreased appetite. Family states that patient initially tested positive for COVID-19 about 1.5 weeks and the symptoms have not resolved. Today her labs are significant for sodium 120, chloride 87, CO2 19, BUN 21, Cr 2.7. CT showed "Patchy bibasilar ground-glass opacities, raising concern for an infectious or inflammatory process such as pneumonia." She was given 1L fluid in the emergency department and reports feeling improvement already. Vital signs have been stable. Patient is admitted for further management. 19:47 This 76 yrs old Female presents to ER via Ambulatory with complaints of rn General Weakness, Decreased Appetite, Nausea. 19:47 The patient presents to the emergency department with nausea. Onset: The rn symptoms/episode began/occurred 2 week(s) ago. Possible causes: COVID. The symptoms are aggravated by nothing. The symptoms are alleviated by prescription meds. Associated signs and symptoms: Pertinent positives: nausea, Pertinent negatives: diarrhea, fever. Severity of symptoms: At their worst the symptoms were moderate in the emergency department the symptoms are unchanged. The patient has not experienced similar symptoms in the past. The patient has been recently seen by a physician:. Daughter reports COVID + 1.5 weeks ago, has been having nausea/weakness/decreased appetite/low energy. No fever. No blood in stool. She is feeling better today. Poor hearing. Allergies Penicillins Allergy (Unknown, Verified 02/13/18 10:24) Hives Home medications list reviewed: Yes Home Medications: Acetaminophen 500 mg PO PRN PRN 05/14/22 Amlodipine [Norvasc] 5 mg PO DAILY 05/14/22 Cholecalciferol (Vitamin D3) [Vitamin D3] 50 mcg PO DAILY 05/14/22 Insulin Degludec [Tresiba Flextouch U-100] 30 unit SQ DAILY 05/14/22 Levothyroxine Sodium [Levothyroxine] 25 mcg PO DAILY 05/14/22 Losartan Potassium 50 mg PO DAILY 05/14/22 Metformin HCl 500 mg PO BID 05/14/22 Omeprazole 20 mg PO DAILY PRN 05/14/22 Pravastatin Sodium 40 mg PO BEDTIME 05/14/22 Venlafaxine HCl [Effexor Xr] 150 mg PO DAILY 05/14/22 oxyBUTYnin chloride [Oxybutynin Chloride] 5 mg PO DAILY 05/14/22 - Past Medical/Surgical History Diabetic: Yes -: Type 2 Diabetes, Insulin Dependent -: HTN -: 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 Maurer) -: GERD -: HLD -: Anemia/ Iron Deficiency -: HypoTSH Psychosocial/ Personal History: Patient is . - Social History Alcohol use: No CD- Drugs: No Caffeine use: Yes Place of Residence: Home Review of Systems 10-point ROS is otherwise unremarkable General: Weakness, Malaise Physical Examination Temp Pulse Resp BP Pulse Ox 96.8 F 72 16 155/68 H 99 05/14/22 08:00 05/14/22 08:00 05/14/22 08:00 05/14/22 08:00 05/14/22 08:00 General: In no apparent distress, Oriented x3, Cooperative HEENT: Atraumatic Neck: Supple Respiratory: Normal air movement Cardiovascular: Normal pulses, Regular rate/rhythm Gastrointestinal: Soft and benign, Non-distended Musculoskeletal: No clubbing, No contractures Integumentary: No rashes, No cyanosis Neurological: Normal speech Laboratory Data (last 24 hrs) 05/13/22 19:49: Sodium 120 L, Potassium 3.8, BUN 21 H, Creatinine 2.70 H, Glucose 224 H, Total Bilirubin 0.4, AST 9 L, ALT 11 L, Alkaline Phosphatase 111, Lipase 30 L 05/13/22 19:49: WBC 10.20, Hgb 12.7, Hct 36.0, Plt Count 480 H Imagings Data: EXAM DESCRIPTION: CT - Abdomen Pelvis Wo Contrast - 05/13/2022 9:22 pm CLINICAL HISTORY: Nausea/vomiting. Weakness. Decreased appetite COMPARISON: None. TECHNIQUE: Axial CT imaging of the abdomen and pelvis was performed without IV contrast. Multiplanar reformats were generated and reviewed. All CT scans are performed using dose optimization technique as appropriate and may include automated exposure control or mA/KV adjustment according to patient size. FINDINGS: Multifocal patchy ground-glass opacities throughout the included lung bases. The liver, spleen, and adrenal glands show no suspicious findings. Status post cholecystectomy. Grossly, no evidence of intra or extrahepatic biliary ductal dilation. Atrophic changes of the pancreas with coarse calcifications most abundant in the region of the head. The appearance is stable, and compatible with sequelae of chronic pancreatitis. No hydronephrosis or suspicious renal mass within limits of noncontrast technique. Small right renal calculi versus parenchymal calcifications, not exceeding 4 millimeter, stable. Left extra renal pelvis. No dilated bowel loops or bowel wall thickening. No free air, free fluid or inflammatory stranding. No hernia, mass or bulky lymphadenopathy. Bilobed, septated, right adnexal cystic lesion, measuring 8.2 x 6.5 centimeter, increased in size since the prior exam. A left adnexal cystic 4.7 x 3.6 centimeter lesion is also increased in size since the prior study. The urinary bladder is without significant finding. Moderate atherosclerotic calcifications of the aorta. No suspicious bony findings. IMPRESSION: Patchy bibasilar ground-glass opacities, raising concern for an infectious or inflammatory process such as pneumonia. No other acute findings in the abdomen and pelvis. Enlarging bilateral adnexal cystic lesions, the largest on the right measuring 8.2 centimeter in greatest dimension with internal septations. Given size and postmenopausal state, these deserve additional gynecologic consultation, and consideration of dedicated pelvic ultrasound or MRI imaging as clinically indicated, to exclude malignant etiologies. Other incidental findings, as above. EXAM DESCRIPTION: [facility] Single View05/13/2022 8:33 pm CLINICAL HISTORY: COUGH COMPARISON: <Comparisons> TECHNIQUE: Portable AP view of the chest. FINDINGS: The lungs are clear. Mild bibasilar atelectasis. No pneumothorax or effusion. The cardiac silhouette is borderline enlarged allowing for the AP magnification. IMPRESSION: No acute cardiopulmonary process. Conclusions/Impression: Stage I BRYANNA likely due to hypovolemia CKD III/IV with proteinuria (Cr baseline ~2.1) -No NSAIDs -Continue IVF with NS Hyponatremia -Continue IVF with NS -BMP q4h Hypokalemia -Replete potassium as ordered Hypomagnesemia -Replete as ordered Hypophosphatemia -Encourage nutrition -Replete prn DM II with CKD -RISS Anemia in chronic illness Iron Deficiency 9% -Monitor H&H -Consider iron supplementation Acute cystitis with hematuria -Urine culture pending -Continue Abx COVID-19 Positive for ~2 weeks -Continue supportive care Thank you kindly for the consultation
[2022-05-14] MEDS: NA CHLORIDE 0.9% 1,000 ML IV SCH (11:21)
--- NOTE | 2022-05-14 13:39 | P.PN ---
Subjective Date of Service: 05/14/22 Primary Care Provider: Dr. Maurer Chief Complaint: Hyponatremia, BRYANNA Patient states she feels better today. She denies any nausea or vomiting and tolerating her diet. Physical Examination - Vital Signs Temperature: 97.1 F Blood Pressure: 186/79 Pulse: 74 Respirations: 18 Pulse Ox (%): 96 - Studies Laboratory Data (last 24 hrs) 05/13/22 19:49: Sodium 120 L, Potassium 3.8, BUN 21 H, Creatinine 2.70 H, Glucose 224 H, Total Bilirubin 0.4, AST 9 L, ALT 11 L, Alkaline Phosphatase 111, Lipase 30 L 05/13/22 19:49: WBC 10.20, Hgb 12.7, Hct 36.0, Plt Count 480 H Assessment And Plan - Current Problems (Diagnosis) (1) BRYANNA (acute kidney injury) Current Visit: Yes Status: Acute (2) Hyponatremia Current Visit: Yes Status: Acute (3) Acute cystitis with hematuria Current Visit: Yes Status: Acute (4) COVID-19 Current Visit: Yes Status: Acute (5) Hypertension Current Visit: Yes Status: Chronic Qualifiers: Hypertension type: primary hypertension Qualified Code(s): I10 - Essential (primary) hypertension (6) Type 2 diabetes mellitus Current Visit: Yes Status: Chronic Qualifiers: Diabetes mellitus long term care administrator insulin use: with long term care administrator use Diabetes mellitus complication status: with hyperglycemia Qualified Code(s): E11.65 - Type 2 diabetes mellitus with hyperglycemia; Z79.4 - assistant terminal manager (current) use of insulin - Plan Nephrology is following and managing BRYANNA and hyponatremia. Patient is currently on IV normal saline and serum sodium level and BRYANNA are improving. Continue BMP monitoring. Continue IV Rocephin for UTI Obtain blood cultures. Follow urine culture. Patient is not hypoxic with regards to COVID-19. Monitor respiratory status. Activity as tolerated.
[2022-05-14 13:51] LABS: Magnesium 2.3 mg/dL (1.6-2.4); Phosphorus 2.2 mg/dL (2.5-4.9); Potassium 3.7 mmol/L (3.5-5.1)
[2022-05-14] MEDS: NEPRO SHAKE 237 ML CAN PO SCH ×2 (14:33→22:02)
[2022-05-14] MEDS ORDERED: POTASSIUM PHOS 15 MM in NA CHLORIDE 0.9% 250 ML IV ONE (15:00)
[2022-05-14 16:57] LABS: Potassium 3.9 mmol/L (3.5-5.1)
[2022-05-15] MEDS: NA CHLORIDE 0.9% 1,000 ML IV SCH ×2 (02:04→03:44)
[2022-05-15 05:03] LABS: Absolute Lymphocytes (CBC) 1.1 K/uL (0.7-4.9); Hematocrit 30.7 % (36.0-45.0); Lymphocytes % 16.2 % (15.3-44.8); MCV 81.8 fL (80-100); MPV 6.8 fL (7.6-11.3); RBC Red Blood Cell Count 3.75 M/uL (3.86-4.86)
[2022-05-15 05:16] LABS: Albumin 2.7 g/dL (3.4-5.0); Bilirubin Total 0.2 mg/dL (0.2-1.0); Magnesium 2.1 mg/dL (1.6-2.4); Phosphorus 2.5 mg/dL (2.5-4.9); Potassium 4.1 mmol/L (3.5-5.1); Protein, Total 6.4 g/dL (6.4-8.2)
[2022-05-15] MEDS ORDERED: AMLODIPINE 5 MG TAB PO SCH (07:00)
[2022-05-15] MEDS: INSULIN -REGULAR HUMAN 50 UNIT/0.5 ML ML SQ SCH ×3 (07:30→16:30)
[2022-05-15] MEDS: CEFTRIAXONE 1,000 MG in NA CHLORIDE 0.9% 50 ML IVPB SCH (08:25)
[2022-05-15] MEDS: NEPRO SHAKE 237 ML CAN PO SCH ×2 (08:26→13:58)
[2022-05-15] MEDS ORDERED: LOSARTAN POTASSIUM 50 MG TABLET PO SCH (09:00)
--- NOTE | 2022-05-15 12:10 | P.PN ---
Nephrology note (S) Pt reports feeling better, denies dypsnea, N/V/D (O) Vitals reviewed in the EMR General: In no apparent distress, cooperative HEENT: Atraumatic, sclera anicteric, off O2 Neck: Supple Respiratory: Normal air movement, non tachypnec Cardiovascular: Normal pulses, Regular rate/rhythm Gastrointestinal: Soft and benign, Non-distended Musculoskeletal: No clubbing, No contractures and no sig edema Integumentary: No rashes, No cyanosis Neurological: Normal speech, awake, responsive Laboratory Data (last 24 hrs) Reviewed Imagings Data: EXAM DESCRIPTION: CT - Abdomen Pelvis Wo Contrast - 05/13/2022 9:22 pm CLINICAL HISTORY: Nausea/vomiting. Weakness. Decreased appetite COMPARISON: None. TECHNIQUE: Axial CT imaging of the abdomen and pelvis was performed without IV contrast. Multiplanar reformats were generated and reviewed. All CT scans are performed using dose optimization technique as appropriate and may include automated exposure control or mA/KV adjustment according to patient size. FINDINGS: Multifocal patchy ground-glass opacities throughout the included lung bases. The liver, spleen, and adrenal glands show no suspicious findings. Status post cholecystectomy. Grossly, no evidence of intra or extrahepatic biliary ductal dilation. Atrophic changes of the pancreas with coarse calcifications most abundant in the region of the head. The appearance is stable, and compatible with sequelae of chronic pancreatitis. No hydronephrosis or suspicious renal mass within limits of noncontrast technique. Small right renal calculi versus parenchymal calcifications, not exceeding 4 millimeter, stable. Left extra renal pelvis. No dilated bowel loops or bowel wall thickening. No free air, free fluid or inflammatory stranding. No hernia, mass or bulky lymphadenopathy. Bilobed, septated, right adnexal cystic lesion, measuring 8.2 x 6.5 centimeter, increased in size since the prior exam. A left adnexal cystic 4.7 x 3.6 centimeter lesion is also increased in size since the prior study. The urinary bladder is without significant finding. Moderate atherosclerotic calcifications of the aorta. No suspicious bony findings. IMPRESSION: Patchy bibasilar ground-glass opacities, raising concern for an infectious or inflammatory process such as pneumonia. No other acute findings in the abdomen and pelvis. Enlarging bilateral adnexal cystic lesions, the largest on the right measuring 8.2 centimeter in greatest dimension with internal septations. Given size and postmenopausal state, these deserve additional gynecologic consultation, and consideration of dedicated pelvic ultrasound or MRI imaging as clinically indicated, to exclude malignant etiologies. Other incidental findings, as above. Conclusions/Impression: Stage I BRYANNA likely due to hypovolemia CKD III/IV with proteinuria (Cr baseline ~2.1) -Renal function has improved to baseline or better post hydration Hyponatremia, hypovolemia Improved on isotonic IVF Acute cystitis with hematuria -Urine culture with GBS, complete Abx course HTN Ok to cont ARB since renal function improved and K levels ok Jose Ramirez MD, FASN
[2022-05-15] MEDS: ACETAMINOPHEN 500 MG TAB PO PRN (13:54)
[2022-05-15] MEDS ORDERED: HOME MED 1 EA UNK (Omeprazole [Omeprazole] 20 MG Capsule.Dr) PO PRN (16:26)
[2022-05-15 16:44] VITALS: TEMP 97
--- NOTE | 2022-05-15 16:51 | P.DS ---
Admission Date: 05/13/22 Discharge Date: 05/15/22 Primary Care Provider: Dr. Maurer Disposition: ROUTINE DISCHARGE Discharge Condition: FAIR Reason for Admission: Hyponatremia, BRYANNA - Problems (1) BRYANNA (acute kidney injury) Current Visit: Yes Status: Acute (2) Hyponatremia Current Visit: Yes Status: Acute (3) Acute cystitis with hematuria Current Visit: Yes Status: Acute (4) COVID-19 Current Visit: Yes Status: Acute (5) Hypertension Current Visit: Yes Status: Chronic Qualifiers: Hypertension type: primary hypertension Qualified Code(s): I10 - Essential (primary) hypertension (6) Type 2 diabetes mellitus Current Visit: Yes Status: Chronic Qualifiers: Diabetes mellitus longterm insulin use: with joint terminal attack controller use Diabetes mellitus complication status: with hyperglycemia Qualified Code(s): E11.65 - Type 2 diabetes mellitus with hyperglycemia; Z79.4 - longterm (current) use of insulin Brief History of Present Illness: Patient is a 76 year old female with past medical history of hypertension, hyperlipidemia, insulin dependent type 2 diabetes, and GERD who presented to the emergency department with complaints of generalized weakness, nausea, and decreased appetite. Family states that patient initially tested positive for COVID-19 about 1.5 weeks and the symptoms have not resolved. Her labs in the ED were significant for sodium 120, chloride 87, CO2 19, BUN 21, Cr 2.7. CT showed "Patchy bibasilar ground-glass opacities, raising concern for an infectious or inflammatory process such as pneumonia." She was given 1L fluid in the emergency. Vital signs stable. Patient was admitted for further management. Hospital Course: Patient admitted to the medical floor and treated for hyponatremia with IV normal saline. She was seen in consultation by nephrology who assisted with management. She also had BRYANNA which improved with IV hydration. She was treated with IV Rocephin for UTI. Urine culture grew Streptococcus. Blood culture showed no growth. Patient had no leukocytosis. Patient's symptoms significantly improved with treatment. She feels she is at baseline and requested for discharge. She has been hypertensive today. Her home antihypertensives were resumed. Noted Creatinine has improved to 1.8 but metformin is still contraindicated. Metformin has been replaced with Januvia on discharge. Patient may go back to taking metformin once her norris creatinine has improved to 1.4 or lower. She is prescribed cefpodoxime to continue treatment for a UTI. Vital Signs/Physical Exam: Temp Pulse Resp BP Pulse Ox 97.0 F 67 16 183/81 H 98 05/15/22 16:00 05/15/22 16:00 05/15/22 16:00 05/15/22 16:00 05/15/22 16:00 General: Alert, In no apparent distress, Oriented x3 Neck: JVD not distended Respiratory: Clear to auscultation bilaterally, Normal air movement Cardiovascular: Regular rate/rhythm Gastrointestinal: Soft and benign, Non-distended Musculoskeletal: No swelling Integumentary: No cyanosis Neurological: Normal strength at 5/5 x4 extr Laboratory Data at Discharge: WBC 6.50 K/uL (4.3-10.9) 05/15/22 04:42 Hgb 10.7 g/dL (12.0-15.0) L 05/15/22 04:42 Hct 30.7 % (36.0-45.0) L 05/15/22 04:42 Plt Count 418 K/uL (152-406) H 05/15/22 04:42 Sodium 135 mmol/L (136-145) L D 05/15/22 04:42 Potassium 4.1 mmol/L (3.5-5.1) 05/15/22 04:42 BUN 16 mg/dL (7-18) 05/15/22 04:42 Creatinine 1.86 mg/dL (0.55-1.02) H 05/15/22 04:42 Glucose 142 mg/dL (74-106) H 05/15/22 04:42 Phosphorus 2.5 mg/dL (2.5-4.9) 05/15/22 04:42 Magnesium 2.1 mg/dL (1.6-2.4) 05/15/22 04:42 Total Bilirubin 0.2 mg/dL (0.2-1.0) 05/15/22 04:42 AST 8 U/L (15-37) L 05/15/22 04:42 ALT 11 U/L (13-56) L 05/15/22 04:42 Alkaline Phosphatase 94 U/L (45-117) 05/15/22 04:42 Triglycerides 239 mg/dL (<150) H 05/14/22 03:59 Cholesterol 111 mg/dL (<200) 05/14/22 03:59 HDL Cholesterol 34 mg/dL (40-60) L 05/14/22 03:59 Cholesterol/HDL Ratio 3.26 05/14/22 03:59 Lipase 30 U/L (73-393) L 05/13/22 19:49 Home Medications: Acetaminophen 500 mg PO PRN PRN 05/14/22 Amlodipine [Norvasc*] 5 mg PO DAILY 05/14/22 Cholecalciferol (Vitamin D3) [Vitamin D3] 50 mcg PO DAILY 05/14/22 Insulin Degludec [Tresiba Flextouch U-100] 30 unit SQ DAILY 05/14/22 Levothyroxine Sodium [Levothyroxine] 25 mcg PO DAILY 05/14/22 Losartan Potassium 50 mg PO DAILY 05/14/22 Omeprazole 20 mg PO DAILY PRN 05/14/22 Pravastatin Sodium 40 mg PO BEDTIME 05/14/22 Venlafaxine HCl [Effexor Xr] 150 mg PO DAILY 05/14/22 oxyBUTYnin chloride [Oxybutynin Chloride] 5 mg PO DAILY 05/14/22 Cefpodoxime Proxetil 100 mg PO BID #10 tab 05/15/22 Sitagliptin Phosphate [Januvia] 25 mg PO DAILY #30 tab 05/15/22 New Medications: Cefpodoxime Proxetil 100 mg PO BID #10 tab Sitagliptin Phosphate [Januvia] 25 mg PO DAILY #30 tab Diet: ADA Activity: Ad lorna Followup: Kelton Maurer DO [Primary Care Provider] - 1 Week (Call for appointment.) Time spent managing pt's care (in minutes): 32
[2022-05-15 16:59] VITALS: BP 164/78; O2SAT 95
[2022-05-15] MEDS ORDERED: HOME MED 1 EA UNK (Pravastatin Sodium [Pravastatin Sodium] 40 MG Tablet) PO SCH (21:00)
[2022-05-16] MEDS ORDERED: LOSARTAN POTASSIUM 50 MG TABLET PO SCH (09:00)
[2022-05-16] MEDS ORDERED: AMLODIPINE 5 MG TAB PO SCH (09:00)
[2022-05-16] MEDS ORDERED: oxyBUTYnin chloride 5 MG TAB PO SCH (09:00)
[2022-05-16] MEDS ORDERED: HOME MED 1 EA UNK (Cholecalciferol (Vitamin D3) [Vitamin D3] 50 MCG Capsule) PO SCH (09:00)
[2022-05-16] MEDS ORDERED: HOME MED 1 EA UNK (Levothyroxine Sodium [Levothyroxine] 25 MCG Capsule) PO SCH (09:00)
[2022-05-16] MEDS ORDERED: HOME MED 1 EA UNK (Venlafaxine Hcl [Effexor Xr] 150 MG Cap.Er.24h) PO SCH (09:00)
[2022-05-16] MEDS ORDERED: HOME MED 1 EA UNK (Insulin Degludec [Tresiba Flextouch U-100] 100 UNIT/ML Insuln.Pen) SQ SCH (09:00)
== END 2022-05-15 17:28 | disposition home or self-care (01) | DRG 682 ==
LOC: ER 17:54 → ERHOLD 22:20 → 4TH 23:09
PROVIDERS: ADMIT Internal Medicine; ATTEND Internal Medicine
DX: N17.9 Acute kidney failure, unspecified (principal); U07.1 COVID-19; E87.1 Hypo-osmolality and hyponatremia; N30.01 Acute cystitis with hematuria; E87.20 Acidosis, unspecified; N18.4 Chronic kidney disease, stage 4 (severe); I12.9 Hypertensive chronic kidney disease with stage 1 through stage 4 chronic kidney disease, or unspecified chronic kidney disease; E11.22 Type 2 diabetes mellitus with diabetic chronic kidney disease; E11.65 Type 2 diabetes mellitus with hyperglycemia; D63.1 Anemia in chronic kidney disease; K21.9 Gastro-esophageal reflux disease without esophagitis; E78.5 Hyperlipidemia, unspecified; E86.1 Hypovolemia; E87.6 Hypokalemia; E83.42 Hypomagnesemia; E83.39 Other disorders of phosphorus metabolism; E86.0 Dehydration; B95.5 Unspecified streptococcus as the cause of diseases classified elsewhere; Z79.4 Long term (current) use of insulin; Z88.0 Allergy status to penicillin; Z79.84 Long term (current) use of oral hypoglycemic drugs; Z87.891 Personal history of nicotine dependence; Z79.890 Hormone replacement therapy; Z79.899 Other long term (current) drug therapy
CPT/HCPCS: 36415; 71045; 74176; 80048; 80053; 80061; 81001; 81003; 82947; 83690; 83735; 83930; 83935; 84100; 84300; 84443; 85025; 87040; 87077; 87086; 87088; 87186; 96360; 97116; 97161; 99285; J1815; J2405; J3475; J7030; J7050; U0003

== ENCOUNTER 2023-12-20 13:41 | Inpatient (IN) | payer OTHER ==
[2023-12-20] MEDS ORDERED: ONDANSETRON 4 MG/2 ML VIAL ONE (14:16)
[2023-12-20] MEDS ORDERED: NA CHLORIDE 0.9% 500 ML ONE (14:16)
[2023-12-20 14:43] LABS: Absolute Basophils 0.1 K/uL (0-0.5); Absolute Lymphocytes (CBC) 0.5 K/uL (0.7-4.9); Absolute Monocytes 0.5 K/uL (0.1-1.3); Absolute Neutrophil 9.3 K/uL (1.8-8.0); Basophils % 0.7 % (0-1.3); Eosinophils % 0.4 % (0-4.4); Hemoglobin 10.6 g/dL (12.0-15.0); Lymphocytes % 5.2 % (15.3-44.8); MCH 29.7 pg (27.0-35.0); MCHC 34.2 g/dL (32.0-36.0); MCV 86.9 fL (80-100); MPV 6.3 fL (7.6-11.3); Monocytes % 4.5 % (3.3-12.3); Neutrophils % 89.2 % (41.7-73.7); Platelets 557 thou/uL (152-406); RBC Red Blood Cell Count 3.56 M/uL (3.86-4.86); Red Cell Distribution Width 12.5 % (12.1-15.2)
[2023-12-20 15:03] LABS: Albumin 2.7 g/dL (3.4-5.0); Albumin/Globulin Ratio 0.6 (1.1-1.8); Anion Gap 18.6 mEq/L (5.0-15.0); Bilirubin Total 0.4 mg/dL (0.2-1.0); Globulin 4.9 g/dL (2.3-3.5); Potassium 4.6 mEq/L (3.5-5.1); Protein, Total 7.6 g/dL (6.4-8.2)
--- NOTE | 2023-12-20 16:09 | ER ---
Nurse's Notes [facility] Name: Herlinda Benitez Age: 78 yrs Sex: Female : 1945 Arrival Date: 12/20/2023 Time: 13:41 Bed 8 Private MD: Diagnosis: Hypo-osmolality and hyponatremia;Muscle weakness (generalized);Acute kidney failure, unspecified Presentation: 12/19 13:59 Chief complaint: Patient's son or daughter states: couple weeks ago she had a virus and iw we all passed it around, then last Wednesday she was feeling weak and nauseous , not eating ,today she is even more weak , she throws up once a day. 13:59 Method Of Arrival: Wheelchair iw 14:00 Coronavirus screen: At this time, the client does not indicate any symptoms associated iw with coronavirus-19. Ebola Screen: No symptoms or risks identified at this time. Initial Sepsis Screen: Does the patient meet any 2 criteria? No. Patient's initial sepsis screen is negative. Does the patient have a suspected source of infection? No. Patient's initial sepsis screen is negative. Risk Assessment: Do you want to hurt yourself or someone else? Patient reports no desire to harm self or others. Onset of symptoms was December 18, 2023. 14:00 Acuity: LOLIS 3 iw Historical: - Allergies: 14:01 PENICILLINS; iw - PMHx: 14:01 Diabetes - IDDM; GERD; Hyperlipidemia; Hypertension; Kidney disease; iw - PSHx: 14:01 ear; Cholecystectomy; iw - Immunization history:: Adult Immunizations not up to date. - Infectious Disease History:: Denies. - Social history:: Smoking status: Patient reports the use of cigarette tobacco products, Patient/guardian denies using tobacco, but has a distant history of tobacco abuse. - Family history:: not pertinent. - Hospitalizations: : No recent hospitalization is reported. Screenin:35 [facility] ED Fall Risk Assessment (Adult) History of falling in the last 3 months, db including since admission No falls in past 3 months (0 pts) Confusion or Disorientation No (0 pts) Intoxicated or Sedated No (0 pts) Impaired Gait No (0 pts) Mobility Assist Device Used No (0 pt) Altered Elimination No (0 pt) Score/Fall Risk Level 0 - 2 = Low Risk Oriented to surroundings, Maintained a safe environment. Abuse screen: Denies threats or abuse. Denies injuries from another. Nutritional screening: No deficits noted. Tuberculosis screening: No symptoms or risk factors identified. Assessment: 14:05 General: Appears uncomfortable, Behavior is calm, cooperative, Reports feeling ill for aa5 > 3 days, fatigue for >3 days. Pain: Denies pain. Neuro: Level of Consciousness is awake, alert, obeys commands, Oriented to person, place, time, situation. Cardiovascular: Heart tones S1 S2 present Rhythm is regular. Respiratory: Reports cough Airway is patent Respiratory effort is even, unlabored, Respiratory pattern is regular, symmetrical, Breath sounds are clear bilaterally. Denies shortness of breath. GI: Abdomen is round non-distended, Bowel sounds present X 4 quads. Abd is soft and non tender X 4 quads. Reports nausea, Report mild vomiting and diarrhea. Reports decreased appetite. Patient currently denies abdominal pain. : No signs and/or symptoms were reported regarding the genitourinary system. EENT: No signs and/or symptoms were reported regarding the EENT system. Derm: Skin is pink, warm \T\ dry. Musculoskeletal: Range of motion: intact in all extremities. 15:00 Reassessment: Patient is alert, oriented x 3, equal unlabored respirations, skin aa5 warm/dry/pink. Patient states feeling better. 16:27 Reassessment: Patient appears in no apparent distress at this time. Patient and/or db family updated on plan of care and expected duration. Pain level reassessed. Patient is alert, oriented x 3, equal unlabored respirations, skin warm/dry/pink. PT AMBULATORY TO RESTROOM. 16:55 Reassessment: Alf (Pt's daughter) [phone]. aa5 17:45 Reassessment: Patient is alert, oriented x 3, equal unlabored respirations, skin aa5 warm/dry/pink. Hospitalist, Dr. Childress at bedside. . Vital Signs: 14:00 BP 94 / 62; Pulse 71; Resp 16; Temp 97; Pulse Ox 100% on R/A; Weight 80.74 kg; Height 5 iw ft. 4 in. ; 15:00 BP 137 / 75; Pulse 69; Resp 16; Pulse Ox 100% on R/A; db 16:00 BP 149 / 59; Pulse 68; Resp 16; Pulse Ox 99% on R/A; db 17:00 BP 136 / 56; Pulse 69; Resp 14 S; Temp 98(TE); Pulse Ox 100% on R/A; aa5 18:00 BP 130 / 48; Pulse 70; Resp 16 S; Pulse Ox 99% on R/A; aa5 14:00 Body Mass Index 30.55 (80.74 kg, 162.56 cm) ED Course: 13:43 Patient arrived in ED. ra3 13:48 Gautam Lawrence MD is Attending Physician. rn 14:01 Triage completed. iw 14:02 Arm band placed on. iw 14:03 Essie Vidal, HEIDY is Primary Nurse. aa5 14:05 Patient has correct armband on for positive identification. Placed in gown. Bed in low aa5 position. Call light in reach. Side rails up X2. Client placed on continuous cardiac and pulse oximetry monitoring. NIBP monitoring applied. saw man on. Pulse ox on. NIBP on. 14:31 Initial lab(s) drawn, by me, sent to lab. Inserted saline lock: 20 gauge in right db antecubital area, using aseptic technique. Blood collected. Flushed with 10 mL NS. 15:35 CT Abd/Pelvis - Without Contrast In Process Unspecified. EDMS 16:08 Nabor Childress MD is Hospitalizing Provider. rn 16:24 624 CM met with Ms. Benitez and her two daughters Alf and Narda at the bedside in ane the ED exam room. Patient identified by name and . Demographic sheet confirmed and changes sent to appropriate personnel. asked if her daughter Alf could answer questions as she is feeling tired. Alf states patient travel between her own home and spends the most time in Alf's home. Alf explains that patient is a and it is better for her to be with family. Alf reports prior to admission, patient performs ADLs independently. DME in the home, includes a BP cuff and pulse oximeter. No HH, home oxygen or other medical services.; and no MPOA in place. Preferred plan is to return home upon discharge and both daughters are available to transport patient home. CM team will continue to follow and coordinate care during this hospital stay. 16:27 Urine collected:. db 16:48 No provider procedures requiring assistance completed. aa5 17:45 Repeat lab(s) drawn. by me, sent to lab. aa5 19:00 Report given to HEIDY Sanchez and HEIDY Garrido. aa5 19:01 Report received from HEIDY Fountain. lg3 19:46 Provided Education on: need for admission. bm8 19:46 Patient admitted, IV remains in place. bm8 Administered Medications: 14:32 Drug: NS 0.9% IV 500 ml IV at bolus once Route: IV; Rate: bolus; Site: right db antecubital; 15:00 Follow up: IV Status: Completed infusion; IV Intake: 500ml aa5 14:35 Drug: Ondansetron IVP 4 mg IVP once; over 2 minutes Route: IVP; Site: right antecubital;db 14:40 Follow up: Response: No adverse reaction aa5 16:59 Drug: NS 0.9% IV 1000 ml IV at 75 ml/hr continuous Route: IV; Rate: 75 ml/hr; Site: aa5 right antecubital; 19:47 Follow up: Response: No adverse reaction; IV Status: Infusion continued upon admission bm8 Medication: 16:45 VIS not applicable for this client. aa5 Intake: 15:00 IV: 500ml; Total: 500ml. aa5 Outcome: 16:08 Decision to Hospitalize by Provider. rn 19:46 Admitted to ICU accompanied by nurse, via stretcher, room icu 1, 8 19:46 Condition: stable 19:46 Instructed on the need for admit, Demonstrated understanding of instructions, follow-up care, 20:33 Patient left the ED. lg3 Signatures: Dispatcher [employer] EDMS Jennifer Junior, RN Gautam Fernandez MD MD rn Calderon, Audri RN HEIDY aa5 Radhika Clayton, RN HEIDY lg3 Maria M Nieves RN RN db Alva, Ruby 3 Daniel Kramer RN RN 8 Dorothy Miller RN RN ane
--- NOTE | 2023-12-20 16:09 | EDPHYS ---
Physician Documentation [facility] Name: Herlinda Benitez Age: 78 yrs Sex: Female : 1945 Arrival Date: 12/20/2023 Time: 13:41 Bed 8 Private MD: ED Physician Gautam Lawrence HPI: 12/19 14:45 This 78 yrs old Female presents to ER via Wheelchair with complaints of rn Weakness, Decreased Appetite. 14:45 Patient and family report she had stomach illness last week, got a little bit better rn but still feeling weak with nausea and decreased appetite. Weakness is generalized. No fever or chills. Rest of family also with similar stomach issues and still getting over it.. Onset: The symptoms/episode began/occurred 1 week(s) ago. Severity of symptoms: At their worst the symptoms were moderate in the emergency department the symptoms have improved. The patient has not experienced similar symptoms in the past. The patient has not recently seen a physician. Historical: - Allergies: 14: PENICILLINS; iw - PMHx: 14:01 Diabetes - IDDM; GERD; Hyperlipidemia; Hypertension; Kidney disease; iw - PSHx: 14: ear; Cholecystectomy; iw - Immunization history:: Adult Immunizations not up to date. - Infectious Disease History:: Denies. - Social history:: Smoking status: Patient reports the use of cigarette tobacco products, Patient/guardian denies using tobacco, but has a distant history of tobacco abuse. - Family history:: not pertinent. - Hospitalizations: : No recent hospitalization is reported. ROS: 14:45 Constitutional: Negative for fever, chills, and weight loss, Neck: Negative for injury, rn pain, and swelling, Cardiovascular: Negative for chest pain, palpitations, and edema, Respiratory: Negative for shortness of breath, cough, wheezing, and pleuritic chest pain, Abdomen/GI: Negative for abdominal pain MS/Extremity: Negative for injury and deformity, Skin: Negative for injury, rash, and discoloration, Neuro: Negative for headache, numbness, tingling, and seizure, Exam: 14:45 Constitutional: This is a well developed, well nourished patient who is awake, alert, rn and in no acute distress. ENT: Dry mucous membranes Cardiovascular: Regular rate and rhythm. No pulse deficits. Respiratory: No increased work of breathing, no retractions or nasal flaring. Abdomen/GI: Soft, nontender MS/ Extremity: Pulses equal, no cyanosis. Neuro: Awake and alert, GCS 15, oriented to person, place, time, and situation. Cranial nerves II-XII grossly intact. Motor strength 5/5 in all extremities. Sensory grossly intact. Vital Signs: 14:00 BP 94 / 62; Pulse 71; Resp 16; Temp 97; Pulse Ox 100% on R/A; Weight 80.74 kg; Height 5 iw ft. 4 in. ; 15:00 BP 137 / 75; Pulse 69; Resp 16; Pulse Ox 100% on R/A; db 16:00 BP 149 / 59; Pulse 68; Resp 16; Pulse Ox 99% on R/A; db 17:00 BP 136 / 56; Pulse 69; Resp 14 S; Temp 98(TE); Pulse Ox 100% on R/A; aa5 18:00 BP 130 / 48; Pulse 70; Resp 16 S; Pulse Ox 99% on R/A; aa5 14:00 Body Mass Index 30.55 (80.74 kg, 162.56 cm) iw MDM: 13:48 Patient medically screened. rn 16:04 Differential Diagnosis Dehydration, electrolyte abnormality, viral illness, acute on technical support internship renal failure. Data reviewed: vital signs, nurses notes, lab test result(s), and as a result, I will admit patient. Consideration of Admission/Observation Patient was admitted/placed on observation. Escalation of care including admission/observation considered. Care significantly affected by the following chronic conditions: Chronic Kidney Disease. Counseling: I had a detailed discussion with the patient and/or guardian regarding the historical points, exam findings, and any diagnostic results supporting the discharge/admit diagnosis, lab results, the need for further work-up and treatment in the hospital. Response to treatment: the patient's symptoms have mildly improved after treatment, and as a result, I will admit patient. 12/19 14:04 Order name: CBC with Diff; Complete Time: 15:14 rn 12/19 14:04 Order name: CMP; Complete Time: 15:14 rn 12/19 14:04 Order name: Lipase; Complete Time: 15: rn 12/19 14:05 Order name: Urinalysis w/ reflexes rn 12/19 16:43 Order name: BNP aa5 12/19 16:43 Order name: Magnesium [facility] 12/19 17:31 Order name: NT PRO-BNP [facility] 12/19 17:31 Order name: Magnesium [facility] 12/19 18:00 Order name: Add On-Lab db 12/19 18:23 Order name: Basic Metabolic Panel [facility] 12/19 20:17 Order name: Glucose, Ancillary Testing [facility] 12/19 15:20 Order name: CT Abd/Pelvis - Without Contrast rn 12/19 18:26 Order name: US [facility] 12/19 14:04 Order name: IV Saline Lock; Complete Time: 14:32 rn 12/19 14:04 Order name: Labs collected and sent; Complete Time: 14:32 rn Administered Medications: 14:32 Drug: NS 0.9% IV 500 ml IV at bolus once Route: IV; Rate: bolus; Site: right db antecubital; 15:00 Follow up: IV Status: Completed infusion; IV Intake: 500ml [facility] 14:35 Drug: Ondansetron IVP 4 mg IVP once; over 2 minutes Route: IVP; Site: right antecubital;db 14:40 Follow up: Response: No adverse reaction aa5 16:59 Drug: NS 0.9% IV 1000 ml IV at 75 ml/hr continuous Route: IV; Rate: 75 ml/hr; Site: aa5 right antecubital; 19:47 Follow up: Response: No adverse reaction; IV Status: Infusion continued upon admission bm8 Disposition Summary: 12/20/23 16:08 Hospitalization Ordered Notes: Hospitalization Status: Inpatient Admission rn Provider: Nabor Childress rn Condition: Stable rn Problem: new rn Symptoms: have improved rn Bed/Room Type: Standard rn Location: Intensive Care Unit(12/20/23 19:07) rv1 Room Assignment: 1-(12/20/23 19:07) rv1 Diagnosis - Hypo-osmolality and hyponatremia rn - Muscle weakness (generalized) rn - Acute kidney failure, unspecified rn Forms: - Medication Reconciliation Form rn - SBAR form rn - Leadership Thank You Letter rn Signatures: Dispatcher [employer] [facility] Alina Martinez Irene, RN RN iw Nieto, Roman, MD MD rn Calderon, Audri RN RN aa5 Maria M Nieves RN RN Nikki Callahan rv1 Daniel Kramer RN bm8 Corrections: (The following items were deleted from the chart) 14:05 14:05 Urinalysis+U.LAB.BRZ ordered. EDMS EDMS 15:21 15:21 Abdomen Pelvis Wo Con+CT.RAD.BRZ ordered. EDMS EDMS 15:32 14:05 Abdomen Pelvis W Con+CT.RAD.BRZ ordered. EDMS EDMS 17:05 16:08 Telemetry/MedSurg (Inpatient) rn bd 17:05 16:08 rn bd 17:26 17:05 Intensive Care Unit bd bd 17:26 17:05 5- bd bd 19:07 17:26 [facility] ER HOLD bd rv1 19:07 17:26 ERHOLD- bd rv1
--- NOTE | 2023-12-20 16:31 | P.HP ---
Certification for Inpatient Patient admitted to: Inpatient With expected LOS: <2 Midnights <Mariia Gibson - Last Filed: 12/20/23 17:30> Patient History Date of Service: 12/20/23 Reason for admission: Hyponatremia History of Present Illness: 78-year-old female with past medical history of hypertension, hyperlipidemia, insulin dependent type 2 diabetes, and GERD, CKD who presented to the emergency department with complaints of generalized weakness, nausea, vomiting diarrhea. She reports the recent upper respiratory infection this week, was treated with Z-Hansel, steroids, she has had nausea vomiting diarrhea, mild confusion, generalized weakness. Brought to the ER by family for evaluation. no reported chest pain, shortness of breath, falls, seizures, plan to admit to ICU for severe hyponatremia, nephrology to consult. 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 Maurer) -: GERD -: HLD -: Anemia/ Iron Deficiency -: HypoTSH Psychosocial/ Personal History: Patient is . - Social History Alcohol use: No CD- Drugs: No Caffeine use: Yes Place of Residence: Home <Mariia Gibson - Last Filed: 12/20/23 17:30> Date of Service: 12/20/23 <Nabor Childress - Last Filed: 12/20/23 18:03> Allergies Penicillins Allergy (Unknown, Verified 02/13/18 10:24) Hives Home Medications: Acetaminophen 500 mg PO PRN PRN 05/14/22 Amlodipine [Norvasc*] 5 mg PO DAILY 05/14/22 Cholecalciferol (Vitamin D3) [Vitamin D3] 50 mcg PO DAILY 05/14/22 Insulin Degludec [Tresiba Flextouch U-100] 30 unit SQ DAILY 05/14/22 Levothyroxine Sodium 25 mcg PO DAILY 05/14/22 Losartan Potassium 50 mg PO DAILY 05/14/22 Omeprazole 20 mg PO DAILY PRN 05/14/22 Pravastatin Sodium 40 mg PO BEDTIME 05/14/22 Venlafaxine HCl [Effexor Xr] 150 mg PO DAILY 05/14/22 oxyBUTYnin chloride [Oxybutynin Chloride] 5 mg PO DAILY 02/23/23 Cefpodoxime Proxetil 100 mg PO BID #10 tab 05/15/22 Sitagliptin Phosphate [Januvia] 25 mg PO DAILY #30 tab 05/15/22 Review of Systems Per HPI <Mariia Gibson - Last Filed: 12/20/23 17:30> Physical Examination - Physical Exam General: Alert, In no apparent distress, Oriented x2, Other (Mild confusion) HEENT: Atraumatic, Normocephalic Neck: Supple, 2+ carotid pulse no bruit Respiratory: Clear to auscultation bilaterally, Normal air movement Cardiovascular: Normal pulses, Regular rate/rhythm Capillary refill: <2 Seconds Gastrointestinal: Normal bowel sounds, Soft and benign Musculoskeletal: Other (Unsteady gait, generalized weakness) Integumentary: No rashes, No breakdown Neurological: Normal speech, Normal strength at 5/5 x4 extr - Studies Laboratory Data (last 24 hrs) 12/20/23 12/20/23 14:29 14:29 WBC 10.40 Hgb 10.6 L Hct 31.0 L Plt Count 557 H Sodium 114 L* Potassium 4.6 BUN 56 H Creatinine 4.97 H Glucose 197 H Total Bilirubin 0.4 AST 11 L ALT 18 Alkaline Phosphatase 103 Lipase 7 L <Mariia Gibson - Last Filed: 12/20/23 17:30> - Studies Laboratory Data (last 24 hrs) 12/20/23 12/20/23 12/20/23 14:29 14:29 14:29 WBC 10.40 Hgb 10.6 L Hct 31.0 L Plt Count 557 H Sodium 114 L* Potassium 4.6 BUN 56 H Creatinine 4.97 H Glucose 197 H Magnesium 1.4 L Total Bilirubin 0.4 AST 11 L ALT 18 Alkaline Phosphatase 103 Lipase 7 L <Nabor Childress - Last Filed: 12/20/23 18:03> Assessment and Plan - Plan Assessment plan Severe hyponatremia Acute renal failure Nausea vomiting diarrhea Dehydration Generalized weakness Nephrology to consult, seizure precautions, telemetry Stool cultures, every 4 hours BMP, mag, Normal saline at 75 Renal ultrasound Chest x-ray no acute abnormalities noted Hyperlipidemia Hypertension Resume home meds Insulin-dependent diabetes mellitus Accu-Cheks, sliding scale insulin Full code DVT heparin Diet renal Disposition Home independent prior Discharge Plan: Home - Advance Directives Does patient have a Living Will: No Does patient have a Durable POA for Healthcare: No - Code Status/Comfort Care Code Status: Full Code Critical Care: Yes Time Spent Managing Pts Care (In Minutes): 65 <Mariia Gibson - Last Filed: 12/20/23 17:30> - Plan Pt seen and examined. I agree with the note by the ENERGY TRADING ANALYST. Pt is an 78 yo female with past medical history of GERD, HLD, Htn, DM II and CKD who presents with generalized weakness and nausea. Of note, pt had stomach illness in her family last week. She had nausea, vomiting, and diarrhea. On admission, lab studies show wbc 10.4, Hgb 10.4, k 4.6, Cr 4.97 and Na 114. At bedside, pt is in NAD. A/P: Art on CKD, stage 3: Cr is 4.97. Will continue ivf, avoid nephrotoxins and monitor renal function. Will f/u renal ultrasound. Consulted Nephrology. Nausea, vomiting and diarrhea: Will continue IVF and prn antiemetic. Hyponatremia: Na is 114. Due to volume depletion. Will continue IVF and monitor Na level. Pt is not confused. She is AAOx 3 HLD: statin Htn: Continue home med DM II: Continue accuchek, SSI and Ada diet. DVT ppx: SCD Code: full <Nabor Childress - Last Filed: 12/20/23 18:03>
[2023-12-20 16:36] LABS: Specific Gravity 1.006 (1.005-1.030); Sqamous Epithelial <5 /HPF (None Seen); Urine Bacteria <20 /HPF (<20); Urine Bilirubin NEGATIVE (Negative); Urine Blood Trace (Negative); Urine Clarity Extremely Turbid (Clear); Urine Color Light-Yellow (Yellow); Urine Crystals Unidentified Many /HPF (None Seen); Urine Culture Reflex Order REFLEXED; Urine Glucose 3+ (Negative); Urine Ketones NEGATIVE (Negative); Urine Microscopic Reflex YN ORDER UMIC; Urine Nitrite NEGATIVE (Negative); Urine Protein 1+ (Negative); Urine RBC <5 /HPF (None Seen); Urine Urobilinogen Normal (Normal); Urine WBC 20-50 /HPF (<5); Urine WBC Clump Occasional /HPF (None Seen)
[2023-12-20] MEDS ORDERED: NA CHLORIDE 0.9% 1,000 ML ONE (17:00)
[2023-12-20 17:30] LABS: Magnesium 1.4 mg/dL (1.6-2.4)
[2023-12-20 18:19] LABS: Anion Gap 16.9 mEq/L (5.0-15.0); Potassium 4.9 mEq/L (3.5-5.1)
--- NOTE | 2023-12-20 18:25 | RAD REPORT ---
EXAMINATION: US RENAL CLINICAL INDICATION: Acute renal failure TECHNIQUE: Real-time ultrasonography of the abdomen was performed. COMPARISON: 2022 CT FINDINGS: The right kidney measures 10 cm with a normal echotexture. It contains several small calculi. No hydronephrosis Left kidney measures 9 cm with a normal echotexture. No hydronephrosis. An extrarenal pelvis is prese nt. No gross abnormality bladder. IMPRESSION: Negative for hydronephrosis
[2023-12-20] MEDS: NA CHLORIDE 0.9% 1,000 ML IV SCH ×2 (19:00→20:35)
[2023-12-20] MEDS: INSULIN REGULAR (HUMAN) 100 UNIT/ML SQ SCH (19:38)
[2023-12-20] MEDS ORDERED: ONDANSETRON 4 MG/2 ML VIAL IV PRN (19:38)
[2023-12-20] MEDS: ACETAMINOPHEN 325 MG TABLET PO PRN (22:12)
[2023-12-20 22:21] LABS: Anion Gap 16.8 mEq/L (5.0-15.0); Potassium 4.8 mEq/L (3.5-5.1); Thyroid Stimulating Hormone 1.02 uIU/mL (0.358-3.740)
[2023-12-21 03:30] LABS: Absolute Basophils 0.1 K/uL (0-0.5); Absolute Eosinophils 0.1 K/uL (0-0.5); Absolute Lymphocytes (CBC) 0.8 K/uL (0.7-4.9); Absolute Monocytes 0.7 K/uL (0.1-1.3); Absolute Neutrophil 7.3 K/uL (1.8-8.0); Basophils % 1.2 % (0-1.3); Hematocrit 28.1 % (36.0-45.0); Hemoglobin 9.6 g/dL (12.0-15.0); MCH 29.7 pg (27.0-35.0); MCHC 34.3 g/dL (32.0-36.0); MCV 86.7 fL (80-100); MPV 6.2 fL (7.6-11.3); Monocytes % 7.5 % (3.3-12.3); Neutrophils % 81.3 % (41.7-73.7); Nucleated Red Blood Cells % 0.3 % (0-0); Platelets 472 thou/uL (152-406); RBC Red Blood Cell Count 3.24 M/uL (3.86-4.86)
[2023-12-21 03:33] LABS: Anion Gap 16.9 mEq/L (5.0-15.0); Potassium 4.9 mEq/L (3.5-5.1)
[2023-12-21 03:35] LABS: Magnesium 1.4 mg/dL (1.6-2.4); Phosphorus 5.1 mg/dL (2.5-4.9)
[2023-12-21] MEDS: NA CHLORIDE 0.9% 1,000 ML IV SCH ×2 (06:39→19:14)
[2023-12-21 08:06] LABS: Anion Gap 14.3 mEq/L (5.0-15.0); Potassium 4.3 mEq/L (3.5-5.1)
--- NOTE | 2023-12-21 08:06 | P.CNS ---
Date of Consult: 12/21/23 Reason for Consult: BRYANNA/ CKD Requesting Physician: Joanna Tan Chief Complaint: Hyponatremia History of Present Illness: 78-year-old female with past medical history of hypertension, hyperlipidemia, insulin dependent type 2 diabetes, and GERD, CKD who presented to the emergency department with complaints of generalized weakness, nausea, vomiting diarrhea. She reports the recent upper respiratory infection this week, was treated with Z-Hansel, steroids, she has had nausea vomiting diarrhea, mild confusion, generalized weakness. Brought to the ER by family for evaluation. no reported chest pain, shortness of breath, falls, seizures, plan to admit to ICU for severe hyponatremia, nephrology to consult. [id number] 14:45 This 78 yrs old Female presents to ER via Wheelchair with complaints of rn Weakness, Decreased Appetite. 14:45 Patient and family report she had stomach illness last week, got a little bit better rn but still feeling weak with nausea and decreased appetite. Weakness is generalized. No fever or chills. Rest of family also with similar stomach issues and still getting over it.. Onset: The symptoms/episode began/occurred 1 week(s) ago. Severity of symptoms: At their worst the symptoms were moderate in the emergency department the symptoms have improved. The patient has not experienced similar symptoms in the past. The patient has not recently seen a physician. Allergies Penicillins Allergy (Unknown, Verified 02/13/18 10:24) Hives Home medications list reviewed: Yes Home Medications: Acetaminophen 500 mg PO PRN PRN 05/14/22 Amlodipine [Norvasc*] 10 mg PO DAILY 05/14/22 Levothyroxine Sodium 75 mcg PO DAILY 05/14/22 Losartan Potassium 50 mg PO DAILY 05/14/22 Omeprazole 20 mg PO DAILY PRN 05/14/22 Pravastatin Sodium 80 mg PO BEDTIME 05/14/22 Venlafaxine HCl [Effexor Xr] 150 mg PO DAILY 05/14/22 oxyBUTYnin chloride [Oxybutynin Chloride] 5 mg PO DAILY 05/14/22 Ascorbic Acid [Vitamin C] 1,000 mg PO DAILY 12/20/23 Cholecalciferol (Vitamin D3) [Vitamin D3] 125 mcg PO DAILY 12/20/23 Dapagliflozin Propanediol [Farxiga] 5 mg PO DAILY 12/20/23 Ferrous Gluconate [Iron] 65 mg PO DAILY 12/20/23 Metformin ER [Glucophage ER] 500 mg PO DAILY 12/20/23 - Past Medical/Surgical History Diabetic: Yes -: DM II -: HTN -: CKD IV with Proteinuria (Dr. Maurer/ James) -: GERD -: HLD -: Anemia/ Iron Deficiency -: HypoTSH Psychosocial/ Personal History: Patient is . - Social History Smoking Status: Former smoker Alcohol use: No CD- Drugs: No Caffeine use: Yes Place of Residence: Home Review of Systems 10-point ROS is otherwise unremarkable General: Weakness, Malaise Physical Examination Temp Pulse Resp BP Pulse Ox 97 F 72 12 155/54 H 100 12/21/23 04:00 12/21/23 06:00 12/21/23 06:00 12/21/23 06:00 12/21/23 06:00 General: In no apparent distress, Oriented x3, Cooperative HEENT: Atraumatic Neck: Supple Respiratory: Clear to auscultation bilaterally Cardiovascular: No edema, Regular rate/rhythm Gastrointestinal: Soft and benign, Non-distended Musculoskeletal: No clubbing, No contractures Integumentary: No rashes, No cyanosis Neurological: Normal speech Laboratory Data (last 24 hrs) 12/20/23 12/20/23 12/20/23 14:29 14:29 14:29 WBC 10.40 Hgb 10.6 L Hct 31.0 L Plt Count 557 H Sodium 114 L* Potassium 4.6 BUN 56 H Creatinine 4.97 H Glucose 197 H Magnesium 1.4 L Total Bilirubin 0.4 AST 11 L ALT 18 Alkaline Phosphatase 103 Lipase 7 L Imagings Data: [id number] EXAMINATION: US RENAL CLINICAL INDICATION: Acute renal failure TECHNIQUE: Real-time ultrasonography of the abdomen was performed. COMPARISON: 2022 CT FINDINGS: The right kidney measures 10 cm with a normal echotexture. It contains several small calculi. No hydronephrosis Left kidney measures 9 cm with a normal echotexture. No hydronephrosis. An extrarenal pelvis is present. No gross abnormality bladder. IMPRESSION: Negative for hydronephrosis Conclusions/Impression: Stage III BRYANNA may be ATN vs progressive CKD CKD IV with Proteinuria -No NSAIDs -Continue gentle IVF with NS Hyponatremia -Continue gentle IVF with NS -Fluid restriction as needed -BMP q4h Metabolic Acidosis -Start oral Bicarb QID Hypomagnesemia -Replete as ordered -Start Slo-Mag BID HTN with CKD -Hold Losartan & Amlodipine at this time DM II with CKD -RISS Anemia in chronic illness Iron Deficiency -Monitor H&H -Consider IV iron CKD MBD Secondary HyperParathyroidism Hyperphosphatemia -Start Ergo -Start [facility] Hospitalist and ER notes reviewed Thank you kindly for the consultation Critical Care: Yes (50min)
[2023-12-21] MEDS: SODIUM BICARB 325 MG TAB PO SCH (08:36)
[2023-12-21] MEDS: MAGNESIUM CHLORIDE 64 MG TAB PO SCH (08:36)
[2023-12-21 11:39] LABS: Anion Gap 20.5 mEq/L (5.0-15.0); Magnesium 1.6 mg/dL (1.6-2.4); Potassium 4.5 mEq/L (3.5-5.1)
[2023-12-21 16:13] LABS: Anion Gap 13.7 mEq/L (5.0-15.0); Magnesium 1.4 mg/dL (1.6-2.4); Potassium 4.7 mEq/L (3.5-5.1)
--- NOTE | 2023-12-21 16:40 | P.PN ---
Date of Service: 12/21/23 Subjective admitted with severe hypnatremia, improved with IVF q4hour BMP to trend sodium Review of Systems ROS negative unless listed in HPI Physical Examination - Physical Exam General: Alert, In no apparent distress, Oriented x2, Other (Mild confusion) HEENT: Atraumatic, Normocephalic Neck: Supple, 2+ carotid pulse no bruit Respiratory: Clear to auscultation bilaterally, Normal air movement Cardiovascular: Normal pulses, Regular rate/rhythm Capillary refill: <2 Seconds Gastrointestinal: Normal bowel sounds, Soft and benign Musculoskeletal: Other (Unsteady gait, generalized weakness) Integumentary: No rashes, No breakdown Neurological: Normal speech, Normal strength at 5/5 x4 extr Assessment and Plan - Plan Assessment plan Severe hyponatremia improved Acute renal failure Nausea vomiting diarrhea Dehydration Generalized weakness Nephrology to consult, seizure precautions, telemetry Stool cultures, every 4 hours BMP, mag, Normal saline at 75 Renal ultrasound Chest x-ray no acute abnormalities noted Hyperlipidemia Hypertension Resume home meds Microcytic anemia Trend H&H Insulin-dependent diabetes mellitus Accu-Cheks, sliding scale insulin Full code DVT heparin Diet renal Disposition Home independent prior Discharge Plan: Home - Advance Directives Does patient have a Living Will: No Does patient have a Durable POA for Healthcare: No - Code Status/Comfort Care Code Status: Full Code Critical Care: Yes Time Spent Managing Pts Care (In Minutes): 45
[2023-12-21] MEDS: PNEUMOCOCCAL VACCINE 0.5 ML IMVAC ONE (17:12)
[2023-12-21 17:58] LABS: Ferritin 259.2 ng/mL (8-252)
[2023-12-21 19:03] LABS: Anion Gap 13.7 mEq/L (5.0-15.0); Magnesium 1.4 mg/dL (1.6-2.4); Potassium 4.7 mEq/L (3.5-5.1)
[2023-12-21] MEDS: DOCUSATE NA 100 MG CAP PO SCH (20:04)
[2023-12-22 04:49] LABS: Absolute Eosinophils 0.1 K/uL (0-0.5); Absolute Lymphocytes (CBC) 0.7 K/uL (0.7-4.9); Absolute Monocytes 0.7 K/uL (0.1-1.3); Basophils % 0.4 % (0-1.3); Eosinophils % 1.9 % (0-4.4); Hematocrit 26.7 % (36.0-45.0); Hemoglobin 9.4 g/dL (12.0-15.0); Lymphocytes % 9.2 % (15.3-44.8); MCH 30.7 pg (27.0-35.0); MCHC 35.4 g/dL (32.0-36.0); MCV 86.7 fL (80-100); MPV 5.7 fL (7.6-11.3); Monocytes % 8.6 % (3.3-12.3); Neutrophils % 79.9 % (41.7-73.7); Platelets 492 thou/uL (152-406); RBC Red Blood Cell Count 3.08 M/uL (3.86-4.86); Red Cell Distribution Width 13.2 % (12.1-15.2)
[2023-12-22 05:15] LABS: Albumin 2.3 g/dL (3.4-5.0); Anion Gap 14.4 mEq/L (5.0-15.0); Magnesium 1.6 mg/dL (1.6-2.4); Phosphorus 4.2 mg/dL (2.5-4.9); Potassium 4.4 mEq/L (3.5-5.1); Uric Acid 7.5 mg/dL (2.6-6.0)
[2023-12-22] MEDS: LEVOTHYROXINE SOD 0.075 MG TAB PO SCH (05:47)
[2023-12-22 06:02] LABS: Hepatitis B Core Ab, Total Nonreactive (Nonreactive); Hepatitis B surface AG Interp. Nonreactive (Nonreactive)
[2023-12-22 06:04] LABS: Hepatitis B Surface Ab - Quant < 3.10 mIU/mL (<8.0)
[2023-12-22 06:05] LABS: HBsAG Nonreactive Report Report
[2023-12-22 06:52] LABS: Specific Gravity 1.005 (1.005-1.030); Sqamous Epithelial None Seen /HPF (None Seen); Urine Bacteria <20 /HPF (<20); Urine Bilirubin NEGATIVE (Negative); Urine Blood Trace (Negative); Urine Clarity Extremely Turbid (Clear); Urine Color Colorless (Yellow); Urine Culture Reflex Order REFLEXED; Urine Glucose 2+ (Negative); Urine Ketones NEGATIVE (Negative); Urine Micro Reflex YN NO BILL MICROSCOPIC; Urine Mucus Slight /HPF (None Seen); Urine Nitrite NEGATIVE (Negative); Urine Protein TRACE (Negative); Urine Urobilinogen Normal (Normal); Urine WBC >50 /HPF (<5); Urine WBC Clump Occasional /HPF (None Seen); Urine Yeast (Budding) Many /HPF (None Seen); Urine pH 5.5 (5.0-7.0)
[2023-12-22 06:57] LABS: UR CL RANDOM 30 mmol/L (25-40); UR SODIUM 35 mmol/L (27-287)
[2023-12-22 06:58] LABS: UR POTASSIUM < 6.0 mmol/L (20-40)
--- NOTE | 2023-12-22 07:36 | P.PN ---
Date of Service: 12/22/23 Subjective treated with diagnostic and theraputic paracentesis, BP have improved pending HD per nephrology Review of Systems ROS negative unless listed in HPI Physical Examination - Physical Exam General: Alert, In no apparent distress, Oriented x3, forgetful HEENT: Atraumatic, Normocephalic Neck: Supple, 2+ carotid pulse no bruit Respiratory: Clear to auscultation bilaterally, Normal air movement Cardiovascular: Normal pulses, Regular rate/rhythm Capillary refill: <2 Seconds Gastrointestinal: Normal bowel sounds, mild abdominal distention Musculoskeletal: Other (Unsteady gait, generalized weakness) Integumentary: No rashes, No breakdown Neurological: Normal speech, Normal strength at 5/5 x4 extr Assessment and Plan - Plan Assessment plan Severe hyponatremia improved Hypomagnesia Acute renal failure CKD stage III with BRYANNA Nausea vomiting diarrhea Metabolic acidosis Dehydration Generalized weakness Nephrology to consult, seizure precautions, telemetry Stool cultures, every 4 hours BMP until stabilized Normal saline at 75, started on oral bicarb 4 times daily Renal ultrasound Chest x-ray no acute abnormalities noted Renal ultrasound-negative for hydronephrosis abdominal distention liver US no acites seen, no lesion, paracentesis per int rad hep panel unremarkable Acute cystitis, trace hematuria leukoesterase greater than 500 Started on IV Cipro- to po cipro yeast ua Hyperlipidemia Hypertension Resume home meds Microcytic anemia Trend H&H Insulin-dependent diabetes mellitus Accu-Cheks, sliding scale insulin Full code DVT heparin Diet renal Disposition Home independent prior Discharge Plan: Home - Advance Directives Does patient have a Living Will: No Does patient have a Durable POA for Healthcare: No - Code Status/Comfort Care Code Status: Full Code Critical Care: Yes Time Spent Managing Pts Care (In Minutes): 35
[2023-12-22] MEDS: CALCIUM ACETATE 667 MG TAB PO SCH (08:56)
[2023-12-22] MEDS: NA CHLORIDE 0.9% 1,000 ML IV SCH (08:59)
[2023-12-22] MEDS ORDERED: CIPROFLOXACIN 400mg IV 400 MG/200 ML BAG IV SCH (09:00)
[2023-12-22] MEDS: CIPROFLOXACIN HCL 500 MG TAB PO SCH (09:05)
[2023-12-22] MEDS: INFLUENZA VACCINE (for 6+ mo) 0.5 ML DOSE IMVAC ONE (09:53)
--- NOTE | 2023-12-22 10:02 | RAD REPORT ---
Exam: Liver ultrasound CLINICAL HISTORY: Abdominal pain. Evaluate for ascites. FINDINGS: Liver has a homogeneous echotexture. A lesion is not seen. Hepatopedal flow present. No ascites visualized within the abdomen/pelvis. IMPRESSION: Unremarkable exam
[2023-12-22] MEDS: WATER FOR INJ,STERILE 1,000 ML with NA BICARB 8.4% 150 MEQ IV SCH (11:48)
[2023-12-22 17:55] LABS: Anion Gap 10.8 mEq/L (5.0-15.0); Potassium 4.8 mEq/L (3.5-5.1)
--- NOTE | 2023-12-22 20:56 | P.PN ---
Date of Service: 12/22/23 Vital Signs Temp Pulse Resp BP Pulse Ox 97.6 F 80 18 137/68 97 12/22/23 20:00 12/22/23 20:00 12/22/23 20:00 12/22/23 20:00 12/22/23 20:00 Medications Acetaminophen (Acetaminophen 325 Mg Tablet) 650 mg PO Q4H PRN PRN Reason: Pain scale 5-7 (Moderate) Last Admin: 12/22/23 11:40 Dose: 650 mg Calcium Acetate (Calcium Acetate 667 Mg Tab) 667 mg PO TIDWM [facility] Last Admin: 12/22/23 16:04 Dose: 667 mg Ciprofloxacin (Ciprofloxacin Hcl 500 Mg Tab) 500 mg PO Q24H [facility] Last Admin: 12/22/23 09:05 Dose: 500 mg Docusate Sodium (Docusate Na 100 Mg Cap) 100 mg PO BID [facility] Last Admin: 12/22/23 08:56 Dose: 100 mg Ergocalciferol (Drisdol (Vitamin D=Ergocalciferol) 89599 Unit Cap) 50,000 unit PO Q7D@0900 [facility] Sodium Bicarbonate 150 meq/ (Sterile Water) 1,150 mls @ 75 mls/hr IV .[id number] [facility] Last Admin: 12/22/23 11:48 Dose: 1,150 mls Insulin Human Regular (Insulin Regular (Human) 100 Unit/Ml) 0 unit SQ ACHS [facility]; Protocol Last Admin: 12/22/23 15:54 Dose: Not Given Levothyroxine Sodium (Levothyroxine Sod 0.075 Mg Tab) 0.075 mg PO DAILYAC [facility] Last Admin: 12/22/23 05:47 Dose: 0.075 mg Magnesium Chloride (Magnesium Chloride 64 Mg Tab) 128 mg PO BID [facility] Last Admin: 12/22/23 08:56 Dose: 128 mg Ondansetron HCl (Ondansetron 4 Mg/2 Ml Vial) 4 mg IV Q6HP PRN PRN Reason: NAUSEA / VOMITING Sodium Bicarbonate (Sodium Bicarb 325 Mg Tab) 650 mg PO QID [facility] Last Admin: 12/22/23 16:04 Dose: 650 mg Microbiology Results 12/20/23 16:23 Clean Catch Urine [place] Count - Preliminary >100,000 CFU/ML. 12/20/23 16:23 Clean Catch Urine - Preliminary MIXED CORAL. Assessment/ Plan: Nephrology No dyspnea No chest pain No acute events overnight Vitals, medications, blood work and imaging reviewed in the chart General: In no apparent distress, Oriented x3, Cooperative HEENT: Atraumatic Neck: Supple Respiratory: Clear to auscultation bilaterally Cardiovascular: No edema, Regular rate/rhythm Gastrointestinal: Soft and benign, Non-distended Musculoskeletal: No clubbing, No contractures Integumentary: No rashes, No cyanosis Neurological: Normal speech Laboratory Data (last 24 hrs) 12/20/23 12/20/23 12/20/23 14:29 14:29 14:29 WBC 10.40 Hgb 10.6 L Hct 31.0 L Plt Count 557 H Sodium 114 L* Potassium 4.6 BUN 56 H Creatinine 4.97 H Glucose 197 H Magnesium 1.4 L Total Bilirubin 0.4 AST 11 L ALT 18 Alkaline Phosphatase 103 Lipase 7 L Imagings Data: [id number] EXAMINATION: US RENAL CLINICAL INDICATION: Acute renal failure TECHNIQUE: Real-time ultrasonography of the abdomen was performed. COMPARISON: 2022 CT FINDINGS: The right kidney measures 10 cm with a normal echotexture. It contains several small calculi. No hydronephrosis Left kidney measures 9 cm with a normal echotexture. No hydronephrosis. An extrarenal pelvis is present. No gross abnormality bladder. IMPRESSION: Negative for hydronephrosis Conclusions/Impression: Stage III BRYANNA may be ATN vs progressive CKD CKD IV with Proteinuria -No NSAIDs -Continue gentle IVF Hyponatremia -Continue gentle IVF -Fluid restriction as needed Metabolic Acidosis -Start oral Bicarb QID -Start IV bicarb Hypomagnesemia -Replete prn -Continue Slo-Mag BID HTN with CKD -Hold Losartan & Amlodipine at this time DM II with CKD -RISS Anemia in chronic illness Iron Deficiency -Monitor H&H -Consider IV iron CKD MBD Secondary HyperParathyroidism Hyperphosphatemia -Continue Ergo -Continue [facility] Hospitalist note reviewed
--- NOTE | 2023-12-23 02:29 | P.PN ---
Date of Service: 12/23/23 Subjective Stable mood, nephrology following, no acute distress noted Review of Systems ROS negative unless listed in HPI Physical Examination - Physical Exam General: Alert, In no apparent distress, Oriented x3, forgetful HEENT: Atraumatic, Normocephalic Respiratory: Unlabored Cardiovascular: Normal pulses, Regular rate/rhythm Capillary refill: <2 Seconds Gastrointestinal: Normal bowel sounds, Musculoskeletal: Other (Unsteady gait, generalized weakness) Integumentary: No rashes, No breakdown Neurological: Normal speech, Normal strength at 5/5 x4 extr Assessment and Plan - Plan Assessment plan Severe hyponatremia improved Hypomagnesia Acute renal failure/insufficiency CKD stage III with BRYANNA Nausea vomiting diarrhea Metabolic acidosis Dehydration Generalized weakness Nephrology to consult, seizure precautions, telemetry Stool cultures, every 4 hours BMP until stabilized Normal saline at 75, started on oral bicarb 4 times daily Renal ultrasound Chest x-ray no acute abnormalities noted Renal ultrasound-negative for hydronephrosis Acute cystitis, trace hematuria leukoesterase greater than 500 Started on IV Cipro- to po cipro, fluconazole yeast ua Hyperlipidemia Hypertension Resume home meds Microcytic anemia Trend H&H Insulin-dependent diabetes mellitus Accu-Cheks, sliding scale insulin Full code DVT heparin Diet renal Disposition Home independent prior Discharge Plan: Home - Advance Directives Does patient have a Living Will: No Does patient have a Durable POA for Healthcare: No - Code Status/Comfort Care Code Status: Full Code Critical Care: Yes Time Spent Managing Pts Care (In Minutes): 35
[2023-12-23] MEDS: NA CHLORIDE 0.9% 1,000 ML ONE (04:02)
[2023-12-23 04:45] LABS: Absolute Basophils 0.1 K/uL (0-0.5); Absolute Eosinophils 0.1 K/uL (0-0.5); Absolute Lymphocytes (CBC) 0.9 K/uL (0.7-4.9); Absolute Monocytes 0.9 K/uL (0.1-1.3); Absolute Neutrophil 8.5 K/uL (1.8-8.0); Basophils % 0.6 % (0-1.3); Eosinophils % 1.2 % (0-4.4); Hematocrit 27.2 % (36.0-45.0); Hemoglobin 9.4 g/dL (12.0-15.0); Lymphocytes % 8.3 % (15.3-44.8); MCHC 34.5 g/dL (32.0-36.0); MCV 86.9 fL (80-100); MPV 5.5 fL (7.6-11.3); Monocytes % 8.7 % (3.3-12.3); Neutrophils % 81.2 % (41.7-73.7); Nucleated Red Blood Cells % 0.1 % (0-0); Platelets 501 thou/uL (152-406); RBC Red Blood Cell Count 3.13 M/uL (3.86-4.86); Red Cell Distribution Width 13.2 % (12.1-15.2)
[2023-12-23 04:50] LABS: Albumin 2.4 g/dL (3.4-5.0); Magnesium 1.5 mg/dL (1.6-2.4); Phosphorus 3.2 mg/dL (2.5-4.9)
[2023-12-23] MEDS: FLUCONAZOLE 100mg IVPB 100 MG/50 ML BAG IV SCH (05:00)
[2023-12-23] MEDS: INSULIN REGULAR (HUMAN) 100 UNIT/ML SQ SCH (07:30)
[2023-12-23] MEDS ORDERED: FLUCONAZOLE 100mg IVPB 100 MG/50 ML BAG IV SCH (08:00)
[2023-12-23] MEDS: FLUCONAZOLE 100 MG TAB PO SCH (08:14)
[2023-12-23] MEDS: NA CHLORIDE 0.9% 1,000 ML IV SCH (10:00)
[2023-12-23 10:22] VITALS: O2SAT 97
[2023-12-23] MEDS: EPOETIN ALFA-EPBX 10,000 UNIT/ML VIAL SQ ONE (10:47)
[2023-12-23] MEDS: SODIUM BICARB 325 MG TAB PO SCH (13:11)
[2023-12-23 20:24] VITALS: BMI 27.2
[2023-12-23] MEDS: LACTULOSE 20 GM/30 ML UCUP PO ONE (21:06)
[2023-12-23] MEDS: SIMETHICONE 80 MG CHEWABLE TAB PO PRN (21:06)
[2023-12-23] MEDS: HYDRALAZINE HCL 20 MG/ML VIAL IV PRN (21:24)
--- NOTE | 2023-12-23 23:00 | P.PN ---
Date of Service: 12/23/23 Vital Signs Temp Pulse Resp BP Pulse Ox 97.6 F 80 18 175/88 H 94 12/23/23 20:00 12/23/23 20:00 12/23/23 20:00 12/23/23 20:00 12/23/23 20:00 Medications Acetaminophen (Acetaminophen 325 Mg Tablet) 650 mg PO Q4H PRN PRN Reason: Pain scale 5-7 (Moderate) Last Admin: 12/23/23 16:32 Dose: 650 mg Calcium Acetate (Calcium Acetate 667 Mg Tab) 667 mg PO TIDWM [facility] Last Admin: 12/23/23 16:25 Dose: 667 mg Ciprofloxacin (Ciprofloxacin Hcl 500 Mg Tab) 500 mg PO Q24H [facility] Last Admin: 12/23/23 08:14 Dose: 500 mg Docusate Sodium (Docusate Na 100 Mg Cap) 100 mg PO BID [facility] Last Admin: 12/23/23 20:17 Dose: 100 mg Ergocalciferol (Drisdol (Vitamin D=Ergocalciferol) 32616 Unit Cap) 50,000 unit PO Q7D@0900 [facility] Fluconazole (Fluconazole 100 Mg Tab) 100 mg PO DAILY [facility] Last Admin: 12/23/23 08:14 Dose: 100 mg Hydralazine HCl (Hydralazine Hcl 20 Mg/Ml Vial) 10 mg IV Q4HP PRN PRN Reason: Goal to achieve SBP in comment Last Admin: 12/23/23 21:24 Dose: 10 mg Sodium Chloride (Ns 1000 Ml Ivbag) 1,000 mls @ 75 mls/hr IV .[id number] [facility] Last Admin: 12/23/23 22:12 Dose: 1,000 mls Insulin Human Regular (Insulin Regular (Human) 100 Unit/Ml) 0 unit SQ ACHS [facility]; Protocol Last Admin: 12/23/23 21:06 Dose: 5 unit Levothyroxine Sodium (Levothyroxine Sod 0.075 Mg Tab) 0.075 mg PO DAILYAC [facility] Last Admin: 12/23/23 05:33 Dose: 0.075 mg Magnesium Chloride (Magnesium Chloride 64 Mg Tab) 128 mg PO BID [facility] Last Admin: 12/23/23 20:17 Dose: 128 mg Ondansetron HCl (Ondansetron 4 Mg/2 Ml Vial) 4 mg IV Q6HP PRN PRN Reason: NAUSEA / VOMITING Simethicone (Simethicone 80 Mg Chewable Tab) 80 mg PO Q6H PRN PRN Reason: GAS Last Admin: 12/23/23 21:06 Dose: 80 mg Sodium Bicarbonate (Sodium Bicarb 325 Mg Tab) 650 mg PO TIDWM [facility] Last Admin: 12/23/23 16:25 Dose: 650 mg Microbiology Results 12/20/23 16:23 Clean Catch Urine [place] Count - Final >100,000 CFU/ML. 12/20/23 16:23 Clean Catch Urine - Final MIXED CORAL. Assessment/ Plan: Nephrology No dyspnea No chest pain No acute events overnight Wants to go home Vitals, medications, blood work and imaging reviewed in the chart General: In no apparent distress, Oriented x3, Cooperative HEENT: Atraumatic Neck: Supple Respiratory: Clear to auscultation bilaterally Cardiovascular: No edema, Regular rate/rhythm Gastrointestinal: Soft and benign, Non-distended Musculoskeletal: No clubbing, No contractures Integumentary: No rashes, No cyanosis Neurological: Normal speech Laboratory Data (last 24 hrs) 12/20/23 12/20/23 12/20/23 14:29 14:29 14:29 WBC 10.40 Hgb 10.6 L Hct 31.0 L Plt Count 557 H Sodium 114 L* Potassium 4.6 BUN 56 H Creatinine 4.97 H Glucose 197 H Magnesium 1.4 L Total Bilirubin 0.4 AST 11 L ALT 18 Alkaline Phosphatase 103 Lipase 7 L Imagings Data: [id number] EXAMINATION: US RENAL CLINICAL INDICATION: Acute renal failure TECHNIQUE: Real-time ultrasonography of the abdomen was performed. COMPARISON: 2022 CT FINDINGS: The right kidney measures 10 cm with a normal echotexture. It contains several small calculi. No hydronephrosis Left kidney measures 9 cm with a normal echotexture. No hydronephrosis. An extrarenal pelvis is present. No gross abnormality bladder. IMPRESSION: Negative for hydronephrosis Conclusions/Impression: Stage III BRYANNA may be ATN vs progressive CKD CKD IV with Proteinuria -No NSAIDs -Continue gentle IVF Hyponatremia -Continue gentle IVF -Fluid restriction as needed Metabolic Acidosis -Reduce oral bicarb Hypomagnesemia -Replete prn -Continue Slo-Mag BID HTN with CKD -Hold Losartan & Amlodipine at this time DM II with CKD -RISS Anemia in chronic illness Iron Deficiency -Monitor H&H -Consider IV iron CKD MBD Secondary HyperParathyroidism Hyperphosphatemia -Continue Ergo -Continue [facility] Hospitalist note reviewed Case reviewed with Dr. Tan
[2023-12-24 05:17] LABS: Absolute Eosinophils 0.1 K/uL (0-0.5); Absolute Lymphocytes (CBC) 1.1 K/uL (0.7-4.9); Absolute Monocytes 0.8 K/uL (0.1-1.3); Absolute Neutrophil 5.9 K/uL (1.8-8.0); Basophils % 0.5 % (0-1.3); Eosinophils % 1.1 % (0-4.4); Hematocrit 26.9 % (36.0-45.0); Hemoglobin 8.9 g/dL (12.0-15.0); Lymphocytes % 14.2 % (15.3-44.8); MCH 29.2 pg (27.0-35.0); MCHC 33.1 g/dL (32.0-36.0); MCV 88.5 fL (80-100); MPV 5.9 fL (7.6-11.3); Monocytes % 10.3 % (3.3-12.3); Neutrophils % 73.9 % (41.7-73.7); Platelets 427 thou/uL (152-406); RBC Red Blood Cell Count 3.04 M/uL (3.86-4.86); Red Cell Distribution Width 13.1 % (12.1-15.2)
[2023-12-24 05:30] LABS: Albumin 2.4 g/dL (3.4-5.0); Anion Gap 9.7 mEq/L (5.0-15.0); Magnesium 1.5 mg/dL (1.6-2.4); Phosphorus 2.4 mg/dL (2.5-4.9); Potassium 3.7 mEq/L (3.5-5.1)
--- NOTE | 2023-12-24 06:33 | P.PN ---
Subjective admitted for acute renal failure, insuff, hyponatremia, sodium improving reports generalzied weakness Review of Systems ROS negative unless listed in HPI Physical Examination - Physical Exam General: Alert, In no apparent distress, Oriented x3, forgetful HEENT: Atraumatic, Normocephalic Neck: Supple, 2+ carotid pulse no bruit Respiratory: Clear to auscultation bilaterally, Normal air movement Cardiovascular: Normal pulses, Regular rate/rhythm Capillary refill: <2 Seconds Gastrointestinal: Normal bowel sounds, Musculoskeletal: Other (Unsteady gait, generalized weakness) Integumentary: No rashes, No breakdown Neurological: Normal speech, Normal strength at 5/5 x4 extr Assessment and Plan - Plan Assessment plan Severe hyponatremia improved Hypomagnesia Acute renal failure CKD stage III with BRYANNA Nausea vomiting diarrhea Metabolic acidosis Dehydration Generalized weakness Nephrology to consult, seizure precautions, telemetry Stool cultures, every 4 hours BMP until stabilized Normal saline at 75, started on oral bicarb 4 times daily Renal ultrasound Chest x-ray no acute abnormalities noted Renal ultrasound-negative for hydronephrosis Acute cystitis, trace hematuria leukoesterase greater than 500 Started on IV Cipro- to po cipro yeast ua Hyperlipidemia Hypertension Resume home meds Microcytic anemia Trend H&H Insulin-dependent diabetes mellitus Accu-Cheks, sliding scale insulin Full code DVT heparin Diet renal Disposition Home independent prior Discharge Plan: Home - Advance Directives Does patient have a Living Will: No Does patient have a Durable POA for Healthcare: No - Code Status/Comfort Care Code Status: Full Code Critical Care: Yes Time Spent Managing Pts Care (In Minutes): 35
[2023-12-24] MEDS ORDERED: SOD FERRIC GLUC COMPLX/SUCROSE 250 MG in NA CHLORIDE 0.9% 100 ML IV ONE (08:00)
[2023-12-24] MEDS: SOD FERRIC GLUC COMPLX/SUCROSE 250 MG in NA CHLORIDE 0.9% 250 ML IV ONE (08:39)
[2023-12-24 12:56] VITALS: BP 162/82; TEMP 97.6
--- NOTE | 2023-12-24 14:43 | P.DS ---
Admission Date: 12/20/23 Discharge Date: 12/24/23 Disposition: ROUTINE DISCHARGE Discharge Condition: GOOD Reason for Admission: Hyponatremia Brief History of Present Illness: 78-year-old female with past medical history of hypertension, hyperlipidemia, insulin dependent type 2 diabetes, and GERD, CKD who presented to the emergency department with complaints of generalized weakness, nausea, vomiting diarrhea. She reports the recent upper respiratory infection this week, was treated with Z-Hansel, steroids, she has had nausea vomiting diarrhea, mild confusion, generalized weakness. Brought to the ER by family for evaluation. no reported chest pain, shortness of breath, falls, seizures, plan to admit to ICU for severe hyponatremia, nephrology to consult. - Physical Exam General: Alert, In no apparent distress, Oriented x2, Other (Mild confusion) HEENT: Atraumatic, Normocephalic Neck: Supple, 2+ carotid pulse no bruit Respiratory: Clear to auscultation bilaterally, Normal air movement Cardiovascular: Normal pulses, Regular rate/rhythm Capillary refill: <2 Seconds Gastrointestinal: Normal bowel sounds, Soft and benign Musculoskeletal: Other (Unsteady gait, generalized weakness) Integumentary: No rashes, No breakdown Neurological: Normal speech, Normal strength at 5/5 x4 extr Hospital Course: 78-year-old female with past medical history of hypertension, hyperlipidemia, insulin dependent type 2 diabetes, and GERD, CKD who presented to the emergency department with complaints of generalized weakness, nausea, vomiting diarrhea. She reports the recent upper respiratory infection, was treated with Z-Hansel, steroids, she presented to the ER with has had nausea, vomiting, diarrhea, mild confusion, generalized weakness. Noted to have dehydration, acute kidney injury, severe hyponatremia, nephrology to consult. plan to admit to ICU every 4 hours BMP, monitor she was treaded with IV fluids, sodium improved, transferred to the floor, she is tolerating diet, stable to discharge home, follow-up with nephrology after discharge. Assessment Renal insufficiency, acute kidney injury, stage III CKD, Severe hyponatremia improved with IV fluid-sodium tablets per nephrology Electrolyte abnormalities, hypomagnesia him, metabolic acidosis, treated with sodium bicarb by nephrology. Nausea vomiting improved with as needed antiemetics, reversal of metabolic acidosis, Generalized weakness, Acute cystitis she was treated with IV and transition to p.o. Cipro, Laboratory evaluation UA normal odminic Blood cultures positive bacteremia streptococcal group B- Hypertension, hyperlipidemia, microcytic anemia, resume home meds, monitor H&Hafter discharge with primary care Diabetes discharge home with prior diabetic medication Continue home medicines as previously prescribed GOAL: Clear understanding of disease process INSTRUCTIONS: Physician Discharge Instructions: -Follow-up with nephrology in 1 week -Follow-up with PCP in 1 to 2 weeks -Please call Dr. Tan at [phone] if any questions regarding hospital stay -Please call nursing station at [phone] if any nursing or medication questions -Return to the emergency room if symptoms worsen Diet: ADA, low sodium Activity: Fall precautions Vital Signs/Physical Exam: Temp Pulse Resp BP Pulse Ox 97.6 F 80 16 162/82 H 95 12/24/23 12:00 12/24/23 12:00 12/24/23 12:00 12/24/23 12:00 12/24/23 12:00 Laboratory Data at Discharge: WBC 8.00 thou/uL (4.3-10.9) 12/24/23 04:34 Hgb 8.9 g/dL (12.0-15.0) L 12/24/23 04:34 Hct 26.9 % (36.0-45.0) L 12/24/23 04:34 Plt Count 427 thou/uL (152-406) H 12/24/23 04:34 Sodium 137 mEq/L (136-145) D 12/24/23 04:34 Potassium 3.7 mEq/L (3.5-5.1) 12/24/23 04:34 BUN 33 mg/dL (7-18) H 12/24/23 04:34 Creatinine 2.77 mg/dL (0.55-1.02) H 12/24/23 04:34 Glucose 172 mg/dL (74-106) H 12/24/23 04:34 Uric Acid 7.5 mg/dL (2.6-6.0) H 12/22/23 04:28 Phosphorus 2.4 mg/dL (2.5-4.9) L 12/24/23 04:34 Magnesium 1.5 mg/dL (1.6-2.4) L 12/24/23 04:34 Total Bilirubin 0.4 mg/dL (0.2-1.0) 12/20/23 14:29 AST 11 U/L (15-37) L 12/20/23 14:29 ALT 18 U/L (13-56) 12/20/23 14:29 Alkaline Phosphatase 103 U/L (45-117) 12/20/23 14:29 Triglycerides 229 mg/dL (<150) H 12/21/23 03:00 Cholesterol 130 mg/dL (<200) 12/21/23 03:00 HDL Cholesterol 34 mg/dL (40-60) L 12/21/23 03:00 Cholesterol/HDL Ratio 3.82 12/21/23 03:00 Lipase 7 U/L (13-75) L 12/20/23 14:29 Home Medications: Acetaminophen 500 mg PO PRN PRN 05/14/22 Amlodipine [Norvasc*] 10 mg PO DAILY 05/14/22 Levothyroxine Sodium 75 mcg PO DAILY 05/14/22 Omeprazole 20 mg PO DAILY PRN 05/14/22 Pravastatin Sodium 80 mg PO BEDTIME 05/14/22 Venlafaxine HCl [Effexor Xr] 150 mg PO DAILY 05/14/22 oxyBUTYnin chloride [Oxybutynin Chloride] 5 mg PO DAILY 05/14/22 Ascorbic Acid [Vitamin C] 1,000 mg PO DAILY 12/20/23 Cholecalciferol (Vitamin D3) [Vitamin D3] 125 mcg PO DAILY 12/20/23 Dapagliflozin Propanediol [Farxiga] 5 mg PO DAILY 12/20/23 Ferrous Gluconate [Iron] 65 mg PO DAILY 12/20/23 Calcium Acetate [Phoslo*] 1 cap PO TIDWM #90 cap 12/24/23 Ciprofloxacin HCl [Cipro 500 MG Tablet] 500 mg PO DAILY #10 tab 12/24/23 Magnesium Chloride [Slow-Mag*] 128 mg PO BID #10 tab 12/24/23 Na Bicarb Tab [Sodium Bicarb 325 MG Tab*] 650 mg PO DAILY #60 tab 12/24/23 Metoprolol Tartrate [Lopressor] 50 mg PO BID #60 tab 12/25/23 Ondansetron [Zofran] 4 mg PO Q6H PRN #20 tab 12/25/23 New Medications: Ciprofloxacin HCl [Cipro 500 MG Tablet] 500 mg PO DAILY #10 tab Metoprolol Tartrate [Lopressor] 50 mg PO BID #60 tab Calcium Acetate [Phoslo*] 1 cap PO TIDWM #90 cap Magnesium Chloride [Slow-Mag*] 128 mg PO BID #10 tab Na Bicarb Tab [Sodium Bicarb 325 MG Tab*] 650 mg PO DAILY #60 tab Ondansetron [Zofran] 4 mg PO Q6H PRN #20 tab PRN Reason: Nausea / Vomiting Physician Discharge Instructions: OK TO DC IV AND DC HOME FOLLOW-UP WITH PCP IN 1-2 WEEKS CALL ME AT [phone] IF ANY QUESTIONS REGARDING HOSPITAL STAY RETURN TO THE ER IF SYMPTOMS WORSENS FOLLOW-UP WITH NEPHROLOGY IN 1-2 WEEKS FOLLOW-UP WITH PCP IN 1-2 WEEKS Diet: Renal Activity: Fall precautions Followup: Kelton Maurer DO [ACTIVE - CAN ADMIT] - 1-2 Weeks Deya Diaz NP [Primary Care Provider] - 1-2 Weeks Time spent managing pt's care (in minutes): 55
--- NOTE | 2023-12-24 16:27 | P.PN ---
(S) Pt seen prior to discharge, denied CP or dyspnea Vitals, medications, blood work and imaging reviewed in the chart General: In no apparent distress, Cooperative HEENT: Atraumatic, not on O2 Neck: Supple Respiratory: Clear to auscultation bilaterally mostly, no rales Cardiovascular: No sig edema, Regular rate/rhythm Gastrointestinal: Non-distended, NT Musculoskeletal: Shins non tender Integumentary: No rashes, Neurological: Normal speech Laboratory Data (last 24 hrs) Reviewed in the EMR Imagings Data: [id number] EXAMINATION: US RENAL CLINICAL INDICATION: Acute renal failure TECHNIQUE: Real-time ultrasonography of the abdomen was performed. COMPARISON: 2022 CT FINDINGS: The right kidney measures 10 cm with a normal echotexture. It contains several small calculi. No hydronephrosis Left kidney measures 9 cm with a normal echotexture. No hydronephrosis. An extra renal pelvis is present. No gross abnormality bladder. IMPRESSION: Negative for hydronephrosis Conclusions/Impression: Stage III ARF 2nd to some pre-renal azotemia, other on underlying CKD IV -Renal function did improve with Cr level downward trending, will need on going close monitoring as OP with Dr. Maurer in clinic Severe hypovolemic hyponatremia POA -Resolved, f/u as OP Severe metab acidosis on presentation, multifactorial -Bicarb deficit improved largely HTN with CKD -Labile BP, stopped IVF, will need to f/u closely as OP and restart SVETLANA inhibitors if renal function stable at baseline
[2023-12-25] MEDS ORDERED: SODIUM BICARB 325 MG TAB PO SCH (09:00)
[2023-12-28] MEDS ORDERED: DRISDOL (VITAMIN D=ERGOCALCIFEROL) 50000 UNIT CAP PO SCH (09:00)
== END 2023-12-24 15:03 | disposition home or self-care (01) | DRG 640 ==
LOC: ER 13:41 → ERHOLD 16:24 → 3RD-ICU 19:14 → 2ND 12-21 13:05
PROVIDERS: ADMIT Hospitalist; ATTEND Hospitalist
DX: E87.1 Hypo-osmolality and hyponatremia (principal); G92.8 Other toxic encephalopathy; N17.0 Acute kidney failure with tubular necrosis; E44.0 Moderate protein-calorie malnutrition; N18.4 Chronic kidney disease, stage 4 (severe); N25.81 Secondary hyperparathyroidism of renal origin; N30.01 Acute cystitis with hematuria; I12.9 Hypertensive chronic kidney disease with stage 1 through stage 4 chronic kidney disease, or unspecified chronic kidney disease; E11.22 Type 2 diabetes mellitus with diabetic chronic kidney disease; D63.1 Anemia in chronic kidney disease; D50.9 Iron deficiency anemia, unspecified; E86.0 Dehydration; E78.5 Hyperlipidemia, unspecified; E87.20 Acidosis, unspecified; E83.39 Other disorders of phosphorus metabolism; E83.42 Hypomagnesemia; K21.9 Gastro-esophageal reflux disease without esophagitis; F17.210 Nicotine dependence, cigarettes, uncomplicated; Z88.0 Allergy status to penicillin; Z79.4 Long term (current) use of insulin; Z68.27 Body mass index [BMI] 27.0-27.9, adult; Z90.49 Acquired absence of other specified parts of digestive tract; Z79.890 Hormone replacement therapy; Z79.899 Other long term (current) drug therapy
CPT/HCPCS: 36415; 74176; 76705; 76770; 80048; 80053; 80061; 80069; 81001; 82435; 82533; 82570; 82728; 82947; 83540; 83690; 83735; 83880; 83930; 83935; 84100; 84132; 84300; 84443; 84466; 84550; 85025; 86704; 86706; 87086; 87088; 87340; 96361; 96374; 99285; J0360; J1450; J2405; J2916; J7030; J7040; J7050; Q5106

== ENCOUNTER 2024-04-11 17:11 | Inpatient (IN) | payer OTHER ==
[2024-04-11 18:14] LABS: Absolute Eosinophils 0.2 K/uL (0-0.5); Absolute Lymphocytes (CBC) 1.2 K/uL (0.7-4.9); Absolute Monocytes 0.3 K/uL (0.1-1.3); Absolute Neutrophil 4.1 K/uL (1.8-8.0); Basophils % 0.7 % (0-1.3); Eosinophils % 3.6 % (0-4.4); Hematocrit 36.3 % (36.0-45.0); Hemoglobin 11.6 g/dL (12.0-15.0); Lymphocytes % 20.5 % (15.3-44.8); MCHC 31.9 g/dL (32.0-36.0); MCV 90.8 fL (80-100); Monocytes % 5.1 % (3.3-12.3); Neutrophils % 70.1 % (41.7-73.7); Platelets 289 thou/uL (152-406); Red Cell Distribution Width 15.1 % (12.1-15.2)
--- NOTE | 2024-04-11 18:26 | RAD REPORT ---
EXAM: Chest Single View HISTORY: COUGH COMPARISON: 06/01/2022 FINDINGS: LUNGS/PLEURA: Mild prominence of the pulmonary interstitium. MEDIASTINUM: The mediastinal silhouette is within normal limits. CARDIAC: Mild cardiomegaly UPPER ABDOMEN: No significant abnormality. BONES: No acute abnormality. LINES/TUBES/OTHER: N/A IMPRESSION: Suspect mild interstitial edema. No consolidative airspace disease.
[2024-04-11 18:28] LABS: SARS-CoV-2 Antigen CONTROL BLUE LINE VIS/BG OK; SARS-CoV-2 Antigen Rapid Res Negative (Negative)
[2024-04-11 18:51] LABS: Anion Gap 10.7 mEq/L (5.0-15.0); Potassium 3.7 mEq/L (3.5-5.1)
[2024-04-11 18:52] LABS: Troponin High Sensitivity 71.9 pg/mL (<58.9)
--- NOTE | 2024-04-11 19:14 | ER ---
Nurse's Notes [facility] Name: Herlinda Benitez Age: 78 yrs Sex: Female : 1945 Arrival Date: 04/11/2024 Time: 17:11 Bed 19 Private MD: Diagnosis: Heart failure, unspecified;NSTEMI Presentation: 04/11 17:23 Chief complaint: Patient states: Shortness of breath onset 03/15. Pt states that she cm10 feels better. Denies fever or cough. Coronavirus screen: Client denies travel out of the [place] in the last 14 days. Ebola Screen: Patient denies travel to an Ebola-affected area in the 21 days before illness onset. Initial Sepsis Screen: Does the patient meet any 2 criteria? HR > 90 bpm. Does the patient have a suspected source of infection? No. Patient's initial sepsis screen is negative. Risk Assessment: Do you want to hurt yourself or someone else? Patient reports no desire to harm self or others. Onset of symptoms was March 15, 2024. 17:23 Method Of Arrival: Ambulatory cm10 17:23 Acuity: LOLIS 3 cm10 Triage Assessment: 17:24 General: Appears in no apparent distress. comfortable, Behavior is calm, cooperative. cm10 Pain: Denies pain. Neuro: No deficits noted. Level of Consciousness is awake, alert, obeys commands, Oriented to person, place, time, situation, Appropriate for age. Respiratory: No deficits noted. Reports shortness of breath Airway is patent Respiratory effort is even, unlabored, Respiratory pattern is regular, symmetrical, Onset: The symptoms/episode began/occurred 03/15/24, the patient has mild shortness of breath. Derm: No deficits noted. Skin is pink, warm \T\ dry. Historical: - Allergies: 17:22 PENICILLINS; cm10 - Home Meds: 20:00 metformin 500 mg Oral Tablet, ER Gastric Retention 24 hr [Active]; venlafaxine 75 mg rg5 oral tablet [Active]; oxybutynin chloride 5 mg Oral tablet [Active]; omeprazole 20 mg Oral capsule,delayed release (e.c.) [Active]; pravastatin 80 mg oral tablet [Active]; losartan potassium (bulk) [Active]; Farxiga 5 mg oral tablet [Active]; Vitamin B-12 1,000 mcg Oral tablet [Active]; Vitamin D3 125 mcg (5,000 unit) oral tablet [Active]; IronUp oral [Active]; - PMHx: 17:22 Diabetes - IDDM; GERD; Hyperlipidemia; Hypertension; kidney disease; cm10 - PSHx: 17:22 Cholecystectomy; ear; cm10 - Immunization history:: Adult Immunizations up to date. - Infectious Disease History:: Denies. - Social history:: Smoking status: Patient/guardian denies using tobacco, the patient reports quitting approximately 22 years ago. Screenin:08 [facility] ED Fall Risk Assessment (Adult) History of falling in the last 3 months, rg5 including since admission No falls in past 3 months (0 pts) Confusion or Disorientation No (0 pts) Intoxicated or Sedated No (0 pts) Impaired Gait No (0 pts) Mobility Assist Device Used No (0 pt) Altered Elimination No (0 pt) Score/Fall Risk Level 0 - 2 = Low Risk Oriented to surroundings, Maintained a safe environment, Hourly rounding (assess needs \T\ fall precautionary measures) done. Abuse screen: Denies threats or abuse. Nutritional screening: No deficits noted. Tuberculosis screening: No symptoms or risk factors identified. Assessment: 19:08 General: Appears in no apparent distress. comfortable, Behavior is calm, cooperative, rg5 appropriate for age. Pain: Complains of pain in chest. Neuro: Level of Consciousness is awake, alert, obeys commands, Oriented to person, place, time. Cardiovascular: Reports chest pain, Patient's skin is warm and dry. Rhythm is sinus rhythm. Respiratory: Reports shortness of breath Airway is patent Trachea midline Respiratory effort is even, unlabored, Respiratory pattern is regular, symmetrical, Breath sounds are clear. GI: Abdomen is round non-distended. : No signs and/or symptoms were reported regarding the genitourinary system. EENT: No deficits noted. Derm: Skin is intact, Skin is dry, Skin is normal, Skin temperature is warm. Musculoskeletal: Circulation, motion, and sensation intact. Range of motion: intact in all extremities. Vital Signs: 17:23 BP 181 / 76; Pulse 98; Resp 19; Temp 97.6(O); Pulse Ox 99% on R/A; Weight 72.57 kg; cm10 Height 5 ft. 4 in. ; Pain 0/10; 19:07 BP 171 / 72; Pulse 87; Resp 18; Pulse Ox 97% on R/A; rg5 17:23 Body Mass Index 27.46 (72.57 kg, 162.56 cm) cm10 17:23 Pain Scale: Adult cm10 ED Course: 17:14 Patient arrived in ED. ra3 17:22 Yevgeniy Phillips MD is Attending Physician. ec2 17:24 Triage completed. cm10 17:24 Arm band placed on right wrist. Patient placed in an exam room, on a stretcher. cm10 18:08 Troponin HS Sent. jb4 18:08 BNP Sent. jb4 18:08 SARS RAPID Sent. jb4 18:08 Influenza Screen (a \T\ B) Sent. jb4 18:08 Basic Metabolic Panel Sent. jb4 18:08 CBC with Diff Sent. jb4 18:21 XRAY Chest (1 view) In Process Unspecified. EDMS 19:05 Marco A Peterson, HEIDY is Primary Nurse. rg5 19:08 Patient has correct armband on for positive identification. Bed in low position. Door rg5 closed. Noise minimized. Warm blanket given. 19:08 No provider procedures requiring assistance completed. Patient admitted, IV remains in rg5 place. 19:13 Narinder Villafana MD is Hospitalizing Provider. ec2 19:31 Ptt, Activated Sent. vk 19:31 PT-INR Sent. vk 21:02 Provided Education on: need for admit. rg5 22:09 Inserted saline lock: 22 gauge in right forearm, using aseptic technique. Blood oe collected. Flushed with 10 mL NS. Administered Medications: 19:24 Drug: Aspirin PO Chewable Tablet 324 mg PO once; 81 mg tablets x 4 Route: PO; rg5 20:30 Follow up: Response: No adverse reaction rg5 19:24 Drug: Furosemide IVP 40 mg IVP once; give over 2 minutes Route: IVP; Site: right rg5 antecubital; 20:30 Follow up: Response: No adverse reaction rg5 19:55 Drug: Heparin (RI Drip) 12 units/kg/hr - ([place] [address] units, D5W IV 500 ml) IV at rg5 calculated rate Per protocol; Max initial rate 1000 units/hr {Co-Signature: lg3 (Radhika Clayton RN).} Route: IV; Rate: calculated rate; Site: right antecubital; 04/12 02:00 Follow up: Rate change 671 units/hr rg5 Medication: 04/11 19:08 VIS not applicable for this client. rg5 Outcome: 19:13 Decision to Hospitalize by Provider. ec2 20:00 Admitted to ER Hold. [facility]. rg5 20:00 Condition: stable 20:00 Instructed on the need for admit, 04/12 14:29 Patient left the ED. kc6 Signatures: Dispatcher [employer] EDPatrick Newman, RN RN jb4 John Elkins Kaitlyn RN RN kc6 Sheri Chairez RN RN cm10 Yevgeniy Phillips MD MD ec2 Melissa Moreno ra3 Loida Whipple Rommel, RN RN rg5 Radhika Clayton RN lg3
--- NOTE | 2024-04-11 19:14 | EDPHYS ---
Physician Documentation [facility] Name: Herlinda Benitez Age: 78 yrs Sex: Female : 1945 Arrival Date: 04/11/2024 Time: 17:11 Bed 19 Private MD: ED Physician Yevgeniy Phillips HPI: 04/11 17:43 This 78 yrs old Female presents to ER via Ambulatory with complaints of ec2 Breathing Difficulty - x2wks. 17:43 Patient arrives today for evaluation of breathing difficulty ongoing for 1 month. ec2 States around [place] started having some shortness of breath. Family concerned this is likely anxiety. Denies any chest pain. Denies any abdominal pain, no vomiting, no fevers, no chills. Historical: - Allergies: 17:22 PENICILLINS; cm10 - Home Meds: 20:00 metformin 500 mg Oral Tablet, ER Gastric Retention 24 hr [Active]; venlafaxine 75 mg rg5 oral tablet [Active]; oxybutynin chloride 5 mg Oral tablet [Active]; omeprazole 20 mg Oral capsule,delayed release (e.c.) [Active]; pravastatin 80 mg oral tablet [Active]; losartan potassium (bulk) [Active]; Farxiga 5 mg oral tablet [Active]; Vitamin B-12 1,000 mcg Oral tablet [Active]; Vitamin D3 125 mcg (5,000 unit) oral tablet [Active]; IronUp oral [Active]; - PMHx: 17:22 Diabetes - IDDM; GERD; Hyperlipidemia; Hypertension; kidney disease; cm10 - PSHx: 17:22 Cholecystectomy; ear; cm10 - Immunization history:: Adult Immunizations up to date. - Infectious Disease History:: Denies. - Social history:: Smoking status: Patient/guardian denies using tobacco, the patient reports quitting approximately 22 years ago. ROS: 17:43 Constitutional: as per hpi ec2 Exam: 17:43 Constitutional: GEN: NAD Head: atraumatic Eyes: EOMI Ears: External ears are ec2 normal. CV: regular rate LUNGS: no respiratory distress, no wheezes or rales or rhonchi ABD: non-distended SKIN: no evidence of rashes MSK: no evidence of trauma Vital Signs: 17:23 BP 181 / 76; Pulse 98; Resp 19; Temp 97.6(O); Pulse Ox 99% on R/A; Weight 72.57 kg; cm10 Height 5 ft. 4 in. ; Pain 0/10; 19:07 BP 171 / 72; Pulse 87; Resp 18; Pulse Ox 97% on R/A; rg5 17:23 Body Mass Index 27.46 (72.57 kg, 162.56 cm) cm10 17:23 Pain Scale: Adult cm10 MDM: 17:25 Medical Screening Exam initiated ec2 17:43 Data reviewed: vital signs, nurses notes. ED course: Patient arrives today for reported ec2 shortness of breath. Examination is unrevealing. Will obtain a cardiac workup and chest x-ray.. 18:11 ED course: EKG independently reviewed and interpreted by me, shows normal sinus rhythm, ec2 rate of 98, no acute ST segment elevations, intervals are nonactionable.. 18:12 ED course: EKG independently reviewed and interpreted by me, shows normal sinus rhythm, ec2 rate of 98, no acute ST segment elevations, intervals are nonactionable.. 19:04 ED course: Metabolic profile shows renal dysfunction with creatinine of 2.56. Troponin ec2 elevated at 71. BNP markedly elevated at 59,000. Chest x-ray shows interstitial edema. Will give the patient full dose aspirin, start the patient on a heparin drip, Lasix as well. Will admit for further cardiac workup. Discussed with hospitalist who will admit.. 04/11 17:42 Order name: Basic Metabolic Panel; Complete Time: 19:03 ec2 04/11 17:42 Order name: CBC with Diff; Complete Time: 18:25 ec2 04/11 17:42 Order name: Troponin HS; Complete Time: 19:03 ec2 04/11 17:42 Order name: BNP; Complete Time: 19:03 ec2 04/11 17:42 Order name: Influenza Screen (a \T\ B); Complete Time: 18:38 ec2 04/11 17:42 Order name: SARS RAPID; Complete Time: 18:38 ec2 04/11 19:16 Order name: Ptt, Activated; Complete Time: 14:05 ec2 04/11 19:16 Order name: PT-INR; Complete Time: 14:05 ec2 04/11 19:35 Order name: Urinalysis w/ reflexes EDMS 04/11 19:35 Order name: CBC with Automated Diff EDMS 04/11 19:35 Order name: CBC with Automated Diff; Complete Time: 14:05 EDMS 04/11 19:35 Order name: Comprehensive Metabolic Panel EDMS 04/11 19:35 Order name: Comprehensive Metabolic Panel; Complete Time: 14:05 EDMS 04/11 19:35 Order name: Troponin High Sensitivity EDMS 04/11 19:35 Order name: Troponin High Sensitivity; Complete Time: 14:05 EDMS 04/11 19:35 Order name: Troponin High Sensitivity; Complete Time: 14:05 EDMS 04/11 19:35 Order name: Troponin High Sensitivity; Complete Time: 14:05 EDMS 04/11 23:36 Order name: Urinalysis W/Microscopic; Complete Time: 14:05 EDMS 04/12 01:55 Order name: PTT, Activated Partial Thromb; Complete Time: 14:05 EDMS 04/12 05:39 Order name: Ptt, Activated lg3 04/12 06:35 Order name: PTT, Activated Partial Thromb; Complete Time: 14:05 EDMS 04/12 08:09 Order name: Glucose, Ancillary Testing; Complete Time: 14:05 EDMS 04/11 17:42 Order name: XRAY Chest (1 view); Complete Time: 18:27 ec2 04/11 17:42 Order name: EKG; Complete Time: 17:42 ec2 04/11 17:42 Order name: Cardiac monitoring; Complete Time: 18:07 ec2 04/11 17:42 Order name: EKG - Nurse/Tech; Complete Time: 18:08 ec2 04/11 17:42 Order name: IV Saline Lock; Complete Time: 18:08 ec2 04/11 17:42 Order name: Labs collected and sent; Complete Time: 18:08 ec2 04/11 17:42 Order name: O2 Per Protocol; Complete Time: 18:08 ec2 04/11 17:42 Order name: O2 Sat Monitoring; Complete Time: 18:08 ec2 Administered Medications: 19:24 Drug: Aspirin PO Chewable Tablet 324 mg PO once; 81 mg tablets x 4 Route: PO; rg5 20:30 Follow up: Response: No adverse reaction rg5 19:24 Drug: Furosemide IVP 40 mg IVP once; give over 2 minutes Route: IVP; Site: right rg5 antecubital; 20:30 Follow up: Response: No adverse reaction rg5 19:55 Drug: Heparin (DC Drip) 12 units/kg/[place] - ([place] [address] units, D5W IV 500 ml) IV at rg5 calculated rate Per protocol; Max initial rate 1000 units/hr {Co-Signature: lg3 (Radhika Clayton RN).} Route: IV; Rate: calculated rate; Site: right antecubital; 04/12 02:00 Follow up: Rate change 671 units/hr rg5 Disposition: 04/11 19:13 Critical Care:. ec2 Disposition Summary: 04/11/24 19:13 Hospitalization Ordered Notes: Hospitalization Status: Inpatient Admission ec2 Provider: Narinder Villafana ec2 Condition: Fair ec2 Problem: new ec2 Symptoms: have improved ec2 Bed/Room Type: Standard ec2 Location: Telemetry/MedSurg (observation)(04/12/24 13:24) 6 Room Assignment: [facility](04/12/24 13:24) [facility] Diagnosis - Heart failure, unspecified ec2 - NSTEMI ec2 Forms: - Medication Reconciliation Form ec2 - SBAR form ec2 - Leadership Thank You Letter ec2 Critical care time excluding procedures: 19:13 Critical care time: Bedside Care: 30 minutes, Consultation: 5 minutes. Total time: 35 ec2 minutes Signatures: Dispatcher [employer] EDNikki Christian rv1 Nupur Faulkner bc6 Sheri Chairez RN RN cm10 Yevgeniy Phillips MD MD ec2 Marco A Peterson RN RN rg5 Radhika Clayton RN lg3 Corrections: (The following items were deleted from the chart) 17:42 17:42 BASIC METABOLIC PANEL+C.LAB.BRZ ordered. EDMS EDMS 17:42 17:42 CBC+H.LAB.BRZ ordered. EDMS EDMS 17:42 17:42 Troponin High Sensitivity+C.LAB.BRZ ordered. EDMS EDMS 17:42 17:42 PROBNP+C.LAB.BRZ ordered. EDMS EDMS 17:42 17:42 Influenza Screen (A \T\ B)+BA.LAB.BRZ ordered. EDMS EDMS 17:42 17:42 SARS-COV-2 Antigen Rapid+I.LAB.BRZ ordered. EDMS EDMS 19:31 19:13 Telemetry/MedSurg (Inpatient) ec2 rv1 :31 19:13 ec2 rv1 22:46 22:46 Urinalysis W/Microscopic+U.LAB.DENEEN ordered. EDMS EDMS 04/12 13:24 04/11 19:31 [facility] ER HOLD rv1 bc6 04/12 13:24 04/11 19:31 ERHOLD- rv1 bc6
[2024-04-11] MEDS ORDERED: FUROSEMIDE 40 MG/4 ML VIAL ONE ×2 (19:18→22:10)
[2024-04-11] MEDS ORDERED: ASPIRIN EC 81 MG TAB PO ONE ×2 (19:18→19:19)
[2024-04-11] MEDS ORDERED: HEPARIN/D5W 25,000 UNIT/500 ML BAG IV ONE (19:19)
[2024-04-11] MEDS ORDERED: ONDANSETRON 4 MG/2 ML VIAL IV PRN (19:29)
[2024-04-11] MEDS ORDERED: ALBUTEROL 2.5 MG/3 ML NEB SOL NEB PRN ×2 (19:29)
--- NOTE | 2024-04-11 19:29 | P.HP ---
Certification for Inpatient Patient admitted to: Inpatient With expected LOS: >2 Midnights Practitioner: I am a practitioner with admitting privileges, knowledge of patient current condition, hospital course, and medical plan of care. Services: Services provided to patient in accordance with Admission requirements found in Title 42 Section 412.3 of the Code of Federal Regulations Patient History Date of Service: 04/12/24 Reason for admission: SOB History of Present Illness: 78 yrs old Female with past medical history of diabetes, GERD, hypertension, hyperlipidemia, CKD stage II, history of cholecystectomy who was brought to ER with shortness of breath which has been going on for the last 1 month and has been worsened over the last 2 days. Patient apparently had blaming the fire place for the shortness of breath. Denies any chest pain. Chest discomfort going on for the last 1 month since [place] time. Shortness of breath worsens with minimal ambulation. Also associated with the swelling of the bilateral lower extremities. Patient denies any fever or chills. Patient was assessed in the ER and is admitted for further management of CHF exacerbation Allergies Penicillins Allergy (Unknown, Verified 02/13/18 10:24) [facility] Home medications list reviewed: Yes Home Medications: Acetaminophen 500 mg PO PRN PRN 05/14/22 Amlodipine [Norvasc*] 10 mg PO DAILY 05/14/22 Levothyroxine Sodium 75 mcg PO DAILY 05/14/22 Omeprazole 20 mg PO DAILY PRN 05/14/22 Pravastatin Sodium 80 mg PO BEDTIME 05/14/22 Venlafaxine HCl [Effexor Xr] 150 mg PO DAILY 05/14/22 oxyBUTYnin chloride [Oxybutynin Chloride] 5 mg PO DAILY 05/14/22 Ascorbic Acid [Vitamin C] 1,000 mg PO DAILY 12/20/23 Cholecalciferol (Vitamin D3) [Vitamin D3] 125 mcg PO DAILY 12/20/23 Dapagliflozin Propanediol [Farxiga] 5 mg PO DAILY 12/20/23 Ferrous Gluconate [Iron] 65 mg PO DAILY 12/20/23 Calcium Acetate [Phoslo*] 1 cap PO TIDWM #90 cap 12/24/23 Ciprofloxacin HCl [Cipro 500 MG Tablet] 500 mg PO DAILY #10 tab 12/24/23 Magnesium Chloride [Slow-Mag*] 128 mg PO BID #10 tab 12/24/23 Na Bicarb Tab [Sodium Bicarb 325 MG Tab*] 650 mg PO DAILY #60 tab 12/24/23 Metoprolol Tartrate [Lopressor] 50 mg PO BID #60 tab 12/25/23 Ondansetron [Zofran] 4 mg PO Q6H PRN #20 tab 12/25/23 - Past Medical/Surgical History Diabetic: Yes Past Medical History: Reviewed- Non-Contributory -: DM II -: HTN -: CKD IV with Proteinuria (Dr. Maurer/ James) -: GERD -: HLD -: Anemia/ Iron Deficiency -: HypoTSH Past Surgical History: Reviewed- Non-Contributory Psychosocial/ Personal History: Patient is . - Social History Smoking Status: Former smoker Alcohol use: No CD- Drugs: No Caffeine use: Yes Review of Systems 10-point ROS is otherwise unremarkable Physical Examination - Vital Signs Temperature: 97.8 F Blood Pressure: 110/66 Pulse: 70 Respirations: 18 Pulse Ox (%): 94 - Physical Exam General: Alert, In no apparent distress, Oriented x3 HEENT: Atraumatic, Normocephalic Neck: Supple, JVD distended Respiratory: Clear to auscultation bilaterally, Normal air movement Cardiovascular: Regular rate/rhythm, Normal S1 S2 Capillary refill: <2 Seconds Gastrointestinal: Soft and benign, W/out hepatosplenomegaly Musculoskeletal: No clubbing, Swelling Integumentary: No rashes, No breakdown Neurological: Normal gait, Normal speech Lymphatics: No axilla or inguinal lymphadenopathy - Studies Laboratory Data (last 24 hrs) 04/11/24 04/11/24 18:04 18:04 WBC 5.80 Hgb 11.6 L Hct 36.3 Plt Count 289 Sodium 141 Potassium 3.7 BUN 26 H Creatinine 2.56 H Glucose 188 H Microbiology Data (last 24 hrs): 04/11/24 18:04 Nasopharnyx Influenza Type A Antigen Screen - Final 04/11/24 18:04 Nasopharnyx Influenza Type B Antigen Screen - Final Assessment and Plan - Plan Acute on chronic CHF possibly systolic/diastolic Monitor closely on telemetry Started on diuresis X-ray findings consistent with CHF Oxygen supplementation Will try to wean down oxygen requirement Will obtain an echocardiogram Cardiology consult NSTEMI possibly type II Will trend cardiac enzymes Will monitor telemetry Started on aspirin and statin EKG did not show any acute changes suggestive of ischemia Patient denies any chest pain Cardiology consult Hypertension Antihypertensives titrated Continue home medications and titrate as needed Hyperlipidemia Continue statin CKD stage III Monitor renal parameters Electrolytes monitor and replace accordingly Diabetes Insulin sliding scale Accu-Chek before every meal and at bedtime GI/DVT prophylaxis Advanced directive full code Discharge Plan: Home Plan to discharge in: 48 Hours - Advance Directives Does patient have a Living Will: No Does patient have a Durable POA for Healthcare: No - Code Status/Comfort Care Code Status: Full Code Time Spent Managing Pts Care (In Minutes): 48
[2024-04-11 19:43] LABS: PTT, Activated Partial Thromb 33.4 SECONDS (24.3-36.9); Protime INR 1.14
[2024-04-11] MEDS: IPRATROPIUM BROM 0.5MG/2.5ML NEB SCH (20:00)
[2024-04-11] MEDS ORDERED: IPRATROPIUM BROM 0.5MG/2.5ML ONE (20:29)
[2024-04-11 21:01] VITALS: BMI 27.4
[2024-04-11] MEDS: ASPIRIN EC 81 MG TAB PO SCH (21:47)
[2024-04-11] MEDS ORDERED: ATORVASTATIN 40 MG TAB ONE (22:10)
[2024-04-11] MEDS ORDERED: HEPARIN 5000 UNIT/ML 1 ML VIAL ONE (22:10)
[2024-04-11] MEDS: HEPARIN 5000 UNIT/ML 1 ML VIAL SQ SCH (22:19)
[2024-04-11] MEDS: FUROSEMIDE 40 MG/4 ML VIAL IV SCH (22:20)
[2024-04-11] MEDS: ATORVASTATIN 40 MG TAB PO SCH (22:20)
[2024-04-11 23:35] LABS: Specific Gravity 1.006 (1.005-1.030); Sqamous Epithelial <5 /HPF (None Seen); Urine Bacteria None Seen /HPF (<20); Urine Bilirubin NEGATIVE (Negative); Urine Blood Negative (Negative); Urine Clarity Clear (Clear); Urine Color Colorless (Yellow); Urine Culture Reflex Order NOT NEEDED; Urine Glucose 2+ (Negative); Urine Ketones NEGATIVE (Negative); Urine Micro Reflex YN NO BILL MICROSCOPIC; Urine Mucus Slight /HPF (None Seen); Urine Nitrite NEGATIVE (Negative); Urine Protein TRACE (Negative); Urine RBC <5 /HPF (None Seen); Urine Urobilinogen Normal (Normal); Urine WBC <5 /HPF (<5)
[2024-04-12] MEDS ORDERED: ACETAMINOPHEN 325 MG TABLET ONE (03:09)
[2024-04-12] MEDS: ACETAMINOPHEN 325 MG TABLET PO PRN (03:16)
[2024-04-12 06:26] LABS: Absolute Basophils 0.1 K/uL (0-0.5); Absolute Eosinophils 0.2 K/uL (0-0.5); Absolute Lymphocytes (CBC) 1.9 K/uL (0.7-4.9); Absolute Monocytes 0.4 K/uL (0.1-1.3); Absolute Neutrophil 3.8 K/uL (1.8-8.0); Basophils % 0.8 % (0-1.3); Eosinophils % 3.8 % (0-4.4); Hematocrit 31.6 % (36.0-45.0); Hemoglobin 10.6 g/dL (12.0-15.0); MCH 29.8 pg (27.0-35.0); MCHC 33.5 g/dL (32.0-36.0); MPV 8.6 fL (7.6-11.3); Monocytes % 6.4 % (3.3-12.3); Nucleated Red Blood Cells % 0.1 % (0-0); Platelets 232 thou/uL (152-406); RBC Red Blood Cell Count 3.54 M/uL (3.86-4.86); Red Cell Distribution Width 14.7 % (12.1-15.2)
[2024-04-12 06:39] LABS: Albumin 2.9 g/dL (3.4-5.0); Albumin/Globulin Ratio 0.9 (1.1-1.8); Anion Gap 11.2 mEq/L (5.0-15.0); Bilirubin Total 0.2 mg/dL (0.2-1.0); Globulin 3.2 g/dL (2.3-3.5); Potassium 3.2 mEq/L (3.5-5.1); Protein, Total 6.1 g/dL (6.4-8.2)
[2024-04-12] MEDS ORDERED: IPRATROPIUM BROM 0.5MG/2.5ML ONE (06:41)
[2024-04-12] MEDS: FLU (Fluarix Triv) TS24-25(6MOS UP)/PF 45 MCG/0.5 ML Syringe IM ONE (07:15)
[2024-04-12] MEDS ORDERED: FUROSEMIDE 40 MG/4 ML VIAL ONE (09:57)
[2024-04-12] MEDS ORDERED: ASPIRIN EC 81 MG TAB PO ONE (09:57)
[2024-04-12] MEDS: AMLODIPINE 10 MG TAB PO SCH (10:10)
[2024-04-12] MEDS: METOPROLOL TAR 50 MG TAB PO SCH (10:11)
[2024-04-12] MEDS: HOME MED 1 EA UNK (Dapagliflozin Propanediol [Farxiga] 5 MG Tablet) PO SCH (10:11)
[2024-04-12] MEDS ORDERED: AMLODIPINE 10 MG TAB ONE (10:55)
[2024-04-12] MEDS ORDERED: METOPROLOL TAR 50 MG TAB ONE (10:55)
--- NOTE | 2024-04-12 19:01 | P.PN ---
Subjective Date of Service: 04/12/24 Chief Complaint: SOB Patient states she feels much better today. She reports significant improvement in her shortness of breath. She denies any chest pain. Physical Examination - Vital Signs Temperature: 98.0 F Blood Pressure: 148/73 Pulse: 63 Respirations: 16 Pulse Ox (%): 93 - Studies Laboratory Data (last 24 hrs) 04/11/24 19:28 PT 12.0 INR 1.14 APTT 33.4 Microbiology Data (last 24 hrs): 04/11/24 18:04 Nasopharnyx Influenza Type A Antigen Screen - Final 04/11/24 18:04 Nasopharnyx Influenza Type B Antigen Screen - Final Assessment And Plan - Plan Physical examination General: Alert and oriented x3, NAD, HEENT: Conjunctiva not pale, anicteric sclera Neck: Supple, no elevated JVD Heart: Heart sounds 1 and 2 normal, regular rhythm, normal rate, no pedal edema Lungs: Mild bibasilar Rales, adequate breath sounds bilaterally, no rhonchi. Abdomen: Soft, nondistended, nontender, normal bowel sounds. Extremities: No tenderness, no deformity Skin: Normal skin turgor, no rash, no nodules or ulcers. Neuro: No focal motor deficit. Normal speech. Psychiatry: Normal mood, no agitation. Diagnosis Acute CHF-unknown EF NSTEMI Hypertension Chronic kidney disease stage III DM type II Plan Acute CHF NSTEMI Unknown EF. Troponin mildly elevated and trended flat. Elevated troponin likely secondary to demand ischemia. Patient's symptoms improved with IV lasix. Continue lasix. Echocardiogram done and the result is pending. Cardiology consult. Aspirin and statin Monitor on telemetry Essential hypertension Continue amlodipine and metoprolol Hydralazine IV as needed for BP spikes. Hyperlipidemia Continue statin Check lipid profile. CKD stage III Monitor renal function. Nephrology consult. Diabetes Insulin sliding scale GI/DVT prophylaxis Advanced directive full code Discharge Plan: Home
[2024-04-12] MEDS: ATORVASTATIN 10 MG TAB PO SCH (20:44)
[2024-04-12] MEDS: MAGNESIUM CHLORIDE 64 MG TAB PO SCH (20:44)
[2024-04-12] MEDS ORDERED: HOME MED 1 EA UNK (Pravastatin Sodium [Pravastatin Sodium] 40 MG Tablet) PO SCH (21:00)
--- NOTE | 2024-04-12 21:54 | P.CNS ---
Date of Consult: 04/12/24 Reason for Consult: CKD IV Requesting Physician: arelis wolff Chief Complaint: SOB History of Present Illness: 78 yrs old Female with past medical history of diabetes, GERD, hypertension, hyperlipidemia, CKD stage II, history of cholecystectomy who was brought to ER with shortness of breath which has been going on for the last 1 month and has been worsened over the last 2 days. Patient apparently had blaming the fire p lace for the shortness of breath. Denies any chest pain. Chest discomfort going on for the last 1 month since [place] time. Shortness of breath worsens with minimal ambulation. Also associated with the swelling of the bilateral lower extremities. Patient denies any fever or chills. Patient was assessed in the ER and is admitted for further management of CHF exacerbation. 17:43 This 78 yrs old Female presents to ER via Ambulatory with complaints of ec2 Breathing Difficulty - x2wks. 17:43 Patient arrives today for evaluation of breathing difficulty ongoing for 1 month. ec2 States around [place] started having some shortness of breath. Family concerned this is likely anxiety. Denies any chest pain. Denies any abdominal pain, no vomiting, no fevers, no chills. Allergies Penicillins Allergy (Unknown, Verified 02/13/18 10:24) Hives Home medications list reviewed: Yes Home Medications: Acetaminophen 500 mg PO PRN PRN 05/14/22 Amlodipine [Norvasc*] 10 mg PO DAILY 05/14/22 Levothyroxine Sodium 75 mcg PO DAILY 05/14/22 Omeprazole 20 mg PO DAILY 05/14/22 Pravastatin Sodium 80 mg PO BEDTIME 05/14/22 Venlafaxine HCl [Effexor Xr] 75 mg PO BEDTIME 05/14/22 oxyBUTYnin chloride [Oxybutynin Chloride] 5 mg PO DAILY 05/14/22 Ascorbic Acid [Vitamin C] 1,000 mg PO DAILY 12/20/23 Cholecalciferol (Vitamin D3) [Vitamin D3] 125 mcg PO DAILY 12/20/23 Dapagliflozin Propanediol [Farxiga] 5 mg PO DAILY 12/20/23 Ferrous Gluconate [Iron] 65 mg PO DAILY 12/20/23 Calcium Acetate [Phoslo*] 1 cap PO TIDWM #90 cap 12/24/23 Ciprofloxacin HCl [Cipro 500 MG Tablet] 500 mg PO DAILY #10 tab 12/24/23 Magnesium Chloride [Slow-Mag*] 128 mg PO BID #10 tab 12/24/23 Na Bicarb Tab [Sodium Bicarb 325 MG Tab*] 650 mg PO DAILY #60 tab 12/24/23 Metoprolol Tartrate [Lopressor] 50 mg PO BID #60 tab 12/25/23 Ondansetron [Zofran] 4 mg PO Q6H PRN #20 tab 12/25/23 - Past Medical/Surgical History Diabetic: Yes -: DM II -: HTN -: CKD IV with Proteinuria (Dr. Maurer/ James) -: GERD -: HLD -: Anemia/ Iron Deficiency -: HypoTSH Psychosocial/ Personal History: Patient is . - Social History Smoking Status: Former smoker Alcohol use: No CD- Drugs: No Caffeine use: Yes Review of Systems 10-point ROS is otherwise unremarkable Respiratory: SOB with Excertion Physical Examination Temp Pulse Resp BP Pulse Ox 98.0 F 63 16 138/65 95 04/12/24 20:00 04/12/24 20:44 04/12/24 20:00 04/12/24 20:44 04/12/24 20:00 General: In no apparent distress, Oriented x3, Cooperative HEENT: Atraumatic Neck: Supple Respiratory: Clear to auscultation bilaterally Cardiovascular: No edema, Regular rate/rhythm Gastrointestinal: Soft and benign, Non-distended Musculoskeletal: No clubbing, No contractures Integumentary: No rashes, No cyanosis Neurological: Normal speech Blood work reviewed in the chart. Imagings Data: EXAM: Chest Single View HISTORY: COUGH COMPARISON: 06/01/2022 FINDINGS: LUNGS/PLEURA: Mild prominence of the pulmonary interstitium. MEDIASTINUM: The mediastinal silhouette is within normal limits. CARDIAC: Mild cardiomegaly UPPER ABDOMEN: No significant abnormality. BONES: No acute abnormality. LINES/TUBES/OTHER: N/A IMPRESSION: Suspect mild interstitial edema. No consolidative airspace disease. Conclusions/Impression: CKD IV with Proteinuria -No NSAIDs Hypokalemia -Replete prn Metabolic Acidosis -Start sodium bicarbonate Hypomagnesemia -Continue Slo-Mag HTN with CKD/ CHF -Continue Amlodipine Diastolic CHF, A/C -Continue furosemide -Continue farxiga Hypoalbuminemia -Start Nepro Anemia in chronic illness/ CKD -Monitor H&H -Retacrit prn Thank you kindly for the consultation
[2024-04-13] MEDS: LEVOTHYROXINE SOD 0.075 MG TAB PO SCH (06:39)
[2024-04-13 07:19] LABS: Absolute Basophils 0.1 K/uL (0-0.5); Absolute Eosinophils 0.4 K/uL (0-0.5); Absolute Lymphocytes (CBC) 1.8 K/uL (0.7-4.9); Absolute Monocytes 0.5 K/uL (0.1-1.3); Absolute Neutrophil 3.9 K/uL (1.8-8.0); Basophils % 1.2 % (0-1.3); Eosinophils % 5.6 % (0-4.4); Hematocrit 35.7 % (36.0-45.0); Hemoglobin 11.8 g/dL (12.0-15.0); Lymphocytes % 27.1 % (15.3-44.8); MCH 29.4 pg (27.0-35.0); MCHC 33.2 g/dL (32.0-36.0); MCV 88.5 fL (80-100); MPV 8.7 fL (7.6-11.3); Monocytes % 7.9 % (3.3-12.3); Neutrophils % 58.2 % (41.7-73.7); Nucleated Red Blood Cells % 0.1 % (0-0); Platelets 242 thou/uL (152-406); RBC Red Blood Cell Count 4.03 M/uL (3.86-4.86); Red Cell Distribution Width 14.2 % (12.1-15.2)
[2024-04-13 07:37] LABS: Anion Gap 11.2 mEq/L (5.0-15.0); Magnesium 1.7 mg/dL (1.6-2.4); Phosphorus 4.3 mg/dL (2.5-4.9); Potassium 3.2 mEq/L (3.5-5.1); Uric Acid 7.5 mg/dL (2.6-6.0)
[2024-04-13] MEDS: POTASSIUM 25 MEQ EFFERV TAB PO ONE (08:36)
[2024-04-13] MEDS: MAGNESIUM SULFATE 1 gm IVPB 1 GM/100 ML BAG IV ONE (08:37)
[2024-04-13] MEDS: VITAMIN D 1000 UNIT TAB PO SCH (08:37)
[2024-04-13] MEDS: SODIUM BICARB 325 MG TAB PO SCH ×2 (08:38→16:41)
[2024-04-13] MEDS: DOCUSATE NA 100 MG CAP PO SCH (08:38)
[2024-04-13] MEDS: DRISDOL (VITAMIN D=ERGOCALCIFEROL) 50000 UNIT CAP PO SCH (08:38)
[2024-04-13] MEDS: NEPRO SHAKE 237 ML CAN PO SCH (08:44)
[2024-04-13 09:44] VITALS: O2SAT 98
--- NOTE | 2024-04-13 11:03 | P.PN ---
Date of Service: 04/13/24 Vital Signs Temp Pulse Resp BP Pulse Ox 97.5 F 58 16 158/62 H 98 04/13/24 08:00 04/13/24 08:42 04/13/24 08:00 04/13/24 08:42 04/13/24 08:00 Medications Acetaminophen (Acetaminophen 325 Mg Tablet) 650 mg PO Q4HP PRN PRN Reason: TEMP > 100' F Last Admin: 04/13/24 03:43 Dose: 650 mg Albuterol Sulfate (Albuterol 2.5 Mg/3 Ml Neb Lakesha) 2.5 mg NEB Q3HP PRN PRN Reason: SHORTNESS OF BREATH Amlodipine Besylate (Amlodipine 10 Mg Tab) 10 mg PO DAILY [facility] Last Admin: 04/13/24 08:39 Dose: 10 mg Aspirin (Aspirin Ec 81 Mg Tab) 81 mg PO DAILY [facility] Last Admin: 04/13/24 08:43 Dose: 81 mg Atorvastatin Calcium (Atorvastatin 10 Mg Tab) 10 mg PO BEDTIME [facility] Last Admin: 04/12/24 20:44 Dose: 10 mg Cholecalciferol (Vitamin D 1000 Unit Tab) 5,000 unit PO DAILY [facility] Last Admin: 04/13/24 08:37 Dose: 5,000 unit Docusate Sodium (Docusate Na 100 Mg Cap) 100 mg PO BID [facility] Last Admin: 04/13/24 08:38 Dose: 100 mg Enteral Nutritional Formula (Nepro Shake 237 Ml Can) 237 ml PO TID [facility] Last Admin: 04/13/24 08:44 Dose: 237 ml Ergocalciferol (Drisdol (Vitamin D=Ergocalciferol) 54874 Unit Cap) 50,000 unit PO DAILY [facility] Stop: 04/14/24 09:01 Last Admin: 04/13/24 08:38 Dose: 50,000 unit Furosemide (Furosemide 40 Mg/4 Ml Vial) 40 mg IV BIDL [facility] Last Admin: 04/13/24 08:38 Dose: 40 mg Heparin Sodium (Porcine) (Heparin 5000 Unit/Ml 1 Ml Vial) 5,000 unit SQ Q12HR [facility] Last Admin: 04/13/24 08:44 Dose: 5,000 unit Home Med (Dapagliflozin Propanediol [Farxiga]) 5 mg PO DAILY [facility] Last Admin: 04/13/24 08:43 Dose: Not Given Ipratropium Severy (Ipratropium Brom 0.5mg/2.5ml) 0.5 mg NEB [id number] [facility] Last Admin: 04/13/24 07:00 Dose: Not Given Levothyroxine Sodium (Levothyroxine Sod 0.075 Mg Tab) 0.075 mg PO DAILYAC [facility] Last Admin: 04/13/24 06:39 Dose: 0.075 mg Magnesium Chloride (Magnesium Chloride 64 Mg Tab) 128 mg PO BID [facility] Last Admin: 04/13/24 08:43 Dose: 128 mg Metoprolol Tartrate (Metoprolol Tar 50 Mg Tab) 50 mg PO BID [facility] Last Admin: 04/13/24 08:42 Dose: Not Given Ondansetron HCl (Ondansetron 4 Mg/2 Ml Vial) 4 mg IV Q6HP PRN PRN Reason: NAUSEA / VOMITING Sodium Bicarbonate (Sodium Bicarb 325 Mg Tab) 650 mg PO TIDWM [facility] Last Admin: 04/13/24 08:38 Dose: 650 mg Microbiology Results 04/11/24 18:04 Nasopharnyx Influenza Type A Antigen Screen - Final 04/11/24 18:04 Nasopharnyx Influenza Type B Antigen Screen - Final Assessment/ Plan: Nephrology Progress Note No Dyspnea No Chest Pain No Acute Events Overnight Vital Signs, Medications, Blood Work, and Imaging reviewed in the chart Assessment & Plan General: In no apparent distress, Oriented x3, Cooperative HEENT: Atraumatic Neck: Supple Respiratory: Clear to auscultation bilaterally Cardiovascular: No edema, Regular rate/rhythm Gastrointestinal: Soft and benign, Non-distended Musculoskeletal: No clubbing, No contractures Integumentary: No rashes, No cyanosis Neurological: Normal speech Blood work reviewed in the chart. Imagings Data: EXAM: Chest Single View HISTORY: COUGH COMPARISON: 06/01/2022 FINDINGS: LUNGS/PLEURA: Mild prominence of the pulmonary interstitium. MEDIASTINUM: The mediastinal silhouette is within normal limits. CARDIAC: Mild cardiomegaly UPPER ABDOMEN: No significant abnormality. BONES: No acute abnormality. LINES/TUBES/OTHER: N/A IMPRESSION: Suspect mild interstitial edema. No consolidative airspace disease. Conclusions/Impression: CKD IV with Proteinuria -No NSAIDs Hypokalemia -Replete as ordered Metabolic Acidosis -Reduce sodium bicarbonate Hypomagnesemia -Continue Slo-Mag HTN with CKD/ CHF -Continue Amlodipine Diastolic CHF, A/C -Continue furosemide -Continue farxiga Hypoalbuminemia -Continue Nepro Anemia in chronic illness/ CKD -Monitor H&H -Retacrit prn Hospitalist note reviewed
--- NOTE | 2024-04-13 12:59 | EKG ---
Test Date: 2024-04-11 Test Time: 17:55:45 Card Hanger: LELIA MEASUREMENT RESULTS: Intervals: Rate: 98 FL: 180 QRSD: 84 QT: 374 QTc: 477 [place]: P: 82 FL: 180 QRS: 79 T: 164 INTERPRETIVE STATEMENTS: Normal sinus rhythm Septal infarct, age undetermined T wave abnormality, consider lateral ischemia Abnormal ECG Compared to ECG 03/21/2008 02:43:08 Myocardial infarct finding now present T-wave abnormality now present Possible ischemia now present Electronically Signed On 04-13-24 12:58:17 POST ANESTHESIA CARE UNIT NURSE by Jamie Ford
--- NOTE | 2024-04-13 14:03 | ECHO ---
HEIGHT: 5 ft 4 in WEIGHT: 159 lb 15.831 oz DATE OF STUDY: 04/12/[address]: Freddie Villafana 2-DIMENSIONAL: YES M.MODE: YES DOPPLER: YES COLOR FLOW: YES TDS: NO PORTABLE: YES DEFINITY: NO BUBBLE STUDY: NO DIAGNOSIS: CONGESTIVE HEART FAILURE CARDIAC HISTORY: CATHERIZATION: NO SURGERY: NO PROSTHETIC VALVE: NO PACEMAKER: NO MEASUREMENTS (cm) DIASTOLIC (NORMALS) SYSTOLIC (NORMALS) IVSd 1.1 (0.6-1.2) LA Diam 4.5 (1.9-4.0) LVEF 50-55% LVIDd 5.0 (3.5-5.7) LVIDs 4.2 (2.0-3.5) %FS 15% LVPWd 1.1 (0.6-1.2) Ao Diam 2.5 (2.0-3.7) 2 DIMENSIONAL ASSESSMENT: RIGHT ATRIUM: NORMAL LEFT ATRIUM: NORMAL RIGHT VENTRICLE: NORMAL LEFT VENTRICLE: NORMAL TRICUSPID VALVE: MILD TRICUSPID REGURGITATION MITRAL VALVE: MILD MITRAL REGURGITATION PULMONIC VALVE: NORMAL AORTIC VALVE: CALCIFIED PERICARDIAL EFFUSION: SMALL CIRCUMFENTIAL AORTIC ROOT: NORMAL LEFT VENTRICULAR WALL MOTION: NORMAL. DOPPLER/COLOR FLOW: DIASTOLIC DYSFUNCTION. COMMENTS: 1. LOW NORMAL LEFT VENTRICULAR SYSTOLIC FUNCTION. LEFT VENTRICULAR EJECTION FRACTION 50-55%. NORMAL WALL MOTION. 2. DIASTOLIC DYSFUNCTION. 3. MODERATE AORTIC VALVE STENOSIS WITH MODERATE AORTIC REGURGITATION. 4. MILD MITRAL REGURGITATION. 5. MILD PULMONARY HYPERTENSION. RIGHT VENTRICULAR SYSTOLIC PRESSURE 40-45 mmHg. 6. NORMAL FILLING PRESSURES. TECHNOLOGIST: MATEUSZ QUIROZ
--- NOTE | 2024-04-13 17:06 | P.CNS ---
Date of Consult: 04/13/24 Chief Complaint: SOB History of Present Illness: Patient with PMH of HTN, CKD presented with worsening SOB for last few weeks and MG, associated with BLE, denies chest pain, no palpitations, no syncope. Allergies Penicillins Allergy (Unknown, Verified 02/13/18 10:24) Hives Home medications list reviewed: Yes Home Medications: Acetaminophen 500 mg PO PRN PRN 05/14/22 Amlodipine [Norvasc*] 10 mg PO DAILY 05/14/22 Levothyroxine Sodium 75 mcg PO DAILY 05/14/22 Omeprazole 20 mg PO DAILY 05/14/22 Pravastatin Sodium 80 mg PO BEDTIME 05/14/22 Venlafaxine HCl [Effexor Xr] 75 mg PO BEDTIME 05/14/22 oxyBUTYnin chloride [Oxybutynin Chloride] 5 mg PO DAILY 05/14/22 Ascorbic Acid [Vitamin C] 1,000 mg PO DAILY 12/20/23 Cholecalciferol (Vitamin D3) [Vitamin D3] 125 mcg PO DAILY 12/20/23 Dapagliflozin Propanediol [Farxiga] 5 mg PO DAILY 12/20/23 Ferrous Gluconate [Iron] 65 mg PO DAILY 12/20/23 Calcium Acetate [Phoslo*] 1 cap PO TIDWM #90 cap 12/24/23 Ciprofloxacin HCl [Cipro 500 MG Tablet] 500 mg PO DAILY #10 tab 12/24/23 Magnesium Chloride [Slow-Mag*] 128 mg PO BID #10 tab 12/24/23 Na Bicarb Tab [Sodium Bicarb 325 MG Tab*] 650 mg PO DAILY #60 tab 12/24/23 Metoprolol Tartrate [Lopressor] 50 mg PO BID #60 tab 12/25/23 Ondansetron [Zofran] 4 mg PO Q6H PRN #20 tab 12/25/23 - Past Medical/Surgical History Diabetic: Yes -: DM II -: HTN -: CKD IV with Proteinuria (Dr. Maurer/ [place]) -: GERD -: HLD -: Anemia/ Iron Deficiency -: HypoTSH Psychosocial/ Personal History: Patient is . - Social History Smoking Status: Former smoker Alcohol use: No CD- Drugs: No Caffeine use: Yes Review of Systems 10-point ROS is otherwise unremarkable Physical Examination Temp Pulse Resp BP Pulse Ox 97.8 F 61 16 125/56 L 94 04/13/24 16:00 04/13/24 16:39 04/13/24 16:00 04/13/24 16:39 04/13/24 16:00 General: Alert, In no apparent distress HEENT: Atraumatic, PERRLA, Mucous membr. moist/pink, EOMI, Sclerae nonicteric Neck: Supple, 2+ carotid pulse no bruit, No LAD, Without JVD or thyroid abnormality Respiratory: Clear to auscultation bilaterally, Normal air movement Cardiovascular: Regular rate/rhythm, Normal S1 S2 Gastrointestinal: Normal bowel sounds, No tenderness Musculoskeletal: No tenderness Integumentary: No rashes Neurological: Normal gait, Normal speech, Normal tone, Normal affect Lymphatics: No axilla or inguinal lymphadenopathy - Problems (1) Acute on chronic combined systolic (congestive) and diastolic (congestive) heart failure Current Visit: Yes Status: Acute Plan: Patient echo shows low normal LV systolic function with DD, normal filling pressure lower lasix to 40 mg po BID for 1 week then continue lasix 400 mg daily continue metoprolol 50 mg po BID patient kidney function is abnormal so will hold on SYLVAIN or ARB and aldactone continue home dose Farxiga outpatient follow up with cardiology for a stress test. (2) Elevated troponin Current Visit: Yes Status: Acute Plan: very mild elevation with no significant delta and trended back to normal, most likely type 2 VA from Heart failure outpatient stress test. (3) Hypertension Current Visit: No Status: Chronic Plan: adjust medications as above. Qualifiers: Hypertension type: primary hypertension Qualified Code(s): I10 - Essential (primary) hypertension
--- NOTE | 2024-04-13 18:55 | P.DS ---
Admission Date: 04/11/24 Discharge Date: 04/13/24 Disposition: ROUTINE DISCHARGE Discharge Condition: FAIR Reason for Admission: SOB Brief History of Present Illness: 78 yrs old Female with past medical history of diabetes, GERD, hypertension, hyperlipidemia, CKD stage II, was brought to ER with shortness of breath which has been going on for 1 month and has been worsened over the last 2 days. Patient also reported chest discomfort going on for the last 1 month since [place] time. Shortness of breath worsens with minimal ambulation. Also associated with the swelling of the bilateral lower extremities. Patient was assessed in the ER, chest x-ray suggested pulmonary vascular congestion, troponin mildly elevated. Patient was hospitalized for further management of CHF. Hospital Course: Diagnosis Acute diastolic heart failure NSTEMI Hypertension Chronic kidney disease stage III DM type II Patient admitted to the medical floor and the following medical problems addr essed: Acute diastolic heart failure NSTEMI Echocardiogram showed normal EF. Troponin mildly elevated and trended flat. Elevated troponin likely secondary to demand ischemia. Patient seen and evaluated by cardiology Dr. Ford Patient's symptoms improved with IV lasix. Patient also treated with aspirin and statin Patient respiratory symptoms resolved, she is ambulatory and currently asymptomatic. Patient deemed stable for discharge and outpatient follow-up with cardiology for arrangement for stress test. She is prescribed oral Lasix per cardiology recommendation Essential hypertension Continued amlodipine and metoprolol Hyperlipidemia Continued statin Check lipid profile. CKD stage III Stable kidney function Patient was evaluated by nephrology Dr. Maurer. Diabetes Managed with insulin sliding scale as inpatient. Home medication-Farga resumed on discharge. Vital Signs/Physical Exam: Temp Pulse Resp BP Pulse Ox 97.8 F 61 16 125/56 L 94 04/13/24 16:00 04/13/24 16:39 04/13/24 16:00 04/13/24 16:39 04/13/24 16:00 General: Alert, In no apparent distress, Oriented x3 HEENT: Mucous membr. moist/pink, Sclerae nonicteric Neck: Supple, JVD not distended Respiratory: Clear to auscultation bilaterally, Normal air movement Cardiovascular: No edema, Regular rate/rhythm, Normal S1 S2 Gastrointestinal: Normal bowel sounds, Soft and benign, Non-distended, No tenderness Musculoskeletal: No swelling Integumentary: No rashes, No cyanosis Neurological: Normal speech, Normal strength at 5/5 x4 extr Laboratory Data at Discharge: WBC 6.70 thou/uL (4.3-10.9) 04/13/24 06:56 Hgb 11.8 g/dL (12.0-15.0) L D 04/13/24 06:56 Hct 35.7 % (36.0-45.0) L 04/13/24 06:56 Plt Count 242 thou/uL (152-406) 04/13/24 06:56 PT 12.0 SECONDS (9.4-12.5) 04/11/24 19:28 INR 1.14 04/11/24 19:28 APTT 63.1 SECONDS (24.3-36.9) H 04/12/24 06:05 Sodium 139 mEq/L (136-145) 04/13/24 06:56 Potassium 3.2 mEq/L (3.5-5.1) L 04/13/24 06:56 BUN 38 mg/dL (7-18) H 04/13/24 06:56 Creatinine 2.87 mg/dL (0.55-1.02) H 04/13/24 06:56 Glucose 176 mg/dL (74-106) H 04/13/24 06:56 Uric Acid 7.5 mg/dL (2.6-6.0) H 04/13/24 06:56 Phosphorus 4.3 mg/dL (2.5-4.9) 04/13/24 06:56 Magnesium 1.7 mg/dL (1.6-2.4) 04/13/24 06:56 Total Bilirubin 0.2 mg/dL (0.2-1.0) 04/12/24 06:05 AST 13 U/L (15-37) L 04/12/24 06:05 ALT 15 U/L (13-56) 04/12/24 06:05 Alkaline Phosphatase 98 U/L (45-117) 04/12/24 06:05 Home Medications: Acetaminophen 500 mg PO PRN PRN 05/14/22 Amlodipine [Norvasc*] 10 mg PO DAILY 05/14/22 Levothyroxine Sodium 75 mcg PO DAILY 05/14/22 Omeprazole 20 mg PO DAILY 05/14/22 Pravastatin Sodium 80 mg PO BEDTIME 02/23/23 Venlafaxine HCl [Effexor Xr] 75 mg PO BEDTIME 05/14/22 oxyBUTYnin chloride [Oxybutynin Chloride] 5 mg PO DAILY 05/14/22 Ascorbic Acid [Vitamin C] 1,000 mg PO DAILY 12/20/23 Cholecalciferol (Vitamin D3) [Vitamin D3] 125 mcg PO DAILY 12/20/23 Dapagliflozin Propanediol [Farxiga] 5 mg PO DAILY 12/20/23 Ferrous Gluconate [Iron] 65 mg PO DAILY 12/20/23 Calcium Acetate [Phoslo*] 1 cap PO TIDWM #90 cap 12/24/23 Magnesium Chloride [Slow-Mag*] 128 mg PO BID #10 tab 12/24/23 Na Bicarb Tab [Sodium Bicarb 325 MG Tab*] 650 mg PO DAILY #60 tab 12/24/23 Metoprolol Tartrate [Lopressor*] 50 mg PO BID #60 tab 12/25/23 Ondansetron [Zofran (Odt)*] 4 mg PO Q6H PRN #20 tab 12/25/23 Docusate [Colace Cap*] 100 mg PO BID #60 cap 04/13/24 Furosemide [Lasix] 40 mg PO DAILY #37 tab 04/13/24 Vitamin D [Drisdol*] 50,000 unit PO EVERY 7TH DAY #4 cap 04/13/24 New Medications: Docusate [Colace Cap*] 100 mg PO BID #60 cap Vitamin D [Drisdol*] 50,000 unit PO EVERY 7TH DAY #4 cap Furosemide [Lasix] 40 mg PO DAILY #37 tab Diet: AHA Activity: Ad lorna Followup: Kelton Maurer DO [Primary Care Provider] - 1 Week Jamie Ford MD [ACTIVE - CAN ADMIT] - 1 Week (For arrangement for stress test.) Time spent managing pt's care (in minutes): 32
[2024-04-13 20:05] VITALS: BP 170/74
[2024-04-13 20:34] VITALS: TEMP 97.9
== END 2024-04-13 20:20 | disposition home or self-care (01) | DRG 280 ==
LOC: ER 17:11 → ERHOLD 19:29 → 4TH 04-12 13:54
PROVIDERS: ADMIT Family Medicine; ATTEND Internal Medicine
DX: I13.0 Hypertensive heart and chronic kidney disease with heart failure and stage 1 through stage 4 chronic kidney disease, or unspecified chronic kidney disease (principal); I50.33 Acute on chronic diastolic (congestive) heart failure; I21.A1 Myocardial infarction type 2; E87.20 Acidosis, unspecified; E11.22 Type 2 diabetes mellitus with diabetic chronic kidney disease; N18.30 Chronic kidney disease, stage 3 unspecified; Z79.4 Long term (current) use of insulin; K21.9 Gastro-esophageal reflux disease without esophagitis; E78.5 Hyperlipidemia, unspecified; Z90.49 Acquired absence of other specified parts of digestive tract; Z88.0 Allergy status to penicillin; E03.9 Hypothyroidism, unspecified; E87.6 Hypokalemia; E83.42 Hypomagnesemia; D63.1 Anemia in chronic kidney disease; E88.09 Other disorders of plasma-protein metabolism, not elsewhere classified
CPT/HCPCS: 36415; 71045; 80048; 80053; 81001; 82947; 83735; 83880; 84100; 84484; 84550; 85025; 85610; 85730; 87804; 87811; 93005; 93306; 94760; 96374; 96375; 99285; J1644; J1940; J3475; J7644

== ENCOUNTER 2024-05-23 13:25 | Inpatient (IN) | payer OTHER ==
[2024-05-23 14:16] LABS: Absolute Basophils 0.1 K/uL (0-0.5); Absolute Eosinophils 0.1 K/uL (0-0.5); Absolute Lymphocytes (CBC) 0.8 K/uL (0.7-4.9); Absolute Monocytes 0.6 K/uL (0.1-1.3); Absolute Neutrophil 8.2 K/uL (1.8-8.0); Basophils % 0.6 % (0-1.3); Eosinophils % 0.8 % (0-4.4); Hematocrit 27.6 % (36.0-45.0); Hemoglobin 9.3 g/dL (12.0-15.0); Lymphocytes % 8.6 % (15.3-44.8); MCH 29.4 pg (27.0-35.0); MCHC 33.5 g/dL (32.0-36.0); MCV 87.8 fL (80-100); MPV 7.4 fL (7.6-11.3); Nucleated Red Blood Cells % 0.1 % (0-0); Platelets 262 thou/uL (152-406); RBC Red Blood Cell Count 3.15 M/uL (3.86-4.86); Red Cell Distribution Width 14.6 % (12.1-15.2)
--- NOTE | 2024-05-23 14:25 | RAD REPORT ---
EXAMINATION: CT HEAD WITHOUT CONTRAST CT CERVICAL SPINE WITHOUT CONTRAST CLINICAL INDICATION: Female, 78 years old. fall, head injury TECHNIQUE: Axial CT images from the skull base to the vertex without intravenous contrast. Axial CT i mages through the cervical spine were obtained without intravenous contrast. Sagittal and coronal reformatted images were created from the data set. Coronal and sagittal reformatted images were creat ed from the data set. One or more of the following dose reduction techniques were used: Automated exposure control, adjustment of the mA and/or kV according to patient size, and/or iterative reconstr uction. Unless otherwise specified, incidental findings do not require dedicated imaging follow-up. [id number]. COMPARISON: No prior exam. FINDINGS: Head: INTRACRANIAL: No acute intracranial hemorrhage. No hydrocephalus. No mass effect or midline shift. Mi ld chronic small vessel ischemic changes.Mild cerebral atrophy. VASCULATURE: No visualized abnormalities in the arteries or dural venous sinuses. SCALP/SKULL: No calvarial fracture identified. No acute soft tissue abnormality. SINUSES: The visualized paranasal sinuses are mostly clear. No significant mastoid fluid. Cervical spine: ALIGNMENT: The cervical spine has normal alignment without scoliosis or spondylolisthesis. BONE: Sclerotic focus in C3 is probably a bone island. No other lesions are identified. DEGENERATIVE: Multilevel cervical spondylosis with evidence of bilateral neural foraminal narrowing. No high grade central spinal stenosis. SOFT TISSUE: No significant abnormalities in the soft tissue of the neck. The visualized lung apices are clear. IMPRESSION: No acute intracranial abnormality. No acute fracture or traumatic malalignment of the cervical spine.
[2024-05-23 14:38] LABS: PT Prothrombin Time 10.7 SECONDS (10.0-13.0); Protime INR 0.94
[2024-05-23 14:52] LABS: Anion Gap 19.7 mEq/L (5.0-15.0); Potassium 4.7 mEq/L (3.5-5.1)
--- NOTE | 2024-05-23 15:06 | EDPHYS ---
Physician Documentation [facility] Name: Herlinda Benitez Age: 78 yrs Sex: Female : 1945 Arrival Date: 05/23/2024 Time: 13:25 Bed 15 Private MD: ED Physician Gautam Lawrence HPI: 05/23 13:35 This 78 yrs old Female presents to ER via Unassigned with complaints of fall, rn head injury. 13:35 The patient or guardian reports injury, pain. The complaints affect the [place]. Onset: rn The symptoms/episode began/occurred just prior to arrival. Severity of symptoms: At their worst the symptoms were mild, in the emergency department the symptoms are unchanged. EMS reports family called 911 for generalized weakness and fall with head injury. Has hematoma to the back of the head. No LOC. Patient reports generalized weakness. No fever or chills. Reports only pain to back of head. Patient has had trouble with electrolytes and family conveyed this to EMS.. Historical: - Allergies: 14:17 PENICILLINS; jl7 - PMHx: 14:17 Diabetes - IDDM; GERD; Hyperlipidemia; Hypertension; kidney disease; jl7 - PSHx: 14:17 Cholecystectomy; ear; jl7 - Immunization history:: Adult Immunizations unknown. - Infectious Disease History:: Denies. - Family history:: not pertinent. - Social history:: Smoking status: Patient/guardian denies using tobacco. - Hospitalizations: : No recent hospitalization is reported. ROS: 13:35 Constitutional: Negative for fever, chills, and weight loss, Neck: Negative for injury, rn pain, and swelling, Cardiovascular: Negative for chest pain, palpitations, and edema, Respiratory: Negative for shortness of breath, cough, wheezing, and pleuritic chest pain, Abdomen/GI: Negative for abdominal pain, nausea, vomiting, diarrhea, and constipation, Back: Negative for injury and pain, MS/Extremity: Negative for injury and deformity, Skin: Negative for injury, rash, and discoloration, Neuro: Positive for headache and generalized weakness Exam: 13:35 Constitutional: This is a well developed, well nourished patient who is awake, alert, rn and in no acute distress. Head/Face: Left occiput hematoma approximately 3 cm diameter. No laceration Neck: No midline cervical tenderness Cardiovascular: Regular rate and rhythm. No pulse deficits. Respiratory: Speaking full sentences, unlabored. No increased work of breathing, no retractions or nasal flaring. Abdomen/GI: Soft, non-tender MS/ Extremity: Pulses equal, no cyanosis. Neuro: Awake and alert, GCS 15, oriented to person, place, and situation. Cranial nerves II-XII grossly intact. Motor strength 4/5 in all extremities. Sensory grossly intact. 16:47 ECG was reviewed by the Attending Physician. rn Vital Signs: 13:46 BP 139 / 42; Pulse 55; Resp 15; Temp 98; Pulse Ox 100% ; Weight 67.13 kg; Height 5 ft. jl7 4 in. ; Pain 0/10; 16:30 BP 135 / 59; Pulse 60; Resp 15; Pulse Ox 100% ; jl7 13:46 Body Mass Index 25.40 (67.13 kg, 162.56 cm) jl7 13:46 Pain Scale: Adult jl7 [place] Coma Score: 13:35 Eye Response: spontaneous(4). Motor Response: obeys commands(6). Verbal Response: rn oriented(5). Total: 15. 15:03 Eye Response: spontaneous(4). Motor Response: obeys commands(6). Verbal Response: rn oriented(5). Total: 15. MDM: 13:26 Medical Screening Exam initiated rn 15:03 Differential diagnosis: Contusion of Hematoma on cerebral contusion, Acute kidney rn failure, electrolyte disorder, hyponatremia. Data reviewed: vital signs, nurses notes, lab test result(s), radiologic studies, CT scan, and as a result, I will admit patient. Consideration of Admission/Observation Patient was admitted/placed on observation. Escalation of care including admission/observation considered. Counseling: I had a detailed discussion with the patient and/or guardian regarding the historical points, exam findings, and any diagnostic results supporting the discharge/admit diagnosis, lab results, radiology results, the need for further work-up and treatment in the hospital. Response to treatment: the patient's symptoms have mildly improved after treatment, and as a result, I will admit patient. ED course: Patient with acute on chronic renal failure with acidosis. Sees Dr. Maurer, will admit to hospitalist service for further care and consultation.. 05/23 13:27 Order name: CBC with Diff; Complete Time: 14:44 rn 05/23 13:27 Order name: Basic Metabolic Panel; Complete Time: 14:55 rn 05/23 13:27 Order name: Protime (+inr); Complete Time: 14:44 rn 05/23 13:27 Order name: Ptt, Activated; Complete Time: 14:44 rn 05/23 13:27 Order name: Urinalysis w/ reflexes rn 05/23 13:28 Order name: BNP; Complete Time: 14:55 rn 05/23 17:14 Order name: CBC with Automated Diff EDMS 05/23 17:14 Order name: CBC with Automated Diff EDMS 05/23 17:14 Order name: Comprehensive Metabolic Panel EDMS 05/23 17:14 Order name: Comprehensive Metabolic Panel EDMS 05/23 17:14 Order name: Lipid Profile EDMS 05/23 17:14 Order name: Lipid Profile EDMS 05/23 17:14 Order name: Protime (+INR) EDMS 05/23 17:14 Order name: Protime (+INR) EDMS 05/23 17:14 Order name: PTT, Activated Partial Thromb EDMS 05/23 17:14 Order name: PTT, Activated Partial Thromb EDMS 05/23 17:14 Order name: Troponin High Sensitivity EDMS 05/23 17:14 Order name: Troponin High Sensitivity EDMS 05/23 17:14 Order name: Troponin High Sensitivity EDSC 05/23 17:14 Order name: Troponin High Sensitivity EDSC 05/23 13:27 Order name: CT Head C Spine; Complete Time: 14:44 rn 05/23 22:10 Order name: US EDSC 05/23 17:14 Order name: CONS Physician Consult EDSC 05/23 17:14 Order name: CONS Physician Consult EDSC 05/23 13:27 Order name: IV Start; Complete Time: 14:18 rn 05/23 13:28 Order name: EKG - Nurse/Tech; Complete Time: 15:31 rn EC:47 Rate is 58 beats/min. Rhythm is regular. QRS [place] is Normal. [place] interval is normal. QRS rn interval is normal. QT interval is normal. No Q waves. T waves are Normal. No ST changes noted. Clinical impression: Sinus bradycardia. Interpreted by me. Reviewed by me. Administered Medications: 16:44 Drug: Sodium Bicarbonate IVP 1 amp IVP once; (50 mL); equals 50 mEq Route: IVP; Site: [facility] left antecubital; 19:18 Follow up: Response: No adverse reaction jl7 Disposition Summary: 05/23/24 15:06 Hospitalization Ordered Notes: Hospitalization Status: Inpatient Admission rn Provider: Joanna Tan rn Condition: Stable rn Problem: new rn Symptoms: are unchanged rn Bed/Room Type: Standard rn Location: Telemetry/MedSurg (Inpatient)(05/23/24 21:19) bm8 Room Assignment: [facility](05/23/24 21:19) bm8 Diagnosis - Acute kidney failure, unspecified rn - Altered mental status, unspecified rn - Unspecified injury of head, initial encounter rn - Hypo-osmolality and hyponatremia rn - Acidosis rn Forms: - Medication Reconciliation Form rn - SBAR form rn - Leadership Thank You Letter radio journalist time excluding procedures: 15:06 Critical care time: Bedside Care: 25 minutes, Family Intervention: 10 minutes. Total rn time: 35 minutes Signatures: Dispatcher [employer] EDMS Gautam Lawrence MD MD rn Leal, Jahala RN RN jl7 Vincent De Paz DO DO ms3 Daniel Kramer, RN RN bm8 Corrections: (The following items were deleted from the chart) 17:11 15:06 Telemetry/MedSurg (Inpatient) rn ms3 17:11 15:06 rn ms3 21:19 17:11 [facility] ER HOLD ms3 bm8 21:19 17:11 ERHOLD- ms3 bm8
--- NOTE | 2024-05-23 15:06 | ER ---
Nurse's Notes [facility] Name: Herlinda Benitez Age: 78 yrs Sex: Female : 1945 Arrival Date: 05/23/2024 Time: 13:25 Bed 15 Private MD: Diagnosis: Acute kidney failure, unspecified;Altered mental status, unspecified;Unspecified injury of head, initial encounter;Hypo-osmolality and hyponatremia;Acidosis Presentation: 05/23 13:46 Chief complaint: EMS states: Family was attempting to transport pt to ED for jl7 generalized weakness and possible dehydration when pt fell back and family unable to grab, hit back of head, no LOC, no blood thinners. Coronavirus screen: At this time, the client does not indicate any symptoms associated with coronavirus-19. Ebola Screen: No symptoms or risks identified at this time. Initial Sepsis Screen: Does the patient meet any 2 criteria? No. Patient's initial sepsis screen is negative. Does the patient have a suspected source of infection? No. Patient's initial sepsis screen is negative. Risk Assessment: Do you want to hurt yourself or someone else? Patient reports no desire to harm self or others. Onset of symptoms was May 23, 2024. 13:46 Method Of Arrival: EMS: [facility] 13:46 Acuity: LOLIS 3 jl7 13:46 Care prior to arrival: Medication(s) given: 500 mL LR IV initiated. 20 GA, in the left jl7 antecubital area, Glucose check: 101. Triage Assessment: 14:17 General: Appears in no apparent distress. uncomfortable, Behavior is calm, cooperative, jl7 appropriate for age. Pain: Denies pain. Neuro: Level of Consciousness is awake, alert, obeys commands. Historical: - Allergies: 14:17 PENICILLINS; jl7 - PMHx: 14:17 Diabetes - IDDM; GERD; Hyperlipidemia; Hypertension; kidney disease; jl7 - PSHx: 14:17 Cholecystectomy; ear; jl7 - Immunization history:: Adult Immunizations unknown. - Infectious Disease History:: Denies. - Family history:: not pertinent. - Social history:: Smoking status: Patient/guardian denies using tobacco. - Hospitalizations: : No recent hospitalization is reported. Screenin:00 [facility] ED Fall Risk Assessment (Adult) History of falling in the last 3 months, jl7 including since admission Yes- single mechanical fall (1 pt) Confusion or Disorientation No (0 pts) Intoxicated or Sedated No (0 pts) Impaired Gait Yes (1 pt) Mobility Assist Device Used Yes (1 pt) Altered Elimination No (0 pt) Score/Fall Risk Level 3 or more points = High Risk Oriented to surroundings, Maintained a safe environment. Abuse screen: Denies threats or abuse. Denies injuries from another. Nutritional screening: No deficits noted. Tuberculosis screening: No symptoms or risk factors identified. Assessment: 14:00 General: See triage assessment. jl7 15:00 Reassessment: Patient appears in no apparent distress at this time. No changes from [facility] previously documented assessment. Patient and/or family updated on plan of care and expected duration. Pain level reassessed. Patient is alert, oriented x 3, equal unlabored respirations, skin warm/dry/pink. 16:00 Reassessment: Patient appears in no apparent distress at this time. No changes from [facility] previously documented assessment. Patient and/or family updated on plan of care and expected duration. Pain level reassessed. Patient is alert, oriented x 3, equal unlabored respirations, skin warm/dry/pink. Vital Signs: 13:46 BP 139 / 42; Pulse 55; Resp 15; Temp 98; Pulse Ox 100% ; Weight 67.13 kg; Height 5 ft. jl7 4 in. ; Pain 0/10; 16:30 BP 135 / 59; Pulse 60; Resp 15; Pulse Ox 100% ; jl7 13:46 Body Mass Index 25.40 (67.13 kg, 162.56 cm) jl7 13:46 Pain Scale: Adult jl7 [place] Coma Score: 13:35 Eye Response: spontaneous(4). Motor Response: obeys commands(6). Verbal Response: rn oriented(5). Total: 15. 15:03 Eye Response: spontaneous(4). Motor Response: obeys commands(6). Verbal Response: rn oriented(5). Total: 15. ED Course: 13:26 Patient arrived in ED. rn 13:26 Gautam Lawrence MD is Attending Physician. rn 13:46 Drew Toro RN is Primary Nurse. jl7 13:57 CT Head C Spine In Process Unspecified. EDMS 14:00 Maintain EMS IV. Dressing intact. Good blood return noted. Site clean \T\ dry. Gauge \T\ jl 7 site: 20 left AC. 14:16 Triage completed. jl7 14:17 Arm band placed on right wrist. jl7 15:00 Provided Education on: use of call gallego. jl7 15:00 Patient has correct armband on for positive identification. Bed in low position. Call jl7 light in reach. Side rails up X2. Client placed on continuous cardiac and pulse oximetry monitoring. NIBP monitoring applied. Warm blanket given. 15:05 Joanna Tan MD is Hospitalizing Provider. rn 15:31 EKG done, by ED staff, reviewed by Gautam Lawrence MD. jl7 17:00 Patient admitted, IV remains in place. intact, No redness/swelling at site. jl7 17:00 No provider procedures requiring assistance completed. jl7 Administered Medications: 16:44 Drug: Sodium Bicarbonate IVP 1 amp IVP once; (50 mL); equals 50 mEq Route: IVP; Site: [facility] left antecubital; 19:18 Follow up: Response: No adverse reaction jl7 Medication: 19:17 VIS not applicable for this client. jl7 Outcome: 15:06 Decision to Hospitalize by Provider. rn 17:00 Admitted to ER Hold. Please see [facility] for further documentation. jl7 17:00 Condition: stable 17:00 Discharge instructions given to patient, family, Instructed on the need for admit, Demonstrated understanding of instructions, 22:32 Patient left the ED. rg5 Signatures: Dispatcher [employer] EDMS Gautam Lawrence MD MD rn Leal, Jahala, RN RN jl7 Marco A Peterson, HEIDY RN rg5 Corrections: (The following items were deleted from the chart) 14:18 13:46 BP 105 / 64; Pulse 55bpm; Resp 15bpm; Pulse Ox 100%; Temp 98F; 67.13 kg; Height 5 jl7 ft. 4 in.; BMI: 25.4; Pain 0/10, Adult; jl7
[2024-05-23] MEDS ORDERED: MORPHINE 4 MG/ML SYR IV PRN (17:17)
--- NOTE | 2024-05-23 17:24 | P.HP ---
Certification for Inpatient Patient admitted to: Inpatient With expected LOS: >2 Midnights Patient will require the following post-hospital care: None Practitioner: I am a practitioner with admitting privileges, knowledge of patient current condition, hospital course, and medical plan of care. Services: Services provided to patient in accordance with Admission requirements found in Title 42 Section 412.3 of the Code of Federal Regulations Patient History Date of Service: 05/23/24 Reason for admission: BRYANNA History of Present Illness: Patient is a 78-year-old female who came to the hospital with acute on chronic kidney disease. Patient also with severe metabolic acidosis on his lab workup. Patient's daughter was with her this morning when she started having nausea and vomiting after breakfast. She got concerned because her mom had not been eating well. She is has stage V kidney disease and she has had a GFR of approximately an 11. They have never been told of possibly starting dialysis. Currently she is severely acidotic and will admit her to the hospital and started on IV fluids. Will check her ketones and will check her lactic acid level. Most likely related to her kidney dysfunction. Will consult nephrology and she may need general surgery consultation for hemodialysis access. At this time patient will be hydrated and will start a bicarb drip. Patient will be admitted to the medical floor for further evaluation. Patient also has a history of hypertension and diabetes which have been well- controlled according to the family. She recently had a younger brother who which is left her very depressed. She apparently took his very hard. She is also very hard of hearing especially when she does not have her hearing aids. She relies on her daughter's to communicate with her. Otherwise, she the daughter states she is with it and does not really have a lot of neurologic issues. Allergies Penicillins Allergy (Unknown, Verified 02/13/18 10:24) Hives Home Medications: Acetaminophen 500 mg PO PRN PRN 05/14/22 Amlodipine [Norvasc*] 10 mg PO DAILY 05/14/22 Levothyroxine Sodium 75 mcg PO DAILY 05/14/22 Omeprazole 20 mg PO DAILY 05/14/22 Pravastatin Sodium 80 mg PO BEDTIME 05/14/22 Venlafaxine HCl [Effexor Xr] 75 mg PO BEDTIME 05/14/22 oxyBUTYnin chloride [Oxybutynin Chloride] 5 mg PO DAILY 05/14/22 Ascorbic Acid [Vitamin C] 1,000 mg PO DAILY 12/20/23 Cholecalciferol (Vitamin D3) [Vitamin D3] 125 mcg PO DAILY 12/20/23 Dapagliflozin Propanediol [Farxiga] 5 mg PO DAILY 12/20/23 Ferrous Gluconate [Iron] 65 mg PO DAILY 12/20/23 Calcium Acetate [Phoslo*] 1 cap PO TIDWM #90 cap 12/24/23 Magnesium Chloride [Slow-Mag*] 128 mg PO BID #10 tab 12/24/23 Na Bicarb Tab [Sodium Bicarb 325 MG Tab*] 650 mg PO DAILY #60 tab 12/24/23 Metoprolol Tartrate [Lopressor*] 50 mg PO BID #60 tab 12/25/23 Ondansetron [Zofran (Odt)*] 4 mg PO Q6H PRN #20 tab 12/25/23 Docusate [Colace Cap*] 100 mg PO BID #60 cap 04/13/24 Furosemide [Lasix] 40 mg PO DAILY #37 tab 04/13/24 Vitamin D [Drisdol*] 50,000 unit PO EVERY 7TH DAY #4 cap 04/13/24 - Past Medical/Surgical History Diabetic: Yes -: DM II -: HTN -: CKD IV with Proteinuria (Dr. Maurer/ [facility]) -: GERD -: HLD -: Anemia/ Iron Deficiency -: HypoTSH Past Surgical History: Patient denies surgical history Psychosocial/ Personal History: Patient is . - Family History Father Family History: Reviewed- Non-Contributory - Social History Smoking Status: Never smoker Alcohol use: No CD- Drugs: No Caffeine use: Yes Review of Systems 10-point ROS is otherwise unremarkable Physical Examination - Physical Exam General: Alert, In no apparent distress, Oriented x3 HEENT: Atraumatic, PERRLA, Mucous membr. moist/pink, EOMI, Sclerae nonicteric Neck: Supple, 2+ carotid pulse no bruit, No LAD, Without JVD or thyroid abnormality Respiratory: Clear to auscultation bilaterally, Normal air movement Cardiovascular: Regular rate/rhythm, Normal S1 S2, Systolic murmur Gastrointestinal: Normal bowel sounds, Soft and benign, Non-distended, No te nderness Musculoskeletal: No clubbing, No swelling, No tenderness Integumentary: No rashes Neurological: Normal speech, Normal tone, Sensation intact, Cranial nerves 3-12 intact, Normal affect, Abnormal gait, Abnormal strength Lymphatics: No axilla or inguinal lymphadenopathy - Studies Laboratory Data (last 24 hrs) 05/23/24 05/23/24 05/23/24 14:09 14:09 14:09 WBC 9.80 Hgb 9.3 L Hct 27.6 L Plt Count 262 PT 10.7 INR 0.94 APTT 26.0 Sodium 125 L Potassium 4.7 BUN 114 H Creatinine 8.20 H Glucose 148 H Assessment & Plan - Problems (Diagnosis) (1) BRYANNA (acute kidney injury) Current Visit: No Status: Acute (2) Hyponatremia Current Visit: No Status: Acute (3) Metabolic acidosis Current Visit: No Status: Acute (4) Hyperlipidemia Current Visit: No Status: Chronic Qualifiers: (5) Hypertension Current Visit: No Status: Chronic Qualifiers: (6) Type 2 diabetes mellitus Current Visit: No Status: Chronic Qualifiers: (7) Anemia of chronic disease Current Visit: Yes Status: Acute - Plan Plan: 1. 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 Monitor labs closely. Will get ABG to get baseline degree of acidemia. Will consult nephrology as well as general surgery. Will check phosphorus level as well as additional labs to monitor renal function. Patient may need a renal ultrasound to further evaluate as she has had a history of hydronephrosis from nephrolithiasis. Patient also with anemia of chronic kidney disease and may benefit from erythropoietin subcutaneously. This will be left at the discretion of nephrology. At this time, patient will be admitted to the hospital for further evaluation. 2. History of aortic stenosis; this is moderate; patient labs will be monitored closely 3. Metabolic syndrome; strict blood pressure and blood sugar control 4. GI and DVT prophylaxis Discharge Plan: Home Plan to discharge in: Greater than 2 days - Advance Directives Does patient have a Living Will: No Does patient have a Durable POA for Healthcare: No - Code Status/Comfort Care Code Status Assessed: Yes Code Status: Full Code Critical Care: Yes Time Spent Managing PTS Care (In Minutes): 55
[2024-05-23] MEDS: NACHLORIDE 0.45% 1,000 ML with NA BICARB 8.4% 100 MEQ IV SCH (18:00)
[2024-05-23] MEDS: FLU (Fluarix Triv) TS24-25(6MOS UP)/PF 45 MCG/0.5 ML Syringe IM ONE (18:45)
--- NOTE | 2024-05-23 20:24 | P.CNS ---
Date of Consult: 05/24/24 Reason for Consult: BRYANNA/ CKD Requesting Physician: Joanna Tan Chief Complaint: BRYANNA/ CKD History of Present Illness: Patient is a 78-year-old female who came to the hospital with acute on chronic kidney disease. Patient also with severe metabolic acidosis on his lab workup. Patient's daughter was with her this morning when she started having nausea and vomiting after breakfast. She got concerned because her mom had not been eating well. She is has stage V kidney disease and she has had a GFR of approximately an 11. They have never been told of possibly starting dialysis. Currently she is severely acidotic and will admit her to the hospital and started on IV fluids. Will check her ketones and will check her lactic acid level. Most likely related to her kidney dysfunction. Will consult nephrology and she may need general surgery consultation for hemodialysis access. At this time patient will be hydrated and will start a bicarb drip. Patient will be admitted to the medical floor for further evaluation. Patient also has a history of hypertension and diabetes which have been well- controlled according to the family. She recently had a younger brother who which is left her very depressed. She apparently took his very hard. She is also very hard of hearing especially when she does not have her hearing aids. She relies on her daughter's to communicate with her. Otherwise, she the daughter states she is with it and does not really have a lot of neurologic issues. [id number] 13:35 This 78 yrs old Female presents to ER via Unassigned with complaints of fall, rn head injury. 13:35 The patient or guardian reports injury, pain. The complaints affect the [place]. Onset: rn The symptoms/episode began/occurred just prior to arrival. Severity of symptoms: At their worst the symptoms were mild, in the emergency department the symptoms are unchanged. EMS reports family called 911 for generalized weakness and fall with head injury. Has hematoma to the back of the head. No LOC. Patient reports generalized weakness. No fever or chills. Reports only pain to back of head. Patient has had trouble with electrolytes and family conveyed this to EMS. Reports several weeks of poor oral intake. No NSAIDs. No urinary difficulties. Allergies Penicillins Allergy (Unknown, Verified 02/13/18 10:24) Hives Home medications list reviewed: Yes Home Medications: Amlodipine [Norvasc*] 10 mg PO DAILY 05/14/22 Levothyroxine Sodium 100 mcg PO DAILY 05/14/22 Omeprazole 20 mg PO DIRECTED 05/14/22 Pravastatin Sodium 80 mg PO BEDTIME 05/14/22 Venlafaxine HCl [Effexor Xr] 75 mg PO BEDTIME 05/14/22 oxyBUTYnin chloride [Oxybutynin Chloride] 5 mg PO DAILY 05/14/22 Cholecalciferol (Vitamin D3) [Vitamin D3] 125 mcg PO DAILY 12/20/23 Dapagliflozin Propanediol [Farxiga] 5 mg PO DAILY 12/20/23 Ferrous Gluconate [Iron] 65 mg PO DAILY 12/20/23 Magnesium Chloride [Slow-Mag*] 128 mg PO BID #10 tab 12/24/23 Metoprolol Tartrate [Lopressor*] 50 mg PO BID #60 tab 12/25/23 Furosemide [Lasix] 40 mg PO DAILY #37 tab 04/13/24 Metformin ER [Glucophage ER] 500 mg PO DAILY 05/23/24 - Past Medical/Surgical History Diabetic: Yes -: DM II -: HTN -: CKD IV with Proteinuria (Dr. Maurer/ [facility]) -: GERD -: HLD -: Anemia/ Iron Deficiency -: HypoTSH Psychosocial/ Personal History: Patient is . - Family History Father Family History: Reviewed- Non-Contributory - Social History Smoking Status: Former smoker Alcohol use: No CD- Drugs: No Caffeine use: Yes Place of Residence: Home Review of Systems 10-point ROS is otherwise unremarkable General: Weakness, Malaise Gastrointestinal: Nausea Physical Examination General: In no apparent distress, Oriented x3, Cooperative HEENT: Atraumatic Neck: Supple Respiratory: Clear to auscultation bilaterally Cardiovascular: No edema, Regular rate/rhythm Gastrointestinal: Soft and benign, Non-distended Musculoskeletal: No clubbing, No contractures Integumentary: No rashes, No cyanosis Neurological: Normal speech Laboratory Data (last 24 hrs) 05/23/24 05/23/24 05/23/24 14:09 14:09 14:09 WBC 9.80 Hgb 9.3 L Hct 27.6 L Plt Count 262 PT 10.7 INR 0.94 APTT 26.0 Sodium 125 L Potassium 4.7 BUN 114 H Creatinine 8.20 H Glucose 148 H Imagings Data: EXAMINATION: CT HEAD WITHOUT CONTRAST CT CERVICAL SPINE WITHOUT CONTRAST CLINICAL INDICATION: Female, 78 years old. fall, head injury TECHNIQUE: Axial CT images from the skull base to the vertex without intravenous contrast. Axial CT images through the cervical spine were obtained without intravenous contrast. Sagittal and coronal reformatted images were created from the data set. Coronal and sagittal reformatted images were created from the data set. One or more of the following dose reduction techniques were used: Automated exposure control, adjustment of the mA and/or kV according to patient size, and/or iterative reconstruction. Unless otherwise specified, incidental findings do not require dedicated imaging follow-up. [id number]. COMPARISON: No prior exam. FINDINGS: Head: INTRACRANIAL: No acute intracranial hemorrhage. No hydrocephalus. No mass effect or midline shift. Mild chronic small vessel ischemic changes.Mild cerebral atrophy. VASCULATURE: No visualized abnormalities in the arteries or dural venous sinuses. SCALP/SKULL: No calvarial fracture identified. No acute soft tissue abnormality. SINUSES: The visualized paranasal sinuses are mostly clear. No significant mastoid fluid. Cervical spine: ALIGNMENT: The cervical spine has normal alignment without scoliosis or spondylolisthesis. BONE: Sclerotic focus in C3 is probably a bone island. No other lesions are identified. DEGENERATIVE: Multilevel cervical spondylosis with evidence of bilateral neural foraminal narrowing. No high grade central spinal stenosis. SOFT TISSUE: No significant abnormalities in the soft tissue of the neck. The visualized lung apices are clear. IMPRESSION: No acute intracranial abnormality. No acute fracture or traumatic malalignment of the cervical spine. LEFT VENTRICULAR WALL MOTION: NORMAL. DOPPLER/COLOR FLOW: DIASTOLIC DYSFUNCTION. COMMENTS: 1. LOW NORMAL LEFT VENTRICULAR SYSTOLIC FUNCTION. LEFT VENTRICULAR EJECTION FRACTION 50-55%. NORMAL WALL MOTION. 2. DIASTOLIC DYSFUNCTION. 3. MODERATE AORTIC VALVE STENOSIS WITH MODERATE AORTIC REGURGITATION. 4. MILD MITRAL REGURGITATION. 5. MILD PULMONARY HYPERTENSION. RIGHT VENTRICULAR SYSTOLIC PRESSURE 40-45 mmHg. 6. NORMAL FILLING PRESSURES. Conclusions/Impression: Stage III BRYANNA may be CKD Progression CKD IV with Proteinuria -No NSAIDs -Continue IVF -May need to consider dialysis -Check hepatitis panel Hyponatremia -Continue IVF Metabolic Acidosis -Continue IVF with bicarb Diastolic CHF, chronic Moderate with Regurgitation -Daily weight -Hold diuretics at this time DM II with CKD -RISS prn Anemia in chronic illness Iron Deficiency -Monitor H&H -Retacrit X1 CKD MBD Secondary HyperParathyroidism -Start Renvela -Start Ergo Hospitalist and ER notes reviewed Case reviewed with Dr. Chairez Thank you kindly for the consultation
--- NOTE | 2024-05-23 22:10 | RAD REPORT ---
EXAMINATION: US RENAL CLINICAL INDICATION: Abdominal pain TECHNIQUE: Real-time ultrasonography of the kidneys performed. COMPARISON: 2023 FINDINGS: Examination was somewhat limited. Right kidney measures 7 cm with a normal echotexture. Tiny renal calculi. No hydronephrosis. Mild cor tical thinning perhaps secondary to prior inflammation. Left kidney measures 8 cm with normal echotexture. No hydronephrosis No gross abnormality bladder. IMPRESSION: Tiny nonobstructing right renal calculi No hydronephrosis
[2024-05-24 04:53] LABS: Absolute Eosinophils 0.1 K/uL (0-0.5); Absolute Lymphocytes (CBC) 0.8 K/uL (0.7-4.9); Absolute Monocytes 0.7 K/uL (0.1-1.3); Absolute Neutrophil 6.4 K/uL (1.8-8.0); Basophils % 0.5 % (0-1.3); Eosinophils % 1.6 % (0-4.4); Hematocrit 25.6 % (36.0-45.0); Hemoglobin 8.8 g/dL (12.0-15.0); Lymphocytes % 10.4 % (15.3-44.8); MCH 29.8 pg (27.0-35.0); MCHC 34.2 g/dL (32.0-36.0); MCV 87.1 fL (80-100); MPV 7.5 fL (7.6-11.3); Monocytes % 8.2 % (3.3-12.3); Neutrophils % 79.3 % (41.7-73.7); Nucleated Red Blood Cells % 0.1 % (0-0); Platelets 257 thou/uL (152-406); RBC Red Blood Cell Count 2.94 M/uL (3.86-4.86); Red Cell Distribution Width 14.6 % (12.1-15.2)
[2024-05-24 05:27] LABS: Albumin 2.9 g/dL (3.4-5.0); Albumin/Globulin Ratio 0.9 (1.1-1.8); Alkaline Phosphatase 88 U/L (45-117); Anion Gap 20.2 mEq/L (5.0-15.0); BUN Blood Urea Nitrogen 113 mg/dL (7-18); Bilirubin Total 0.4 mg/dL (0.2-1.0); Globulin 3.3 g/dL (2.3-3.5); Glomerular Filtration Rate 4 ml/min (=/>90); Glucose Level 89 mg/dL (74-106); HDL Cholesterol 29 mg/dL (40-60); LDL Cholesterol, Calculated 20 mg/dL (<130); LDL Cholesterol,Calc NonReport 20; Potassium 4.2 mEq/L (3.5-5.1); Protein, Total 6.2 g/dL (6.4-8.2); Sodium Level 128 mEq/L (136-145); Troponin High Sensitivity 19.6 pg/mL (<58.9)
[2024-05-24 05:32] LABS: ALT/SGPT < 14 U/L (13-56); AST/SGOT < 10 U/L (15-37); Bicarbonate 9 mEq/L (21-32)
[2024-05-24 06:06] LABS: PT Prothrombin Time 11.1 SECONDS (10.0-13.0); PTT, Activated Partial Thromb 30.7 SECONDS (24.3-36.9); Protime INR 0.97
--- NOTE | 2024-05-24 08:40 | P.PN ---
Date of Service: 05/24/24 Subjective Patient remains with severe metabolic acidosis. Patient's GFR is worse today at 4 then yesterday after getting IV fluids and bicarb all night. Patient's acidosis has improved very minimally with a bicarb of 8 on arrival and currently a bicarb of 9 although she has been on a bicarb drip all night. Patient with significant renal tubular acidosis and with progression of a GFR of 11 to a GFR of 3. May benefit from hemodialysis. Will need to discuss with nephrology. Physical Examination - Physical Exam Vitals: Reviewed General: Alert, In no apparent distress, Oriented x3 HEENT: Atraumatic, PERRLA, Mucous membr. moist/pink, EOMI, Sclerae nonicteric Neck: Supple, 2+ carotid pulse no bruit, No LAD, Without JVD or thyroid abnormality Respiratory: Clear to auscultation bilaterally, Normal air movement Cardiovascular: Regular rate/rhythm, Normal S1 S2, Systolic murmur Gastrointestinal: Normal bowel sounds, Soft and benign, Non-distended, No tenderness Neurological: Patient awake and responding. However she tends to zone off and looks to be confused and with generalized weakness Assessment & Plan - Problems (Diagnosis) (1) CKD V with progression to ESRD-GFR of 3 Current Visit: No Status: Acute (2) Hyponatremia Current Visit: No Status: Acute (3) Metabolic acidosis Current Visit: No Status: Acute (4) Hyperlipidemia Current Visit: No Status: Chronic Qualifiers: (5) Hypertension Current Visit: No Status: Chronic Qualifiers: (6) Type 2 diabetes mellitus Current Visit: No Status: Chronic Qualifiers: (7) Anemia of chronic disease Current Visit: Yes Status: Acute - Plan Plan: 1. Patient with CKD stage V with progression to ESRD with metabolic acidosis/renal tubular acidosis; continue with IV fluids and bicarbonate drip. Monitor labs closely. Will get ABG to get baseline degree of acidemia. Will consult nephrology as well as general surgery. Will check phosphorus level as well as additional labs to monitor renal function. Patient may need a renal ultrasound to further evaluate as she has had a history of hydronephrosis from nephrolithiasis. Patient also with anemia of chronic kidney disease and may benefit from erythropoietin subcutaneously. This will be left at the discretion of nephrology. At this time, patient will be admitted to the hospital for further evaluation. 2. History of aortic stenosis; this is moderate; patient labs will be monitored closely 3. Metabolic syndrome; strict blood pressure and blood sugar control; may benefit from thyroid. Will check thyroid studies and lipid profile. 4. GI and DVT prophylaxis Discharge Plan: Home Plan to discharge in: Greater than 2 days - Advance Directives Does patient have a Living Will: No Does patient have a Durable POA for Healthcare: No - Code Status/Comfort Care Code Status Assessed: Yes Code Status: Full Code Critical Care: Yes Time Spent Managing PTS Care (In Minutes): 55
[2024-05-24] MEDS: ONDANSETRON 4 MG/2 ML VIAL IV PRN (09:17)
--- NOTE | 2024-05-24 11:05 | EKG ---
Test Date: 2024-05-23 Test Time: 15:27:38 Director Of Convention Services: RIKI MEASUREMENT RESULTS: Intervals: Rate: 58 WI: 192 QRSD: 106 QT: 486 QTc: 477 Childs: P: 76 WI: 192 QRS: 18 T: 81 INTERPRETIVE STATEMENTS: Sinus bradycardia Incomplete left bundle branch block Borderline ECG Compared to ECG 04/11/2024 17:55:45 Left bundle-branch block now present Sinus rhythm no longer present Myocardial infarct finding no longer present T-wave abnormality no longer present Possible ischemia no longer present Electronically Signed On 05-24-24 11:02:58 GRAIN ORIGINATION SPECIALIST by Jamie Ford
--- NOTE | 2024-05-24 13:15 | CON ---
Date of Consultation: 05/24/2024 Reason For Service: Possible placement of hemodialysis catheter. History Of Present Illness: This is the case of a 78-year-old female with history of chronic kidney disease, came to us with acidosis and decreased renal function. The patient was admitted to the [facility]. Dr. Maurer and me were consulted on the case for the kidney disease and need for possible delbert cement of a hemodialysis catheter if Dr. Maurer believes it is necessary. Allergies: PENICILLIN. Medications: Include Effexor, Farxiga, Lopressor, Lasix, Glucophage, omeprazole, Norvasc, levothyrox ine. Family History: Noncontributory. Past Medical History: Includes diabetes type 2, chronic anemia, hypothyroidism, GE reflux, chronic k idney disease, hypertension. Social History: At this moment, she does not smoke or drink alcohol. Review of Systems: She feels better today, but last time when she came in, she felt weakness, nausea and vomiting. Toda y, she is hungry. Review of Systems: 10 points otherwise unremarkable. Physical Examination: Vital Signs: The patient is awake, alert. HEENT: Pupils anicteric. Neck: Supple. Chest: Clear. Heart: S1, S2. Abdomen: Soft and depressible. No guarding, rebound. No peritoneal signs. Extremities: Good capillary refill. Laboratory Data: Blood work shows a WBC count of 8, hemoglobin of 8.8, platelets of 257. INR 0.97. Potassium is 4.2. Total bilirubin of 0.4. Glucose 89, creatinine is 8.64, BUN is 113, potassium is 4.2. Assessment: A 78-year-old patient with kidney disease. I discussed the case today with the primary on the case, Dr. Tan, and also the patient, the daughter, and also Dr. Maurer. This is still on e preliminary workup, trying to figure out if dialysis is needed or not, so did not need dialysis at this moment. The patient wants to eat, so I am going to stop the NPO, but we are going to keep her N PO after midnight just in case clinically she does not improve and the catheter is needed, then we ar e set up for that. So I explained to her even if the catheter is needed then the benefits, alternati ves, and risks include but not limited to infection, bleeding, damage to adjacent structures, anesthe marbella complication, pneumothorax, hemothorax, pulmonary emboli, DVT, OR, even . She also understa nds this catheter will not be permanent. If dialysis is needed for a long time, then she is going to have to find a peripheral vascular surgeon who can put a long-term catheter. Hopefully, she does no t need any of this catheter at all. Will be pending on the primary doctor's advice if needed or not. FAUZIA/SHERRIE Voice ID: [id number] Report ID: [id number]
[2024-05-24 15:54] LABS: Anion Gap 22.9 mEq/L (5.0-15.0); Potassium 3.9 mEq/L (3.5-5.1)
[2024-05-24] MEDS: ACETAMINOPHEN 500 MG TAB PO PRN (22:45)
[2024-05-25 04:55] LABS: Absolute Eosinophils 0.1 K/uL (0-0.5); Absolute Monocytes 0.6 K/uL (0.1-1.3); Absolute Neutrophil 4.6 K/uL (1.8-8.0); Basophils % 0.4 % (0-1.3); Eosinophils % 1.9 % (0-4.4); Hematocrit 23.6 % (36.0-45.0); Lymphocytes % 15.8 % (15.3-44.8); MCH 29.3 pg (27.0-35.0); MCHC 33.9 g/dL (32.0-36.0); MCV 86.5 fL (80-100); MPV 7.1 fL (7.6-11.3); Monocytes % 9.4 % (3.3-12.3); Neutrophils % 72.5 % (41.7-73.7); Nucleated Red Blood Cells % 0.1 % (0-0); Platelets 257 thou/uL (152-406); RBC Red Blood Cell Count 2.73 M/uL (3.86-4.86); Red Cell Distribution Width 14.4 % (12.1-15.2)
[2024-05-25 05:23] LABS: Albumin 2.9 g/dL (3.4-5.0); Alkaline Phosphatase 85 U/L (45-117); Anion Gap 20.6 mEq/L (5.0-15.0); BUN Blood Urea Nitrogen 111 mg/dL (7-18); Bicarbonate 12 mEq/L (21-32); Bilirubin Total 0.5 mg/dL (0.2-1.0); Creatine Phosphokinase 92 U/L (26-192); Glomerular Filtration Rate 4 ml/min (=/>90); Glucose Level 83 mg/dL (74-106); Magnesium 2.3 mg/dL (1.6-2.4); Phosphorus 8.6 mg/dL (2.5-4.9); Potassium 3.6 mEq/L (3.5-5.1); Protein, Total 5.9 g/dL (6.4-8.2); Sodium Level 132 mEq/L (136-145); Troponin High Sensitivity 58.6 pg/mL (<58.9)
[2024-05-25 05:28] LABS: ALT/SGPT < 14 U/L (13-56); AST/SGOT < 10 U/L (15-37)
[2024-05-25 06:42] LABS: Hepatitis B Core Ab, Total Nonreactive (Nonreactive); Hepatitis B Surface Ab - Quant < 3.10 mIU/mL (<8.0); Hepatitis B surface AG Interp. Nonreactive (Nonreactive); Hepatitis C Virus Ab Nonreactive (Nonreactive)
[2024-05-25 06:43] LABS: HBsAG Nonreactive Report Report
[2024-05-25] MEDS: SEVELAMER CARBONATE 800 MG TABLET PO SCH (08:00)
[2024-05-25] MEDS: SODIUM BICARB 325 MG TAB PO SCH (08:47)
[2024-05-25] MEDS: DRISDOL (VITAMIN D=ERGOCALCIFEROL) 50000 UNIT CAP PO SCH (08:47)
[2024-05-25] MEDS: DOCUSATE NA 100 MG CAP PO SCH ×2 (08:47→21:00)
[2024-05-25] MEDS: EPOETIN ALFA-EPBX 10,000 UNIT/ML VIAL SQ SCH (12:08)
[2024-05-25] MEDS: PANTOPRAZOLE 40MG TABLET PO SCH (14:00)
--- NOTE | 2024-05-25 20:45 | P.PN ---
Date of Service: 05/25/24 Vital Signs Temp Pulse Resp BP Pulse Ox 98.0 F 78 16 138/60 97 05/25/24 16:00 05/25/24 16:00 05/25/24 16:00 05/25/24 16:00 05/25/24 16:00 Medications Acetaminophen (Acetaminophen 500 Mg Tab) 500 mg PO Q6H PRN PRN Reason: Mild pain/fever Last Admin: 05/24/24 22:45 Dose: 500 mg Docusate Sodium (Docusate Na 100 Mg Cap) 100 mg PO BID [facility] Last Admin: 05/25/24 20:17 Dose: 100 mg Ergocalciferol (Drisdol (Vitamin D=Ergocalciferol) 64415 Unit Cap) 50,000 unit PO DAILY [facility] Stop: 05/26/24 09:01 Last Admin: 05/25/24 08:47 Dose: Not Given Sodium Bicarbonate 100 meq/ (Sodium Chloride) 1,100 mls @ 75 mls/hr IV .[id number] [facility] Last Admin: 05/25/24 20:17 Dose: 1,100 mls Morphine Sulfate (Morphine 4 Mg/Ml Syr) 2 mg IV Q4H PRN PRN Reason: Pain scale 5-10 (ModSev) Ondansetron HCl (Ondansetron 4 Mg/2 Ml Vial) 4 mg IV Q8H PRN PRN Reason: NAUSEA / VOMITING Last Admin: 05/24/24 09:17 Dose: 4 mg Pantoprazole Sodium (Pantoprazole 40mg Tablet) 40 mg PO DAILY [facility]; Protocol Last Admin: 05/25/24 14:00 Dose: 40 mg Sevelamer Carbonate (Sevelamer Carbonate 800 Mg Tablet) 800 mg PO TIDWM [facility] Last Admin: 05/25/24 17:13 Dose: 800 mg Sodium Bicarbonate (Sodium Bicarb 325 Mg Tab) 650 mg PO QID [facility] Last Admin: 05/25/24 20:17 Dose: 650 mg Assessment/ Plan: Nephrology No dyspnea No chest pain Poor oral intake Fatigue No acute events overnight Vitals, medications, blood work and imaging reviewed in the chart Physical Examination General: In no apparent distress, Oriented x3, Cooperative HEENT: Atraumatic Neck: Supple Respiratory: Clear to auscultation bilaterally Cardiovascular: No edema, Regular rate/rhythm Gastrointestinal: Soft and benign, Non-distended Musculoskeletal: No clubbing, No contractures Integumentary: No rashes, No cyanosis Neurological: Normal speech Laboratory Data (last 24 hrs) 05/23/24 05/23/24 05/23/24 14:09 14:09 14:09 WBC 9.80 Hgb 9.3 L Hct 27.6 L Plt Count 262 PT 10.7 INR 0.94 APTT 26.0 Sodium 125 L Potassium 4.7 BUN 114 H Creatinine 8.20 H Glucose 148 H Imagings Data: EXAMINATION: CT HEAD WITHOUT CONTRAST CT CERVICAL SPINE WITHOUT CONTRAST CLINICAL INDICATION: Female, 78 years old. fall, head injury TECHNIQUE: Axial CT images from the skull base to the vertex without intravenous contrast. Axial CT images through the cervical spine were obtained without intravenous contrast. Sagittal and coronal reformatted images were created from the data set. Coronal and sagittal reformatted images were created from the data set. One or more of the following dose reduction techniques were used: Automated exposure control, adjustment of the mA and/or kV according to patient size, and/or iterative reconstruction. Unless otherwise specified, incidental findings do not require dedicated imaging follow-up. [id number]. COMPARISON: No prior exam. FINDINGS: Head: INTRACRANIAL: No acute intracranial hemorrhage. No hydrocephalus. No mass effect or midline shift. Mild chronic small vessel ischemic changes.Mild cerebral atrophy. VASCULATURE: No visualized abnormalities in the arteries or dural venous sinuses. SCALP/SKULL: No calvarial fracture identified. No acute soft tissue abnormality. SINUSES: The visualized paranasal sinuses are mostly clear. No significant mastoid fluid. Cervical spine: ALIGNMENT: The cervical spine has normal alignment without scoliosis or spondylolisthesis. BONE: Sclerotic focus in C3 is probably a bone island. No other lesions are identified. DEGENERATIVE: Multilevel cervical spondylosis with evidence of bilateral neural foraminal narrowing. No high grade central spinal stenosis. SOFT TISSUE: No significant abnormalities in the soft tissue of the neck. The visualized lung apices are clear. IMPRESSION: No acute intracranial abnormality. No acute fracture or traumatic malalignment of the cervical spine. LEFT VENTRICULAR WALL MOTION: NORMAL. DOPPLER/COLOR FLOW: DIASTOLIC DYSFUNCTION. COMMENTS: 1. LOW NORMAL LEFT VENTRICULAR SYSTOLIC FUNCTION. LEFT VENTRICULAR EJECTION FRACTION 50-55%. NORMAL WALL MOTION. 2. DIASTOLIC DYSFUNCTION. 3. MODERATE AORTIC VALVE STENOSIS WITH MODERATE AORTIC REGURGITATION. 4. MILD MITRAL REGURGITATION. 5. MILD PULMONARY HYPERTENSION. RIGHT VENTRICULAR SYSTOLIC PRESSURE 40-45 mmHg. 6. NORMAL FILLING PRESSURES. Conclusions/Impression: Stage III BRYANNA may be CKD Progression to ESRD CKD IV with Proteinuria -No NSAIDs -Continue IVF -Hepatitis panel negative -Dr. Chairez to place tunneled HD CVC tomorrow -HD to be initiated tomorrow -Social service consult for placement Hyponatremia -Continue IVF Metabolic Acidosis -Continue IVF with bicarb -Start oral bicarb Diastolic CHF, chronic Moderate with Regurgitation -Daily weight -Hold diuretics at this time DM II with CKD -RISS prn Anemia in chronic illness Iron Deficiency -Monitor H&H -Retacrit qHD CKD MBD Secondary HyperParathyroidism -Continue Renvela -Continue Ergo Hospitalist note reviewed Case reviewed with Dr. Chairez
[2024-05-25] MEDS ORDERED: NA CHLORIDE 0.9% 1,000 ML IV PRN (20:47)
[2024-05-25] MEDS ORDERED: ALBUMIN HUMAN 25% 50 ML IV SCH (21:00)
[2024-05-26 05:17] LABS: Absolute Eosinophils 0.2 K/uL (0-0.5); Absolute Lymphocytes (CBC) 1.2 K/uL (0.7-4.9); Absolute Monocytes 0.8 K/uL (0.1-1.3); Absolute Neutrophil 4.9 K/uL (1.8-8.0); Basophils % 0.3 % (0-1.3); Eosinophils % 2.5 % (0-4.4); Hematocrit 24.5 % (36.0-45.0); Hemoglobin 8.6 g/dL (12.0-15.0); Lymphocytes % 16.9 % (15.3-44.8); MCH 29.9 pg (27.0-35.0); MCHC 35.1 g/dL (32.0-36.0); MCV 85.2 fL (80-100); MPV 7.3 fL (7.6-11.3); Neutrophils % 69.3 % (41.7-73.7); Nucleated Red Blood Cells % 0.1 % (0-0); Platelets 250 thou/uL (152-406); RBC Red Blood Cell Count 2.87 M/uL (3.86-4.86); Red Cell Distribution Width 14.3 % (12.1-15.2)
[2024-05-26 05:59] LABS: Albumin 3.1 g/dL (3.4-5.0); Phosphorus 7.5 mg/dL (2.5-4.9)
[2024-05-26] MEDS: NA CHLORIDE 0.9% 500 ML ONE (07:00)
[2024-05-26] MEDS: NS 0.9% VIAL 10 ML ONE (07:00)
[2024-05-26] MEDS: BUPIVACAINE 0.5% PF 10 ML VIAL ONE (07:01)
[2024-05-26] MEDS: NA CHLORIDE 0.9% 100 ML ONE (07:01)
[2024-05-26] MEDS ORDERED: ONDANSETRON 4 MG/2 ML VIAL ONE (07:07)
[2024-05-26] MEDS ORDERED: LIDOCAINE 2% MPF 5 ML VIAL ONE (07:07)
[2024-05-26] MEDS ORDERED: FENTANYL CITR 100 MCG/2 ML ONE (07:07)
[2024-05-26] MEDS ORDERED: propofoL 200 MG/20 ML VIAL IV ONE (07:07)
[2024-05-26] MEDS: CIPROFLOXACIN 400mg IV 400 MG/200 ML BAG IV ONE (07:35)
[2024-05-26] MEDS: SUCCINYLCHOLINE 20 MG/ML (10 ML) IV ONE (07:49)
[2024-05-26] MEDS ORDERED: dexAMETHasone 4 MG/ML VIAL ONE (08:10)
[2024-05-26] MEDS ORDERED: DIPHENHYDRAMINE 50 MG/ML VIAL ONE (08:10)
[2024-05-26] MEDS: HEPARIN 5000 UNIT/ML 1 ML VIAL ONE (08:13)
[2024-05-26] MEDS ORDERED: Mastisol Adhesive Liq ONE (08:14)
--- NOTE | 2024-05-26 08:30 | P.BOP ---
Preoperative diagnosis: ESRD Postoperative diagnosis: same Primary procedure: 1. Placement of cuffed hemodialysis catheter Secondary procedure: 2. Interpretation of fluoroscopy Other procedure(s): 3. Right neck ultrasound Estimated blood loss: <10cc Specimen: none Findings: viable R IJV Anesthesia: General Complications: None Transferred to: Recovery Room Condition: Good
--- NOTE | 2024-05-26 08:51 | RAD REPORT ---
Exam: Fluoroscopy less than one hour CLINICAL HISTORY: Hemodialysis catheter placement FINDINGS: Central venous catheter is been placed into the SVC. Fluoroscopy time 0.4 minutes. 7 fluoroscopic spot images obtained
[2024-05-26] MEDS: CALCITROL 0.25 MCG CAP PO SCH (08:54)
--- NOTE | 2024-05-26 09:16 | RAD REPORT ---
Procedure: Chest Single View HISTORY: Central venous catheter placement FINDINGS: Central venous catheter has been placed into the SVC. No pneumothorax. No radiographic evidence of TB
--- NOTE | 2024-05-26 10:47 | OP ---
Date of Procedure: 05/26/2024 Surgeon: Duy Chairez MD Preoperative Diagnosis: End-stage renal disease. Postoperative Diagnosis: End-stage renal disease. Procedures: 1. Placement of a cuff hemodialysis catheter in the right internal jugular vein. 2. Interpretation of fluoroscopy. 3. Right neck ultrasound. Estimated Blood Loss: Less than 10 cc. Specimen: None. Findings: Viable compressible right internal jugular vein. Anesthesia: General plus local. Complications: None. Indications: This is a case of a female, who comes to us with renal failure and needed hemodialysis. The benefits, alternatives, and risks of cuff a hemodialysis catheter placement was fully explained to her and to her daughter, which include, but not limited to infection, bleeding, damage to adjacen t structures, anesthesia complication, hemothorax, pneumothorax, pericardial tamponade, DVTs, PEs, en docarditis, UT, and even . She also understands this may not relieve any symptoms. She might n eed more than one surgical intervention. She understood and she signed a consent. She was also advi sed the importance of switching to a permanent access if the renal doctor believe this is going to be the long-term dialysis and remove this catheter as soon as possible. Description Of Procedure: The patient was brought to the operating room, placed in supine position. Anesthesia was induced without complication. Time-out was called. The right neck and chest were pr epped and draped in a sterile fashion. The patient was placed in Trendelenburg position. Ultrasound was done, found to have a viable right internal jugular vein. So, we proceeded to use that guidance and inserted an 18-gauge needle in the right internal jugular vein at the first attempt. Guidewire was passed through into the superior vena cava using fluoroscopy. After that, we made an incision in the right upper chest and tunneled the catheter neck area. Then, with the help of fluoro scopy. We put serial dilators to the catheter until we have an introducer sheath. Then, the guidewir e was removed and the catheter was placed through the introducer sheath and then the introducer sheat h was peeled off. The catheter seems to be in good back flushed. Then, the area was flus hed with heparinized solution and 3-0 chromic was used for the subcutaneous catheter in place. The patient was brought back to normal position. The patient tolerate d the procedure well. The patient was sent to recovery in stable condition. FAUZIA/SHERRIE Voice ID: [id number] Report ID: [id number]
--- NOTE | 2024-05-26 11:32 | P.PN ---
(S) Pt seen post TDC insertion, mild soreness at chest site, no acute CP or dyspnea, mild nausea post anesthesia. Remains on IVF. Daughter at bedside, case discussed in detail including indications for HD and POC Vitals, medications, blood work and imaging reviewed in the chart General: In no apparent distress, but appears chronically ill HEENT: Atraumatic, not on O2 Neck: Supple, RT IJ TDC Respiratory: Clear to auscultation bilaterally mostly, no rales Cardiovascular: No sig edema, Regular rate/rhythm Gastrointestinal: Non-distended, NT Musculoskeletal: Shins non tender Integumentary: No rashes, Neurological: Normal speech, awake, conversive, no tremors Laboratory Data (last 24 hrs) Reviewed in the EMR Conclusions/Impression: Recurrent sub-acute Stage III ARF on underlying CKD IV/low GFR state, with possible hypovolemic component on presentation but with lack of improvement post hydration and persistent metab derangements/some uremic symptoms, recommend proceeding with initiation of FACTORY SUPERVISOR -Anticipate continued dialysis dependence given low GFR state at baseline chronically -S/p TDC, initial HD today, repeat HD tmrw, see orders for details. -Hypokalemia Will dialyze with higher K bath, will order PO KCL Recurrent (hypovolemic) hyponatremia -Na level improving on isotonic IVF, will d/c, will dialyze with Na higher than serum Severe metab acidosis on presentation, 2nd to renal failure -D/c bicarb drip and tabs, will receive bicarb load with HD HTN with CKD -Labile BP, monitor closely with HD initiation
[2024-05-26] MEDS: CALCIUM ACETATE 667 MG TAB PO SCH (11:50)
[2024-05-26] MEDS: EPOETIN ALFA 10,000 UNIT/ML VIAL IV SCH (15:45)
[2024-05-26] MEDS: FUROSEMIDE 40 MG/4 ML VIAL ONE (23:19)
[2024-05-26] MEDS: FUROSEMIDE 40 MG/4 ML VIAL IV ONE (23:22)
[2024-05-26] MEDS: LEVALBUTEROL 1.25 MG/3 ML NEB ONE (23:44)
[2024-05-26] MEDS: LEVALBUTEROL 1.25 MG/3 ML NEB NEB PRN (23:55)
[2024-05-27] MEDS: ASPIRIN 325 MG TAB PO ONE (02:32)
--- NOTE | 2024-05-27 02:50 | P.PN ---
Date of Service: 05/27/24 Called by nursing staff for acute respiratory failure, given IV Lasix x 1. Placed on nonrebreather. lactic acid elevated. stat chest x-ray results pending. Stat troponin elevated. Bladder scan revealed 300 mL. Will straight cath. Sent to the ICU for further evaluation. Heart rate improving and oxygenation improved
[2024-05-27 03:46] LABS: Absolute Lymphocytes (CBC) 0.2 K/uL (0.7-4.9); Absolute Monocytes 0.8 K/uL (0.1-1.3); Absolute Neutrophil 8.9 K/uL (1.8-8.0); Basophils % 0.3 % (0-1.3); Hematocrit 26.1 % (36.0-45.0); Hemoglobin 8.4 g/dL (12.0-15.0); Lymphocytes % 1.8 % (15.3-44.8); MCH 28.8 pg (27.0-35.0); MCHC 32.1 g/dL (32.0-36.0); MCV 89.6 fL (80-100); MPV 7.9 fL (7.6-11.3); Monocytes % 8.3 % (3.3-12.3); Neutrophils % 89.6 % (41.7-73.7); Nucleated Red Blood Cells % 0.1 % (0-0); Platelets 253 thou/uL (152-406); RBC Red Blood Cell Count 2.91 M/uL (3.86-4.86)
[2024-05-27 04:12] LABS: Specific Gravity 1.009 (1.005-1.030); Sqamous Epithelial <5 /HPF (None Seen); Urine Bacteria <20 /HPF (<20); Urine Bilirubin NEGATIVE (Negative); Urine Blood 1+ (Negative); Urine Clarity Turbid (Clear); Urine Color Colorless (Yellow); Urine Culture Reflex Order NOT NEEDED; Urine Glucose 3+ (Negative); Urine Ketones 1+ (Negative); Urine Microscopic Reflex YN ORDER UMIC; Urine Nitrite NEGATIVE (Negative); Urine Protein 1+ (Negative); Urine RBC <5 /HPF (None Seen); Urine Urobilinogen Normal (Normal); Urine WBC <5 /HPF (<5); Urine pH 5.5 (5.0-7.0)
[2024-05-27 04:14] LABS: Albumin 2.9 g/dL (3.4-5.0); Albumin/Globulin Ratio 0.9 (1.1-1.8); Anion Gap 28.7 mEq/L (5.0-15.0); Bilirubin Total 0.6 mg/dL (0.2-1.0); Globulin 3.4 g/dL (2.3-3.5); Potassium 3.7 mEq/L (3.5-5.1); Protein, Total 6.3 g/dL (6.4-8.2)
--- NOTE | 2024-05-27 04:39 | RAD REPORT ---
EXAM: XR Chest, 2 Views CLINICAL HISTORY: The patient is 78 years old and is Female; sob TECHNIQUE: Frontal and lateral views of the chest. COMPARISON: No relevant prior studies available. FINDINGS: Lungs: Prominent interstitial markings suggestive of interstitial edema. Peribronchial thickening. Pleural space: Blunting of the left costophrenic angle which may indicate left pleural effusion. No pneumothorax. Heart: Unremarkable. Mediastinum: Unremarkable. Normal mediastinal contour. Bones/joints: No acute findings. Tubes, lines and devices: Right central venous catheter with tip at the cavoatrial junction. IMPRESSION: 1. Prominent interstitial markings suggestive of interstitial edema. 2. Peribronchial thickening. 3. Blunting of the left costophrenic angle which may indicate left pleural effusion. Electronically signed by: Charles Jones MD 05/27/2024 04:14 AM [facility] 8 Due to temporary technical issues with the PACS/[employer] reporting system, reports are being isiah d by the in-house radiologist without review as a courtesy to ensure prompt reporting the interpreting radiologist is fully responsible for the content of the report. Transcribed Date/Time: 05/27/2024 4:39 AM
[2024-05-27 05:29] VITALS: BMI 25.9
[2024-05-27] MEDS: POTASSIUM CL SA 10 MEQ TAB PO ONE (07:59)
[2024-05-27] MEDS: FUROSEMIDE 40 MG/4 ML VIAL IV ONE (07:59)
[2024-05-27] MEDS ORDERED: GLUCAGON 1 MG/VIAL IM PRN (08:07)
[2024-05-27] MEDS ORDERED: D10W 125 ML IV PRN (08:07)
[2024-05-27] MEDS: INSULIN REGULAR (HUMAN) 100 UNIT/ML SQ SCH (08:40)
[2024-05-27] MEDS ORDERED: INSULIN REGULAR (HUMAN) 100 UNIT/ML SQ SCH (11:30)
[2024-05-27] MEDS: MANNITOL 25% 12.5 GM/50 ML VIAL IV PRN (12:00)
[2024-05-27 13:44] LABS: D-Dimer 0.632 FEUug/mL (0-0.500); PTT, Activated Partial Thromb 27.1 SECONDS (27.2-37.4)
[2024-05-27] MEDS: HEPARIN/D5W 25,000 UNIT/500 ML BAG IV SCH (14:11)
[2024-05-27 15:32] LABS: Absolute Lymphocytes (CBC) 0.5 K/uL (0.7-4.9); Absolute Monocytes 0.7 K/uL (0.1-1.3); Absolute Neutrophil 14.5 K/uL (1.8-8.0); Basophils % 0.2 % (0-1.3); Hematocrit 26.1 % (36.0-45.0); Hemoglobin 8.8 g/dL (12.0-15.0); Lymphocytes % 3.5 % (15.3-44.8); MCH 28.9 pg (27.0-35.0); MCHC 33.5 g/dL (32.0-36.0); MCV 86.2 fL (80-100); MPV 7.7 fL (7.6-11.3); Monocytes % 4.7 % (3.3-12.3); Neutrophils % 91.6 % (41.7-73.7); Nucleated Red Blood Cells % 0.1 % (0-0); Platelets 251 thou/uL (152-406); RBC Red Blood Cell Count 3.03 M/uL (3.86-4.86); Red Cell Distribution Width 14.8 % (12.1-15.2)
[2024-05-27 16:31] LABS: ALT/SGPT 20 U/L (13-56); AST/SGOT 89 U/L (15-37); Albumin 2.7 g/dL (3.4-5.0); Albumin/Globulin Ratio 0.9 (1.1-1.8); Alkaline Phosphatase 75 U/L (45-117); Anion Gap 19.2 mEq/L (5.0-15.0); BUN Blood Urea Nitrogen 26 mg/dL (7-18); Bicarbonate 20 mEq/L (21-32); Bilirubin Total 0.6 mg/dL (0.2-1.0); Globulin 3.1 g/dL (2.3-3.5); Glomerular Filtration Rate 14 ml/min (=/>90); Glucose Level 122 mg/dL (74-106); Magnesium 1.9 mg/dL (1.6-2.4); Potassium 4.2 mEq/L (3.5-5.1); Protein, Total 5.8 g/dL (6.4-8.2); Sodium Level 135 mEq/L (136-145)
[2024-05-27 16:39] LABS: NT PRO-BNP > 175000 pg/mL (<450)
[2024-05-27 16:50] LABS: Blood Morphology Comment NOT SEEN (NOT SEEN); Platelet Estimate ADEQ; White Blood Cell Scan OK (OK)
[2024-05-27] MEDS: FUROSEMIDE 40 MG/4 ML VIAL IV SCH (16:59)
[2024-05-27 22:09] VITALS: O2SAT 95
[2024-05-27 22:46] VITALS: BP 130/75; TEMP 98.1
--- NOTE | 2024-05-30 11:10 | EKG ---
Test Date: 2024-05-27 Test Time: 17:30:36 Human Resources Manager: NATIVIDAD MEASUREMENT RESULTS: Intervals: Rate: 98 HI: 170 QRSD: 88 QT: 386 QTc: 492 [place]: P: 87 HI: 170 QRS: 70 T: 125 INTERPRETIVE STATEMENTS: Normal sinus rhythm Nonspecific ST and T wave abnormality Prolonged QT Abnormal ECG Compared to ECG 05/27/2024 00:08:50 Prolonged QT interval now present Accelerated junctional rhythm no longer present ST (T wave) deviation still present Electronically Signed On 05-30-24 11:02:25 CDT by Jamie Ford
--- NOTE | 2024-05-30 11:13 | EKG ---
Test Date: 2024-05-27 Test Time: 00:08:17 Coagulating Bath Mixer: NORM MEASUREMENT RESULTS: Intervals: Rate: 118 AL: QRSD: 106 QT: 352 QTc: 493 [place]: P: AL: QRS: 37 T: 185 INTERPRETIVE STATEMENTS: Accelerated Junctional rhythm Marked ST abnormality, possible inferolateral subendocardial injury Abnormal ECG Compared to ECG 05/23/2024 15:27:38 Accelerated junctional rhythm now present ST (T wave) deviation now present Sinus bradycardia no longer present Left bundle-branch block no longer present Electronically Signed On 05-30-24 11:03:30 CDT by Jamie Ford
--- NOTE | 2024-05-30 11:13 | EKG ---
Test Date: 2024-05-27 Test Time: 00:08:50 Chair Lift Operator: NORM MEASUREMENT RESULTS: Intervals: Rate: 118 DC: QRSD: 104 QT: 340 QTc: 476 [place]: P: DC: QRS: 39 T: 199 INTERPRETIVE STATEMENTS: Accelerated Junctional rhythm Marked ST abnormality, possible inferolateral subendocardial injury Abnormal ECG Compared to ECG 05/27/2024 00:08:17 No significant changes Electronically Signed On 05-30-24 11:03:29 CDT by Jamie Ford
--- NOTE | 2024-06-03 02:35 | P.PN ---
Date of Service: 05/25/24 Subjective Patient denies any new complaints. Patient clinical symptoms are improving. Patient is getting set up for outpatient hemodialysis. Physical Examination - Physical Exam Vitals: Reviewed General: Alert, In no apparent distress, Oriented x3 HEENT: Atraumatic, PERRLA, Mucous membr. moist/pink, EOMI, Sclerae nonicteric Neck: Supple, 2+ carotid pulse no bruit, No LAD, Without JVD or thyroid abnormality Respiratory: Clear to auscultation bilaterally, Normal air movement Cardiovascular: Regular rate/rhythm, Normal S1 S2, Systolic murmur Gastrointestinal: Normal bowel sounds, Soft and benign, Non-distended, No tenderness Neurological: Patient awake and responding. 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 Patient with CKD stage V with progression to ESRD with metabolic acidosis/renal tubular acidosis; continue with IV fluids and bicarbonate drip. Monitor labs closely. Will get ABG to get baseline degree of acidemia. Will consult nephrology as well as general surgery. Will check phosphorus level as well as additional labs to monitor renal function. Patient may need a renal ultrasound to further evaluate as she has had a history of hydronephrosis from nephrolithiasis. Patient also with anemia of chronic kidney disease and may benefit from erythropoietin subcutaneously. This will be left at the discretion of nephrology. At this time, patient will be admitted to the hospital for further evaluation. 2. History of aortic stenosis; this is moderate; patient labs will be monitored closely 3. Metabolic syndrome; strict blood pressure and blood sugar control; may benefit from thyroid. Will check thyroid studies and lipid profile. 4. GI and DVT prophylaxis Discharge Plan: Home Plan to discharge in: Greater than 2 days - Advance Directives Does patient have a Living Will: No Does patient have a Durable POA for Healthcare: No - Code Status/Comfort Care Code Status Assessed: Yes Code Status: Full Code Critical Care: Yes Time Spent Managing PTS Care (In Minutes): 55
--- NOTE | 2024-06-03 02:36 | P.PN ---
Date of Service: 05/26/24 Subjective Patient is clinically doing well. Troponins are elevated. Will transfer to tertiary care facility. Physical Examination - Physical Exam Vitals: Reviewed General: Alert, In no apparent distress, Oriented x3 HEENT: Atraumatic, PERRLA, Mucous membr. moist/pink, EOMI, Sclerae nonicteric Neck: Supple, 2+ carotid pulse no bruit, No LAD, Without JVD or thyroid abnormality Respiratory: Clear to auscultation bilaterally, Normal air movement Cardiovascular: Regular rate/rhythm, Normal S1 S2, Systolic murmur Gastrointestinal: Normal bowel sounds, Soft and benign, Non-distended, No tenderness Neurological: Patient awake and responding. 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 Patient with CKD stage V with progression to ESRD with metabolic acidosis/renal tubular acidosis; continue with IV fluids and bicarbonate drip. Monitor labs closely. Will get ABG to get baseline degree of acidemia. Will consult nephrology as well as general surgery. Will check phosphorus level as well as additional labs to monitor renal function. Patient may need a renal ultrasound to further evaluate as she has had a history of hydronephrosis from nephrolithiasis. Patient also with anemia of chronic kidney disease and may benefit from erythropoietin subcutaneously. This will be left at the discretion of nephrology. At this time, patient will be admitted to the hospital for further evaluation. 2. History of aortic stenosis; this is moderate; patient labs will be monitored closely 3. Metabolic syndrome; strict blood pressure and blood sugar control; may benefit from thyroid. Will check thyroid studies and lipid profile. 4. Acute coronary syndrome; transferred to tertiary care facility 5. GI and DVT prophylaxis Discharge Plan: Home Plan to discharge in: Greater than 2 days - Advance Directives Does patient have a Living Will: No Does patient have a Durable POA for Healthcare: No - Code Status/Comfort Care Code Status Assessed: Yes Code Status: Full Code Critical Care: Yes Time Spent Managing PTS Care (In Minutes): 55
--- NOTE | 2024-06-03 02:38 | P.DS ---
Discharge Date: 05/27/24 Disposition: TRANSFER TO [facility] Discharge Condition: GOOD Reason for Admission: BRYANNA/ CKD - Problems (1) BRYANNA (acute kidney injury) Status: Acute (2) Hyponatremia Status: Acute (3) Metabolic acidosis Status: Acute (4) Hyperlipidemia Status: Chronic Qualifiers: (5) Hypertension Status: Chronic Qualifiers: (6) Type 2 diabetes mellitus Status: Chronic Qualifiers: (7) Anemia of chronic disease Status: Acute Brief History of Present Illness: Patient is a 78-year-old female who came to the hospital with acute on chronic kidney disease. Patient also with severe metabolic acidosis on his lab workup. Patient's daughter was with her this morning when she started having nausea and vomiting after breakfast. She got concerned because her mom had not been eating well. She is has stage V kidney disease and she has had a GFR of approximately an 11. They have never been told of possibly starting dialysis. Currently she is severely acidotic and will admit her to the hospital and started on IV fluids. Will check her ketones and will check her lactic acid level. Most likely related to her kidney dysfunction. Will consult nephrology and she may need general surgery consultation for hemodialysis access. At this time patient will be hydrated and will start a bicarb drip. Patient will be admitted to the medical floor for further evaluation. Patient also has a history of hypertension and diabetes which have been well- controlled according to the family. She recently had a younger brother who which is left her very depressed. She apparently took his very hard. She is also very hard of hearing especially when she does not have her hearing aids. She relies on her daughter's to communicate with her. Otherwise, she the daughter states she is with it and does not really have a lot of neurologic issues. Hospital Course: Patient's clinical symptoms did not improve dramatically. Patient's renal function is stable. However, patient developed elevated troponin levels. They were significantly elevated. Will go ahead and transfer patient to a tertiary care facility. Vital Signs/Physical Exam: Temp Pulse Resp BP Pulse Ox 98.1 F 103 H 19 130/75 94 05/27/24 22:00 05/27/24 22:00 05/27/24 22:00 05/27/24 22:00 05/27/24 22:00 General: Alert, In no apparent distress, Oriented x3 Laboratory Data at Discharge: WBC 15.80 thou/uL (4.3-10.9) H 05/27/24 15:00 Hgb 8.8 g/dL (12.0-15.0) L 05/27/24 15:00 Hct 26.1 % (36.0-45.0) L 05/27/24 15:00 Plt Count 251 thou/uL (152-406) 05/27/24 15:00 PT 11.1 SECONDS (10.0-13.0) 05/24/24 05:37 INR 0.97 05/24/24 05:37 APTT 58.3 SECONDS (27.2-37.4) H 05/27/24 18:20 Sodium 135 mEq/L (136-145) L 05/27/24 15:00 Potassium 4.2 mEq/L (3.5-5.1) D 05/27/24 15:00 BUN 26 mg/dL (7-18) H 05/27/24 15:00 Creatinine 3.32 mg/dL (0.55-1.02) H 05/27/24 15:00 Glucose 122 mg/dL (74-106) H 05/27/24 15:00 Uric Acid 7.0 mg/dL (2.6-6.0) H 05/25/24 04:31 Phosphorus Cancelled 05/27/24 05:00 Magnesium 1.9 mg/dL (1.6-2.4) 05/27/24 15:00 Total Bilirubin 0.6 mg/dL (0.2-1.0) 05/27/24 15:00 AST 89 U/L (15-37) H 05/27/24 15:00 ALT 20 U/L (13-56) 05/27/24 15:00 Alkaline Phosphatase 75 U/L (45-117) 05/27/24 15:00 Triglycerides 157 mg/dL (<150) H 05/24/24 04:27 Cholesterol 80 mg/dL (<200) 05/24/24 04:27 HDL Cholesterol 29 mg/dL (40-60) L 05/24/24 04:27 Cholesterol/HDL Ratio 2.76 05/24/24 04:27 Home Medications: Amlodipine [Norvasc*] 10 mg PO DAILY 05/14/22 Levothyroxine Sodium 100 mcg PO DAILY 05/14/22 Omeprazole 20 mg PO DIRECTED 05/14/22 Pravastatin Sodium 80 mg PO BEDTIME 05/14/22 Venlafaxine HCl [Effexor Xr] 75 mg PO BEDTIME 05/14/22 oxyBUTYnin chloride [Oxybutynin Chloride] 5 mg PO DAILY 05/14/22 Cholecalciferol (Vitamin D3) [Vitamin D3] 125 mcg PO DAILY 12/20/23 Dapagliflozin Propanediol [Farxiga] 5 mg PO DAILY 12/20/23 Ferrous Gluconate [Iron] 65 mg PO DAILY 12/20/23 Magnesium Chloride [Slow-Mag*] 128 mg PO BID #10 tab 12/24/23 Metoprolol Tartrate [Lopressor*] 50 mg PO BID #60 tab 12/25/23 Furosemide [Lasix] 40 mg PO DAILY #37 tab 04/13/24 Metformin ER [Glucophage ER] 500 mg PO DAILY 05/23/24 Physician Discharge Instructions: Transfer to a tertiary care facility Diet: ADA Activity: Ad lorna Followup: Kelton Maurer DO [Primary Care Provider] - Time spent managing pt's care (in minutes): 35
== END 2024-05-27 22:25 | disposition short-term general hospital (02) | DRG 682 ==
LOC: ER 13:25 → ERHOLD 17:08 → 4TH 21:57 → 3RD-ICU 05-27 02:00
PROVIDERS: ADMIT Hospitalist; ATTEND Hospitalist
PROC: 5A1D70Z Performance of Urinary Filtration, Intermittent, Less than 6 Hours Per Day (ICD-10-PCS; 2024-05-26)
PROC: 02HV33Z Insertion of Infusion Device into Superior Vena Cava, Percutaneous Approach (ICD-10-PCS; principal; 2024-05-26 07:30)
DX: N17.0 Acute kidney failure with tubular necrosis (principal); J96.00 Acute respiratory failure, unspecified whether with hypoxia or hypercapnia; E87.1 Hypo-osmolality and hyponatremia; E87.20 Acidosis, unspecified; I50.32 Chronic diastolic (congestive) heart failure; I13.2 Hypertensive heart and chronic kidney disease with heart failure and with stage 5 chronic kidney disease, or end stage renal disease; N18.6 End stage renal disease; E11.22 Type 2 diabetes mellitus with diabetic chronic kidney disease; D63.1 Anemia in chronic kidney disease; D50.9 Iron deficiency anemia, unspecified; E78.5 Hyperlipidemia, unspecified; F32.A Depression, unspecified; N25.81 Secondary hyperparathyroidism of renal origin; E87.6 Hypokalemia; E88.810 Metabolic syndrome; H91.90 Unspecified hearing loss, unspecified ear; K21.9 Gastro-esophageal reflux disease without esophagitis; S00.83XA Contusion of other part of head, initial encounter; S09.90XA Unspecified injury of head, initial encounter; Z88.0 Allergy status to penicillin; Z79.84 Long term (current) use of oral hypoglycemic drugs; Z90.49 Acquired absence of other specified parts of digestive tract; Z79.890 Hormone replacement therapy; Z87.891 Personal history of nicotine dependence; Z79.899 Other long term (current) drug therapy; Z97.4 Presence of external hearing-aid; Z63.4 Disappearance and death of family member
CPT/HCPCS: 36415; 70450; 71045; 71046; 72125; 76000; 76770; 80048; 80053; 80061; 80069; 81001; 82550; 82947; 83605; 83735; 83880; 84100; 84145; 84484; 84550; 85025; 85379; 85610; 85730; 86704; 86706; 86803; 87340; 90935; 93005; 94640; 96374; 99285; A4216; C1752; J0744; J1100; J1200; J1644; J1815; J1940; J2003; J2150; J2405; J2704; J3010; J7040; J7614; Q4081; Q5106